=== PATIENT | female | born 1955 | race Caucasian/White ===

== ENCOUNTER 2018-06-11 11:26 | Inpatient (IN) ==
--- NOTE | 2018-06-11 12:52 | XR ---
EXAM DATE: 06/11/2018 12:49 PM EDT AGE/SEX: 63 years / Female INDICATIONS: Pain and soft tissue swelling from hitting foot against door. CLINICAL DATA: This is the patient's initial encounter. Patient reports that signs and symptoms have been present for 4 - 6 days and indicates a pain score of 10/10. MEDICAL/SURGICAL HISTORY: None. None. COMPARISON: No prior exams available for comparison. FINDINGS: Bony structures are intact and in normal alignment. Osseous density is normal. Soft tissues are unre markable. No radiopaque foreign bodies seen. CONCLUSION: Negative examination Electronically signed by: Lucero Landaverde MD 06/11/2018 12:50 PM EDT
[2018-06-11 13:13] LABS: Baso # (Auto) 0.1 th/mm3 (0.0-0.2); Baso % (Auto) 0.5 % (0.0-2.0); Eos # (Auto) 0.2 th/mm3 (0.0-0.4); Hematocrit 30.7 % (35.0-46.0); Lymph # (Auto) 1.8 th/mm3 (1.0-4.8); Lymph % (Auto) 11.3 % (9.0-44.0); Mean Corpuscular HGB Conc 32.5 % (32.0-36.0); Mean Corpuscular Hemoglobin 27.7 pg (27.0-34.0); Mean Corpuscular Volume 85.2 fL (80.0-100.0); Mono # (Auto) 0.8 th/mm3 (0.0-0.9); Mono % (Auto) 5.2 % (0.0-8.0); Platelet Count 340 th/mm3 (150-450); Red Blood Count 3.61 mil/mm3 (4.00-5.30); Red Cell Distribution Width 14.5 % (11.6-17.2); White Blood Count 15.9 th/mm3 (4.0-11.0)
--- NOTE | 2018-06-11 13:29 | ED ---
HPI General Chief Complaint: Extremity Injury, Lower Stated Complaint: Left foot complaint Time Seen by Provider: 06/11/18 12:38 Source: patient Mode of arrival: ambulatory Limitations: no limitations History of Present Illness HPI Narrative: 63-year-old female with a history of diabetes, hypertension, COPD , CKD, fibromyalgia here with left foot pain 1 week. Currently on antibiotics for cellulitis of the foot. She reports she injured the foot approximately 1 month ago after she contused the foot on a door. She was treated for cellulitis 06/03/18. She reports increasing pain and redness for the last week. Today she had an area of purulent drainage to the dorsum of the foot prompting her visit. She reports chills, but no documented fever. Severity is moderate. Related Data Home Medications Medication Instructions Recorded Confirmed aspirin 81 mg PO DAILY 06/03/18 06/03/18 buspirone 10 mg PO TID 06/03/18 06/03/18 calcium acetate 667 mg PO TID 06/03/18 06/03/18 cholecalciferol (vitamin D3) 5,000 unit PO DAILY 06/03/18 06/03/18 [Vitamin D3] duloxetine [Cymbalta] 60 mg PO DAILY 06/03/18 06/03/18 gabapentin 300 mg PO BID 06/03/18 06/03/18 gabapentin 600 mg PO HS 06/03/18 06/03/18 levothyroxine 175 mcg PO DAILY 06/03/18 06/11/18 lisinopril 2.5 mg PO DAILY 06/03/18 06/11/18 melatonin 3 mg PO HS 06/03/18 06/11/18 meloxicam [Mobic] 15 mg PO DAILY 06/03/18 06/11/18 omeprazole 40 mg PO DAILY 06/03/18 06/11/18 oxybutynin chloride 10 mg PO BID 06/03/18 06/11/18 simvastatin 20 mg PO QPM 06/03/18 06/11/18 aspirin [Aspir-81] 81 mg PO DAILY 06/11/18 06/11/18 buspirone 10 mg PO TID 06/11/18 06/11/18 duloxetine 60 mg PO DAILY 06/11/18 06/11/18 gabapentin 1 tab PO TID 06/11/18 06/11/18 insulin glargine [Lantus U-100 30 unit SUB-Q BID 06/11/18 06/11/18 Insulin] insulin lispro [Humalog U-100 06/11/18 Insulin] Previous Rx's Medication Instructions Recorded oxycodone-acetaminophen 1 tab PO Q6H PRN #28 tab 06/17/18 Allergies Allergy/AdvReac Type Severity Reaction Status Date / Time penicillin G Allergy Severe Hives Verified 06/11/18 12:19 Sulfa (Sulfonamide Allergy Hives Verified 06/11/18 12:19 Antibiotics) Review of Systems ROS: all other systems reviewed are negative [facility] Medical History Medical History CHF (congestive heart failure) (Acute) COPD (chronic obstructive pulmonary disease) (Acute) Depression (Acute) Diabetes (Acute) FH: cholecystectomy (Acute) Fibromyalgia (Acute) Hypercholesteremia (Acute) Hypertension (Acute) Hypothyroid (Acute) Surgical History Surgical History History of (Acute) History of appendectomy (Acute) History of hip replacement (Acute) Family History Family History Mother Kidney disease Father Liver disease Social History Social History Substance History: No History of Abuse Second Hand Smoke Exposure: No Smoking Status: Never smoker How Often Do You Have a Drink Containing Alcohol: Never Recent Travel in [facility] within the Last 8 Weeks: No Recent Out of Country Travel within the Last 8 Weeks: No Immunization History Tetanus Immunization: Unsure Exam Narrative Exam Narrative: GENERAL: Well-nourished, well-developed patient. SKIN: Focused skin assessment warm/dry. HEAD: Normocephalic. EYES: No injection or drainage. NECK: Supple CARDIOVASCULAR: Regular rate and rhythm without murmurs, gallops, or rubs. RESPIRATORY: Breath sounds equal bilaterally. No accessory muscle use. GASTROINTESTINAL: Abdomen soft, non-tender, nondistended. MUSCULOSKELETAL: No cyanosis. LLE: Notable edema, warmth, erythema to the entire dorsum of the foot extending to the ankle. Fluid-filled blister with purulent drainage noted to the base of the third and fourth toe. paplable DP pulse. Cap refill intact. sensation intact. BACK: No CVA tenderness. Course Initial Documented Vital Signs Temperature 99.3 F 06/11/18 11:34 Pulse Rate 100 H 06/11/18 11:34 Respiratory Rate 24 06/11/18 11:34 Blood Pressure 136/82 06/11/18 11:34 Pulse Oximetry 90 L 06/11/18 11:34 Last Documented Vital Signs Temperature 97.2 F L 06/17/18 16:00 Pulse Rate 70 06/17/18 16:00 Respiratory Rate 19 06/17/18 16:00 Blood Pressure 159/68 H 06/17/18 16:00 Pulse Oximetry 98 06/17/18 16:00 Medical Decision Making PABLO Attestation PABLO supervised visit: Yes Attestation: I, Dr. Jim, have reviewed the advance practice practitioner's documentation and am in agreement, met with the patient face to face, made the diagnosis, and the medical decision making was done by me. *My assessment and Findings: cellulitis vs. osteomyelitis vs. abscess 63yo F with erythema and edema in left foot extending to distal tib/fib for a week. Pt has purulent drainage from blister on dorsum of foot. Labs reviewed, leukocytosis at 15.9. H/H low at 10/30.7 but this is at baseline. potassium at high normal of 5.4. Lactic acid normal at 1.3. Xray left foot negative. Pt failed outpatient treatment and has multiple comorbidities including diabetes as well as purulent discharge from foot, so will admit for IV antibiotics and podiatry evaluation. Accepted to Dr. Nick's service. [facility] Narrative Medical decision making narrative: 63 year old female with extensive cellulitis to the left foot. She has failed outpatient treatment. Spoke with Dr. Nick [facility] who agrees to admit patient to their service. Medical Screen Exam Complete: Yes Emergency Medical Condition: Yes Differential Diagnosis Differential Diagnosis: cellulitis, abscess, osteomyelitis Lab Data Result diagrams: 06/14/18 06:04 06/17/18 06:40 Lab Results 06/11/18 06/11/18 06/11/18 Range/Units 13:00 13:00 13:00 WBC 15.9 H (4.0-11.0) th/mm3 RBC 3.61 L (4.00-5.30) mil/mm3 Hgb 10.0 L (11.6-15.3) gm/dL Hct 30.7 L (35.0-46.0) % MCV 85.2 (80.0-100.0) fL MCH 27.7 (27.0-34.0) pg MCHC 32.5 (32.0-36.0) % RDW 14.5 (11.6-17.2) % Plt Count 340 (150-450) th/mm3 MPV 8.0 (7.0-11.0) fL Prelim Diff (Auto) Slide review pending Neut % (Auto) 82.0 H (16.0-70.0) % Lymph % (Auto) 11.3 (9.0-44.0) % [place] % (Auto) 5.2 (0.0-8.0) % Eos % (Auto) 1.0 (0.0-4.0) % Baso % (Auto) 0.5 (0.0-2.0) % Neut # (Auto) 13.0 H (1.8-7.7) th/mm3 Lymph # (Auto) 1.8 (1.0-4.8) th/mm3 [place] # (Auto) 0.8 (0.0-0.9) th/mm3 Eos # (Auto) 0.2 (0.0-0.4) th/mm3 Baso # (Auto) 0.1 (0.0-0.2) th/mm3 WBC Differential . Diff Scan Auto diff confirmed Differential Comment . Sodium 137 (136-145) meq/L Potassium 5.4 H (3.5-5.1) meq/L Chloride 96 L (98-107) meq/L Carbon Dioxide 35.9 H (21.0-32.0) meq/L Anion Gap 5 (5-15) meq/L BUN 19 H (7-18) mg/dL Creatinine 1.22 H (0.50-1.00) mg/dL Estimated GFR 45 L (>89) mL/min POC Glucose (68-110) mg/dl Random Glucose 177 H (74-106) mg/dL Lactic Acid 1.3 (0.4-2.0) mmol/L Calcium 9.2 (8.5-10.1) mg/dL Total Bilirubin (0.2-1.0) mg/dL AST (15-37) U/L ALT (10-53) U/L Alkaline Phosphatase (45-117) U/L Troponin I (0.02-0.05) ng/mL Total Protein (6.4-8.2) g/dL Albumin (3.4-5.0) g/dL Vancomycin Trough (5.0-10.0) mcg/mL Random Vancomycin Comment 06/11/18 06/12/18 06/12/18 Range/Units 21:28 06:36 06:36 WBC 11.3 H (4.0-11.0) th/mm3 RBC 3.67 L (4.00-5.30) mil/mm3 Hgb 10.1 L (11.6-15.3) gm/dL Hct 30.7 L (35.0-46.0) % MCV 83.8 (80.0-100.0) fL MCH 27.6 (27.0-34.0) pg MCHC 33.0 (32.0-36.0) % RDW 14.4 (11.6-17.2) % Plt Count 283 (150-450) th/mm3 MPV 7.8 (7.0-11.0) fL Prelim Diff (Auto) Neut % (Auto) 82.5 H (16.0-70.0) % Lymph % (Auto) 10.6 (9.0-44.0) % [place] % (Auto) 5.3 (0.0-8.0) % Eos % (Auto) 1.1 (0.0-4.0) % Baso % (Auto) 0.5 (0.0-2.0) % Neut # (Auto) 9.3 H (1.8-7.7) th/mm3 Lymph # (Auto) 1.2 (1.0-4.8) th/mm3 [place] # (Auto) 0.6 (0.0-0.9) th/mm3 Eos # (Auto) 0.1 (0.0-0.4) th/mm3 Baso # (Auto) 0.1 (0.0-0.2) th/mm3 WBC Differential . Diff Scan Differential Comment Auto diff final Sodium 136 (136-145) meq/L Potassium 4.3 D (3.5-5.1) meq/L Chloride 95 L (98-107) meq/L Carbon Dioxide 35.7 H (21.0-32.0) meq/L Anion Gap 5 (5-15) meq/L BUN 21 H (7-18) mg/dL Creatinine 1.24 H (0.50-1.00) mg/dL Estimated GFR 44 L (>89) mL/min POC Glucose 335 H (68-110) mg/dl Random Glucose 121 H (74-106) mg/dL Lactic Acid (0.4-2.0) mmol/L Calcium 9.0 (8.5-10.1) mg/dL Total Bilirubin 0.4 (0.2-1.0) mg/dL AST 12 L (15-37) U/L ALT 12 (10-53) U/L Alkaline Phosphatase 77 (45-117) U/L Troponin I (0.02-0.05) ng/mL Total Protein 7.9 (6.4-8.2) g/dL Albumin 2.8 L (3.4-5.0) g/dL Vancomycin Trough (5.0-10.0) mcg/mL Random Vancomycin Comment 06/12/18 06/12/18 06/12/18 Range/Units 07:54 12:07 14:37 WBC (4.0-11.0) th/mm3 RBC (4.00-5.30) mil/mm3 Hgb (11.6-15.3) gm/dL Hct (35.0-46.0) % MCV (80.0-100.0) fL MCH (27.0-34.0) pg MCHC (32.0-36.0) % RDW (11.6-17.2) % Plt Count (150-450) th/mm3 MPV (7.0-11.0) fL Prelim Diff (Auto) Neut % (Auto) (16.0-70.0) % Lymph % (Auto) (9.0-44.0) % [place] % (Auto) (0.0-8.0) % Eos % (Auto) (0.0-4.0) % Baso % (Auto) (0.0-2.0) % Neut # (Auto) (1.8-7.7) th/mm3 Lymph # (Auto) (1.0-4.8) th/mm3 [place] # (Auto) (0.0-0.9) th/mm3 Eos # (Auto) (0.0-0.4) th/mm3 Baso # (Auto) (0.0-0.2) th/mm3 WBC Differential Diff Scan Differential Comment Sodium (136-145) meq/L Potassium (3.5-5.1) meq/L Chloride (98-107) meq/L Carbon Dioxide (21.0-32.0) meq/L Anion Gap (5-15) meq/L BUN (7-18) mg/dL Creatinine (0.50-1.00) mg/dL Estimated GFR (>89) mL/min POC Glucose 113 H 104 (68-110) mg/dl Random Glucose (74-106) mg/dL Lactic Acid (0.4-2.0) mmol/L Calcium (8.5-10.1) mg/dL Total Bilirubin (0.2-1.0) mg/dL AST (15-37) U/L ALT (10-53) U/L Alkaline Phosphatase (45-117) U/L Troponin I (0.02-0.05) ng/mL Total Protein (6.4-8.2) g/dL Albumin (3.4-5.0) g/dL Vancomycin Trough (5.0-10.0) mcg/mL Random Vancomycin 14.9 Comment 06/12/18 06/12/18 06/13/18 Range/Units 18:06 20:58 07:31 WBC (4.0-11.0) th/mm3 RBC (4.00-5.30) mil/mm3 Hgb (11.6-15.3) gm/dL Hct (35.0-46.0) % MCV (80.0-100.0) fL MCH (27.0-34.0) pg MCHC (32.0-36.0) % RDW (11.6-17.2) % Plt Count (150-450) th/mm3 MPV (7.0-11.0) fL Prelim Diff (Auto) Neut % (Auto) (16.0-70.0) % Lymph % (Auto) (9.0-44.0) % [place] % (Auto) (0.0-8.0) % Eos % (Auto) (0.0-4.0) % Baso % (Auto) (0.0-2.0) % Neut # (Auto) (1.8-7.7) th/mm3 Lymph # (Auto) (1.0-4.8) th/mm3 [place] # (Auto) (0.0-0.9) th/mm3 Eos # (Auto) (0.0-0.4) th/mm3 Baso # (Auto) (0.0-0.2) th/mm3 WBC Differential Diff Scan Differential Comment Sodium (136-145) meq/L Potassium (3.5-5.1) meq/L Chloride (98-107) meq/L Carbon Dioxide (21.0-32.0) meq/L Anion Gap (5-15) meq/L BUN (7-18) mg/dL Creatinine (0.50-1.00) mg/dL Estimated GFR (>89) mL/min POC Glucose 105 237 H 59 L (68-110) mg/dl Random Glucose (74-106) mg/dL Lactic Acid (0.4-2.0) mmol/L Calcium (8.5-10.1) mg/dL Total Bilirubin (0.2-1.0) mg/dL AST (15-37) U/L ALT (10-53) U/L Alkaline Phosphatase (45-117) U/L Troponin I (0.02-0.05) ng/mL Total Protein (6.4-8.2) g/dL Albumin (3.4-5.0) g/dL Vancomycin Trough (5.0-10.0) mcg/mL Random Vancomycin Comment 06/13/18 06/13/18 06/13/18 Range/Units 07:33 07:55 08:00 WBC (4.0-11.0) th/mm3 RBC (4.00-5.30) mil/mm3 Hgb (11.6-15.3) gm/dL Hct (35.0-46.0) % MCV (80.0-100.0) fL MCH (27.0-34.0) pg MCHC (32.0-36.0) % RDW (11.6-17.2) % Plt Count (150-450) th/mm3 MPV (7.0-11.0) fL Prelim Diff (Auto) Neut % (Auto) (16.0-70.0) % Lymph % (Auto) (9.0-44.0) % [place] % (Auto) (0.0-8.0) % Eos % (Auto) (0.0-4.0) % Baso % (Auto) (0.0-2.0) % Neut # (Auto) (1.8-7.7) th/mm3 Lymph # (Auto) (1.0-4.8) th/mm3 [place] # (Auto) (0.0-0.9) th/mm3 Eos # (Auto) (0.0-0.4) th/mm3 Baso # (Auto) (0.0-0.2) th/mm3 WBC Differential Diff Scan Differential Comment Sodium (136-145) meq/L Potassium (3.5-5.1) meq/L Chloride (98-107) meq/L Carbon Dioxide (21.0-32.0) meq/L Anion Gap (5-15) meq/L BUN (7-18) mg/dL Creatinine 1.53 H (0.50-1.00) mg/dL Estimated GFR 34 L (>89) mL/min POC Glucose 63 L 61 L (68-110) mg/dl Random Glucose (74-106) mg/dL Lactic Acid (0.4-2.0) mmol/L Calcium (8.5-10.1) mg/dL Total Bilirubin (0.2-1.0) mg/dL AST (15-37) U/L ALT (10-53) U/L Alkaline Phosphatase (45-117) U/L Troponin I (0.02-0.05) ng/mL Total Protein (6.4-8.2) g/dL Albumin (3.4-5.0) g/dL Vancomycin Trough (5.0-10.0) mcg/mL Random Vancomycin Comment 06/13/18 06/13/18 06/13/18 Range/Units 08:26 08:43 11:14 WBC (4.0-11.0) th/mm3 RBC (4.00-5.30) mil/mm3 Hgb (11.6-15.3) gm/dL Hct (35.0-46.0) % MCV (80.0-100.0) fL MCH (27.0-34.0) pg MCHC (32.0-36.0) % RDW (11.6-17.2) % Plt Count (150-450) th/mm3 MPV (7.0-11.0) fL Prelim Diff (Auto) Neut % (Auto) (16.0-70.0) % Lymph % (Auto) (9.0-44.0) % [place] % (Auto) (0.0-8.0) % Eos % (Auto) (0.0-4.0) % Baso % (Auto) (0.0-2.0) % Neut # (Auto) (1.8-7.7) th/mm3 Lymph # (Auto) (1.0-4.8) th/mm3 [place] # (Auto) (0.0-0.9) th/mm3 Eos # (Auto) (0.0-0.4) th/mm3 Baso # (Auto) (0.0-0.2) th/mm3 WBC Differential Diff Scan Differential Comment Sodium (136-145) meq/L Potassium (3.5-5.1) meq/L Chloride (98-107) meq/L Carbon Dioxide (21.0-32.0) meq/L Anion Gap (5-15) meq/L BUN (7-18) mg/dL Creatinine (0.50-1.00) mg/dL Estimated GFR (>89) mL/min POC Glucose 60 L 143 H 155 H (68-110) mg/dl Random Glucose (74-106) mg/dL Lactic Acid (0.4-2.0) mmol/L Calcium (8.5-10.1) mg/dL Total Bilirubin (0.2-1.0) mg/dL AST (15-37) U/L ALT (10-53) U/L Alkaline Phosphatase (45-117) U/L Troponin I (0.02-0.05) ng/mL Total Protein (6.4-8.2) g/dL Albumin (3.4-5.0) g/dL Vancomycin Trough (5.0-10.0) mcg/mL Random Vancomycin Comment 06/13/18 06/13/18 06/13/18 Range/Units 16:46 18:25 20:04 WBC (4.0-11.0) th/mm3 RBC (4.00-5.30) mil/mm3 Hgb (11.6-15.3) gm/dL Hct (35.0-46.0) % MCV (80.0-100.0) fL MCH (27.0-34.0) pg MCHC (32.0-36.0) % RDW (11.6-17.2) % Plt Count (150-450) th/mm3 MPV (7.0-11.0) fL Prelim Diff (Auto) Neut % (Auto) (16.0-70.0) % Lymph % (Auto) (9.0-44.0) % [place] % (Auto) (0.0-8.0) % Eos % (Auto) (0.0-4.0) % Baso % (Auto) (0.0-2.0) % Neut # (Auto) (1.8-7.7) th/mm3 Lymph # (Auto) (1.0-4.8) th/mm3 [place] # (Auto) (0.0-0.9) th/mm3 Eos # (Auto) (0.0-0.4) th/mm3 Baso # (Auto) (0.0-0.2) th/mm3 WBC Differential Diff Scan Differential Comment Sodium (136-145) meq/L Potassium (3.5-5.1) meq/L Chloride (98-107) meq/L Carbon Dioxide (21.0-32.0) meq/L Anion Gap (5-15) meq/L BUN (7-18) mg/dL Creatinine (0.50-1.00) mg/dL Estimated GFR (>89) mL/min POC Glucose 132 H 130 H (68-110) mg/dl Random Glucose (74-106) mg/dL Lactic Acid (0.4-2.0) mmol/L Calcium (8.5-10.1) mg/dL Total Bilirubin (0.2-1.0) mg/dL AST (15-37) U/L ALT (10-53) U/L Alkaline Phosphatase (45-117) U/L Troponin I Less than 0.02 L (0.02-0.05) ng/mL Total Protein (6.4-8.2) g/dL Albumin (3.4-5.0) g/dL Vancomycin Trough (5.0-10.0) mcg/mL Random Vancomycin Comment 06/14/18 06/14/18 06/14/18 Range/Units 06:04 06:04 08:13 WBC 7.7 (4.0-11.0) th/mm3 RBC 3.28 L (4.00-5.30) mil/mm3 Hgb 9.2 L (11.6-15.3) gm/dL Hct 27.9 L (35.0-46.0) % MCV 85.0 (80.0-100.0) fL MCH 28.1 (27.0-34.0) pg MCHC 33.0 (32.0-36.0) % RDW 14.4 (11.6-17.2) % Plt Count 266 (150-450) th/mm3 MPV 8.0 (7.0-11.0) fL Prelim Diff (Auto) Neut % (Auto) 76.7 H (16.0-70.0) % Lymph % (Auto) 12.5 (9.0-44.0) % [place] % (Auto) 6.8 (0.0-8.0) % Eos % (Auto) 3.0 (0.0-4.0) % Baso % (Auto) 1.0 (0.0-2.0) % Neut # (Auto) 5.9 (1.8-7.7) th/mm3 Lymph # (Auto) 1.0 (1.0-4.8) th/mm3 [place] # (Auto) 0.5 (0.0-0.9) th/mm3 Eos # (Auto) 0.2 (0.0-0.4) th/mm3 Baso # (Auto) 0.1 (0.0-0.2) th/mm3 WBC Differential . Diff Scan Differential Comment Auto diff final Sodium 134 L (136-145) meq/L Potassium 4.6 (3.5-5.1) meq/L Chloride 93 L (98-107) meq/L Carbon Dioxide 34.2 H (21.0-32.0) meq/L Anion Gap 7 (5-15) meq/L BUN 26 H (7-18) mg/dL Creatinine 1.44 H (0.50-1.00) mg/dL Estimated GFR 37 L (>89) mL/min POC Glucose 249 H (68-110) mg/dl Random Glucose 264 H D (74-106) mg/dL Lactic Acid (0.4-2.0) mmol/L Calcium 8.5 (8.5-10.1) mg/dL Total Bilirubin (0.2-1.0) mg/dL AST (15-37) U/L ALT (10-53) U/L Alkaline Phosphatase (45-117) U/L Troponin I (0.02-0.05) ng/mL Total Protein (6.4-8.2) g/dL Albumin (3.4-5.0) g/dL Vancomycin Trough (5.0-10.0) mcg/mL Random Vancomycin Comment 06/14/18 06/14/18 06/14/18 Range/Units 11:42 14:06 14:36 WBC (4.0-11.0) th/mm3 RBC (4.00-5.30) mil/mm3 Hgb (11.6-15.3) gm/dL Hct (35.0-46.0) % MCV (80.0-100.0) fL MCH (27.0-34.0) pg MCHC (32.0-36.0) % RDW (11.6-17.2) % Plt Count (150-450) th/mm3 MPV (7.0-11.0) fL Prelim Diff (Auto) Neut % (Auto) (16.0-70.0) % Lymph % (Auto) (9.0-44.0) % [place] % (Auto) (0.0-8.0) % Eos % (Auto) (0.0-4.0) % Baso % (Auto) (0.0-2.0) % Neut # (Auto) (1.8-7.7) th/mm3 Lymph # (Auto) (1.0-4.8) th/mm3 [place] # (Auto) (0.0-0.9) th/mm3 Eos # (Auto) (0.0-0.4) th/mm3 Baso # (Auto) (0.0-0.2) th/mm3 WBC Differential Diff Scan Differential Comment Sodium (136-145) meq/L Potassium (3.5-5.1) meq/L Chloride (98-107) meq/L Carbon Dioxide (21.0-32.0) meq/L Anion Gap (5-15) meq/L BUN (7-18) mg/dL Creatinine (0.50-1.00) mg/dL Estimated GFR (>89) mL/min POC Glucose 119 H 71 105 (68-110) mg/dl Random Glucose (74-106) mg/dL Lactic Acid (0.4-2.0) mmol/L Calcium (8.5-10.1) mg/dL Total Bilirubin (0.2-1.0) mg/dL AST (15-37) U/L ALT (10-53) U/L Alkaline Phosphatase (45-117) U/L Troponin I (0.02-0.05) ng/mL Total Protein (6.4-8.2) g/dL Albumin (3.4-5.0) g/dL Vancomycin Trough (5.0-10.0) mcg/mL Random Vancomycin Comment 06/14/18 06/14/18 06/14/18 Range/Units 16:46 18:00 20:56 WBC (4.0-11.0) th/mm3 RBC (4.00-5.30) mil/mm3 Hgb (11.6-15.3) gm/dL Hct (35.0-46.0) % MCV (80.0-100.0) fL MCH (27.0-34.0) pg MCHC (32.0-36.0) % RDW (11.6-17.2) % Plt Count (150-450) th/mm3 MPV (7.0-11.0) fL Prelim Diff (Auto) Neut % (Auto) (16.0-70.0) % Lymph % (Auto) (9.0-44.0) % [place] % (Auto) (0.0-8.0) % Eos % (Auto) (0.0-4.0) % Baso % (Auto) (0.0-2.0) % Neut # (Auto) (1.8-7.7) th/mm3 Lymph # (Auto) (1.0-4.8) th/mm3 [place] # (Auto) (0.0-0.9) th/mm3 Eos # (Auto) (0.0-0.4) th/mm3 Baso # (Auto) (0.0-0.2) th/mm3 WBC Differential Diff Scan Differential Comment Sodium (136-145) meq/L Potassium (3.5-5.1) meq/L Chloride (98-107) meq/L Carbon Dioxide (21.0-32.0) meq/L Anion Gap (5-15) meq/L BUN (7-18) mg/dL Creatinine (0.50-1.00) mg/dL Estimated GFR (>89) mL/min POC Glucose 178 H 253 H (68-110) mg/dl Random Glucose (74-106) mg/dL Lactic Acid (0.4-2.0) mmol/L Calcium (8.5-10.1) mg/dL Total Bilirubin (0.2-1.0) mg/dL AST (15-37) U/L ALT (10-53) U/L Alkaline Phosphatase (45-117) U/L Troponin I (0.02-0.05) ng/mL Total Protein (6.4-8.2) g/dL Albumin (3.4-5.0) g/dL Vancomycin Trough 22.1 H (5.0-10.0) mcg/mL Random Vancomycin Comment 06/15/18 06/15/18 06/15/18 Range/Units 07:34 08:08 11:36 WBC (4.0-11.0) th/mm3 RBC (4.00-5.30) mil/mm3 Hgb (11.6-15.3) gm/dL Hct (35.0-46.0) % MCV (80.0-100.0) fL MCH (27.0-34.0) pg MCHC (32.0-36.0) % RDW (11.6-17.2) % Plt Count (150-450) th/mm3 MPV (7.0-11.0) fL Prelim Diff (Auto) Neut % (Auto) (16.0-70.0) % Lymph % (Auto) (9.0-44.0) % [place] % (Auto) (0.0-8.0) % Eos % (Auto) (0.0-4.0) % Baso % (Auto) (0.0-2.0) % Neut # (Auto) (1.8-7.7) th/mm3 Lymph # (Auto) (1.0-4.8) th/mm3 [place] # (Auto) (0.0-0.9) th/mm3 Eos # (Auto) (0.0-0.4) th/mm3 Baso # (Auto) (0.0-0.2) th/mm3 WBC Differential Diff Scan Differential Comment Sodium 131 L (136-145) meq/L Potassium 5.8 H D (3.5-5.1) meq/L Chloride 94 L (98-107) meq/L Carbon Dioxide 30.8 (21.0-32.0) meq/L Anion Gap 6 (5-15) meq/L BUN 28 H (7-18) mg/dL Creatinine 1.34 H (0.50-1.00) mg/dL Estimated GFR 40 L (>89) mL/min POC Glucose 342 H 188 H (68-110) mg/dl Random Glucose 245 H (74-106) mg/dL Lactic Acid (0.4-2.0) mmol/L Calcium 9.1 (8.5-10.1) mg/dL Total Bilirubin (0.2-1.0) mg/dL AST (15-37) U/L ALT (10-53) U/L Alkaline Phosphatase (45-117) U/L Troponin I (0.02-0.05) ng/mL Total Protein (6.4-8.2) g/dL Albumin (3.4-5.0) g/dL Vancomycin Trough (5.0-10.0) mcg/mL Random Vancomycin Comment 06/15/18 06/15/18 06/16/18 Range/Units 17:15 20:53 07:53 WBC (4.0-11.0) th/mm3 RBC (4.00-5.30) mil/mm3 Hgb (11.6-15.3) gm/dL Hct (35.0-46.0) % MCV (80.0-100.0) fL MCH (27.0-34.0) pg MCHC (32.0-36.0) % RDW (11.6-17.2) % Plt Count (150-450) th/mm3 MPV (7.0-11.0) fL Prelim Diff (Auto) Neut % (Auto) (16.0-70.0) % Lymph % (Auto) (9.0-44.0) % [place] % (Auto) (0.0-8.0) % Eos % (Auto) (0.0-4.0) % Baso % (Auto) (0.0-2.0) % Neut # (Auto) (1.8-7.7) th/mm3 Lymph # (Auto) (1.0-4.8) th/mm3 [place] # (Auto) (0.0-0.9) th/mm3 Eos # (Auto) (0.0-0.4) th/mm3 Baso # (Auto) (0.0-0.2) th/mm3 WBC Differential Diff Scan Differential Comment Sodium (136-145) meq/L Potassium (3.5-5.1) meq/L Chloride (98-107) meq/L Carbon Dioxide (21.0-32.0) meq/L Anion Gap (5-15) meq/L BUN (7-18) mg/dL Creatinine (0.50-1.00) mg/dL Estimated GFR (>89) mL/min POC Glucose 209 H 199 H 223 H (68-110) mg/dl Random Glucose (74-106) mg/dL Lactic Acid (0.4-2.0) mmol/L Calcium (8.5-10.1) mg/dL Total Bilirubin (0.2-1.0) mg/dL AST (15-37) U/L ALT (10-53) U/L Alkaline Phosphatase (45-117) U/L Troponin I (0.02-0.05) ng/mL Total Protein (6.4-8.2) g/dL Albumin (3.4-5.0) g/dL Vancomycin Trough (5.0-10.0) mcg/mL Random Vancomycin Comment 06/16/18 06/16/18 06/16/18 Range/Units 12:09 17:08 17:31 WBC (4.0-11.0) th/mm3 RBC (4.00-5.30) mil/mm3 Hgb (11.6-15.3) gm/dL Hct (35.0-46.0) % MCV (80.0-100.0) fL MCH (27.0-34.0) pg MCHC (32.0-36.0) % RDW (11.6-17.2) % Plt Count (150-450) th/mm3 MPV (7.0-11.0) fL Prelim Diff (Auto) Neut % (Auto) (16.0-70.0) % Lymph % (Auto) (9.0-44.0) % [place] % (Auto) (0.0-8.0) % Eos % (Auto) (0.0-4.0) % Baso % (Auto) (0.0-2.0) % Neut # (Auto) (1.8-7.7) th/mm3 Lymph # (Auto) (1.0-4.8) th/mm3 [place] # (Auto) (0.0-0.9) th/mm3 Eos # (Auto) (0.0-0.4) th/mm3 Baso # (Auto) (0.0-0.2) th/mm3 WBC Differential Diff Scan Differential Comment Sodium (136-145) meq/L Potassium (3.5-5.1) meq/L Chloride (98-107) meq/L Carbon Dioxide (21.0-32.0) meq/L Anion Gap (5-15) meq/L BUN (7-18) mg/dL Creatinine (0.50-1.00) mg/dL Estimated GFR (>89) mL/min POC Glucose 183 H 77 56 L (68-110) mg/dl Random Glucose (74-106) mg/dL Lactic Acid (0.4-2.0) mmol/L Calcium (8.5-10.1) mg/dL Total Bilirubin (0.2-1.0) mg/dL AST (15-37) U/L ALT (10-53) U/L Alkaline Phosphatase (45-117) U/L Troponin I (0.02-0.05) ng/mL Total Protein (6.4-8.2) g/dL Albumin (3.4-5.0) g/dL Vancomycin Trough (5.0-10.0) mcg/mL Random Vancomycin Comment 09/13/18 09/13/18 09/14/18 Range/Units 17:56 20:44 06:40 WBC (4.0-11.0) th/mm3 RBC (4.00-5.30) mil/mm3 Hgb (11.6-15.3) gm/dL Hct (35.0-46.0) % MCV (80.0-100.0) fL MCH (27.0-34.0) pg MCHC (32.0-36.0) % RDW (11.6-17.2) % Plt Count (150-450) th/mm3 MPV (7.0-11.0) fL Prelim Diff (Auto) Neut % (Auto) (16.0-70.0) % Lymph % (Auto) (9.0-44.0) % [place] % (Auto) (0.0-8.0) % Eos % (Auto) (0.0-4.0) % Baso % (Auto) (0.0-2.0) % Neut # (Auto) (1.8-7.7) th/mm3 Lymph # (Auto) (1.0-4.8) th/mm3 [place] # (Auto) (0.0-0.9) th/mm3 Eos # (Auto) (0.0-0.4) th/mm3 Baso # (Auto) (0.0-0.2) th/mm3 WBC Differential Diff Scan Differential Comment Sodium 132 L (136-145) meq/L Potassium 5.7 H (3.5-5.1) meq/L Chloride 92 L (98-107) meq/L Carbon Dioxide 34.0 H (21.0-32.0) meq/L Anion Gap 6 (5-15) meq/L BUN 30 H (7-18) mg/dL Creatinine 1.27 H (0.50-1.00) mg/dL Estimated GFR 42 L (>89) mL/min POC Glucose 106 157 H (68-110) mg/dl Random Glucose 178 H (74-106) mg/dL Lactic Acid (0.4-2.0) mmol/L Calcium 9.4 (8.5-10.1) mg/dL Total Bilirubin (0.2-1.0) mg/dL AST (15-37) U/L ALT (10-53) U/L Alkaline Phosphatase (45-117) U/L Troponin I (0.02-0.05) ng/mL Total Protein (6.4-8.2) g/dL Albumin (3.4-5.0) g/dL Vancomycin Trough (5.0-10.0) mcg/mL Random Vancomycin Comment 06/17/18 06/17/18 Range/Units 07:46 11:21 WBC (4.0-11.0) th/mm3 RBC (4.00-5.30) mil/mm3 Hgb (11.6-15.3) gm/dL Hct (35.0-46.0) % MCV (80.0-100.0) fL MCH (27.0-34.0) pg MCHC (32.0-36.0) % RDW (11.6-17.2) % Plt Count (150-450) th/mm3 MPV (7.0-11.0) fL Prelim Diff (Auto) Neut % (Auto) (16.0-70.0) % Lymph % (Auto) (9.0-44.0) % [place] % (Auto) (0.0-8.0) % Eos % (Auto) (0.0-4.0) % Baso % (Auto) (0.0-2.0) % Neut # (Auto) (1.8-7.7) th/mm3 Lymph # (Auto) (1.0-4.8) th/mm3 [place] # (Auto) (0.0-0.9) th/mm3 Eos # (Auto) (0.0-0.4) th/mm3 Baso # (Auto) (0.0-0.2) th/mm3 WBC Differential Diff Scan Differential Comment Sodium (136-145) meq/L Potassium (3.5-5.1) meq/L Chloride (98-107) meq/L Carbon Dioxide (21.0-32.0) meq/L Anion Gap (5-15) meq/L BUN (7-18) mg/dL Creatinine (0.50-1.00) mg/dL Estimated GFR (>89) mL/min POC Glucose 183 H 155 H (68-110) mg/dl Random Glucose (74-106) mg/dL Lactic Acid (0.4-2.0) mmol/L Calcium (8.5-10.1) mg/dL Total Bilirubin (0.2-1.0) mg/dL AST (15-37) U/L ALT (10-53) U/L Alkaline Phosphatase (45-117) U/L Troponin I (0.02-0.05) ng/mL Total Protein (6.4-8.2) g/dL Albumin (3.4-5.0) g/dL Vancomycin Trough (5.0-10.0) mcg/mL Random Vancomycin Comment Imaging Data Radiologist's impression: Foot X-Ray 06/11/18 00:00 CONCLUSION: Negative examination Foot MRI 06/12/18 00:00 CONCLUSION: 1. There is very impressive edema and enhancement throughout the dorsum of the foot and the soft tissues surrounding the third metatarsal shaft and the third MTP joint. There is bony edema present with the possibility of a septic arthritis of the third MTP joint. There is also fluid along the dorsal aspect of the third toe could be an abscess or possible joint effusion possibly originating from the third MTP joint. The edema and enhancement involves the plantar musculature plantar to the third metatarsal shaft. Extremity Arterial Study 06/13/18 00:00 CONCLUSION: 1. Elevated segmental pressures characteristic of atherosclerotic disease. 2. No evidence of significant arterial insufficiency. Discharge Plan Discharge Disposition Patient Disposition: 30 Still Patient Discharge Condition Condition: Stable Discharge Order Discharge Orders: Discharge Order (Routine); Ordered 06/17/18 Ordered By: Aby Betancourt Discharge Details Diagnosis: Cellulitis, Failure of outpatient treatment Physicians Team ED Provider: Aylin Jim ED Midlevel Provider: Jossie Diaz Primary Care Provider: UNKNOWN, Attending Provider: Aby Betancourt Other Providers: Donaldo Lyle ; Michael Manrique Status ED Status: Left Department Discharge Information Discharge Date/Time: 06/11/18 15:40
[2018-06-11 13:37] LABS: Calcium 9.2 mg/dL (8.5-10.1); Carbon Dioxide 35.9 meq/L (21.0-32.0)
[2018-06-11 13:38] LABS: Potassium 5.4 meq/L (3.5-5.1)
[2018-06-11] MEDS ORDERED: Vancomycin Inj 1 GM/200 ML PIGGYBACK IV.SIG ONE (13:40)
[2018-06-11] MEDS ORDERED: Bisacodyl 10 MG Supp RECTAL PRN (14:12)
[2018-06-11] MEDS ORDERED: Vancomycin Consult Pharmacy OTHER PRN (14:12)
[2018-06-11] MEDS ORDERED: Sodium Polystyrene Sulfonate/Sorbitol Liq 15 GM/60 ML UDC PO ONE (14:20)
[2018-06-11] MEDS ORDERED: Vancomycin Inj 1,000 MG in Sodium Chlor 0.9% Inj 250 ML IV.SIG ONE (15:00)
[2018-06-11] MEDS ORDERED: Dextrose 50% in Water 50 ML Vial IV.PUSH PRN (17:44)
--- NOTE | 2018-06-11 17:53 | P.HPIM ---
History of Present Illness Primary Care Physician: UNKNOWN History of Present Illness: 63-year-old female with a history of diabetes mellitus, COPD, CHF who accidentally hit her left foot on a door 10 days ago presents with a 10 day history of progressively worsening severe nonradiating constant throbbing pain in the left foot, as well as a 2 day history of subjective fevers and chills. Patient presented to ER 7 days ago and was present arrived antibiotics which she says she has not taken because she did not believe this was cellulitis. She is now back due to worsening cellulitis. He denies any chest pain or shortness of breath. Inpatient Certification: I certify that the inpatient services were ordered in accordance with Medicare regulations governing the order. This includes certification that hospital inpatient services are reasonable and necessary and in the case of services not specified as inpatient-only under 42 CFR 419.22(n), that they are appropriately provided as inpatient services in accordance to with the 2-midnight benchmark under 43 CFR 412.3(e) Estimated Total Length of Stay (Days): 3 Plans for Post Hospital Care: Not yet determined Review of Systems All other systems reviewed negative except as stated in HPI PMFSH - History History Provided By: Patient - Medical History Medical History: Medical History (Last Reviewed 06/11/18 @ 13:34 by Jossie Diaz) CHF (congestive heart failure) Depression FH: cholecystectomy Hypothyroid COPD (chronic obstructive pulmonary disease) Diabetes Fibromyalgia Hypercholesteremia Hypertension - Surgical History Surgical History: Surgical History (Last Reviewed 06/11/18 @ 13:34 by Jossie Diaz) History of History of appendectomy History of hip replacement - Family History Family History: Family History (Last Updated 06/11/18 @ 17:44 by Hal Nick MD) Mother Kidney disease Father Liver disease - Tobacco History Second Hand Smoke Exposure: No Smoking Status: Former smoker - Alcohol History How Often Do You Have a Drink Containing Alcohol: Never - Substance Use History Substance History: No History of Abuse - Travel History Recent Travel in the [place] Within the Last 8 Weeks: No Recent Travel Out of the Country Within the Last 8 Weeks: No - Immunization History Tetanus Immunization: Unsure Medications and Allergies Active Medications: Active Medications Al Hydroxide/Mg Hydroxide (Milk Of Magnesia Liq) 30 ml PO Q12H PRN PRN Reason: Mild Constipation Bisacodyl (Dulcolax Supp) 10 mg RECTAL DAILY PRN PRN Reason: SEVERE CONSITIPATION Metronidazole/Sodium Chloride (Flagyl 500 Mg Inj) 100 mls @ 100 mls/hr IV.SIG Q8H [facility] Last Admin: 06/11/18 17:14 Dose: 100 mls/hr Cefepime HCl 2,000 mg/ Sodium (Chloride) 100 mls @ 200 mls/hr IV.SIG Q8H [facility] Vancomycin HCl 1,500 mg/ (Sodium Chloride) 515 mls @ 250 mls/hr IV.SIG ONCE ONE Stop: 06/11/18 20:03 Lactulose (Lactulose Liq) 30 ml PO DAILY PRN PRN Reason: SEVERE CONSITIPATION Pharmacy Profile Note (Vancomycin Consult Pharmacy) 1 each OTHER UNSCH PRN PRN Reason: Pharmacy to dose Sennosides (Senokot) 17.2 mg PO Q12H PRN PRN Reason: Moderate Constipation Allergies Allergy/AdvReac Type Severity Reaction Status Date / Time penicillin G Allergy Severe Hives Verified 06/11/18 12:19 Sulfa (Sulfonamide Allergy Hives Verified 06/11/18 12:19 Antibiotics) Home Medications Medication Instructions Recorded Confirmed Type aspirin 81 mg PO DAILY 06/03/18 06/03/18 History buspirone 10 mg PO TID 06/03/18 06/03/18 History calcium acetate 667 mg PO TID 06/03/18 06/03/18 History cholecalciferol (vitamin D3) 5,000 unit PO DAILY 06/03/18 06/03/18 History [Vitamin D3] duloxetine [Cymbalta] 60 mg PO DAILY 06/03/18 06/03/18 History gabapentin 300 mg PO BID 06/03/18 06/03/18 History gabapentin 600 mg PO HS 06/03/18 06/03/18 History levothyroxine 175 mcg PO DAILY 06/03/18 06/11/18 History lisinopril 2.5 mg PO DAILY 06/03/18 06/11/18 History melatonin 3 mg PO HS 06/03/18 06/11/18 History meloxicam [Mobic] 15 mg PO DAILY 06/03/18 06/11/18 History omeprazole 40 mg PO DAILY 06/03/18 06/11/18 History oxybutynin chloride 10 mg PO BID 06/03/18 06/11/18 History simvastatin 20 mg PO QPM 06/03/18 06/11/18 History aspirin [Aspir-81] 81 mg PO DAILY 06/11/18 06/11/18 History buspirone 10 mg PO TID 06/11/18 06/11/18 History duloxetine 60 mg PO DAILY 06/11/18 06/11/18 History gabapentin 1 tab PO TID 06/11/18 06/11/18 History insulin glargine [Lantus U-100 30 unit SUB-Q BID 06/11/18 06/11/18 History Insulin] insulin lispro [Humalog U-100 06/11/18 History Insulin] Exam Vital signs: Vital Signs 06/11/18 11:34 06/11/18 11:40 06/11/18 15:19 Temperature 99.3 F 99.7 F H 98.6 F Pulse Rate 100 H 87 71 Respiratory Rate 24 24 18 Blood Pressure 136/82 139/61 140/63 Pulse Oximetry 90 L 98 100 Intake & Output 06/10/18 06/11/18 06/11/18 18:59 06:59 18:59 Weight 131 kg Narrative: GENERAL: Patient sitting up in bed. Appears uncomfortable. Alert and oriented 4. SKIN: Warm and dry. HEAD: Atraumatic. Normocephalic. EYES: Pupils equal and round. No scleral icterus. No injection or drainage. ENT: No nasal bleeding or discharge. Mucous membranes pink and moist. NECK: Trachea midline. No JVD. CARDIOVASCULAR: Regular rate and rhythm. RESPIRATORY: No accessory muscle use. Clear to auscultation. Breath sounds equal bilaterally. GASTROINTESTINAL: Abdomen soft, non-tender, nondistended. Hepatic and splenic margins not palpable. MUSCULOSKELETAL: Extremities without clubbing, cyanosis. Trace bilateral lower extremity edema. Left foot with erythema extending up just beyond ankle. Blistering between first and second toes with serous drainage. No obvious deformities. NEUROLOGICAL: Awake and alert. No obvious cranial nerve deficits. Motor grossly within normal limits. Five out of 5 muscle strength in the arms and legs. Normal speech. PSYCHIATRIC: Appropriate mood and affect; insight and judgment normal. Results - Labs CBC & Chem 7: 06/11/18 13:00 06/11/18 13:00 Labs: Short CBC 06/11/18 Range/Units 13:00 WBC 15.9 H (4.0-11.0) th/mm3 Hgb 10.0 L (11.6-15.3) gm/dL Hct 30.7 L (35.0-46.0) % Plt Count 340 (150-450) th/mm3 BMP 06/11/18 13:00 Sodium 137 Potassium 5.4 H Chloride 96 L Carbon Dioxide 35.9 H BUN 19 H Creatinine 1.22 H Calcium 9.2 - Imaging Impressions Foot X-Ray 06/11/18 00:00 CONCLUSION: Negative examination Caprini VTE Risk Assessment Caprini VTE Risk Assessment: Moderate/High Risk (score >= 2) Caprini Risk Assessment Model: Point Value = 1 Point Value = 2 Point Value = 3 Point Value = 5 Age 41-60 Minor surgery BMI > 25 kg/m2 Swollen legs Varicose veins or History of unexplained or recurrent spontaneous Oral contraceptives or hormone replacement Sepsis (< 1 month) Serious lung disease, including pneumonia (< 1 month) Abnormal pulmonary function Acute myocardial infarction Congestive heart failure (< 1 month) History of inflammatory bowel disease Medical patient at bed rest Age 61-74 Arthroscopic surgery Major open surgery (> 45 min) Laparoscopic surgery (> 45 min) Malignancy Confined to bed (> 72 hours) Immobilizing plaster cast Central venous access Age >= 75 History of VTE Family history of VTE Factor V Leiden Prothrombin [id number] Lupus anticoagulant Anticardiolipin antibodies Elevated serum homocysteine Heparin-induced thrombocytopenia Other congenital or acquired thrombophilia Stroke (< 1 month) Elective arthroplasty Hip, pelvis, or leg fracture Acute spinal cord injury (< 1 month) Prophylaxis Regimen: Total Risk Factor Score Risk Level Prophylaxis Regimen 0-1 Low Early ambulation 2 Moderate Order ONE of the following: *Sequential Compression Device (SCD) *Heparin 5000 units SQ BID 3-4 Higher Order ONE of the following medications: *Heparin 5000 units SQ TID *Enoxaparin/Lovenox 40 mg SQ daily (WT < 150 kg, CrCl > 30 mL/min) *Enoxaparin/Lovenox 30 mg SQ daily (WT < 150 kg, CrCl > 10-29 mL/min) *Enoxaparin/Lovenox 30 mg SQ BID (WT < 150 kg, CrCl > 30 mL/min) AND/OR *Sequential Compression Device (SCD) 5 or more Highest Order ONE of the following medications: *Heparin 5000 units SQ TID (Preferred with Epidurals) *Enoxaparin/Lovenox 40 mg SQ daily (WT < 150 kg, CrCl > 30 mL/min) *Enoxaparin/Lovenox 30 mg SQ daily (WT < 150 kg, CrCl > 10-29 mL/min) *Enoxaparin/Lovenox 30 mg SQ BID (WT < 150 kg, CrCl > 30 mL/min) AND *Sequential Compression Device (SCD) Assessment and Plan - Plan //Acute left foot diabetic cellulitis //Leukocytosis. 15 on admission -X-ray foot negative for acute process. There is blistering in between first and second toes on exam, market erythema. -Failure of outpatient treatment We will administer broad-spectrum IV antibiotics for suspected bacterial infection. Cefepime for antipseudomonal and gram-negative coverage, Flagyl for anaerobic coverage and vancomycin for gram-positive and MRSA coverage. Wound, and apparently blood cultures pending. Follow-up results. Podiatry will be consulted. Appreciate assistance. //Hyperkalemia. Potassium 5.4. Kayexalate administered. Recheck tomorrow. //Diabetes mellitus. Chronic. -Continue on long-acting as well as sliding scale insulin. Diabetic diet. Monitor sugars. //History of CHF. Some mild patient does not appear to be on CHF meds. Wait for full verification of home meds. Will request records from primary care physician. Appears euvolemic currently. Monitor fluid status closely. //GERD. Chronic. Continue home meds. //Hypertension. Chronic. Blood pressure acceptable. Continue home meds. //Hyperlipidemia. Chronic. Continue home meds. //Overactive bladder. Chronic. Avoid oxybutynin in the hospital. //Hypothyroidism. Chronic. Continue home meds. //Chronic diabetic neuropathy. Continue gabapentin. //Depression. Chronic. No SI. Continue fluoxetine. Discussed Condition With: Patient, nurse, ED physician.
[2018-06-11] MEDS ORDERED: Vancomycin Inj 1,500 MG in Sodium Chlor 0.9% Inj 500 ML IV.SIG ONE (18:00)
[2018-06-11] MEDS: Gabapentin 300 MG Capsule PO SCH (18:41)
[2018-06-11] MEDS: Melatonin 5 MG Tablet PO SCH (21:26)
[2018-06-11] MEDS: Insulin NovoLOG Aspart Correctional Sugar Inj SQ SCH (21:29)
[2018-06-11] MEDS: Insulin Detemir Inj 1,000 UNIT/10 ML Vial SQ SCH (21:29)
[2018-06-12] MEDS: Levothyroxine 150 MCG Tablet PO SCH (05:31)
[2018-06-12 07:01] LABS: Baso # (Auto) 0.1 th/mm3 (0.0-0.2); Baso % (Auto) 0.5 % (0.0-2.0); Eos # (Auto) 0.1 th/mm3 (0.0-0.4); Eos % (Auto) 1.1 % (0.0-4.0); Hematocrit 30.7 % (35.0-46.0); Hemoglobin 10.1 gm/dL (11.6-15.3); Lymph # (Auto) 1.2 th/mm3 (1.0-4.8); Lymph % (Auto) 10.6 % (9.0-44.0); Mean Corpuscular Hemoglobin 27.6 pg (27.0-34.0); Mean Corpuscular Volume 83.8 fL (80.0-100.0); Mean Platelet Volume 7.8 fL (7.0-11.0); Mono # (Auto) 0.6 th/mm3 (0.0-0.9); Mono % (Auto) 5.3 % (0.0-8.0); Neut # (Auto) 9.3 th/mm3 (1.8-7.7); Neut % (Auto) 82.5 % (16.0-70.0); Platelet Count 283 th/mm3 (150-450); Red Blood Count 3.67 mil/mm3 (4.00-5.30); Red Cell Distribution Width 14.4 % (11.6-17.2); White Blood Count 11.3 th/mm3 (4.0-11.0)
[2018-06-12 07:41] LABS: Alanine Aminotransferase 12 U/L (10-53); Albumin 2.8 g/dL (3.4-5.0); Alkaline Phosphatase 77 U/L (45-117); Anion Gap 5 meq/L (5-15); Aspartate Aminotransferase 12 U/L (15-37); Blood Urea Nitrogen 21 mg/dL (7-18); Carbon Dioxide 35.7 meq/L (21.0-32.0); Chloride 95 meq/L (98-107); Glomerular Filtration Rate 44 mL/min (>89); Glucose,Random 121 mg/dL (74-106); Potassium 4.3 meq/L (3.5-5.1); Sodium 136 meq/L (136-145); Total Protein 7.9 g/dL (6.4-8.2)
[2018-06-12] MEDS: Lisinopril 5 MG Tablet PO SCH (08:02)
[2018-06-12] MEDS: Gabapentin 300 MG Capsule PO SCH ×3 (08:03→17:50)
[2018-06-12] MEDS: Insulin Detemir Inj 1,000 UNIT/10 ML Vial SQ SCH ×2 (08:03→21:03)
[2018-06-12] MEDS: Insulin NovoLOG Aspart Correctional Sugar Inj SQ SCH ×4 (08:04→21:08)
[2018-06-12] MEDS ORDERED: Duloxetine 60 MG DR Capsule PO SCH (09:00)
--- NOTE | 2018-06-12 11:41 | P.CONPOD ---
History of Present Illness Service: Podiatry Consult date: 06/12/18 Reason for Consult: Left foot infection, old injury Primary Care Provider: UNKNOWN History of Present Illness: 63-year-old female with increasing left foot pain 1 week. Currently on antibiotics for cellulitis of the foot. She injured the foot approximately 1 month ago after she hit it on a door. She was then treated for cellulitis , but has had increasing pain and redness for the past week and developed an area on top of the foot with drainage Review of Systems All other systems reviewed negative except as stated in HPI PMFSH - History History Provided By: Patient - Medical History Medical History: Medical History (Last Reviewed 06/11/18 @ 13:34 by Jossie Diaz) CHF (congestive heart failure) Depression FH: cholecystectomy Hypothyroid COPD (chronic obstructive pulmonary disease) Diabetes Fibromyalgia Hypercholesteremia Hypertension - Surgical History Surgical History: Surgical History (Last Reviewed 06/11/18 @ 13:34 by Jossie Diaz) History of History of appendectomy History of hip replacement - Family History Family History: Family History (Last Updated 06/11/18 @ 17:44 by Hal Nick MD) Mother Kidney disease Father Liver disease - Tobacco History Second Hand Smoke Exposure: No Smoking Status: Never smoker - Alcohol History How Often Do You Have a Drink Containing Alcohol: Never - Substance Use History Substance History: No History of Abuse - Travel History Recent Travel in the [place] Within the Last 8 Weeks: No Recent Travel Out of the Country Within the Last 8 Weeks: No - Immunization History Tetanus Immunization: Unsure Hx Influenza Vaccine This Season: No Medications and Allergies Active Medications: Active Medications Al Hydroxide/Mg Hydroxide (Milk Of Colby Vega) 30 ml PO Q12H PRN PRN Reason: Mild Constipation Albuterol (Duoneb Neb (Prn)) 1 ampul NEB Q2HR NEB PRN PRN Reason: SHORTNESS OF BREATH/WHEEZING Aspirin (Ecotrin) 81 mg PO DAILY [facility] Last Admin: 06/12/18 08:03 Dose: 81 mg Bisacodyl (Dulcolax Supp) 10 mg RECTAL DAILY PRN PRN Reason: SEVERE CONSITIPATION Buspirone HCl (Buspar) 10 mg PO TID [facility] Last Admin: 06/12/18 08:03 Dose: 10 mg Dextrose (D50w Vial) 50 ml IV.PUSH UNSCH PRN PRN Reason: PER HYPOGLYCEMIA PROTOCOL Duloxetine HCl (Cymbalta) 60 mg PO [facility] Gabapentin (Neurontin) 300 mg PO TID [facility] Last Admin: 06/12/18 08:03 Dose: 300 mg Glucagon (Glucagon Inj) 1 mg OTHER PRN PRN PRN Reason: for Hypoglycemia Protocol Metronidazole/Sodium Chloride (Flagyl 500 Mg Inj) 100 mls @ 100 mls/hr IV.SIG Q8H [facility] Last Admin: 06/12/18 08:13 Dose: 100 mls/hr Cefepime HCl 2,000 mg/ Sodium (Chloride) 100 mls @ 200 mls/hr IV.SIG Q8H [facility] Last Admin: 06/12/18 07:59 Dose: 200 mls/hr Insulin Aspart (Novolog Insulin Correctional Sugar Inj) 0 unit SQ ACHS [facility]; Protocol Last Admin: 06/12/18 08:04 Dose: Not Given Insulin Detemir (Levemir Inj) 30 unit SQ BID [facility] Last Admin: 06/12/18 08:03 Dose: 30 unit Lactulose (Lactulose Liq) 30 ml PO DAILY PRN PRN Reason: SEVERE CONSITIPATION Levothyroxine Sodium (Synthroid) 150 mcg PO DAILY@0600 [facility] Last Admin: 06/12/18 05:31 Dose: 150 mcg Levothyroxine Sodium (Synthroid) 25 mcg PO DAILY@0600 [facility] Last Admin: 06/12/18 05:30 Dose: 25 mcg Lisinopril (Prinivil) 2.5 mg PO DAILY [facility] Last Admin: 06/12/18 08:02 Dose: 2.5 mg Melatonin (Melatonin) 5 mg PO [facility] Last Admin: 06/11/18 21:26 Dose: 5 mg Miscellaneous (Pill Splitter) 1 each OTHER UNSCH PRN PRN Reason: PILL SPIT Ondansetron HCl (Zofran Inj) 4 mg IV.PUSH Q6H PRN PRN Reason: NAUSEA OR VOMITING Last Admin: 06/12/18 09:57 Dose: 4 mg Oxybutynin Chloride (Ditropan) 10 mg PO BID [facility] Pantoprazole Sodium (Protonix) 40 mg PO DAILY [facility] Last Admin: 06/12/18 08:03 Dose: 40 mg Pharmacy Profile Note (Vancomycin Consult Pharmacy) 1 each OTHER UNSCH PRN PRN Reason: Pharmacy to dose Pravastatin Sodium (Pravachol) 40 mg PO [facility] Last Admin: 06/11/18 21:13 Dose: 40 mg Sennosides (Senokot) 17.2 mg PO Q12H PRN PRN Reason: Moderate Constipation Allergies Allergy/AdvReac Type Severity Reaction Status Date / Time penicillin G Allergy Severe Hives Verified 06/11/18 12:19 Sulfa (Sulfonamide Allergy Hives Verified 06/11/18 12:19 Antibiotics) Home Medications Medication Instructions Recorded Confirmed Type aspirin 81 mg PO DAILY 06/03/18 06/03/18 History buspirone 10 mg PO TID 06/03/18 06/03/18 History calcium acetate 667 mg PO TID 06/03/18 06/03/18 History cholecalciferol (vitamin D3) 5,000 unit PO DAILY 06/03/18 06/03/18 History [Vitamin D3] duloxetine [Cymbalta] 60 mg PO DAILY 06/03/18 06/03/18 History gabapentin 300 mg PO BID 06/03/18 06/03/18 History gabapentin 600 mg PO HS 06/03/18 06/03/18 History levothyroxine 175 mcg PO DAILY 06/03/18 06/11/18 History lisinopril 2.5 mg PO DAILY 06/03/18 06/11/18 History melatonin 3 mg PO HS 06/03/18 06/11/18 History meloxicam [Mobic] 15 mg PO DAILY 06/03/18 06/11/18 History omeprazole 40 mg PO DAILY 06/03/18 06/11/18 History oxybutynin chloride 10 mg PO BID 06/03/18 06/11/18 History simvastatin 20 mg PO QPM 06/03/18 06/11/18 History aspirin [Aspir-81] 81 mg PO DAILY 06/11/18 06/11/18 History buspirone 10 mg PO TID 06/11/18 06/11/18 History duloxetine 60 mg PO DAILY 06/11/18 06/11/18 History gabapentin 1 tab PO TID 06/11/18 06/11/18 History insulin glargine [Lantus U-100 30 unit SUB-Q BID 06/11/18 06/11/18 History Insulin] insulin lispro [Humalog U-100 06/11/18 History Insulin] Physical Exam Vital signs: Vital Signs 06/11/18 11:34 06/11/18 11:40 06/11/18 15:19 Temperature 99.3 F 99.7 F H 98.6 F Pulse Rate 100 H 87 71 Respiratory Rate 24 24 18 Blood Pressure 136/82 139/61 140/63 Pulse Oximetry 90 L 98 100 06/11/18 16:00 06/11/18 20:00 06/12/18 00:00 Temperature 98.2 F 99.1 F 98.7 F Pulse Rate 87 98 H 87 Respiratory Rate 20 19 18 Blood Pressure 130/58 L 190/81 H 166/79 H Pulse Oximetry 98 96 96 06/12/18 08:00 Temperature 97.2 F L Pulse Rate 70 Respiratory Rate 18 Blood Pressure 123/56 L Pulse Oximetry 100 Intake & Output 06/11/18 06/12/18 06/12/18 18:59 06:59 18:59 Intake Total 200 / 200 1445 / 1445 Balance 200 / 200 1445 / 1445 Weight 131 kg 131 kg Intake: IV 200 / 200 965 / 965 Maxipime Inj 2,000 MG In NS Inj 100 / 100 100 / 100 100 ML @ 200 mls/hr IV.SIG Q8H [facility] Rx#:[id number] Vancomycin Inj 1,000 MG In NS 250 / 250 Inj 250 ML @ 200 mls/hr IV.SIG ONCE ONE Rx#:[id number] Vancomycin Inj 1,500 MG In NS 515 / 515 Inj 500 ML @ 250 mls/hr IV.SIG ONCE ONE Rx#:[id number] Flagyl 500 MG Inj 100 ML @ 100 100 / 100 100 / 100 mls/hr IV.SIG Q8H [facility] Rx#: [id number] Oral 480 / 480 Other: # Voids 2 # Bowel Movements 1 Narrative: left foot with edema/erythema to forefoot. Appears to be deroofed bulla dorsal foot near toes 2,3,4 left foot. No purulence noted. No open wound visible. Diminished, but palpable pedal pulses. Results - Labs CBC & Chem 7: 06/12/18 06:36 06/12/18 06:36 Laboratory Results - last 24 hr 06/11/18 06/11/18 06/11/18 13:00 13:00 13:00 WBC 15.9 H RBC 3.61 L Hgb 10.0 L Hct 30.7 L MCV 85.2 MCH 27.7 MCHC 32.5 RDW 14.5 Plt Count 340 MPV 8.0 Prelim Diff (Auto) Slide review pending Neut % (Auto) 82.0 H Lymph % (Auto) 11.3 [place] % (Auto) 5.2 Eos % (Auto) 1.0 Baso % (Auto) 0.5 Neut # (Auto) 13.0 H Lymph # (Auto) 1.8 [place] # (Auto) 0.8 Eos # (Auto) 0.2 Baso # (Auto) 0.1 WBC Differential . Diff Scan Auto diff confirmed Differential Comment . Sodium 137 Potassium 5.4 H Chloride 96 L Carbon Dioxide 35.9 H Anion Gap 5 BUN 19 H Creatinine 1.22 H Estimated GFR 45 L POC Glucose Random Glucose 177 H Lactic Acid 1.3 Calcium 9.2 Total Bilirubin AST ALT Alkaline Phosphatase Total Protein Albumin 06/11/18 06/12/18 06/12/18 21:28 06:36 06:36 WBC 11.3 H RBC 3.67 L Hgb 10.1 L Hct 30.7 L MCV 83.8 MCH 27.6 MCHC 33.0 RDW 14.4 Plt Count 283 MPV 7.8 Prelim Diff (Auto) Neut % (Auto) 82.5 H Lymph % (Auto) 10.6 [place] % (Auto) 5.3 Eos % (Auto) 1.1 Baso % (Auto) 0.5 Neut # (Auto) 9.3 H Lymph # (Auto) 1.2 [place] # (Auto) 0.6 Eos # (Auto) 0.1 Baso # (Auto) 0.1 WBC Differential . Diff Scan Differential Comment Auto diff final Sodium 136 Potassium 4.3 D Chloride 95 L Carbon Dioxide 35.7 H Anion Gap 5 BUN 21 H Creatinine 1.24 H Estimated GFR 44 L POC Glucose 335 H Random Glucose 121 H Lactic Acid Calcium 9.0 Total Bilirubin 0.4 AST 12 L ALT 12 Alkaline Phosphatase 77 Total Protein 7.9 Albumin 2.8 L 06/12/18 07:54 WBC RBC Hgb Hct MCV MCH MCHC RDW Plt Count MPV Prelim Diff (Auto) Neut % (Auto) Lymph % (Auto) [place] % (Auto) Eos % (Auto) Baso % (Auto) Neut # (Auto) Lymph # (Auto) [place] # (Auto) Eos # (Auto) Baso # (Auto) WBC Differential Diff Scan Differential Comment Sodium Potassium Chloride Carbon Dioxide Anion Gap BUN Creatinine Estimated GFR POC Glucose 113 H Random Glucose Lactic Acid Calcium Total Bilirubin AST ALT Alkaline Phosphatase Total Protein Albumin Microbiology 06/11/18 13:15 Blood - Peripheral Aerobic Blood Culture - Preliminary No growth in 1 day 06/11/18 13:15 Blood - Peripheral Anaerobic Blood Culture - Preliminary No growth in 1 day 06/11/18 13:20 Blood - Peripheral Aerobic Blood Culture - Preliminary No growth in 1 day 06/11/18 13:20 Blood - Peripheral Anaerobic Blood Culture - Preliminary No growth in 1 day 06/11/18 13:00 Abscess - Foot Gram Stain - Final - Imaging Impressions Foot X-Ray 06/11/18 00:00 CONCLUSION: Negative examination Assessment and Plan - Assessment (1) Cellulitis of left foot Code(s): L03.116 - Cellulitis of left lower limb Status: Acute Plan: Ordering MRI L foot: will form treatment plan based on results Continue IV antibiotics
--- NOTE | 2018-06-12 14:06 | P.PNIM ---
Subjective Interval history: Follow up cellulitis left foot. Feels that redness and edema are improving from admission last night Patient c/o Nausea not relieved by Zofran Physical Exam Vital signs: Vital Signs 06/11/18 15:19 06/11/18 16:00 06/11/18 20:00 Temperature 98.6 F 98.2 F 99.1 F Pulse Rate 71 87 98 H Respiratory Rate 18 20 19 Blood Pressure 140/63 130/58 L 190/81 H Pulse Oximetry 100 98 96 06/12/18 00:00 06/12/18 08:00 06/12/18 12:00 Temperature 98.7 F 97.2 F L 97.0 F L Pulse Rate 87 70 70 Respiratory Rate 18 18 20 Blood Pressure 166/79 H 123/56 L 143/61 H Pulse Oximetry 96 100 100 Intake & Output 06/11/18 06/12/18 06/12/18 18:59 06:59 18:59 Intake Total 200 / 200 1445 / 1445 200 / 200 Balance 200 / 200 1445 / 1445 200 / 200 Weight 131 kg 131 kg Intake: IV 200 / 200 965 / 965 200 / 200 Maxipime Inj 2,000 MG In NS Inj 100 / 100 100 / 100 100 / 100 100 ML @ 200 mls/hr IV.SIG Q8H [facility] Rx#:[id number] Vancomycin Inj 1,000 MG In NS 250 / 250 Inj 250 ML @ 200 mls/hr IV.SIG ONCE ONE Rx#:[id number] Vancomycin Inj 1,500 MG In NS 515 / 515 Inj 500 ML @ 250 mls/hr IV.SIG ONCE ONE Rx#:[id number] Flagyl 500 MG Inj 100 ML @ 100 100 / 100 100 / 100 100 / 100 mls/hr IV.SIG Q8H [facility] Rx#: [id number] Oral 480 / 480 Other: # Voids 2 # Bowel Movements 1 Narrative: GENERAL: Patient sitting up in bed. Appears uncomfortable. Alert and oriented 4. SKIN: left foot mild erythema and edema CARDIOVASCULAR: Regular rate and rhythm. RESPIRATORY: No accessory muscle use. Clear to auscultation. Breath sounds equal bilaterally. GASTROINTESTINAL: Abdomen soft, non-tender, nondistended. Hepatic and splenic margins not palpable. MUSCULOSKELETAL: Extremities without clubbing, cyanosis. Trace bilateral lower extremity edema. Left foot with erythema and mild erythema, Blistering between first and second toes with serous drainage. No obvious deformities. NEUROLOGICAL: Awake and alert. No obvious cranial nerve deficits. Motor grossly within normal limits. Five out of 5 muscle strength in the arms and legs. Normal speech. Results - Labs CBC & Chem 7: 06/12/18 06:36 06/12/18 06:36 Laboratory Results - last 24 hr 06/11/18 06/12/18 06/12/18 21:28 06:36 06:36 WBC 11.3 H RBC 3.67 L Hgb 10.1 L Hct 30.7 L MCV 83.8 MCH 27.6 MCHC 33.0 RDW 14.4 Plt Count 283 MPV 7.8 Neut % (Auto) 82.5 H Lymph % (Auto) 10.6 Wallace % (Auto) 5.3 Eos % (Auto) 1.1 Baso % (Auto) 0.5 Neut # (Auto) 9.3 H Lymph # (Auto) 1.2 Wallace # (Auto) 0.6 Eos # (Auto) 0.1 Baso # (Auto) 0.1 WBC Differential . Differential Comment Auto diff final Sodium 136 Potassium 4.3 D Chloride 95 L Carbon Dioxide 35.7 H Anion Gap 5 BUN 21 H Creatinine 1.24 H Estimated GFR 44 L POC Glucose 335 H Random Glucose 121 H Calcium 9.0 Total Bilirubin 0.4 AST 12 L ALT 12 Alkaline Phosphatase 77 Total Protein 7.9 Albumin 2.8 L 06/12/18 06/12/18 07:54 12:07 WBC RBC Hgb Hct MCV MCH MCHC RDW Plt Count MPV Neut % (Auto) Lymph % (Auto) Wallace % (Auto) Eos % (Auto) Baso % (Auto) Neut # (Auto) Lymph # (Auto) Wallace # (Auto) Eos # (Auto) Baso # (Auto) WBC Differential Differential Comment Sodium Potassium Chloride Carbon Dioxide Anion Gap BUN Creatinine Estimated GFR POC Glucose 113 H 104 Random Glucose Calcium Total Bilirubin AST ALT Alkaline Phosphatase Total Protein Albumin Microbiology 06/11/18 13:00 Abscess - Foot Gram Stain - Final 06/11/18 13:00 Abscess - Foot Wound Culture - Preliminary gram positive cocci 06/11/18 13:15 Blood - Peripheral Aerobic Blood Culture - Preliminary No growth in 1 day 06/11/18 13:15 Blood - Peripheral Anaerobic Blood Culture - Preliminary No growth in 1 day 06/11/18 13:20 Blood - Peripheral Aerobic Blood Culture - Preliminary No growth in 1 day 06/11/18 13:20 Blood - Peripheral Anaerobic Blood Culture - Preliminary No growth in 1 day Assessment and Plan - Plan Acute left foot diabetic cellulitis Leukocytosis. 15 on admission -> 11.3 (06/12) -X-ray foot negative for acute process. There is blistering in between first and second toes on exam, market erythema. -Failure of outpatient treatment We will administer broad-spectrum IV antibiotics for suspected bacterial infection. Cefepime for antipseudomonal and gram-negative coverage, Flagyl for anaerobic coverage and vancomycin for gram-positive and MRSA coverage. Wound, and apparently blood cultures pending. Follow-up results. Podiatry consulted ordered MRI, appreciate assistance. Nausea/vomiting -Phenergan 25 mg IM X1 -Zofran 4 mg IV as needed for N/V Hyperkalemia. Potassium 5.4. Kayexalate administered. Recheck 4.3 Diabetes mellitus. Chronic. -Continue on long-acting as well as sliding scale insulin. Diabetic diet. Monitor sugars. History of CHF. Some mild patient does not appear to be on CHF meds. Wait for full verification of home meds. Will request records from primary care physician. Appears euvolemic currently. Monitor fluid status closely. GERD. Chronic. Continue home meds. Hypertension. Chronic. Blood pressure acceptable. Continue home meds. Hyperlipidemia. Chronic. Continue home meds. Overactive bladder. Chronic. Resume patient's home oxybutynin. Hypothyroidism. Chronic. Continue home meds. Chronic diabetic neuropathy. Continue gabapentin. Depression. Chronic. No SI. Continue fluoxetine. Discussed Condition With: Patient, nurse and supervising physician Dr. Magallanes
[2018-06-12] MEDS ORDERED: Gadobutrol PF 7.5 MMOL/7.5 ML Vial (for RAD) IV.SIG ONE (15:17)
--- NOTE | 2018-06-12 15:40 | MR ---
EXAM DATE: 06/12/2018 3:29 PM EDT AGE/SEX: 63 years / Female INDICATIONS: . Cellulitis left dorsal forefoot. CLINICAL DATA: This is the patient's initial encounter. Patient reports that signs and symptoms have been present for 1 day and indicates a pain score of 5/10. MEDICAL/SURGICAL HISTORY: Diabetes mellitus type II. Hypertension. Appendectomy. sec tion. Hip replacement. COMPARISON: No prior exams available for comparison. TECHNIQUE: Multiplanar, multisequence MRI examination was performed without contrast and after th e intravenous administration of 13cc ml Gadavist (gadobutrol) single exam dose. FINDINGS: MRI foot demonstrates significant soft tissue edema across the dorsum of the foot. The edema extends into the plantar soft tissues underneath the third metatarsal bone and around the third metatarsal desiree ne. There are some bony edema involving the third metatarsal shaft distally in the third proximal pha langeal bone. On the T2 fat-suppressed images there are some fluid along the plantar and dorsal aspec t of the third MTP joint and a possible joint effusion. There is edema and enhancement throughout the musculature surrounding the third metatarsal bone. Ther e is edema throughout the dorsal aspect of the foot particularly around the third and second and four th toes. There is a small collection of fluid just superficial to the second flexor tendon at the level of the second MTP joint of uncertain significance.. CONCLUSION: 1. There is very impressive edema and enhancement throughout the dorsum of the foot and the soft tis sues surrounding the third metatarsal shaft and the third MTP joint. There is bony edema present with the possibility of a septic arthritis of the third MTP joint. There is also fluid along the dorsal a spect of the third toe could be an abscess or possible joint effusion possibly originating from the t hird MTP joint. The edema and enhancement involves the plantar musculature plantar to the third metat arsal shaft. Electronically signed by: Austin Polanco MD 06/12/2018 3:38 PM EDT
[2018-06-12] MEDS: Vancomycin Inj 2,000 MG in Sodium Chlor 0.9% Inj 500 ML IV.SIG SCH (17:48)
[2018-06-12] MEDS: oxyCODONE/Acetaminophen 10/325 Tablet PO PRN (18:40)
[2018-06-12] MEDS: Duloxetine 60 MG DR Capsule PO SCH (21:01)
[2018-06-12] MEDS: Melatonin 5 MG Tablet PO SCH (21:01)
[2018-06-12] MEDS ORDERED: oxyCODONE/Acetaminophen 10/325 Tablet PO ONE (21:45)
[2018-06-13] MEDS: oxyCODONE/Acetaminophen 10/325 Tablet PO PRN ×5 (02:41→22:09)
[2018-06-13] MEDS: Levothyroxine 150 MCG Tablet PO SCH (05:52)
[2018-06-13] MEDS: Insulin NovoLOG Aspart Correctional Sugar Inj SQ SCH ×4 (07:38→20:49)
[2018-06-13] MEDS: Gabapentin 300 MG Capsule PO SCH ×3 (08:05→17:59)
[2018-06-13] MEDS: Lisinopril 5 MG Tablet PO SCH (08:05)
[2018-06-13] MEDS: Insulin Detemir Inj 1,000 UNIT/10 ML Vial SQ SCH ×2 (08:05→20:49)
--- NOTE | 2018-06-13 14:34 | P.PN ---
Subjective Interval history: Follow-up visit for left foot cellulitis, nausea and vomiting. Patient seen and examined this morning resting in bed comfortably in no acute distress. She reports that left foot has improved in redness however still very painful especially when ambulating. She denies any further nausea or vomiting after receiving Phenergan. Denies any shortness of breath, cough, fevers or chills. Informed by RN around 5:30pm regarding patient complained of chest pain. Return back to see patient at 5:35pm sitting on the edge of the bed in no acute distress. She reports that chest pain began shortly after starting to drink gisell ivroy, shortly after she began burping and subsequently felt better. At the moment she denies any chest pain but does report that she has a history of anxiety and when she was in [place] with take 0.5 mg of Xanax twice a day for this. Physical Exam Vital signs: Vital Signs 06/12/18 16:00 06/12/18 16:26 06/12/18 20:00 Temperature 97.9 F 97.3 F L Pulse Rate 83 70 75 Respiratory Rate 20 20 17 Blood Pressure 128/60 114/51 L Pulse Oximetry 99 98 06/12/18 20:18 06/13/18 00:00 06/13/18 08:00 Temperature 97.2 F L 97.1 F L Pulse Rate 70 68 75 Respiratory Rate 20 17 20 Blood Pressure 98/51 L 145/61 H Pulse Oximetry 96 100 06/13/18 10:22 06/13/18 11:43 06/13/18 12:00 Temperature 98.1 F Pulse Rate 89 Respiratory Rate 20 18 Blood Pressure 155/58 H Pulse Oximetry 99 97 Intake & Output 06/12/18 06/13/18 06/13/18 18:59 06:59 18:59 Intake Total 1500 / 1500 1320 / 1320 100 / 100 Balance 1500 / 1500 1320 / 1320 100 / 100 Weight 131 kg Intake: IV 300 / 300 720 / 720 100 / 100 Maxipime Inj 2,000 MG In NS Inj 100 / 100 100 / 100 100 ML @ 200 mls/hr IV.SIG Q12H [facility] Rx#:[id number] Vancomycin Inj 2,000 MG In NS 520 / 520 Inj 500 ML @ 250 mls/hr IV.SIG Q24H [facility] Rx#:[id number] Flagyl 500 MG Inj 100 ML @ 100 200 / 200 100 / 100 100 / 100 mls/hr IV.SIG Q8H [facility] Rx#: [id number] Oral 1200 / 1200 600 / 600 Other: # Voids 3 2 Narrative: GENERAL: Patient sitting up in bed. Appears uncomfortable. Alert and oriented 4. SKIN: Left foot erythema, edema, warmth. CARDIOVASCULAR: Regular rate and rhythm. RESPIRATORY: No accessory muscle use. Clear to auscultation. Breath sounds equal bilaterally. GASTROINTESTINAL: Abdomen soft, non-tender, nondistended. Hepatic and splenic margins not palpable. MUSCULOSKELETAL: Extremities without clubbing, cyanosis. Trace bilateral lower extremity edema. Left foot with erythema and mild erythema, old dry blister between first and second toe. No obvious deformities. NEUROLOGICAL: Awake and alert. No obvious cranial nerve deficits. Motor grossly within normal limits. Normal speech. Results - Labs CBC & Chem 7: 06/12/18 06:36 06/13/18 07:55 Laboratory Results - last 24 hr 06/12/18 06/12/18 06/12/18 14:37 18:06 20:58 Creatinine Estimated GFR POC Glucose 105 237 H Random Vancomycin 14.9 06/13/18 06/13/18 06/13/18 07:31 07:33 07:55 Creatinine 1.53 H Estimated GFR 34 L POC Glucose 59 L 63 L Random Vancomycin 06/13/18 06/13/18 06/13/18 08:00 08:26 08:43 Creatinine Estimated GFR POC Glucose 61 L 60 L 143 H Random Vancomycin 06/13/18 11:14 Creatinine Estimated GFR POC Glucose 155 H Random Vancomycin Microbiology 06/11/18 13:00 Abscess - Foot Gram Stain - Final 06/11/18 13:00 Abscess - Foot Wound Culture - Preliminary 06/11/18 13:15 Blood - Peripheral Aerobic Blood Culture - Preliminary No growth in 2 days 06/11/18 13:15 Blood - Peripheral Anaerobic Blood Culture - Preliminary No growth in 2 days 06/11/18 13:20 Blood - Peripheral Aerobic Blood Culture - Preliminary No growth in 2 days 06/11/18 13:20 Blood - Peripheral Anaerobic Blood Culture - Preliminary No growth in 2 days - Imaging Impressions Foot MRI 06/12/18 00:00 CONCLUSION: 1. There is very impressive edema and enhancement throughout the dorsum of the foot and the soft tissues surrounding the third metatarsal shaft and the third MTP joint. There is bony edema present with the possibility of a septic arthritis of the third MTP joint. There is also fluid along the dorsal aspect of the third toe could be an abscess or possible joint effusion possibly originating from the third MTP joint. The edema and enhancement involves the plantar musculature plantar to the third metatarsal shaft. Assessment and Plan - Plan Acute left foot diabetic cellulitis Leukocytosis. 15 on admission -> 11.3 (06/12) -X-ray foot negative for acute process. There is blistering in between first and second toes on exam, market erythema. -Failure of outpatient treatment We will administer broad-spectrum IV antibiotics for suspected bacterial infection. Cefepime for antipseudomonal and gram-negative coverage, Flagyl for anaerobic coverage and vancomycin for gram-positive and MRSA coverage. Wound, and blood cultures pending. Follow-up results. -Podiatry has been consulted, greatly appreciate assistance. -MRI of left foot with edema surrounding the third metatarsal shaft and third and MTP joint. Bony edema possibly septic arthritis of the third MTP joint, fluid along the dorsal aspect of third toe possibly abscess or joint effusion originating from the third MTP joint. Pending podiatry review of MRI for further recommendations. -Consult ID for final antibiotic recommendations once cultures have resulted. Nausea/vomiting -Phenergan 25 mg IM X1 -Zofran 4 mg IV as needed for N/V -No further nausea or vomiting Hyperkalemia. Potassium 5.4. Kayexalate administered with potassium improved to 4.3. Recheck BMP in the a.m. Diabetes mellitus. Chronic. -Continue on long-acting as well as sliding scale insulin. Diabetic diet. Monitor sugars. -Hypoglycemic episode overnight, decrease Levemir morning dose to 25 units, at bedtime dose to 20 units. History of CHF. Some mild patient does not appear to be on CHF meds. Wait for full verification of home meds. Will request records from primary care physician. Appears euvolemic currently. Monitor fluid status closely. GERD. Chronic. Continue home meds. Hypertension. Chronic. Blood pressure acceptable. Continue home meds. Hyperlipidemia. Chronic. Continue home meds. Overactive bladder. Chronic. Resume patient's home oxybutynin. Hypothyroidism. Chronic. Continue home meds. Chronic diabetic neuropathy. Continue gabapentin. Depression. Chronic. No SI. Continue fluoxetine. 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
[2018-06-13] MEDS: ALPRAZolam 0.5 MG Tablet PO PRN (17:58)
[2018-06-13] MEDS: Vancomycin Inj 2,000 MG in Sodium Chlor 0.9% Inj 500 ML IV.SIG SCH (17:58)
[2018-06-13] MEDS ORDERED: Aluminum/Magnesium/Simethacone Susp 30 ML UDC PO ONE (18:00)
--- NOTE | 2018-06-13 18:39 | P.PNPOD ---
Subjective Interval history: Patient seen bedside. Patient is resting comfortably however reports pain to left foot. Denies any nausea vomiting fevers or chills. Review of Systems Constitutional: Denies anorexia, Denies body ache(s), Denies chills, Denies fever(s), Denies night sweats Physical Exam Vital signs: Vital Signs 06/12/18 20:00 06/12/18 20:18 06/13/18 00:00 Temperature 97.3 F L 97.2 F L Pulse Rate 75 70 68 Respiratory Rate 17 20 17 Blood Pressure 114/51 L 98/51 L Pulse Oximetry 98 96 06/13/18 08:00 06/13/18 10:22 06/13/18 11:43 Temperature 97.1 F L Pulse Rate 75 Respiratory Rate 20 20 Blood Pressure 145/61 H Pulse Oximetry 100 99 06/13/18 12:00 06/13/18 14:48 06/13/18 16:00 Temperature 98.1 F 97.6 F Pulse Rate 89 80 Respiratory Rate 18 20 20 Blood Pressure 155/58 H 139/61 Pulse Oximetry 97 97 06/13/18 18:24 Temperature Pulse Rate Respiratory Rate 20 Blood Pressure Pulse Oximetry Intake & Output 06/12/18 06/13/18 06/13/18 18:59 06:59 18:59 Intake Total 1500 / 1500 1320 / 1320 1800 / 1800 Output Total 1200 / 1200 Balance 1500 / 1500 1320 / 1320 600 / 600 Weight 131 kg Intake: IV 300 / 300 720 / 720 200 / 200 Maxipime Inj 2,000 MG In NS Inj 100 / 100 100 / 100 100 / 100 100 ML @ 200 mls/hr IV.SIG Q12H [facility] Rx#:[id number] Vancomycin Inj 2,000 MG In NS 520 / 520 Inj 500 ML @ 250 mls/hr IV.SIG Q24H [facility] Rx#:[id number] Flagyl 500 MG Inj 100 ML @ 100 200 / 200 100 / 100 100 / 100 mls/hr IV.SIG Q8H [facility] Rx#: [id number] Oral 1200 / 1200 600 / 600 1600 / 1600 Output: Urine 1200 / 1200 Other: # Voids 3 2 Narrative: Lower extremity physical exam: Vascular: Dorsalis pedis diminished, posterior tibial diminished. Capillary refill time within normal limits to digits 5 bilateral foot. Edema left foot pitting noted. Neuro: Gross sensation intact to bilateral lower extremity. Pinpoint sensation intact. No hyperalgesia noted to bilateral lower extremity Dermatology: Increased erythema and edema noted to left foot, originating and localized to third digit as well as third metatarsophalangeal joint. Serous drainage noted, interdigital maceration noted however no open lesions noted. Musculoskeletal: Tender to palpation to left foot globally increased to third MPJ and digit. Medications and Allergies Active Medications: Active Medications Al Hydroxide/Mg Hydroxide (Milk Of Colby Liq) 30 ml PO Q12H PRN PRN Reason: Mild Constipation Albuterol (Duoneb Neb (Prn)) 1 ampul NEB Q2HR NEB PRN PRN Reason: SHORTNESS OF BREATH/WHEEZING Last Admin: 06/12/18 20:17 Dose: 1 ampul Alprazolam (Xanax) 0.5 mg PO Q12H PRN PRN Reason: ANXIETY Last Admin: 06/13/18 17:58 Dose: 0.5 mg Aspirin (Ecotrin) 81 mg PO DAILY [facility] Last Admin: 06/13/18 08:05 Dose: 81 mg Bisacodyl (Dulcolax Supp) 10 mg RECTAL DAILY PRN PRN Reason: SEVERE CONSITIPATION Buspirone HCl (Buspar) 10 mg PO TID [facility] Last Admin: 06/13/18 17:59 Dose: 10 mg Dextrose (D50w Vial) 50 ml IV.PUSH UNSCH PRN PRN Reason: PER HYPOGLYCEMIA PROTOCOL Duloxetine HCl (Cymbalta) 60 mg PO HS [facility] Last Admin: 06/12/18 21:01 Dose: 60 mg Gabapentin (Neurontin) 300 mg PO TID [facility] Last Admin: 06/13/18 17:59 Dose: 300 mg Glucagon (Glucagon Inj) 1 mg OTHER PRN PRN PRN Reason: for Hypoglycemia Protocol Metronidazole/Sodium Chloride (Flagyl 500 Mg Inj) 100 mls @ 100 mls/hr IV.SIG Q8H [facility] Last Admin: 06/13/18 16:49 Dose: 100 mls/hr Cefepime HCl 2,000 mg/ Sodium (Chloride) 100 mls @ 200 mls/hr IV.SIG Q12H [facility] Last Infusion: 06/13/18 10:00 Dose: Infused Vancomycin HCl 2,000 mg/ (Sodium Chloride) 520 mls @ 250 mls/hr IV.SIG Q24H [facility] Last Admin: 06/13/18 17:58 Dose: 250 mls/hr Insulin Aspart (Novolog Insulin Correctional Sugar Inj) 0 unit SQ [facility]; Protocol Last Admin: 06/13/18 16:48 Dose: Not Given Insulin Detemir (Levemir Inj) 20 unit SQ [facility] Insulin Detemir (Levemir Inj) 25 unit SQ DAILY [facility] Lactulose (Lactulose Liq) 30 ml PO DAILY PRN PRN Reason: SEVERE CONSITIPATION Levothyroxine Sodium (Synthroid) 150 mcg PO DAILY@0600 [facility] Last Admin: 06/13/18 05:52 Dose: 150 mcg Levothyroxine Sodium (Synthroid) 25 mcg PO DAILY@0600 [facility] Last Admin: 06/13/18 05:52 Dose: 25 mcg Lisinopril (Prinivil) 2.5 mg PO DAILY [facility] Last Admin: 06/13/18 08:05 Dose: 2.5 mg Melatonin (Melatonin) 5 mg PO [facility] Last Admin: 06/12/18 21:01 Dose: 5 mg Miscellaneous (Pill Splitter) 1 each OTHER UNSCH PRN PRN Reason: PILL SPIT Miscellaneous Information ([facility] Ordered Lab Info) 0 each OTHER ONCE ONE Stop: 06/14/18 17:46 Ondansetron HCl (Zofran Inj) 4 mg IV.PUSH Q6H PRN PRN Reason: NAUSEA OR VOMITING Last Admin: 06/12/18 21:04 Dose: 4 mg Oxybutynin Chloride (Ditropan) 10 mg PO BID [facility] Last Admin: 06/13/18 08:05 Dose: 10 mg Oxycodone/Acetaminophen (Percocet 10/325 Mg) 1 tab PO Q4H PRN PRN Reason: pain 5-10 Last Admin: 06/13/18 18:03 Dose: 1 tab Oxycodone/Acetaminophen (Percocet 5/325 Mg) 1 tab PO Q4H PRN PRN Reason: pain 1-4 Pantoprazole Sodium (Protonix) 40 mg PO DAILY [facility] Last Admin: 06/13/18 08:04 Dose: 40 mg Pharmacy Profile Note (Vancomycin Consult Pharmacy) 1 each OTHER UNSCH PRN PRN Reason: Pharmacy to dose Pravastatin Sodium (Pravachol) 40 mg PO [facility] Last Admin: 06/12/18 20:59 Dose: 40 mg Sennosides (Senokot) 17.2 mg PO Q12H PRN PRN Reason: Moderate Constipation Allergies Allergy/AdvReac Type Severity Reaction Status Date / Time penicillin G Allergy Severe Hives Verified 06/11/18 12:19 Sulfa (Sulfonamide Allergy Hives Verified 06/11/18 12:19 Antibiotics) Home Medications Medication Instructions Recorded Confirmed Type aspirin 81 mg PO DAILY 06/03/18 06/03/18 History buspirone 10 mg PO TID 06/03/18 06/03/18 History calcium acetate 667 mg PO TID 06/03/18 06/03/18 History cholecalciferol (vitamin D3) 5,000 unit PO DAILY 06/03/18 06/03/18 History [Vitamin D3] duloxetine [Cymbalta] 60 mg PO DAILY 06/03/18 06/03/18 History gabapentin 300 mg PO BID 06/03/18 06/03/18 History gabapentin 600 mg PO HS 06/03/18 06/03/18 History levothyroxine 175 mcg PO DAILY 06/03/18 06/11/18 History lisinopril 2.5 mg PO DAILY 06/03/18 06/11/18 History melatonin 3 mg PO HS 06/03/18 06/11/18 History meloxicam [Mobic] 15 mg PO DAILY 06/03/18 06/11/18 History omeprazole 40 mg PO DAILY 06/03/18 06/11/18 History oxybutynin chloride 10 mg PO BID 06/03/18 06/11/18 History simvastatin 20 mg PO QPM 06/03/18 06/11/18 History aspirin [Aspir-81] 81 mg PO DAILY 06/11/18 06/11/18 History buspirone 10 mg PO TID 06/11/18 06/11/18 History duloxetine 60 mg PO DAILY 06/11/18 06/11/18 History gabapentin 1 tab PO TID 06/11/18 06/11/18 History insulin glargine [Lantus U-100 30 unit SUB-Q BID 06/11/18 06/11/18 History Insulin] insulin lispro [Humalog U-100 06/11/18 History Insulin] Results - Labs CBC & Chem 7: 06/12/18 06:36 06/13/18 07:55 Laboratory Results - last 24 hr 06/12/18 06/13/18 06/13/18 20:58 07:31 07:33 Creatinine Estimated GFR POC Glucose 237 H 59 L 63 L 06/13/18 06/13/18 06/13/18 07:55 08:00 08:26 Creatinine 1.53 H Estimated GFR 34 L POC Glucose 61 L 60 L 06/13/18 06/13/18 06/13/18 08:43 11:14 16:46 Creatinine Estimated GFR POC Glucose 143 H 155 H 132 H Microbiology 06/11/18 13:00 Abscess - Foot Gram Stain - Final 06/11/18 13:00 Abscess - Foot Wound Culture - Preliminary 06/11/18 13:15 Blood - Peripheral Aerobic Blood Culture - Preliminary No growth in 2 days 06/11/18 13:15 Blood - Peripheral Anaerobic Blood Culture - Preliminary No growth in 2 days 06/11/18 13:20 Blood - Peripheral Aerobic Blood Culture - Preliminary No growth in 2 days 06/11/18 13:20 Blood - Peripheral Anaerobic Blood Culture - Preliminary No growth in 2 days Assessment and Plan - Assessment (1) Cellulitis of left foot Code(s): L03.116 - Cellulitis of left lower limb Status: Acute Plan: 63-year-old female with left foot septic arthritis to third metatarsophalangeal joint MRI reviewed and discussed with patient, abscess noted to third MPJ To OR tomorrow for incision and drainage of left foot Will obtain OR cultures ABIs to be performed prior to surgical
[2018-06-13] MEDS: Melatonin 5 MG Tablet PO SCH (20:47)
[2018-06-13] MEDS: Duloxetine 60 MG DR Capsule PO SCH (20:48)
[2018-06-14] MEDS ORDERED: Chlorhexidine Gluconate 2% 1 Pack (2 Cloths) TOPICAL ONE (01:48)
[2018-06-14] MEDS ORDERED: Sodium Chlor 0.9% Inj 500 ML IV.SIG SCH (02:00)
[2018-06-14] MEDS: Levothyroxine 150 MCG Tablet PO SCH (06:12)
[2018-06-14 06:30] LABS: Baso # (Auto) 0.1 th/mm3 (0.0-0.2); Eos # (Auto) 0.2 th/mm3 (0.0-0.4); Hematocrit 27.9 % (35.0-46.0); Hemoglobin 9.2 gm/dL (11.6-15.3); Lymph % (Auto) 12.5 % (9.0-44.0); Mean Corpuscular Hemoglobin 28.1 pg (27.0-34.0); Mono # (Auto) 0.5 th/mm3 (0.0-0.9); Mono % (Auto) 6.8 % (0.0-8.0); Neut # (Auto) 5.9 th/mm3 (1.8-7.7); Neut % (Auto) 76.7 % (16.0-70.0); Platelet Count 266 th/mm3 (150-450); Red Blood Count 3.28 mil/mm3 (4.00-5.30); Red Cell Distribution Width 14.4 % (11.6-17.2); White Blood Count 7.7 th/mm3 (4.0-11.0)
[2018-06-14 07:01] LABS: Calcium 8.5 mg/dL (8.5-10.1); Carbon Dioxide 34.2 meq/L (21.0-32.0); Potassium 4.6 meq/L (3.5-5.1)
[2018-06-14] MEDS: Gabapentin 300 MG Capsule PO SCH ×3 (09:10→17:34)
[2018-06-14] MEDS: Lisinopril 5 MG Tablet PO SCH (09:10)
[2018-06-14] MEDS: Insulin Detemir Inj 1,000 UNIT/10 ML Vial SQ SCH ×2 (09:20→21:02)
[2018-06-14] MEDS: Insulin NovoLOG Aspart Correctional Sugar Inj SQ SCH ×4 (09:20→21:03)
--- NOTE | 2018-06-14 09:30 | P.PNIM ---
Subjective Interval history: Reports left foot pain better control. Less anxious. No other complaints at this time. Ready for surgery. Reports that she is usually on 3 L of oxygen at night. She is not short of breath. Physical Exam Vital signs: Vital Signs 06/13/18 10:22 06/13/18 11:43 06/13/18 12:00 Temperature 98.1 F Pulse Rate 89 Respiratory Rate 20 18 Blood Pressure 155/58 H Pulse Oximetry 99 97 06/13/18 14:48 06/13/18 16:00 06/13/18 18:24 Temperature 97.6 F Pulse Rate 80 Respiratory Rate 20 20 20 Blood Pressure 139/61 Pulse Oximetry 97 06/13/18 20:15 06/13/18 23:38 06/14/18 00:18 Temperature 98.0 F 97.3 F L Pulse Rate 71 88 Respiratory Rate 18 18 21 Blood Pressure 133/56 L 155/67 H Pulse Oximetry 95 95 06/14/18 08:00 Temperature 97.1 F L Pulse Rate 72 Respiratory Rate 18 Blood Pressure 129/60 Pulse Oximetry 99 Intake & Output 06/13/18 06/14/18 06/14/18 18:59 06:59 18:59 Intake Total 1900 / 1900 720 / 720 Output Total 1200 / 1200 Balance 700 / 700 720 / 720 Weight 131 kg Intake: IV 300 / 300 720 / 720 Maxipime Inj 2,000 MG In NS Inj 100 / 100 100 / 100 100 ML @ 200 mls/hr IV.SIG Q12H [facility] Rx#:[id number] Vancomycin Inj 2,000 MG In NS 520 / 520 Inj 500 ML @ 250 mls/hr IV.SIG Q24H [facility] Rx#:[id number] Flagyl 500 MG Inj 100 ML @ 100 200 / 200 100 / 100 mls/hr IV.SIG Q8H [facility] Rx#: [id number] Oral 1600 / 1600 Output: Urine 1200 / 1200 Other: # Voids 3 Narrative: GENERAL: Morbidly obese patient sitting up in bed. Appears uncomfortable. Alert and oriented 4. SKIN: Left foot erythema, edema, warmth. CARDIOVASCULAR: Regular rate and rhythm. RESPIRATORY: No accessory muscle use. Clear to auscultation. Breath sounds equal bilaterally. GASTROINTESTINAL: Abdomen soft, non-tender, nondistended. Hepatic and splenic margins not palpable. MUSCULOSKELETAL: Extremities without clubbing, cyanosis. Trace bilateral lower extremity edema. Left foot with erythema a, old dry blister between first and second toe. No obvious deformities. No active drainage NEUROLOGICAL: Awake and alert. No obvious cranial nerve deficits. Motor grossly within normal limits. Normal speech. Results - Labs CBC & Chem 7: 06/14/18 06:04 06/14/18 06:04 Laboratory Results - last 24 hr 06/13/18 06/13/18 06/13/18 11:14 16:46 18:25 WBC RBC Hgb Hct MCV MCH MCHC RDW Plt Count MPV Neut % (Auto) Lymph % (Auto) [place] % (Auto) Eos % (Auto) Baso % (Auto) Neut # (Auto) Lymph # (Auto) [place] # (Auto) Eos # (Auto) Baso # (Auto) WBC Differential Differential Comment Sodium Potassium Chloride Carbon Dioxide Anion Gap BUN Creatinine Estimated GFR POC Glucose 155 H 132 H Random Glucose Calcium Troponin I Less than 0.02 L 06/13/18 06/14/18 06/14/18 20:04 06:04 06:04 WBC 7.7 RBC 3.28 L Hgb 9.2 L Hct 27.9 L MCV 85.0 MCH 28.1 MCHC 33.0 RDW 14.4 Plt Count 266 MPV 8.0 Neut % (Auto) 76.7 H Lymph % (Auto) 12.5 [place] % (Auto) 6.8 Eos % (Auto) 3.0 Baso % (Auto) 1.0 Neut # (Auto) 5.9 Lymph # (Auto) 1.0 [place] # (Auto) 0.5 Eos # (Auto) 0.2 Baso # (Auto) 0.1 WBC Differential . Differential Comment Auto diff final Sodium 134 L Potassium 4.6 Chloride 93 L Carbon Dioxide 34.2 H Anion Gap 7 BUN 26 H Creatinine 1.44 H Estimated GFR 37 L POC Glucose 130 H Random Glucose 264 H D Calcium 8.5 Troponin I 06/14/18 08:13 WBC RBC Hgb Hct MCV MCH MCHC RDW Plt Count MPV Neut % (Auto) Lymph % (Auto) [place] % (Auto) Eos % (Auto) Baso % (Auto) Neut # (Auto) Lymph # (Auto) [place] # (Auto) Eos # (Auto) Baso # (Auto) WBC Differential Differential Comment Sodium Potassium Chloride Carbon Dioxide Anion Gap BUN Creatinine Estimated GFR POC Glucose 249 H Random Glucose Calcium Troponin I Microbiology 06/11/18 13:00 Abscess - Foot Gram Stain - Final 06/11/18 13:00 Abscess - Foot Wound Culture - Final 06/11/18 13:15 Blood - Peripheral Aerobic Blood Culture - Preliminary No growth in 2 days 06/11/18 13:15 Blood - Peripheral Anaerobic Blood Culture - Preliminary No growth in 2 days 06/11/18 13:20 Blood - Peripheral Aerobic Blood Culture - Preliminary No growth in 2 days 06/11/18 13:20 Blood - Peripheral Anaerobic Blood Culture - Preliminary No growth in 2 days Assessment and Plan - Plan Sepsis on presentation with presenting leukocytosis and tachycardia Acute left foot diabetic cellulitis Leukocytosis due to infection. 15 on admission -> 11.3 (06/12) -X-ray foot negative for acute process. There is blistering in between first and second toes on exam, market erythema. -Failure of outpatient treatment Administered broad-spectrum IV antibiotics for suspected bacterial infection. Cefepime for antipseudomonal and gram-negative coverage, Flagyl for anaerobic coverage and vancomycin for gram-positive and MRSA coverage. Wound, and blood cultures pending. Follow-up results. -Podiatry has been consulted, greatly appreciate assistance. For surgical intervention today -MRI of left foot with edema surrounding the third metatarsal shaft and third and MTP joint. Bony edema possibly septic arthritis of the third MTP joint, fluid along the dorsal aspect of third toe possibly abscess or joint effusion originating from the third MTP joint. Pending podiatry review of MRI for further recommendations. -Consult ID for final antibiotic recommendations once cultures have resulted. Morbid obesityhigh risk for complications and weight loss counseling provided Nausea/vomiting -Phenergan 25 mg IM X1 -Zofran 4 mg IV as needed for N/V -No further nausea or vomiting Hyperkalemia. Potassium 5.4. Kayexalate administered with potassium improved to 4.6 Diabetes mellitus, type 2 insulin-dependent. Chronic. -Continue on long-acting as well as sliding scale insulin. Diabetic diet. Monitor sugars. Decrease Levemir morning dose to 25 units, at bedtime dose to 20 units. History of CHF, chronic diastolic. Some mild patient does not appear to be on CHF meds. Wait for full verification of home meds. Will request records from primary care physician. Appears euvolemic currently. Monitor fluid status closely. GERD. Chronic. Continue home meds. Hypertension, chronic essential. Chronic. Blood pressure acceptable. Continue home meds, lisinopril. Hyperlipidemia. Chronic. Continue home meds. Overactive bladder. Chronic. Resume patient's home oxybutynin. Hypothyroidism. Chronic. Continue home meds. Synthroid Chronic diabetic neuropathy. Continue gabapentin. Depression. Chronic. No SI. Continue fluoxetine. DVT prophylaxis-ambulation
--- NOTE | 2018-06-14 10:53 | ECHRPT ---
EXAM DATE: 06/14/2018 10:33 AM EDT AGE/SEX: 63 years / Female INDICATIONS: Cellulitis, Outpatient treatment failed CLINICAL DATA: This is the patient's initial encounter. Patient reports that signs and symptoms have been present for 4 - 6 days and indicates a pain score of 4/10. MEDICAL/SURGICAL HISTORY: . CHF, COPD, Depression, Diabetes, Hypertension . Appendicitis, C-se ction, Hip surgery COMPARISON: No prior exams available for comparison. TECHNIQUE: Four-cuff ankle and brachial pressures were obtained. Pulse cuff waveform tracings of the ankles were recorded, and ankle-brachial indices were calculated. PRESSURES (mmHg): Brachial (arm) : RIGHT: IV SITE, LEFT: 91 Ankle : RIGHT: 147, LEFT: 149 Toe : RIGHT: 92, LEFT: 105 JO : RIGHT: 1.62, LEFT: 1.64 FINDINGS: Pulsed-Cuff Waveform: There are good upstroke and a dicrotic downstroke of the tracings. Other: None. CONCLUSION: 1. Elevated segmental pressures characteristic of atherosclerotic disease. 2. No evidence of significant arterial insufficiency. Electronically signed by: Virgilio Parra MD 06/14/2018 10:52 AM EDT
[2018-06-14] MEDS ORDERED: Bupivacaine PF 0.25% Inj 30 ML Vial ONE (12:58)
[2018-06-14] MEDS ORDERED: Phenylephrine/NS 1000 MCG/10ML Syringe IV.PUSH ONE (13:00)
[2018-06-14] MEDS ORDERED: Lidocaine PF 1% Inj 5 ML Syringe INFILTRATN ONE (13:00)
[2018-06-14] MEDS ORDERED: Succinylcholine Inj 100 MG/5 ML Syringe IV.PUSH ONE (13:00)
--- NOTE | 2018-06-14 13:04 | P.PNPOD ---
Subjective Interval history: Patient seen in preop. Agrees with planned procedure. No other concerns at this time. Physical Exam Vital signs: Vital Signs 06/13/18 14:48 06/13/18 16:00 06/13/18 18:24 Temperature 97.6 F Pulse Rate 80 Respiratory Rate 20 20 20 Blood Pressure 139/61 Pulse Oximetry 97 06/13/18 20:15 06/13/18 23:38 06/14/18 00:18 Temperature 98.0 F 97.3 F L Pulse Rate 71 88 Respiratory Rate 18 18 21 Blood Pressure 133/56 L 155/67 H Pulse Oximetry 95 95 06/14/18 08:00 06/14/18 10:35 Temperature 97.1 F L Pulse Rate 72 Respiratory Rate 18 Blood Pressure 129/60 Pulse Oximetry 99 98 Intake & Output 06/13/18 06/14/18 06/14/18 18:59 06:59 18:59 Intake Total 1900 / 1900 720 / 720 200 / 200 Output Total 1200 / 1200 Balance 700 / 700 720 / 720 200 / 200 Weight 131 kg Intake: IV 300 / 300 720 / 720 200 / 200 Maxipime Inj 2,000 MG In NS Inj 100 / 100 100 / 100 100 / 100 100 ML @ 200 mls/hr IV.SIG Q12H [facility] Rx#:[id number] Vancomycin Inj 2,000 MG In NS 520 / 520 Inj 500 ML @ 250 mls/hr IV.SIG Q24H [facility] Rx#:[id number] Flagyl 500 MG Inj 100 ML @ 100 200 / 200 100 / 100 100 / 100 mls/hr IV.SIG Q8H [facility] Rx#: [id number] Oral 1600 / 1600 Output: Urine 1200 / 1200 Other: # Voids 3 Date of Last Bowel Movement 06/11/18 Narrative: Lower extremity physical exam: Vascular: Dorsalis pedis diminished, posterior tibial diminished. Capillary refill time within normal limits to digits 5 bilateral foot. Edema left foot pitting noted. Neuro: Gross sensation intact to bilateral lower extremity. Pinpoint sensation intact. No hyperalgesia noted to bilateral lower extremity Dermatology: Increased erythema and edema noted to left foot, originating and localized to third digit as well as third metatarsophalangeal joint. Serous drainage noted, interdigital maceration noted however no open lesions noted. Musculoskeletal: Tender to palpation to left foot globally increased to third MPJ and digit. Medications and Allergies Active Medications: Active Medications Al Hydroxide/Mg Hydroxide (Milk Of Magnyousif Liq) 30 ml PO Q12H PRN PRN Reason: Mild Constipation Albuterol (Duoneb Neb (Prn)) 1 ampul NEB Q2HR NEB PRN PRN Reason: SHORTNESS OF BREATH/WHEEZING Last Admin: 06/12/18 20:17 Dose: 1 ampul Alprazolam (Xanax) 0.5 mg PO Q12H PRN PRN Reason: ANXIETY Last Admin: 06/13/18 17:58 Dose: 0.5 mg Aspirin (Ecotrin) 81 mg PO DAILY [facility] Last Admin: 06/14/18 09:10 Dose: 81 mg Bisacodyl (Dulcolax Supp) 10 mg RECTAL DAILY PRN PRN Reason: SEVERE CONSITIPATION Buspirone HCl (Buspar) 10 mg PO TID [facility] Last Admin: 06/14/18 12:10 Dose: Not Given Dextrose (D50w Vial) 50 ml IV.PUSH UNSCH PRN PRN Reason: PER HYPOGLYCEMIA PROTOCOL Duloxetine HCl (Cymbalta) 60 mg PO HS [facility] Last Admin: 06/13/18 20:48 Dose: 60 mg Gabapentin (Neurontin) 300 mg PO TID [facility] Last Admin: 06/14/18 12:10 Dose: Not Given Glucagon (Glucagon Inj) 1 mg OTHER PRN PRN PRN Reason: for Hypoglycemia Protocol Metronidazole/Sodium Chloride (Flagyl 500 Mg Inj) 100 mls @ 100 mls/hr IV.SIG Q8H [facility] Last Infusion: 06/14/18 10:28 Dose: Infused Cefepime HCl 2,000 mg/ Sodium (Chloride) 100 mls @ 200 mls/hr IV.SIG Q12H [facility] Last Infusion: 06/14/18 10:43 Dose: Infused Vancomycin HCl 2,000 mg/ (Sodium Chloride) 520 mls @ 250 mls/hr IV.SIG Q24H [facility] Last Infusion: 06/13/18 21:40 Dose: Infused Lactated Ringer's (Lr 1000 Ml Inj) 1,000 mls @ 30 mls/hr IV.SIG .Q24H [facility] Stop: 06/15/18 01:59 Last Admin: 06/14/18 04:22 Dose: Not Given Sodium Chloride (Ns Inj) 500 mls @ 30 mls/hr IV.SIG .Q10H [facility] Last Admin: 06/14/18 04:22 Dose: Not Given Insulin Aspart (Novolog Insulin Correctional Sugar Inj) 0 unit SQ [facility]; Protocol Last Admin: 06/14/18 11:57 Dose: Not Given Insulin Detemir (Levemir Inj) 20 unit SQ [facility] Last Admin: 06/13/18 20:49 Dose: 20 unit Insulin Detemir (Levemir Inj) 25 unit SQ DAILY [facility] Last Admin: 06/14/18 09:20 Dose: 25 unit Lactulose (Lactulose Liq) 30 ml PO DAILY PRN PRN Reason: SEVERE CONSITIPATION Levothyroxine Sodium (Synthroid) 150 mcg PO DAILY@0600 [facility] Last Admin: 06/14/18 06:12 Dose: 150 mcg Levothyroxine Sodium (Synthroid) 25 mcg PO DAILY@0600 [facility] Last Admin: 06/14/18 06:12 Dose: 25 mcg Lisinopril (Prinivil) 2.5 mg PO DAILY [facility] Last Admin: 06/14/18 09:10 Dose: 2.5 mg Melatonin (Melatonin) 5 mg PO [facility] Last Admin: 06/13/18 20:47 Dose: 5 mg Miscellaneous (Pill Splitter) 1 each OTHER UNSCH PRN PRN Reason: PILL SPIT Miscellaneous Information ([facility] Ordered Lab Info) 0 each OTHER ONCE ONE Stop: 06/14/18 17:46 Ondansetron HCl (Zofran Inj) 4 mg IV.PUSH Q6H PRN PRN Reason: NAUSEA OR VOMITING Last Admin: 06/12/18 21:04 Dose: 4 mg Oxybutynin Chloride (Ditropan) 10 mg PO BID [facility] Last Admin: 06/14/18 09:10 Dose: 10 mg Oxycodone/Acetaminophen (Percocet 10/325 Mg) 1 tab PO Q4H PRN PRN Reason: pain 5-10 Last Admin: 06/13/18 22:09 Dose: 1 tab Oxycodone/Acetaminophen (Percocet 5/325 Mg) 1 tab PO Q4H PRN PRN Reason: pain 1-4 Last Admin: 06/14/18 06:15 Dose: 1 tab Pantoprazole Sodium (Protonix) 40 mg PO DAILY [facility] Last Admin: 06/14/18 09:10 Dose: 40 mg Pharmacy Profile Note (Vancomycin Consult Pharmacy) 1 each OTHER UNSCH PRN PRN Reason: Pharmacy to dose Pravastatin Sodium (Pravachol) 40 mg PO [facility] Last Admin: 06/13/18 20:48 Dose: 40 mg Sennosides (Senokot) 17.2 mg PO Q12H PRN PRN Reason: Moderate Constipation Allergies Allergy/AdvReac Type Severity Reaction Status Date / Time penicillin G Allergy Severe Hives Verified 06/11/18 12:19 Sulfa (Sulfonamide Allergy Hives Verified 06/11/18 12:19 Antibiotics) Home Medications Medication Instructions Recorded Confirmed Type aspirin 81 mg PO DAILY 06/03/18 06/03/18 History buspirone 10 mg PO TID 06/03/18 06/03/18 History calcium acetate 667 mg PO TID 06/03/18 06/03/18 History cholecalciferol (vitamin D3) 5,000 unit PO DAILY 06/03/18 06/03/18 History [Vitamin D3] duloxetine [Cymbalta] 60 mg PO DAILY 06/03/18 06/03/18 History gabapentin 300 mg PO BID 06/03/18 06/03/18 History gabapentin 600 mg PO HS 06/03/18 06/03/18 History levothyroxine 175 mcg PO DAILY 06/03/18 06/11/18 History lisinopril 2.5 mg PO DAILY 06/03/18 06/11/18 History melatonin 3 mg PO HS 06/03/18 06/11/18 History meloxicam [Mobic] 15 mg PO DAILY 06/03/18 06/11/18 History omeprazole 40 mg PO DAILY 06/03/18 06/11/18 History oxybutynin chloride 10 mg PO BID 06/03/18 06/11/18 History simvastatin 20 mg PO QPM 06/03/18 06/11/18 History aspirin [Aspir-81] 81 mg PO DAILY 06/11/18 06/11/18 History buspirone 10 mg PO TID 06/11/18 06/11/18 History duloxetine 60 mg PO DAILY 06/11/18 06/11/18 History gabapentin 1 tab PO TID 06/11/18 06/11/18 History insulin glargine [Lantus U-100 30 unit SUB-Q BID 06/11/18 06/11/18 History Insulin] insulin lispro [Humalog U-100 06/11/18 History Insulin] Results - Labs CBC & Chem 7: 06/14/18 06:04 06/14/18 06:04 Laboratory Results - last 24 hr 06/13/18 06/13/18 06/13/18 16:46 18:25 20:04 WBC RBC Hgb Hct MCV MCH MCHC RDW Plt Count MPV Neut % (Auto) Lymph % (Auto) [place] % (Auto) Eos % (Auto) Baso % (Auto) Neut # (Auto) Lymph # (Auto) [place] # (Auto) Eos # (Auto) Baso # (Auto) WBC Differential Differential Comment Sodium Potassium Chloride Carbon Dioxide Anion Gap BUN Creatinine Estimated GFR POC Glucose 132 H 130 H Random Glucose Calcium Troponin I Less than 0.02 L 06/14/18 06/14/18 06/14/18 06:04 06:04 08:13 WBC 7.7 RBC 3.28 L Hgb 9.2 L Hct 27.9 L MCV 85.0 MCH 28.1 MCHC 33.0 RDW 14.4 Plt Count 266 MPV 8.0 Neut % (Auto) 76.7 H Lymph % (Auto) 12.5 [place] % (Auto) 6.8 Eos % (Auto) 3.0 Baso % (Auto) 1.0 Neut # (Auto) 5.9 Lymph # (Auto) 1.0 [place] # (Auto) 0.5 Eos # (Auto) 0.2 Baso # (Auto) 0.1 WBC Differential . Differential Comment Auto diff final Sodium 134 L Potassium 4.6 Chloride 93 L Carbon Dioxide 34.2 H Anion Gap 7 BUN 26 H Creatinine 1.44 H Estimated GFR 37 L POC Glucose 249 H Random Glucose 264 H D Calcium 8.5 Troponin I 06/14/18 11:42 WBC RBC Hgb Hct MCV MCH MCHC RDW Plt Count MPV Neut % (Auto) Lymph % (Auto) [place] % (Auto) Eos % (Auto) Baso % (Auto) Neut # (Auto) Lymph # (Auto) [place] # (Auto) Eos # (Auto) Baso # (Auto) WBC Differential Differential Comment Sodium Potassium Chloride Carbon Dioxide Anion Gap BUN Creatinine Estimated GFR POC Glucose 119 H Random Glucose Calcium Troponin I Microbiology 06/11/18 13:15 Blood - Peripheral Aerobic Blood Culture - Preliminary No growth in 3 days 06/11/18 13:15 Blood - Peripheral Anaerobic Blood Culture - Preliminary No growth in 3 days 06/11/18 13:20 Blood - Peripheral Aerobic Blood Culture - Preliminary No growth in 3 days 06/11/18 13:20 Blood - Peripheral Anaerobic Blood Culture - Preliminary No growth in 3 days 06/11/18 13:00 Abscess - Foot Gram Stain - Final 06/11/18 13:00 Abscess - Foot Wound Culture - Final - Imaging Impressions Extremity Arterial Study 06/13/18 00:00 CONCLUSION: 1. Elevated segmental pressures characteristic of atherosclerotic disease. 2. No evidence of significant arterial insufficiency. Assessment and Plan - Assessment (1) Cellulitis of left foot Code(s): L03.116 - Cellulitis of left lower limb Status: Acute Plan: 63-year-old female with left foot septic arthritis to third metatarsophalangeal joint To OR today for incision and drainage of left foot Will obtain OR cultures Anticipate DC 3-4 days post op Continue IV abx therapy
[2018-06-14] MEDS ORDERED: Misc Info for Pharmacy OTHER STA (13:51)
--- NOTE | 2018-06-14 13:58 | P.PCN ---
Date of procedure: 06/14/18 Pre-op diagnosis: Left foot third MPJ abscess/septic arthritis Post-op diagnosis: same Procedure: Left foot incision and drainage Anesthesia: KIM Surgeon: Paradise Lopez Pathology: other (Woudn culture) Condition: stable Disposition: PACU (with VSS and NVS intact to the left foot)
[2018-06-14] MEDS ORDERED: fentaNYL Citrate Inj 100 MCG/2 ML Ampul ONE (14:07)
--- NOTE | 2018-06-14 14:54 | MR ---
cc: Paradise Lopez DPM DATE: 06/14/2018 SURGEON: Paradise Lopez DPM MINE PRODUCTION ENGINEER: None. PREOPERATIVE DIAGNOSES: Left foot abscess, left foot third metatarsophalangeal joint septic arthritis. POSTOPERATIVE DIAGNOSES: Left foot abscess, left foot third metatarsophalangeal joint septic arthritis. PROCEDURE: Left foot incision and drainage. ANESTHESIA: General. HEMOSTASIS: None. ESTIMATED BLOOD LOSS: 5 mL. MATERIALS: 2-0 Prolene. INJECTABLES: 0.25% Marcaine plain infiltrated about the left foot. COMPLICATIONS: None. INDICATIONS FOR PROCEDURE: The patient is a 53-year-old female with a history of diabetes, COPD and CHF, who states she hit her left foot on the door 10 days ago and she has had a history of constant throbbing pain in the left foot. The patient also reports fevers and chills. She has cellulitis extending into the left ankle and on MRI, there was impressive edema enhancement throughout the dorsum of the foot in the soft tissue surrounding the third metatarsal shaft and third MTP joint. There was bony edema present with possibility of septic arthritis of the third MTP joint as well as fluid on the dorsal aspect of the third toe, which was representing a possible abscess or joint effusion. The patient understands all risks, alternatives and complications associated with left foot incision and drainage. She would like to proceed with surgical intervention. DESCRIPTION OF PROCEDURE: The patient was brought back to the room. She was in the supine position on the table. General anesthesia was then induced. Left foot was prepped and draped in the usual sterile manner. Attention was then directed to the left third metatarsophalangeal joint where a linear incision extending from the proximal interphalangeal joint to 1 cm proximal to the metatarsophalangeal joint was made. This incision was deepened through skin and subcutaneous tissue with care to retract all vital neurovascular structures. Blunt dissection was utilized with a hemostat to evacuate any hematoma. There was noted to be serous fluid and a small pocket of abscess formation to the medial and lateral aspect of the third metatarsophalangeal joint. Site was copiously irrigated with normal saline. Wound culture was obtained pulse lavage. Plain packing was applied to left foot. Prolene 2-0 was utilized to close the skin. Left foot was dressed with Adaptic, 4 x 4s, [place]ina, cast padding and Michele. The patient tolerated the procedure and anesthesia well. She was transferred from the OR to the PACU with vitals stable and neurovascular status intact to left foot. ANTONETTE Angelo , 02:04 PM , 02:14 PM
--- NOTE | 2018-06-14 16:07 | ECG ---
Date Performed: 06/13/2018 Time Performed: 17:48:31 PTAGE: 63 years EKG: SINUS VARIABLE RHYTHM ABNORMAL RHYTHM ECG PREVIOUS TRACING : 12/28/2013 18.31 Since the previous tracing, no significant change noted DOCTOR: Rex Kam Interpretating Date/Time 06/14/2018 16:06:08
[2018-06-14] MEDS ORDERED: Pharmacy Ordered Lab Info OTHER ONE (17:45)
[2018-06-14] MEDS: Vancomycin Inj 2,000 MG in Sodium Chlor 0.9% Inj 500 ML IV.SIG SCH (17:54)
[2018-06-14] MEDS: oxyCODONE/Acetaminophen 10/325 Tablet PO PRN (17:58)
[2018-06-14] MEDS: Duloxetine 60 MG DR Capsule PO SCH (20:54)
[2018-06-14] MEDS: Melatonin 5 MG Tablet PO SCH (21:12)
[2018-06-15] MEDS: oxyCODONE/Acetaminophen 10/325 Tablet PO PRN ×4 (02:08→20:54)
[2018-06-15] MEDS: Levothyroxine 150 MCG Tablet PO SCH (06:00)
[2018-06-15] MEDS: ALPRAZolam 0.5 MG Tablet PO PRN (06:00)
[2018-06-15 08:47] LABS: Calcium 9.1 mg/dL (8.5-10.1); Carbon Dioxide 30.8 meq/L (21.0-32.0); Potassium 5.8 meq/L (3.5-5.1)
[2018-06-15] MEDS: Gabapentin 300 MG Capsule PO SCH ×3 (09:03→18:36)
[2018-06-15] MEDS: Insulin Detemir Inj 1,000 UNIT/10 ML Vial SQ SCH (09:04)
[2018-06-15] MEDS: Insulin NovoLOG Aspart Correctional Sugar Inj SQ SCH ×5 (09:04→21:00)
[2018-06-15] MEDS: Lisinopril 5 MG Tablet PO SCH (09:05)
--- NOTE | 2018-06-15 12:10 | P.PNIM ---
Subjective Interval history: Pain controlled. No shortness of breath. Wants to go home soon. Physical Exam Vital signs: Vital Signs 06/14/18 13:58 06/14/18 14:15 06/14/18 14:30 Temperature 98 F Pulse Rate 84 78 72 Respiratory Rate 13 20 23 Blood Pressure 135/63 117/65 130/58 L Pulse Oximetry 87 L 99 100 06/14/18 16:50 06/14/18 20:00 06/15/18 00:50 Temperature 96.8 F L 98.0 F 97.3 F L Pulse Rate 78 81 85 Respiratory Rate 18 18 21 Blood Pressure 126/58 L 152/67 H 121/68 Pulse Oximetry 94 L 96 96 06/15/18 04:56 Temperature 97.7 F Pulse Rate 65 Respiratory Rate 18 Blood Pressure 164/67 H Pulse Oximetry 97 Intake & Output 06/14/18 06/15/18 06/15/18 18:59 06:59 18:59 Intake Total 1000 / 1000 1500 / 1500 Output Total 5 / 5 Balance 995 / 995 1500 / 1500 Weight 131 kg Intake: IV 300 / 300 720 / 720 Maxipime Inj 2,000 MG In NS Inj 100 / 100 100 / 100 100 ML @ 200 mls/hr IV.SIG Q12H [facility] Rx#:[id number] Vancomycin Inj 2,000 MG In NS 520 / 520 Inj 500 ML @ 250 mls/hr IV.SIG Q24H [facility] Rx#:[id number] Flagyl 500 MG Inj 100 ML @ 100 200 / 200 100 / 100 mls/hr IV.SIG Q8H [facility] Rx#: [id number] Oral 300 / 300 780 / 780 Anesthesia Amount 400 / 400 Output: Estimated Blood Loss 5 / 5 Other: # Voids 4 5 Date of Last Bowel Movement 06/11/18 06/11/18 # Bowel Movements 0 Narrative: GENERAL: Morbidly obese patient sitting up in bed. Appears uncomfortable. Alert and oriented 4. SKIN: Left foot erythema, edema, warmth. CARDIOVASCULAR: Regular rate and rhythm. RESPIRATORY: No accessory muscle use. Clear to auscultation. Breath sounds equal bilaterally. GASTROINTESTINAL: Abdomen soft, non-tender, nondistended. Hepatic and splenic margins not palpable. MUSCULOSKELETAL: Extremities without clubbing, cyanosis. Trace bilateral lower extremity edema. Left foot bandage clean dry intact NEUROLOGICAL: Awake and alert. No obvious cranial nerve deficits. Motor grossly within normal limits. Normal speech. Results - Labs CBC & Chem 7: 06/14/18 06:04 06/15/18 07:34 Laboratory Results - last 24 hr 06/14/18 06/14/18 06/14/18 14:06 14:36 16:46 Sodium Potassium Chloride Carbon Dioxide Anion Gap BUN Creatinine Estimated GFR POC Glucose 71 105 178 H Random Glucose Calcium Vancomycin Trough 06/14/18 06/14/18 06/15/18 18:00 20:56 07:34 Sodium 131 L Potassium 5.8 H D Chloride 94 L Carbon Dioxide 30.8 Anion Gap 6 BUN 28 H Creatinine 1.34 H Estimated GFR 40 L POC Glucose 253 H Random Glucose 245 H Calcium 9.1 Vancomycin Trough 22.1 H 06/15/18 06/15/18 08:08 11:36 Sodium Potassium Chloride Carbon Dioxide Anion Gap BUN Creatinine Estimated GFR POC Glucose 342 H 188 H Random Glucose Calcium Vancomycin Trough Microbiology 06/11/18 13:15 Blood - Peripheral Aerobic Blood Culture - Preliminary No growth in 4 days 06/11/18 13:15 Blood - Peripheral Anaerobic Blood Culture - Preliminary No growth in 4 days 06/11/18 13:20 Blood - Peripheral Aerobic Blood Culture - Preliminary No growth in 4 days 06/11/18 13:20 Blood - Peripheral Anaerobic Blood Culture - Preliminary No growth in 4 days 06/14/18 13:36 Wound - Toe Gram Stain - Final 06/14/18 13:36 Wound - Toe Fungal Smear - Final No fungal elements seen - Procedures Date of procedure: 06/14/18 Pre-op diagnosis: Left foot third MPJ abscess/septic arthritis Post-op diagnosis: same Procedure: Left foot incision and drainage [facility] Sur[facility]: Paradise Lopez Pathology: other (Woudn culture) Condition: stable Disposition: PACU (with VSS and NVS intact to the left foot) Assessment and Plan - Plan Sepsis on presentation with presenting leukocytosis and tachycardia Acute left foot diabetic cellulitis Leukocytosis due to infection. 15 on admission -> 11.3 (06/12) -X-ray foot negative for acute process. There is blistering in between first and second toes on exam, market erythema. -Failure of outpatient treatment Administered broad-spectrum IV antibiotics for suspected bacterial infection. Cefepime for antipseudomonal and gram-negative coverage, Flagyl for anaerobic coverage and vancomycin for gram-positive and MRSA coverage. Wound, and blood cultures pending. Follow-up results. -Podiatry has been consulted, greatly appreciate assistance. Status post operative day #1 incision and drainage of the left foot infection (06/14) -MRI of left foot with edema surrounding the third metatarsal shaft and third and MTP joint. Bony edema possibly septic arthritis of the third MTP joint, fluid along the dorsal aspect of third toe possibly abscess or joint effusion originating from the third MTP joint. Pending podiatry review of MRI for further recommendations. Morbid obesityhigh risk for complications and weight loss counseling provided Nausea/vomiting -Phenergan 25 mg IM X1 -Zofran 4 mg IV as needed for N/V -No further nausea or vomiting Hyperkalemia. Potassium 5.4. Kayexalate administered with potassium improved to 4.6 Diabetes mellitus, type 2 insulin-dependent with neuropathy. Chronic. -Continue on long-acting as well as sliding scale insulin. Diabetic diet. Monitor sugars. Will adjust Levemir morning dose to 25 units, at bedtime dose to 20 units. Add preprandial insulin due to uncontrolled blood sugars. History of CHF, chronic diastolic. Some mild patient does not appear to be on CHF meds. Wait for full verification of home meds. Will request records from primary care physician. Appears euvolemic currently. Monitor fluid status closely. GERD. Chronic. Continue home meds. Hypertension, chronic essential. Chronic. Blood pressure acceptable. Continue home meds, lisinopril. Hyperlipidemia. Chronic. Continue home meds. Overactive bladder. Chronic. Resume patient's home oxybutynin. Hypothyroidism. Chronic. Continue home meds. Synthroid Chronic diabetic neuropathy. Continue gabapentin. Depression. Chronic. No SI. Continue fluoxetine. DVT prophylaxis-ambulation
[2018-06-15] MEDS ORDERED: Vancomycin Inj 1,750 MG in Sodium Chlor 0.9% Inj 500 ML IV.SIG SCH (18:00)
[2018-06-15] MEDS ORDERED: Vancomycin Inj 1,500 MG in Sodium Chlor 0.9% Inj 500 ML IV.SIG SCH (20:00)
[2018-06-15] MEDS: Duloxetine 60 MG DR Capsule PO SCH (20:54)
[2018-06-15] MEDS: Melatonin 5 MG Tablet PO SCH (21:00)
[2018-06-15] MEDS ORDERED: Insulin Detemir Inj 1,000 UNIT/10 ML Vial SQ SCH (21:00)
--- NOTE | 2018-06-15 22:54 | P.PNPOD ---
Subjective Interval history: Patient seen bedside. No concerns at this time. Reports reduction in pain. Denies any N, V,F, Ch. Physical Exam Vital signs: Vital Signs 06/15/18 00:50 06/15/18 04:56 06/15/18 12:00 Temperature 97.3 F L 97.7 F 97.3 F L Pulse Rate 85 65 70 Respiratory Rate 21 18 16 Blood Pressure 121/68 164/67 H 137/60 Pulse Oximetry 96 97 99 06/15/18 15:11 06/15/18 20:00 Temperature 97.5 F L Pulse Rate 64 Respiratory Rate 18 Blood Pressure 139/63 Pulse Oximetry 97 99 Intake & Output 06/15/18 06/15/18 06/16/18 06:59 18:59 06:59 Intake Total 1500 / 1500 200 / 200 Balance 1500 / 1500 200 / 200 Weight 131 kg Intake: IV 720 / 720 200 / 200 Maxipime Inj 2,000 MG In NS Inj 100 / 100 100 / 100 100 ML @ 200 mls/hr IV.SIG Q12H [facility] Rx#:[id number] Vancomycin Inj 2,000 MG In NS 520 / 520 Inj 500 ML @ 250 mls/hr IV.SIG Q24H [facility] Rx#:[id number] Flagyl 500 MG Inj 100 ML @ 100 100 / 100 100 / 100 mls/hr IV.SIG Q8H [facility] Rx#: [id number] Oral 780 / 780 Other: # Voids 5 Date of Last Bowel Movement 06/11/18 Narrative: Sutures intact to left third digit and dorsal metatarsal. Packing present. Decreased and improved edema and erythema to left foot. Medications and Allergies Active Medications: Active Medications Al Hydroxide/Mg Hydroxide (Milk Of Colby Likeesha) 30 ml PO Q12H PRN PRN Reason: Mild Constipation Albuterol (Duoneb Neb (Prn)) 1 ampul NEB Q2HR NEB PRN PRN Reason: SHORTNESS OF BREATH/WHEEZING Last Admin: 06/12/18 20:17 Dose: 1 ampul Alprazolam (Xanax) 0.5 mg PO Q12H PRN PRN Reason: ANXIETY Last Admin: 06/15/18 06:00 Dose: 0.5 mg Aspirin (Ecotrin) 81 mg PO DAILY [facility] Last Admin: 06/15/18 09:03 Dose: 81 mg Bisacodyl (Dulcolax Supp) 10 mg RECTAL DAILY PRN PRN Reason: SEVERE CONSITIPATION Buspirone HCl (Buspar) 10 mg PO TID [facility] Last Admin: 06/15/18 18:36 Dose: 10 mg Dextrose (D50w Vial) 50 ml IV.PUSH UNSCH PRN PRN Reason: PER HYPOGLYCEMIA PROTOCOL Last Admin: 06/14/18 14:23 Dose: 50 ml Duloxetine HCl (Cymbalta) 60 mg PO [facility] Last Admin: 06/15/18 20:54 Dose: 60 mg Gabapentin (Neurontin) 300 mg PO TID [facility] Last Admin: 06/15/18 18:36 Dose: 300 mg Glucagon (Glucagon Inj) 1 mg OTHER PRN PRN PRN Reason: for Hypoglycemia Protocol Cefepime HCl 2,000 mg/ Sodium (Chloride) 100 mls @ 200 mls/hr IV.SIG Q12H [facility] Last Admin: 06/15/18 20:53 Dose: 200 mls/hr Sodium Chloride (Ns Inj) 500 mls @ 30 mls/hr IV.SIG .Q10H [facility] Last Admin: 06/14/18 04:22 Dose: Not Given Vancomycin HCl 1,500 mg/ (Sodium Chloride) 515 mls @ 250 mls/hr IV.SIG Q24H [facility] Last Admin: 06/15/18 20:53 Dose: 250 mls/hr Insulin Aspart (Novolog Insulin Correctional Sugar Inj) 0 unit SQ [facility]; Protocol Last Admin: 06/15/18 21:00 Dose: 1 unit Insulin Aspart (Novolog Insulin Correctional Sugar Inj) 6 unit SQ [facility]; Protocol Last Admin: 06/15/18 18:36 Dose: 6 unit Insulin Detemir (Levemir Inj) 25 unit SQ DAILY [facility] Last Admin: 06/15/18 09:04 Dose: 25 unit Insulin Detemir (Levemir Inj) 22 unit SQ [facility] Last Admin: 06/15/18 21:00 Dose: 22 unit Lactulose (Lactulose Liq) 30 ml PO DAILY PRN PRN Reason: SEVERE CONSITIPATION Levothyroxine Sodium (Synthroid) 150 mcg PO DAILY@0600 [facility] Last Admin: 06/15/18 06:00 Dose: 150 mcg Levothyroxine Sodium (Synthroid) 25 mcg PO DAILY@0600 [facility] Last Admin: 06/15/18 06:00 Dose: 25 mcg Lisinopril (Prinivil) 2.5 mg PO DAILY [facility] Last Admin: 06/15/18 09:05 Dose: 2.5 mg Melatonin (Melatonin) 5 mg PO [facility] Last Admin: 06/15/18 21:00 Dose: 5 mg Miscellaneous (Pill Splitter) 1 each OTHER UNSCH PRN PRN Reason: PILL SPIT Miscellaneous Information ([facility] Ordered Lab Info) 1 each OTHER ONCE [facility] Ondansetron HCl (Zofran Inj) 4 mg IV.PUSH Q6H PRN PRN Reason: NAUSEA OR VOMITING Last Admin: 06/12/18 21:04 Dose: 4 mg Oxybutynin Chloride (Ditropan) 10 mg PO BID [facility] Last Admin: 06/15/18 20:54 Dose: 10 mg Oxycodone/Acetaminophen (Percocet 10/325 Mg) 1 tab PO Q4H PRN PRN Reason: pain 5-10 Last Admin: 06/15/18 20:54 Dose: 1 tab Oxycodone/Acetaminophen (Percocet 5/325 Mg) 1 tab PO Q4H PRN PRN Reason: pain 1-4 Last Admin: 06/15/18 06:00 Dose: 1 tab Pantoprazole Sodium (Protonix) 40 mg PO DAILY [facility] Last Admin: 06/15/18 09:03 Dose: 40 mg Pharmacy Profile Note (Vancomycin Consult Pharmacy) 1 each OTHER UNSCH PRN PRN Reason: Pharmacy to dose Pravastatin Sodium (Pravachol) 40 mg PO [facility] Last Admin: 06/15/18 20:54 Dose: 40 mg Sennosides (Senokot) 17.2 mg PO Q12H PRN PRN Reason: Moderate Constipation Allergies Allergy/AdvReac Type Severity Reaction Status Date / Time penicillin G Allergy Severe Hives Verified 06/11/18 12:19 Sulfa (Sulfonamide Allergy Hives Verified 06/11/18 12:19 Antibiotics) Home Medications Medication Instructions Recorded Confirmed Type aspirin 81 mg PO DAILY 06/03/18 06/03/18 History buspirone 10 mg PO TID 06/03/18 06/03/18 History calcium acetate 667 mg PO TID 06/03/18 06/03/18 History cholecalciferol (vitamin D3) 5,000 unit PO DAILY 06/03/18 06/03/18 History [Vitamin D3] duloxetine [Cymbalta] 60 mg PO DAILY 06/03/18 06/03/18 History gabapentin 300 mg PO BID 06/03/18 06/03/18 History gabapentin 600 mg PO HS 06/03/18 06/03/18 History levothyroxine 175 mcg PO DAILY 06/03/18 06/11/18 History lisinopril 2.5 mg PO DAILY 06/03/18 06/11/18 History melatonin 3 mg PO HS 06/03/18 06/11/18 History meloxicam [Mobic] 15 mg PO DAILY 06/03/18 06/11/18 History omeprazole 40 mg PO DAILY 06/03/18 06/11/18 History oxybutynin chloride 10 mg PO BID 06/03/18 06/11/18 History simvastatin 20 mg PO QPM 06/03/18 06/11/18 History aspirin [Aspir-81] 81 mg PO DAILY 06/11/18 06/11/18 History buspirone 10 mg PO TID 06/11/18 06/11/18 History duloxetine 60 mg PO DAILY 06/11/18 06/11/18 History gabapentin 1 tab PO TID 06/11/18 06/11/18 History insulin glargine [Lantus U-100 30 unit SUB-Q BID 06/11/18 06/11/18 History Insulin] insulin lispro [Humalog U-100 06/11/18 History Insulin] Results - Labs CBC & Chem 7: 06/14/18 06:04 06/15/18 07:34 Laboratory Results - last 24 hr 06/15/18 06/15/18 06/15/18 07:34 08:08 11:36 Sodium 131 L Potassium 5.8 H D Chloride 94 L Carbon Dioxide 30.8 Anion Gap 6 BUN 28 H Creatinine 1.34 H Estimated GFR 40 L POC Glucose 342 H 188 H Random Glucose 245 H Calcium 9.1 06/15/18 06/15/18 17:15 20:53 Sodium Potassium Chloride Carbon Dioxide Anion Gap BUN Creatinine Estimated GFR POC Glucose 209 H 199 H Random Glucose Calcium Microbiology 06/14/18 13:36 Wound - Toe Gram Stain - Final 06/14/18 13:36 Wound - Toe Wound Culture - Preliminary Results Pending 06/11/18 13:15 Blood - Peripheral Aerobic Blood Culture - Preliminary No growth in 4 days 06/11/18 13:15 Blood - Peripheral Anaerobic Blood Culture - Preliminary No growth in 4 days 06/11/18 13:20 Blood - Peripheral Aerobic Blood Culture - Preliminary No growth in 4 days 06/11/18 13:20 Blood - Peripheral Anaerobic Blood Culture - Preliminary No growth in 4 days 06/14/18 13:36 Wound - Toe Fungal Smear - Final No fungal elements seen - Procedures Date of procedure: 06/14/18 Pre-op diagnosis: Left foot third MPJ abscess/septic arthritis Post-op diagnosis: same Procedure: Left foot incision and drainage Anesthesia: [facility] Surgeon: Paradise Lopez Pathology: other (Woudn culture) Condition: stable Disposition: PACU (with VSS and NVS intact to the left foot) Assessment and Plan - Assessment (1) Cellulitis of left foot Code(s): L03.116 - Cellulitis of left lower limb Status: Acute Plan: 63-year-old female with left foot septic arthritis to third metatarsophalangeal joint s/p Incision and Drainage of left foot DOS: 06/14 Dressing changed to the left foot, packing pulled Will place wound care orders Will reevaluate in 48 hours for improvement Will await OR cultures Heel weight bearing with surgical shoe
[2018-06-16] MEDS: ALPRAZolam 0.5 MG Tablet PO PRN ×2 (01:07→20:49)
[2018-06-16] MEDS: oxyCODONE/Acetaminophen 10/325 Tablet PO PRN ×4 (05:20→23:26)
[2018-06-16] MEDS: Levothyroxine 150 MCG Tablet PO SCH (05:20)
[2018-06-16] MEDS ORDERED: Insulin Detemir Inj 1,000 UNIT/10 ML Vial SQ SCH ×2 (07:57→21:00)
[2018-06-16] MEDS: Insulin Detemir Inj 1,000 UNIT/10 ML Vial SQ SCH (08:44)
[2018-06-16] MEDS: Insulin NovoLOG Aspart Correctional Sugar Inj SQ SCH ×7 (08:45→20:49)
[2018-06-16] MEDS: Lisinopril 5 MG Tablet PO SCH (09:17)
[2018-06-16] MEDS: Gabapentin 300 MG Capsule PO SCH ×3 (09:21→17:32)
--- NOTE | 2018-06-16 12:20 | P.PNIM ---
Subjective Interval history: Reports that Ricardo has helped her in the past for pain and would like to try an NSAID. Reports no shortness of breath. Physical Exam Vital signs: Vital Signs 06/15/18 15:11 06/15/18 20:00 06/15/18 23:47 Temperature 97.5 F L Pulse Rate 64 Respiratory Rate 18 18 Blood Pressure 139/63 Pulse Oximetry 97 99 06/16/18 00:00 06/16/18 08:00 Temperature 97.3 F L 97.8 F Pulse Rate 74 66 Respiratory Rate 17 16 Blood Pressure 121/71 127/66 Pulse Oximetry 100 100 Intake & Output 06/15/18 06/16/18 06/16/18 18:59 06:59 18:59 Intake Total 200 / 200 1095 / 1095 100 / 100 Balance 200 / 200 1095 / 1095 100 / 100 Weight 131 kg Intake: IV 200 / 200 615 / 615 100 / 100 Maxipime Inj 2,000 MG In NS Inj 100 / 100 100 / 100 100 / 100 100 ML @ 200 mls/hr IV.SIG Q12H [facility] Rx#:[id number] Vancomycin Inj 1,500 MG In NS 515 / 515 Inj 500 ML @ 250 mls/hr IV.SIG Q24H [facility] Rx#:[id number] Flagyl 500 MG Inj 100 ML @ 100 100 / 100 mls/hr IV.SIG Q8H [facility] Rx#: [id number] Oral 480 / 480 Other: # Voids 4 Narrative: GENERAL: Morbidly obese patient sitting up in bed. Appears uncomfortable. Alert and oriented 4. CARDIOVASCULAR: Regular rate and rhythm. RESPIRATORY: No accessory muscle use. Clear to auscultation. Breath sounds equal bilaterally. GASTROINTESTINAL: Abdomen soft, non-tender, nondistended. Hepatic and splenic margins not palpable. MUSCULOSKELETAL: Extremities without clubbing, cyanosis. Trace bilateral lower extremity edema. Left foot bandage clean dry intact NEUROLOGICAL: Awake and alert. No obvious cranial nerve deficits. Motor grossly within normal limits. Normal speech. Results - Labs CBC & Chem 7: 06/14/18 06:04 06/15/18 07:34 Laboratory Results - last 24 hr 06/15/18 06/15/18 06/16/18 17:15 20:53 07:53 POC Glucose 209 H 199 H 223 H 06/16/18 12:09 POC Glucose 183 H Microbiology 06/11/18 13:15 Blood - Peripheral Aerobic Blood Culture - Final No growth in 5 days 06/11/18 13:15 Blood - Peripheral Anaerobic Blood Culture - Final No growth in 5 days 06/11/18 13:20 Blood - Peripheral Aerobic Blood Culture - Final No growth in 5 days 06/11/18 13:20 Blood - Peripheral Anaerobic Blood Culture - Final No growth in 5 days 06/14/18 13:36 Wound - Toe Gram Stain - Final 06/14/18 13:36 Wound - Toe Wound Culture - Preliminary Results Pending 06/14/18 13:36 Wound - Toe Fungal Smear - Final No fungal elements seen - Procedures Date of procedure: 06/14/18 Pre-op diagnosis: Left foot third MPJ abscess/septic arthritis Post-op diagnosis: same Procedure: Left foot incision and drainage Anesthesia: [facility] Surgeon: Paradise Lopez Pathology: other (Woudn culture) Condition: stable Disposition: PACU (with VSS and NVS intact to the left foot) Assessment and Plan - Plan Sepsis on presentation with presenting leukocytosis and tachycardia Acute left foot diabetic cellulitis Leukocytosis due to infection. 15 on admission -> 11.3 (06/12) -X-ray foot negative for acute process. There is blistering in between first and second toes on exam, market erythema. -Failure of outpatient treatment Administered broad-spectrum IV antibiotics for suspected bacterial infection. Cefepime for antipseudomonal and gram-negative coverage, and vancomycin for gram -positive and MRSA coverage. Wound, and blood cultures pending. -Podiatry has been consulted, greatly appreciate assistance. Status post operative day #2 incision and drainage of the left foot infection (06/14) -MRI of left foot with edema surrounding the third metatarsal shaft and third and MTP joint. Bony edema possibly septic arthritis of the third MTP joint, fluid along the dorsal aspect of third toe possibly abscess or joint effusion originating from the third MTP joint. We will consult infectious disease for antibiotics recommendations. Discharge to home when cleared by podiatry. Morbid obesityhigh risk for complications and weight loss counseling provided Nausea/vomiting -Phenergan 25 mg IM X1 -Zofran 4 mg IV as needed for N/V -No further nausea or vomiting Hyperkalemia. Potassium 5.4. Kayexalate administered with potassium improved to 4.6 Diabetes mellitus, type 2 insulin-dependent with neuropathy. Chronic. -Continue on long-acting as well as sliding scale insulin. Diabetic diet. Monitor sugars. Will adjust Levemir morning dose to 25 units, increase bedtime dose to 25 units add preprandial insulin due to uncontrolled blood sugars. History of CHF, chronic diastolic. patient does not appear to be on CHF meds Appears euvolemic currently. Monitor fluid status closely. GERD. Chronic. Continue home meds. Hypertension, chronic essential. Chronic. Blood pressure acceptable. Continue home meds, hold lisinopril due to hyperkalemia Hyperkalemiahold lisinopril and repeat levels in the morning. Hyperlipidemia. Chronic. Continue home meds. Overactive bladder. Chronic. Resume patient's home oxybutynin. Hypothyroidism. Chronic. Continue home meds. Synthroid Chronic diabetic neuropathy. Continue gabapentin. Depression. Chronic. No SI. Continue fluoxetine. Chronic kidney disease stage III -monitor closely while dose of NSAIDs to be given today for pain DVT prophylaxis-ambulation
--- NOTE | 2018-06-16 13:28 | P.DCO ---
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 [] May leave port accessed during therapy. [] May leave peripheral site accessed for duration of therapy. [x] If patient has SOB or respiratory distress, check oxygen saturation. If less than 90% or clinical signs of respiratory distress, administer oxygen at 2 L/min. via nasal cannula and notify physician. [x] Anaphylaxis/Reaction orders: * Stop infusion. * Keep IV line open with saline flush. * Notify physician. * Monitor vital signs every 15 minutes until symptoms resolve. * Check Oxygen saturation; Oxygen at 2 L/min. via nasal cannula if less than 90% or clinical signs of respiratory distress. * Administer diphenhydramine (Benadryl) 25 mg IV STAT, (unless patient has received as pre-med). May repeat once, if necessary. * Solu-Cortef 250 mg IVP over 30-60 seconds, use 100 mg vials for each dissolution. * Epinephrine (1mg/1 ml) 0.3 mg subcutaneously or IVP now with any signs of respiratory distress. * Check with physician for new additional pre-med orders if patient is re- challenged or re-treated. [x] May remove PICC line when treatment complete, after confirming with Physician. [x] If the patient is admitted to the hospital, the ED, or transferred via [facility] , complete transfer form including medication reconciliation order sheet. Allergies penicillin G Allergy (Severe, Verified 06/11/18 12:19) Hives Sulfa (Sulfonamide Antibiotics) Allergy (Verified 06/11/18 12:19) Hives
--- NOTE | 2018-06-16 14:37 | MB ---
cc: Michael Manrique MD DATE: 06/16/2018 REQUESTING PHYSICIAN: Dr. Betancourt. REASON: Left foot infection. HISTORY OF PRESENT ILLNESS: This is a 63-year-old white female who sustained an injury to her left foot at the dorsal aspect overlying the base of the fifth toe approximately 2 weeks ago. The patient was evaluated in the emergency department on 06/03/2018 after she developed erythema at the site. She was put on p.o. Cephalexin. She did not improve and she came back to the emergency department for further evaluation on 06/11/2018. There was noted to be an area of purulent drainage at the dorsum of the foot and she was noted to have erythema of the entire dorsal foot extending to the ankle and a fluid-filled blister with purulent drainage at the base of the third and fourth toe. The patient underwent MRI of foot after evaluation by podiatry. The MRI showed soft tissue edema extending into the plantar soft tissues at the third metatarsal bone and around the third metatarsal bone. There is also bony edema involving the third proximal phalangeal bone. This was noted to be very impressive and possibility of septic arthritis of the third metatarsophalangeal joint was noted and it is felt that she could have an abscess or joint effusion. The patient underwent incision and debridement by podiatry on 06/14/2018. Culture has group B beta strep. Her white count was elevated at 15.9 on admission and is down to 7.7. The patient currently has no complaints. She is currently on cefepime and vancomycin. She is tolerating the cefepime without any problems. PAST MEDICAL HISTORY: Diabetes mellitus, hypertension, hypothyroidism, hypercholesteremia, fibromyalgia, depression, COPD, CHF, history of cholecystectomy, history of multiple episodes of cellulitis of the lower extremities (patient notes approximately 10 episodes). ALLERGIES: 1. PENICILLIN. 2. SULFA. MEDICATIONS: 1. Vancomycin. 2. Cefepime. 3. Pravachol. 4. Protonix. 5. Percocet p.r.n. 6. Zofran. 7. Ditropan. 8. Prinivil. 9. Melatonin. 10. Synthroid. 11. Insulin. 12. Neurontin. 13. Ecotrin. SOCIAL HISTORY: No tobacco, no alcohol, and no illicit drugs. FAMILY HISTORY: Noncontributory. REVIEW OF SYSTEMS: Significant for pain in the foot, nausea, vomiting. All other systems have been reviewed and are negative. PHYSICAL EXAMINATION: GENERAL: She is a morbidly obese female who is in no acute distress. She is awake, alert and oriented. VITAL SIGNS: BP 186/76, respirations 17, heart rate 85. HEENT: Head atraumatic. Extraocular movements grossly intact. Pupils reactive to light. No icterus. No conjunctival erythema. Oropharynx moist mucosa without lesions. NECK: Supple, no adenopathy. LUNGS: Clear breath sounds bilaterally. HEART: Regular S1, S2. ABDOMEN: Obese, soft, no tenderness appreciated. RECTAL: Not performed. EXTREMITIES: The left foot has an incision with opening at the base of the top of the third toe extending into the proximal metacarpophalangeal joint region. There is exposure of the tendon when the packing was removed. There is erythema at the toe and mild erythema at the dorsum of the foot. Very little drainage is visible when the packing is removed. Sensation is intact. There is mild erythema at the distal tibia circumferentially; 1-2+ edema present on the left leg. SKIN: No diffuse rash. NEUROLOGIC: No gross focal finding. PSYCHIATRIC: The patient is calm and cooperative. LABORATORY DATA: WBC 7.7, platelets 266, hemoglobin 9.2, 77% neutrophils, creatinine 1.34. Estimated GFR 40, sodium 131. IMPRESSION: Cellulitis and wound infection of the left foot due to group B strep following injury of the dorsum of the left foot at the third toe region approximately 4 weeks ago. The patient failed to respond to p.o. antibiotics and has undergone incision and debridement and the wound is currently being packed with gauze. RECOMMENDATIONS: 1. Discontinue vancomycin. 2. Discontinue cefepime. 3. Begin ceftriaxone. Give a 2-week course of ceftriaxone intravenous outpatient and have the wound monitored to determine if she needs additional antibiotics after that. I will write the orders for the outpatient IV antibiotics and PICC line insertion for antibiotics to be administered. The patient can be discharged as far as antibiotic is concerned once the arrangements are made for outpatient antibiotics. Thank you for this consultation. MD MARLENE Mak/jean/joel , 01:06 PM , 01:22 PM GRETTA
--- NOTE | 2018-06-16 14:57 | P.DCO ---
- Home Health Nursing Order: IV medication administration - Certification I have seen patient Sylvie Sandhu on 06/16/18. My clinical findings support the need for the requested home health care services because: Infection with risk of complications I certify that my clinical findings support that this patient is homebound because: Unsteady gait/balance, Unsafe to leave home unassisted
[2018-06-16] MEDS ORDERED: Naproxen 250 MG Tablet PO ONE (16:00)
[2018-06-16] MEDS ORDERED: Pharmacy Ordered Lab Info OTHER ONE (17:45)
[2018-06-16] MEDS: Duloxetine 60 MG DR Capsule PO SCH (20:46)
[2018-06-16] MEDS: Melatonin 5 MG Tablet PO SCH (20:47)
[2018-06-17] MEDS: oxyCODONE/Acetaminophen 10/325 Tablet PO PRN ×3 (03:45→17:37)
[2018-06-17] MEDS: Levothyroxine 150 MCG Tablet PO SCH (05:41)
[2018-06-17 07:33] LABS: Calcium 9.4 mg/dL (8.5-10.1); Potassium 5.7 meq/L (3.5-5.1)
[2018-06-17] MEDS: Insulin NovoLOG Aspart Correctional Sugar Inj SQ SCH ×6 (08:55→18:01)
[2018-06-17] MEDS: Gabapentin 300 MG Capsule PO SCH ×3 (09:06→17:37)
[2018-06-17] MEDS: Insulin Detemir Inj 1,000 UNIT/10 ML Vial SQ SCH (10:02)
[2018-06-17] MEDS: ALPRAZolam 0.5 MG Tablet PO PRN (10:06)
[2018-06-17] MEDS ORDERED: Sodium Polystyrene Sulfonate/Sorbitol Liq 15 GM/60 ML UDC PO ONE (10:44)
--- NOTE | 2018-06-17 10:53 | P.DS ---
Date of admission: 06/11/18 14:08 Primary care physician: UNKNOWN Brief History from admission: 63-year-old female with a history of diabetes mellitus, COPD, CHF who accidentally hit her left foot on a door 10 days ago presents with a 10 day history of progressively worsening severe nonradiating constant throbbing pain in the left foot, as well as a 2 day history of subjective fevers and chills. Patient presented to ER 7 days ago and was present arrived antibiotics which she says she has not taken because she did not believe this was cellulitis. She is now back due to worsening cellulitis. He denies any chest pain or shortness of breath. Patient update on day of discharge: Patient states that the Naprosyn did help with the pain. Denies any muscle cramps or soreness. No complaint of chest pain or shortness of breath. Willing to go home with continued outpatient treatment if clear by podiatry today. DS: Diagnosis - Discharge Diagnosis (1) Sepsis Status: Resolved Diagnosis: Principal (2) Cellulitis of left foot Status: Acute Diagnosis: Principal (3) Diabetes mellitus type 2 with complications, uncontrolled Status: Chronic Diagnosis: Secondary DS: Medications - Discharge Medications Prescriptions: oxycodone-acetaminophen 1 tab PO Q6H PRN #28 tab PRN Reason: Acute Pain DS: Summary Hospital Course: These are the medical issues addressed during this hospitalization: Sepsis on presentation with presenting leukocytosis and tachycardianow resolved Acute left foot diabetic cellulitis Leukocytosis due to infection. 15 on admission -> 11.3 (06/12) -X-ray foot negative for acute process. There is blistering in between first and second toes on exam, market erythema. -Failure of outpatient treatment Administered broad-spectrum IV antibiotics for suspected bacterial infection. Initially was placed on cefepime for antipseudomonal and gram-negative coverage , and vancomycin for gram-positive and MRSA coverage. Wound culture with final results beta strep and was placed on IV Rocephin. Infectious disease Dr. Oneil was consulted to make final recommendations to continue IV Rocephin through . PICC line was placed. -Podiatry has been consulted, greatly appreciate assistance. Status post operative day #2 incision and drainage of the left foot infection (06/14) -MRI of left foot with edema surrounding the third metatarsal shaft and third and MTP joint. Bony edema possibly septic arthritis of the third MTP joint, fluid along the dorsal aspect of third toe possibly abscess or joint effusion originating from the third MTP joint. Discharge to home when cleared by podiatry. Morbid obesityhigh risk for complications and weight loss counseling provided Nausea/vomiting -Phenergan 25 mg IM X1 -Zofran 4 mg IV as needed for N/V -No further nausea or vomiting Hyperkalemia. Administer Kayexalate today, stop home lisinopril Diabetes mellitus, type 2 insulin-dependent with neuropathy. Chronic. -Continue on long-acting as well as sliding scale insulin. Diabetic diet. Monitor sugars. Will adjust Levemir morning dose to 25 units, increase bedtime dose to 25 units adjusted preprandial insulin. History of CHF, chronic diastolic. patient does not appear to be on CHF meds Appears euvolemic currently. Monitor fluid status closely. GERD. Chronic. Continue home meds. Hypertension, chronic essential. Chronic. Blood pressure acceptable. Continue home meds, hold lisinopril due to hyperkalemia Hyperlipidemia. Chronic. Continue home meds. Overactive bladder. Chronic. Resume patient's home oxybutynin. Hypothyroidism. Chronic. Continue home meds. Synthroid Chronic diabetic neuropathy. Continue gabapentin. Depression. Chronic. No SI. Continue fluoxetine. Chronic kidney disease stage III -monitor closely while dose of NSAIDs to be given today for pain, explained to her long-term use of NSAIDs is not ideal for pain control due to her kidney disease. DVT prophylaxis-Lovenox - Time Spent with Patient Total time spent providing and/or coordinating discharge services: Less than 30 minutes - Quality: VTE Deep Vein Thrombosis/Pulmonary Embolism Present on Admission: No Exam Vital signs: Vital Signs 06/16/18 12:00 06/16/18 14:58 06/16/18 20:00 Temperature 95.6 F L 97.5 F L 97.4 F L Pulse Rate 85 70 64 Respiratory Rate 17 16 18 Blood Pressure 186/76 H 131/57 L 140/63 Pulse Oximetry 94 L 98 94 L 06/17/18 00:00 06/17/18 04:00 06/17/18 07:54 Temperature 97.3 F L 97.2 F L Pulse Rate 99 H 77 61 Respiratory Rate 20 18 12 Blood Pressure 196/74 H 146/66 H Pulse Oximetry 98 96 99 06/17/18 08:00 06/17/18 08:19 Temperature 97.3 F L 97.7 F Pulse Rate 65 75 Respiratory Rate 19 16 Blood Pressure 145/67 H 145/67 H Pulse Oximetry 99 96 Intake & Output 06/16/18 06/17/18 06/17/18 18:59 06:59 18:59 Intake Total 100 / 100 600 / 600 Balance 100 / 100 600 / 600 Weight 131 kg Intake: IV 100 / 100 Maxipime Inj 2,000 MG In NS Inj 100 / 100 100 ML @ 200 mls/hr IV.SIG Q12H LANCE Rx#:[id number] Oral 600 / 600 Other: # Voids 5 2 Date of Last Bowel Movement 06/16/18 06/16/18 Narrative: GENERAL: This is a well-nourished, obese, well-developed patient, in no apparent distress. CARDIOVASCULAR: Regular rate and rhythm without murmurs, gallops, or rubs. RESPIRATORY: Clear to auscultation. Breath sounds equal bilaterally. No wheezes , rales, or rhonchi. GASTROINTESTINAL: Abdomen soft, non-tender, nondistended. Normal active bowel sounds MUSCULOSKELETAL: Left foot and bandage clean dry and intact. NEURO: Alert & Oriented x4 to person, place, time, situation. Moves all ext x4 Results Procedures completed during hospitalization: Date of procedure: 06/14/18 Pre-op diagnosis: Left foot third MPJ abscess/septic arthritis Post-op diagnosis: same Procedure: Left foot incision and drainage Anesthesia: KIM Surgeon: Paradise Lopez Pathology: other (Woudn culture) Condition: stable Disposition: PACU (with VSS and NVS intact to the left foot) Labs on day of discharge: Labs from last 24 hours 06/17/18 06/17/18 06/16/18 07:46 06:40 20:44 Sodium 132 L Potassium 5.7 H Chloride 92 L Carbon Dioxide 34.0 H Anion Gap 6 BUN 30 H Creatinine 1.27 H Estimated GFR 42 L POC Glucose 183 H 157 H Random Glucose 178 H Calcium 9.4 06/16/18 06/16/18 06/16/18 17:56 17:31 17:08 Sodium Potassium Chloride Carbon Dioxide Anion Gap BUN Creatinine Estimated GFR POC Glucose 106 56 L 77 Random Glucose Calcium 06/16/18 12:09 Sodium Potassium Chloride Carbon Dioxide Anion Gap BUN Creatinine Estimated GFR POC Glucose 183 H Random Glucose Calcium - Impressions ITS Impressions Foot X-Ray 06/11/18 00:00 CONCLUSION: Negative examination Foot MRI 06/12/18 00:00 CONCLUSION: 1. There is very impressive edema and enhancement throughout the dorsum of the foot and the soft tissues surrounding the third metatarsal shaft and the third MTP joint. There is bony edema present with the possibility of a septic arthritis of the third MTP joint. There is also fluid along the dorsal aspect of the third toe could be an abscess or possible joint effusion possibly originating from the third MTP joint. The edema and enhancement involves the plantar musculature plantar to the third metatarsal shaft. Extremity Arterial Study 06/13/18 00:00 CONCLUSION: 1. Elevated segmental pressures characteristic of atherosclerotic disease. 2. No evidence of significant arterial insufficiency. Discharge Plan - Discharge Disposition Patient Disposition: W/Home Health Service - Discharge Condition Condition: Stable - Discharge Order Discharge Orders: Discharge Order (Routine); Ordered 06/17/18 Ordered By: Aby Betancourt - Physicians Team Primary Care Provider: UNKNOWN, Attending Provider: Aby Betancourt Other Providers: Donaldo Lyle DPM ; Michael Manrique MD
[2018-06-17] MEDS ORDERED: Enoxaparin Inj 40 MG/0.4 ML Syringe SQ SCH (11:00)
[2018-06-17 13:15] VITALS: O2SAT 98
[2018-06-17 16:34] VITALS: BP 159/68; PULSE 70; RESP 19; TEMP 97.2
[2018-06-17] MEDS ORDERED: Pharmacy Ordered Lab Info OTHER SCH (19:45)
== END 2018-06-17 19:28 | disposition home health service (06) ==
LOC: NEPD 11:26 → NEDA 14:08 → N07 15:40
PROVIDERS: ADMIT Family Medicine; ATTEND Family Medicine

== ENCOUNTER 2018-11-14 01:30 | Inpatient (IN) ==
[2018-11-14 01:56] LABS: Hematocrit 34.7 % (35.0-46.0); Hemoglobin 11.2 gm/dL (11.6-15.3); Mean Corpuscular HGB Conc 32.3 % (32.0-36.0); Mean Corpuscular Hemoglobin 27.4 pg (27.0-34.0); Mean Corpuscular Volume 84.8 fL (80.0-100.0); Mean Platelet Volume 8.3 fL (7.0-11.0); Platelet Count 252 th/mm3 (150-450); Red Cell Distribution Width 14.9 % (11.6-17.2); White Blood Count 25.5 th/mm3 (4.0-11.0)
--- NOTE | 2018-11-14 02:02 | XR ---
EXAM DATE: 11/14/2018 1:55 AM EST AGE/SEX: 63 years / Female INDICATIONS: Difficulty breathing getting worse over the past week. CLINICAL DATA: This is the patient's initial encounter. Patient reports that signs and symptoms have been present for 1 week and indicates a pain score of 0/10. MEDICAL/SURGICAL HISTORY: . CHF, COPD, Depression, Diabetes, Hypertension . Appendicitis. Cesa rean section. Hip surgery. COMPARISON: [facility] [place], CHEST 1V SINGLE AP, 08/25/2018. . FINDINGS: A single AP view of the chest demonstrates the lungs to be symmetrically aerated without evidence of mass, infiltrate or effusion. The cardiomediastinal contours are unremarkable. Osseous structures a re intact. CONCLUSION: No acute disease Electronically signed by: Jamil Abebe MD Board Certified Radiologist 11/14/2018 2:01 AM EST
[2018-11-14 02:11] LABS: Alanine Aminotransferase 17 U/L (10-53); Albumin 3.5 g/dL (3.4-5.0); Anion Gap 8 meq/L (5-15); Aspartate Aminotransferase 14 U/L (15-37); Blood Urea Nitrogen 27 mg/dL (7-18); Calcium 9.2 mg/dL (8.5-10.1); Carbon Dioxide 36.6 meq/L (21.0-32.0); Chloride 88 meq/L (98-107); Glomerular Filtration Rate 32 mL/min (>89); Glucose,Random 370 mg/dL (74-106); Magnesium 1.6 mg/dL (1.5-2.5); Sodium 133 meq/L (136-145)
[2018-11-14] MEDS ORDERED: Vancomycin Inj 1,000 MG in Sodium Chlor 0.9% Inj 250 ML IV.SIG ONE (02:12)
[2018-11-14] MEDS ORDERED: Aztreonam Inj 2 GM in Sodium Chloride 0.9% Inj 100 ML IV.SIG ONE (02:12)
[2018-11-14 02:13] LABS: ABG Base Excess 15.3 mmol/L (-2-2); ABG PCO2 61 mmHg (38-42); ABG PO2 72 mmHg (61-120)
[2018-11-14 02:14] LABS: Alkaline Phosphatase 99 U/L (45-117); Total Protein 7.8 g/dL (6.4-8.2); Troponin I 0.05 ng/mL (0.02-0.05)
--- NOTE | 2018-11-14 02:21 | ED ---
HPI General Chief Complaint: Shortness of Breath/Dyspnea Stated Complaint: Medical Time Seen by Provider: 11/14/18 01:39 Source: EMS Mode of arrival: EMS Limitations: physical limitation History of Present Illness 63-year-old female came to the emergency room brought in by EMS with history of worsening shortness of breath. Patient tells me that she has been sick for 1 week but tonight she was feeling the worst and called 911. EMS noticed that she was in respiratory distress and gave her 3 nebulizers. They were unable to get an IV. Patient was hypoxic in her 80s. Patient also had a temperature of 100.4 orally upon arrival. She was in significant respiratory distress. Patient is morbidly obese. History from the patient was sketchy given her respiratory distress peer Related Data Home Medications Medication Instructions Recorded Confirmed calcium acetate 667 mg PO TID 06/03/18 08/25/18 cholecalciferol (vitamin D3) 5,000 unit PO DAILY 06/03/18 08/25/18 [Vitamin D3] duloxetine [Cymbalta] 60 mg PO DAILY 06/03/18 08/25/18 gabapentin 300 mg PO BID 06/03/18 08/25/18 gabapentin 600 mg PO HS 06/03/18 08/25/18 levothyroxine 175 mcg PO DAILY 06/03/18 08/25/18 melatonin 3 mg PO HS 06/03/18 08/25/18 omeprazole 40 mg PO DAILY 06/03/18 08/25/18 oxybutynin chloride 10 mg PO BID 06/03/18 08/25/18 simvastatin 20 mg PO QPM 06/03/18 08/25/18 aspirin [Aspir-81] 81 mg PO DAILY 06/11/18 08/25/18 buspirone 10 mg PO TID 06/11/18 08/25/18 duloxetine 60 mg PO DAILY 06/11/18 08/25/18 insulin glargine [Lantus U-100 30 unit SUB-Q BID 06/11/18 08/25/18 Insulin] insulin lispro [Humalog U-100 0 - 10 units SUBCUT DIRECTED 06/11/18 08/25/18 Insulin] Previous Rx's Medication Instructions Recorded oxycodone-acetaminophen 1 tab PO Q6H PRN #28 tab 06/17/18 lorazepam 1 mg PO Q8H PRN #6 tab 08/26/18 Allergies Allergy/AdvReac Type Severity Reaction Status Date / Time penicillin G Allergy Severe Hives Verified 11/14/18 01:39 Sulfa (Sulfonamide Allergy Hives Verified 11/14/18 01:39 Antibiotics) Review of Systems ROS: all other systems reviewed are negative FOR[facility] Medical History Medical History CHF (congestive heart failure) (Acute) COPD (chronic obstructive pulmonary disease) (Acute) Depression (Acute) Diabetes (Acute) FH: cholecystectomy (Acute) Fibromyalgia (Acute) Hypercholesteremia (Acute) Hypertension (Acute) Hypothyroid (Acute) Surgical History Surgical History History of (Acute) History of appendectomy (Acute) History of hip replacement (Acute) Family History Family History Mother Kidney disease Father Liver disease Social History Social History Substance History: No History of Abuse Second Hand Smoke Exposure: Yes Smoking Status: Former smoker How Often Do You Have a Drink Containing Alcohol: Never Recent Travel in [facility] within the Last 8 Weeks: No Recent Out of Country Travel within the Last 8 Weeks: No Immunization History Tetanus Immunization: Unsure Exam Narrative Exam Narrative: GENERAL: Awake, alert, morbidly obese, significant respiratory distress SKIN: Focused skin assessment warm/dry. HEAD: Atraumatic. Normocephalic. EYES: Pupils equal and round. No scleral icterus. No injection or drainage. ENT: No nasal bleeding or discharge. Dry mouth. NECK: Trachea midline. No JVD. CARDIOVASCULAR: Regular rate and rhythm. No murmur appreciated. RESPIRATORY: Respiratory distress, accessory muscles use for respiration, decreased air entry bilateral GASTROINTESTINAL: Abdomen soft, non-tender, nondistended. Hepatic and splenic margins not palpable. MUSCULOSKELETAL: No obvious deformities. No clubbing. No cyanosis. No edema. NEUROLOGICAL: Awake and alert. No obvious cranial nerve deficits. Motor grossly within normal limits. Normal speech. PSYCHIATRIC: Appropriate mood and affect; insight and judgment normal. Course Initial Documented Vital Signs Temperature 100.4 F H 11/14/18 01:32 Pulse Rate 115 H 11/14/18 01:32 Respiratory Rate 32 H 11/14/18 01:32 Blood Pressure 186/79 H 11/14/18 01:32 Pulse Oximetry 86 L 11/14/18 01:32 Last Documented Vital Signs Temperature 98.3 F 11/17/18 20:00 Pulse Rate 83 11/17/18 22:23 Respiratory Rate 18 11/17/18 22:23 Blood Pressure 123/65 11/17/18 20:00 Pulse Oximetry 98 11/17/18 22:23 Critical Care Time Critical Care Time: Yes Total Critical Care Time: 45 Attestation: Aggregate critical care time was 45 minutes. Time to perform other separately billable procedures was not included in the critical care time. My time did not include minutes spent treating any other patients simultaneously or on activities that did not directly contribute to the patient's treatment. The services I provided to this patient were to treat and/or prevent clinically significant deterioration that could result in: Respiratory distress, sepsis, BiPAP, sepsis protocol I provided critical care services requiring my management, as noted below: Chart data review, documentation time, medication orders and management, vital sign assessments/reviewing monitor data, ordering and reviewing lab tests, ordering and interpreting/reviewing x-rays and diagnostic studies, care of the patient and discussion of the patient with the admitting physicians. Medical Decision Making MDM Narrative Medical decision making narrative: 2:23 AM patient was started on BiPAP soon after arrival. Upon reassessment patient says she feels better. White blood cell count is significantly elevated and she is getting antibiotic as per sepsis protocol. Lactic acid is elevated. I want the patient to be admitted to the ICU and spoke with Dr. Person was accepted the patient. Patient remains hemodynamically stable. Medical Screen Exam Complete: Yes Emergency Medical Condition: Yes Lab Data Result diagrams: 11/17/18 07:04 11/17/18 07:04 Lab Results 11/14/18 11/14/18 11/14/18 Range/Units 01:45 01:45 01:45 WBC 25.5 H (4.0-11.0) th/mm3 RBC 4.10 (4.00-5.30) mil/mm3 Hgb 11.2 L (11.6-15.3) gm/dL Hct 34.7 L (35.0-46.0) % MCV 84.8 (80.0-100.0) fL MCH 27.4 (27.0-34.0) pg MCHC 32.3 (32.0-36.0) % RDW 14.9 (11.6-17.2) % Plt Count 252 (150-450) th/mm3 MPV 8.3 (7.0-11.0) fL Prelim Diff (Auto) Manual diff required Neut % (Auto) (16.0-70.0) % Lymph % (Auto) (9.0-44.0) % Hitchcock % (Auto) (0.0-8.0) % Eos % (Auto) (0.0-4.0) % Baso % (Auto) (0.0-2.0) % Neut # (Auto) (1.8-7.7) th/mm3 Lymph # (Auto) (1.0-4.8) th/mm3 Hitchcock # (Auto) (0.0-0.9) th/mm3 Eos # (Auto) (0.0-0.4) th/mm3 Baso # (Auto) (0.0-0.2) th/mm3 WBC Differential Manual diff final Seg Neuts % (Manual) 83 H (16-70) % Band Neuts % (Manual) 11 H (0-6) % Lymphocytes % (Manual) 1 L (9-44) % Monocytes % (Manual) 3 (0-8) % Eosinophils % (Manual) 1 (0-4) % Basophils % (Manual) 1 (0-2) % Promyelocytes % (Man) (0-0) % Abs Neuts (Manual) 24.0 H (1.8-7.7) th/mm3 Differential Comment . Toxic Granulation (None) Toxic Vacuolation Present H (None) Platelet Estimate Normal (Normal) Platelet Morphology Normal (Normal) Basophilic Stippling Faint H (None) Stomatocytes 1+ H (None) PT (9.8-11.6) sec INR Ratio APTT (23.4-31.7) sec Puncture Site Patient Temperature O2 Saturation (90-100) % ABG pH (7.380-7.420) ABG pCO2 (38-42) mmHg ABG pO2 (61-120) mmHg ABG HCO3 (22-26) mmol/L ABG O2 Content (12.0-20.0) Vol % ABG Base Excess (-2-2) mmol/L ABG Methemoglobin (0-2) % Frank Test Hemoglobin (12.0-16.0) G/DL Carboxyhemoglobin (0-4) % O2 Delivery Device Vent Setting Inspired O2 % Critical Value Sodium 133 L (136-145) meq/L Potassium 5.0 (3.5-5.1) meq/L Chloride 88 L (98-107) meq/L Carbon Dioxide 36.6 H (21.0-32.0) meq/L Anion Gap 8 (5-15) meq/L BUN 27 H (7-18) mg/dL Creatinine 1.63 H (0.50-1.00) mg/dL Estimated GFR 32 L (>89) mL/min POC Glucose (68-110) mg/dl Random Glucose 370 H (74-106) mg/dL Lactic Acid 2.4 H (0.4-2.0) mmol/L Calcium 9.2 (8.5-10.1) mg/dL Phosphorus (2.5-4.9) mg/dL Magnesium 1.6 (1.5-2.5) mg/dL Total Bilirubin 0.5 (0.2-1.0) mg/dL AST 14 L (15-37) U/L ALT 17 (10-53) U/L Alkaline Phosphatase 99 (45-117) U/L Troponin I 0.05 (0.02-0.05) ng/mL B-Natriuretic Peptide (0-100) pg/mL Total Protein 7.8 (6.4-8.2) g/dL Albumin 3.5 (3.4-5.0) g/dL Urine Color (Yellw/Straw) Urine Clarity (Clear) Urine pH (5.0-8.5) Ur Specific [place] (1.002-1.035) Urine Protein (Neg-Trace) mg/dL Urine Glucose (UA) (Negative) mg/dL Urine Ketones (Negative) mg/dL Urine Occult Blood (Negative) Urine Nitrate (Negative) Urine Bilirubin (Negative) Urine Urobilinogen (Less than 2) mg/dL Ur Leukocyte Esterase (Negative) Urine RBC (0-3) /hpf Urine WBC (0-5) /hpf Ur Squamous Epith Cells (0-5) /hpf Urine Bacteria (None) /hpf Micro UA Comment Ur Microscopic Review Urine Culture Comments Nasal Screen MRSA (PCR) (Negative) Adenovirus (PCR) (Not Detect) Bordetella holmesii PCR (Not Detect) B. pertussis DNA (PCR) (Not Detect) B. paraper/bronch (PCR) (Not Detect) Human Metapneumovir PCR (Not Detect) Influenza A (RT-PCR) (Not Detect) Influenza A (H1) PCR (Not Detect) Influenza A (H3) PCR (Not Detect) Influenza B (RT-PCR) (Not Detect) Parainfluenza 1 (PCR) (Not Detect) Parainfluenza 2 (PCR) (Not Detect) Parainfluenza 3 (PCR) (Not Detect) Parainfluenza 4 (PCR) (Not Detect) RSV Type A (PCR) (Not Detect) RSV Type B (PCR) (Not Detect) Rhinovirus (PCR) (Not Detect) 11/14/18 11/14/18 11/14/18 Range/Units 02:03 04:00 04:10 WBC (4.0-11.0) th/mm3 RBC (4.00-5.30) mil/mm3 Hgb (11.6-15.3) gm/dL Hct (35.0-46.0) % MCV (80.0-100.0) fL MCH (27.0-34.0) pg MCHC (32.0-36.0) % RDW (11.6-17.2) % Plt Count (150-450) th/mm3 MPV (7.0-11.0) fL Prelim Diff (Auto) Neut % (Auto) (16.0-70.0) % Lymph % (Auto) (9.0-44.0) % Hitchcock % (Auto) (0.0-8.0) % Eos % (Auto) (0.0-4.0) % Baso % (Auto) (0.0-2.0) % Neut # (Auto) (1.8-7.7) th/mm3 Lymph # (Auto) (1.0-4.8) th/mm3 Hitchcock # (Auto) (0.0-0.9) th/mm3 Eos # (Auto) (0.0-0.4) th/mm3 Baso # (Auto) (0.0-0.2) th/mm3 WBC Differential Seg Neuts % (Manual) (16-70) % Band Neuts % (Manual) (0-6) % Lymphocytes % (Manual) (9-44) % Monocytes % (Manual) (0-8) % Eosinophils % (Manual) (0-4) % Basophils % (Manual) (0-2) % Promyelocytes % (Man) (0-0) % Abs Neuts (Manual) (1.8-7.7) th/mm3 Differential Comment Toxic Granulation (None) Toxic Vacuolation (None) Platelet Estimate (Normal) Platelet Morphology (Normal) Basophilic Stippling (None) Stomatocytes (None) PT (9.8-11.6) sec INR Ratio APTT (23.4-31.7) sec Puncture Site Right radial Patient Temperature 98.6 O2 Saturation 92 (90-100) % ABG pH 7.44 H (7.380-7.420) ABG pCO2 61 H* (38-42) mmHg ABG pO2 72 (61-120) mmHg ABG HCO3 41 H (22-26) mmol/L ABG O2 Content 13.1 (12.0-20.0) Vol % ABG Base Excess 15.3 H (-2-2) mmol/L ABG Methemoglobin 0.9 (0-2) % Frank Test Present Hemoglobin 10.0 L (12.0-16.0) G/DL Carboxyhemoglobin 1.9 (0-4) % O2 Delivery Device Bipap Vent Setting [id number] Inspired O2 35 % Critical Value Yes Sodium (136-145) meq/L Potassium (3.5-5.1) meq/L Chloride (98-107) meq/L Carbon Dioxide (21.0-32.0) meq/L Anion Gap (5-15) meq/L BUN (7-18) mg/dL Creatinine (0.50-1.00) mg/dL Estimated GFR (>89) mL/min POC Glucose (68-110) mg/dl Random Glucose (74-106) mg/dL Lactic Acid 1.0 (0.4-2.0) mmol/L Calcium (8.5-10.1) mg/dL Phosphorus (2.5-4.9) mg/dL Magnesium (1.5-2.5) mg/dL Total Bilirubin (0.2-1.0) mg/dL AST (15-37) U/L ALT (10-53) U/L Alkaline Phosphatase (45-117) U/L Troponin I 0.03 (0.02-0.05) ng/mL B-Natriuretic Peptide (0-100) pg/mL Total Protein (6.4-8.2) g/dL Albumin (3.4-5.0) g/dL Urine Color (Yellw/Straw) Urine Clarity (Clear) Urine pH (5.0-8.5) Ur Specific [place] (1.002-1.035) Urine Protein (Neg-Trace) mg/dL Urine Glucose (UA) (Negative) mg/dL Urine Ketones (Negative) mg/dL Urine Occult Blood (Negative) Urine Nitrate (Negative) Urine Bilirubin (Negative) Urine Urobilinogen (Less than 2) mg/dL Ur Leukocyte Esterase (Negative) Urine RBC (0-3) /hpf Urine WBC (0-5) /hpf Ur Squamous Epith Cells (0-5) /hpf Urine Bacteria (None) /hpf Micro UA Comment Ur Microscopic Review Urine Culture Comments Nasal Screen MRSA (PCR) (Negative) Adenovirus (PCR) (Not Detect) Bordetella holmesii PCR (Not Detect) B. pertussis DNA (PCR) (Not Detect) B. paraper/bronch (PCR) (Not Detect) Human Metapneumovir PCR (Not Detect) Influenza A (RT-PCR) (Not Detect) Influenza A (H1) PCR (Not Detect) Influenza A (H3) PCR (Not Detect) Influenza B (RT-PCR) (Not Detect) Parainfluenza 1 (PCR) (Not Detect) Parainfluenza 2 (PCR) (Not Detect) Parainfluenza 3 (PCR) (Not Detect) Parainfluenza 4 (PCR) (Not Detect) RSV Type A (PCR) (Not Detect) RSV Type B (PCR) (Not Detect) Rhinovirus (PCR) (Not Detect) 11/14/18 11/14/18 11/14/18 Range/Units 05:30 06:00 08:41 WBC (4.0-11.0) th/mm3 RBC (4.00-5.30) mil/mm3 Hgb (11.6-15.3) gm/dL Hct (35.0-46.0) % MCV (80.0-100.0) fL MCH (27.0-34.0) pg MCHC (32.0-36.0) % RDW (11.6-17.2) % Plt Count (150-450) th/mm3 MPV (7.0-11.0) fL Prelim Diff (Auto) Neut % (Auto) (16.0-70.0) % Lymph % (Auto) (9.0-44.0) % Hitchcock % (Auto) (0.0-8.0) % Eos % (Auto) (0.0-4.0) % Baso % (Auto) (0.0-2.0) % Neut # (Auto) (1.8-7.7) th/mm3 Lymph # (Auto) (1.0-4.8) th/mm3 Hitchcock # (Auto) (0.0-0.9) th/mm3 Eos # (Auto) (0.0-0.4) th/mm3 Baso # (Auto) (0.0-0.2) th/mm3 WBC Differential Seg Neuts % (Manual) (16-70) % Band Neuts % (Manual) (0-6) % Lymphocytes % (Manual) (9-44) % Monocytes % (Manual) (0-8) % Eosinophils % (Manual) (0-4) % Basophils % (Manual) (0-2) % Promyelocytes % (Man) (0-0) % Abs Neuts (Manual) (1.8-7.7) th/mm3 Differential Comment Toxic Granulation (None) Toxic Vacuolation (None) Platelet Estimate (Normal) Platelet Morphology (Normal) Basophilic Stippling (None) Stomatocytes (None) PT (9.8-11.6) sec INR Ratio APTT (23.4-31.7) sec Puncture Site Patient Temperature O2 Saturation (90-100) % ABG pH (7.380-7.420) ABG pCO2 (38-42) mmHg ABG pO2 (61-120) mmHg ABG HCO3 (22-26) mmol/L ABG O2 Content (12.0-20.0) Vol % ABG Base Excess (-2-2) mmol/L ABG Methemoglobin (0-2) % Frank Test Hemoglobin (12.0-16.0) G/DL Carboxyhemoglobin (0-4) % O2 Delivery Device Vent Setting Inspired O2 % Critical Value Sodium (136-145) meq/L Potassium (3.5-5.1) meq/L Chloride (98-107) meq/L Carbon Dioxide (21.0-32.0) meq/L Anion Gap (5-15) meq/L BUN (7-18) mg/dL Creatinine (0.50-1.00) mg/dL Estimated GFR (>89) mL/min POC Glucose 410 H (68-110) mg/dl Random Glucose (74-106) mg/dL Lactic Acid (0.4-2.0) mmol/L Calcium (8.5-10.1) mg/dL Phosphorus (2.5-4.9) mg/dL Magnesium (1.5-2.5) mg/dL Total Bilirubin (0.2-1.0) mg/dL AST (15-37) U/L ALT (10-53) U/L Alkaline Phosphatase (45-117) U/L Troponin I (0.02-0.05) ng/mL B-Natriuretic Peptide (0-100) pg/mL Total Protein (6.4-8.2) g/dL Albumin (3.4-5.0) g/dL Urine Color Yellow (Yellw/Straw) Urine Clarity Clear (Clear) Urine pH 8.0 (5.0-8.5) Ur Specific [place] 1.011 (1.002-1.035) Urine Protein 30 H (Neg-Trace) mg/dL Urine Glucose (UA) 500 or greater (Negative) mg/dL Urine Ketones Negative (Negative) mg/dL Urine Occult Blood Small H (Negative) Urine Nitrate Negative (Negative) Urine Bilirubin Negative (Negative) Urine Urobilinogen Less than 2 (Less than 2) mg/dL Ur Leukocyte Esterase Negative (Negative) Urine RBC 3 (0-3) /hpf Urine WBC 1 (0-5) /hpf Ur Squamous Epith Cells <1 (0-5) /hpf Urine Bacteria Rare H (None) /hpf Micro UA Comment Cath-culture ind Ur Microscopic Review Not Reportable Urine Culture Comments Cath-cult indicated Nasal Screen MRSA (PCR) Not detected (Negative) Adenovirus (PCR) (Not Detect) Bordetella holmesii PCR (Not Detect) B. pertussis DNA (PCR) (Not Detect) B. paraper/bronch (PCR) (Not Detect) Human Metapneumovir PCR (Not Detect) Influenza A (RT-PCR) (Not Detect) Influenza A (H1) PCR (Not Detect) Influenza A (H3) PCR (Not Detect) Influenza B (RT-PCR) (Not Detect) Parainfluenza 1 (PCR) (Not Detect) Parainfluenza 2 (PCR) (Not Detect) Parainfluenza 3 (PCR) (Not Detect) Parainfluenza 4 (PCR) (Not Detect) RSV Type A (PCR) (Not Detect) RSV Type B (PCR) (Not Detect) Rhinovirus (PCR) (Not Detect) 11/14/18 11/14/18 11/14/18 Range/Units 10:05 12:41 18:00 WBC (4.0-11.0) th/mm3 RBC (4.00-5.30) mil/mm3 Hgb (11.6-15.3) gm/dL Hct (35.0-46.0) % MCV (80.0-100.0) fL MCH (27.0-34.0) pg MCHC (32.0-36.0) % RDW (11.6-17.2) % Plt Count (150-450) th/mm3 MPV (7.0-11.0) fL Prelim Diff (Auto) Neut % (Auto) (16.0-70.0) % Lymph % (Auto) (9.0-44.0) % Hitchcock % (Auto) (0.0-8.0) % Eos % (Auto) (0.0-4.0) % Baso % (Auto) (0.0-2.0) % Neut # (Auto) (1.8-7.7) th/mm3 Lymph # (Auto) (1.0-4.8) th/mm3 Hitchcock # (Auto) (0.0-0.9) th/mm3 Eos # (Auto) (0.0-0.4) th/mm3 Baso # (Auto) (0.0-0.2) th/mm3 WBC Differential Seg Neuts % (Manual) (16-70) % Band Neuts % (Manual) (0-6) % Lymphocytes % (Manual) (9-44) % Monocytes % (Manual) (0-8) % Eosinophils % (Manual) (0-4) % Basophils % (Manual) (0-2) % Promyelocytes % (Man) (0-0) % Abs Neuts (Manual) (1.8-7.7) th/mm3 Differential Comment Toxic Granulation (None) Toxic Vacuolation (None) Platelet Estimate (Normal) Platelet Morphology (Normal) Basophilic Stippling (None) Stomatocytes (None) PT (9.8-11.6) sec INR Ratio APTT (23.4-31.7) sec Puncture Site Patient Temperature O2 Saturation (90-100) % ABG pH (7.380-7.420) ABG pCO2 (38-42) mmHg ABG pO2 (61-120) mmHg ABG HCO3 (22-26) mmol/L ABG O2 Content (12.0-20.0) Vol % ABG Base Excess (-2-2) mmol/L ABG Methemoglobin (0-2) % Frank Test Hemoglobin (12.0-16.0) G/DL Carboxyhemoglobin (0-4) % O2 Delivery Device Vent Setting Inspired O2 % Critical Value Sodium (136-145) meq/L Potassium (3.5-5.1) meq/L Chloride (98-107) meq/L Carbon Dioxide (21.0-32.0) meq/L Anion Gap (5-15) meq/L BUN (7-18) mg/dL Creatinine (0.50-1.00) mg/dL Estimated GFR (>89) mL/min POC Glucose 346 H 282 H (68-110) mg/dl Random Glucose (74-106) mg/dL Lactic Acid (0.4-2.0) mmol/L Calcium (8.5-10.1) mg/dL Phosphorus (2.5-4.9) mg/dL Magnesium (1.5-2.5) mg/dL Total Bilirubin (0.2-1.0) mg/dL AST (15-37) U/L ALT (10-53) U/L Alkaline Phosphatase (45-117) U/L Troponin I 0.05 (0.02-0.05) ng/mL B-Natriuretic Peptide (0-100) pg/mL Total Protein (6.4-8.2) g/dL Albumin (3.4-5.0) g/dL Urine Color (Yellw/Straw) Urine Clarity (Clear) Urine pH (5.0-8.5) Ur Specific [place] (1.002-1.035) Urine Protein (Neg-Trace) mg/dL Urine Glucose (UA) (Negative) mg/dL Urine Ketones (Negative) mg/dL Urine Occult Blood (Negative) Urine Nitrate (Negative) Urine Bilirubin (Negative) Urine Urobilinogen (Less than 2) mg/dL Ur Leukocyte Esterase (Negative) Urine RBC (0-3) /hpf Urine WBC (0-5) /hpf Ur Squamous Epith Cells (0-5) /hpf Urine Bacteria (None) /hpf Micro UA Comment Ur Microscopic Review Urine Culture Comments Nasal Screen MRSA (PCR) (Negative) Adenovirus (PCR) (Not Detect) Bordetella holmesii PCR (Not Detect) B. pertussis DNA (PCR) (Not Detect) B. paraper/bronch (PCR) (Not Detect) Human Metapneumovir PCR (Not Detect) Influenza A (RT-PCR) (Not Detect) Influenza A (H1) PCR (Not Detect) Influenza A (H3) PCR (Not Detect) Influenza B (RT-PCR) (Not Detect) Parainfluenza 1 (PCR) (Not Detect) Parainfluenza 2 (PCR) (Not Detect) Parainfluenza 3 (PCR) (Not Detect) Parainfluenza 4 (PCR) (Not Detect) RSV Type A (PCR) (Not Detect) RSV Type B (PCR) (Not Detect) Rhinovirus (PCR) (Not Detect) 11/14/18 11/14/18 11/15/18 Range/Units 19:30 20:19 00:13 WBC (4.0-11.0) th/mm3 RBC (4.00-5.30) mil/mm3 Hgb (11.6-15.3) gm/dL Hct (35.0-46.0) % MCV (80.0-100.0) fL MCH (27.0-34.0) pg MCHC (32.0-36.0) % RDW (11.6-17.2) % Plt Count (150-450) th/mm3 MPV (7.0-11.0) fL Prelim Diff (Auto) Neut % (Auto) (16.0-70.0) % Lymph % (Auto) (9.0-44.0) % Hitchcock % (Auto) (0.0-8.0) % Eos % (Auto) (0.0-4.0) % Baso % (Auto) (0.0-2.0) % Neut # (Auto) (1.8-7.7) th/mm3 Lymph # (Auto) (1.0-4.8) th/mm3 [place]cock # (Auto) (0.0-0.9) th/mm3 Eos # (Auto) (0.0-0.4) th/mm3 Baso # (Auto) (0.0-0.2) th/mm3 WBC Differential Seg Neuts % (Manual) (16-70) % Band Neuts % (Manual) (0-6) % Lymphocytes % (Manual) (9-44) % Monocytes % (Manual) (0-8) % Eosinophils % (Manual) (0-4) % Basophils % (Manual) (0-2) % Promyelocytes % (Man) (0-0) % Abs Neuts (Manual) (1.8-7.7) th/mm3 Differential Comment Toxic Granulation (None) Toxic Vacuolation (None) Platelet Estimate (Normal) Platelet Morphology (Normal) Basophilic Stippling (None) Stomatocytes (None) PT (9.8-11.6) sec INR Ratio APTT (23.4-31.7) sec Puncture Site Patient Temperature O2 Saturation (90-100) % ABG pH (7.380-7.420) ABG pCO2 (38-42) mmHg ABG pO2 (61-120) mmHg ABG HCO3 (22-26) mmol/L ABG O2 Content (12.0-20.0) Vol % ABG Base Excess (-2-2) mmol/L ABG Methemoglobin (0-2) % Frank Test Hemoglobin (12.0-16.0) G/DL Carboxyhemoglobin (0-4) % O2 Delivery Device Vent Setting Inspired O2 % Critical Value Sodium (136-145) meq/L Potassium (3.5-5.1) meq/L Chloride (98-107) meq/L Carbon Dioxide (21.0-32.0) meq/L Anion Gap (5-15) meq/L BUN (7-18) mg/dL Creatinine (0.50-1.00) mg/dL Estimated GFR (>89) mL/min POC Glucose 341 H 330 H (68-110) mg/dl Random Glucose (74-106) mg/dL Lactic Acid (0.4-2.0) mmol/L Calcium (8.5-10.1) mg/dL Phosphorus (2.5-4.9) mg/dL Magnesium (1.5-2.5) mg/dL Total Bilirubin (0.2-1.0) mg/dL AST (15-37) U/L ALT (10-53) U/L Alkaline Phosphatase (45-117) U/L Troponin I (0.02-0.05) ng/mL B-Natriuretic Peptide (0-100) pg/mL Total Protein (6.4-8.2) g/dL Albumin (3.4-5.0) g/dL Urine Color (Yellw/Straw) Urine Clarity (Clear) Urine pH (5.0-8.5) Ur Specific [place] (1.002-1.035) Urine Protein (Neg-Trace) mg/dL Urine Glucose (UA) (Negative) mg/dL Urine Ketones (Negative) mg/dL Urine Occult Blood (Negative) Urine Nitrate (Negative) Urine Bilirubin (Negative) Urine Urobilinogen (Less than 2) mg/dL Ur Leukocyte Esterase (Negative) Urine RBC (0-3) /hpf Urine WBC (0-5) /hpf Ur Squamous Epith Cells (0-5) /hpf Urine Bacteria (None) /hpf Micro UA Comment Ur Microscopic Review Urine Culture Comments Nasal Screen MRSA (PCR) (Negative) Adenovirus (PCR) Not detected (Not Detect) Bordetella holmesii PCR Not detected (Not Detect) B. pertussis DNA (PCR) Not detected (Not Detect) B. paraper/bronch (PCR) Not detected (Not Detect) Human Metapneumovir PCR Not detected (Not Detect) Influenza A (RT-PCR) Not detected (Not Detect) Influenza A (H1) PCR Not detected (Not Detect) Influenza A (H3) PCR Not detected (Not Detect) Influenza B (RT-PCR) Not detected (Not Detect) Parainfluenza 1 (PCR) Not detected (Not Detect) Parainfluenza 2 (PCR) Not detected (Not Detect) Parainfluenza 3 (PCR) Not detected (Not Detect) Parainfluenza 4 (PCR) Not detected (Not Detect) RSV Type A (PCR) Not detected (Not Detect) RSV Type B (PCR) Not detected (Not Detect) Rhinovirus (PCR) Not detected (Not Detect) 11/15/18 11/15/18 11/15/18 Range/Units 03:54 03:54 03:54 WBC 19.3 H (4.0-11.0) th/mm3 RBC 3.78 L (4.00-5.30) mil/mm3 Hgb 10.4 L (11.6-15.3) gm/dL Hct 31.9 L (35.0-46.0) % MCV 84.3 (80.0-100.0) fL MCH 27.5 (27.0-34.0) pg MCHC 32.6 (32.0-36.0) % RDW 15.2 (11.6-17.2) % Plt Count 201 (150-450) th/mm3 MPV 8.4 (7.0-11.0) fL Prelim Diff (Auto) Neut % (Auto) 95.6 H (16.0-70.0) % Lymph % (Auto) 2.8 L (9.0-44.0) % [place] % (Auto) 1.5 (0.0-8.0) % Eos % (Auto) 0.0 (0.0-4.0) % Baso % (Auto) 0.1 (0.0-2.0) % Neut # (Auto) 18.5 H (1.8-7.7) th/mm3 Lymph # (Auto) 0.5 L (1.0-4.8) th/mm3 [place]cock # (Auto) 0.3 (0.0-0.9) th/mm3 Eos # (Auto) 0.0 (0.0-0.4) th/mm3 Baso # (Auto) 0.0 (0.0-0.2) th/mm3 WBC Differential . Seg Neuts % (Manual) (16-70) % Band Neuts % (Manual) (0-6) % Lymphocytes % (Manual) (9-44) % Monocytes % (Manual) (0-8) % Eosinophils % (Manual) (0-4) % Basophils % (Manual) (0-2) % Promyelocytes % (Man) (0-0) % Abs Neuts (Manual) (1.8-7.7) th/mm3 Differential Comment Auto diff final Toxic Granulation (None) Toxic Vacuolation (None) Platelet Estimate (Normal) Platelet Morphology (Normal) Basophilic Stippling (None) Stomatocytes (None) PT 10.1 (9.8-11.6) sec INR 1.0 Ratio APTT 27.6 (23.4-31.7) sec Puncture Site Patient Temperature O2 Saturation (90-100) % ABG pH (7.380-7.420) ABG pCO2 (38-42) mmHg ABG pO2 (61-120) mmHg ABG HCO3 (22-26) mmol/L ABG O2 Content (12.0-20.0) Vol % ABG Base Excess (-2-2) mmol/L ABG Methemoglobin (0-2) % Frank Test Hemoglobin (12.0-16.0) G/DL Carboxyhemoglobin (0-4) % O2 Delivery Device Vent Setting Inspired O2 % Critical Value Sodium 133 L (136-145) meq/L Potassium 4.4 (3.5-5.1) meq/L Chloride 91 L (98-107) meq/L Carbon Dioxide 37.2 H (21.0-32.0) meq/L Anion Gap 5 (5-15) meq/L BUN 30 H (7-18) mg/dL Creatinine 1.47 H (0.50-1.00) mg/dL Estimated GFR 36 L (>89) mL/min POC Glucose (68-110) mg/dl Random Glucose 291 H (74-106) mg/dL Lactic Acid (0.4-2.0) mmol/L Calcium 8.6 (8.5-10.1) mg/dL Phosphorus 3.1 (2.5-4.9) mg/dL Magnesium 1.8 (1.5-2.5) mg/dL Total Bilirubin 0.3 (0.2-1.0) mg/dL AST 17 (15-37) U/L ALT 20 (10-53) U/L Alkaline Phosphatase 81 (45-117) U/L Troponin I (0.02-0.05) ng/mL B-Natriuretic Peptide (0-100) pg/mL Total Protein 7.6 (6.4-8.2) g/dL Albumin 3.1 L (3.4-5.0) g/dL Urine Color (Yellw/Straw) Urine Clarity (Clear) Urine pH (5.0-8.5) Ur Specific [place] (1.002-1.035) Urine Protein (Neg-Trace) mg/dL Urine Glucose (UA) (Negative) mg/dL Urine Ketones (Negative) mg/dL Urine Occult Blood (Negative) Urine Nitrate (Negative) Urine Bilirubin (Negative) Urine Urobilinogen (Less than 2) mg/dL Ur Leukocyte Esterase (Negative) Urine RBC (0-3) /hpf Urine WBC (0-5) /hpf Ur Squamous Epith Cells (0-5) /hpf Urine Bacteria (None) /hpf Micro UA Comment Ur Microscopic Review Urine Culture Comments Nasal Screen MRSA (PCR) (Negative) Adenovirus (PCR) (Not Detect) Bordetella holmesii PCR (Not Detect) B. pertussis DNA (PCR) (Not Detect) B. paraper/bronch (PCR) (Not Detect) Human Metapneumovir PCR (Not Detect) Influenza A (RT-PCR) (Not Detect) Influenza A (H1) PCR (Not Detect) Influenza A (H3) PCR (Not Detect) Influenza B (RT-PCR) (Not Detect) Parainfluenza 1 (PCR) (Not Detect) Parainfluenza 2 (PCR) (Not Detect) Parainfluenza 3 (PCR) (Not Detect) Parainfluenza 4 (PCR) (Not Detect) RSV Type A (PCR) (Not Detect) RSV Type B (PCR) (Not Detect) Rhinovirus (PCR) (Not Detect) 11/15/18 11/15/18 11/15/18 Range/Units 03:54 04:02 10:16 WBC (4.0-11.0) th/mm3 RBC (4.00-5.30) mil/mm3 Hgb (11.6-15.3) gm/dL Hct (35.0-46.0) % MCV (80.0-100.0) fL MCH (27.0-34.0) pg MCHC (32.0-36.0) % RDW (11.6-17.2) % Plt Count (150-450) th/mm3 MPV (7.0-11.0) fL Prelim Diff (Auto) Neut % (Auto) (16.0-70.0) % Lymph % (Auto) (9.0-44.0) % Hitchcock % (Auto) (0.0-8.0) % Eos % (Auto) (0.0-4.0) % Baso % (Auto) (0.0-2.0) % Neut # (Auto) (1.8-7.7) th/mm3 Lymph # (Auto) (1.0-4.8) th/mm3 Hitchcock # (Auto) (0.0-0.9) th/mm3 Eos # (Auto) (0.0-0.4) th/mm3 Baso # (Auto) (0.0-0.2) th/mm3 WBC Differential Seg Neuts % (Manual) (16-70) % Band Neuts % (Manual) (0-6) % Lymphocytes % (Manual) (9-44) % Monocytes % (Manual) (0-8) % Eosinophils % (Manual) (0-4) % Basophils % (Manual) (0-2) % Promyelocytes % (Man) (0-0) % Abs Neuts (Manual) (1.8-7.7) th/mm3 Differential Comment Toxic Granulation (None) Toxic Vacuolation (None) Platelet Estimate (Normal) Platelet Morphology (Normal) Basophilic Stippling (None) Stomatocytes (None) PT (9.8-11.6) sec INR Ratio APTT (23.4-31.7) sec Puncture Site Patient Temperature O2 Saturation (90-100) % ABG pH (7.380-7.420) ABG pCO2 (38-42) mmHg ABG pO2 (61-120) mmHg ABG HCO3 (22-26) mmol/L ABG O2 Content (12.0-20.0) Vol % ABG Base Excess (-2-2) mmol/L ABG Methemoglobin (0-2) % Frank Test Hemoglobin (12.0-16.0) G/DL Carboxyhemoglobin (0-4) % O2 Delivery Device Vent Setting Inspired O2 % Critical Value Sodium (136-145) meq/L Potassium (3.5-5.1) meq/L Chloride (98-107) meq/L Carbon Dioxide (21.0-32.0) meq/L Anion Gap (5-15) meq/L BUN (7-18) mg/dL Creatinine (0.50-1.00) mg/dL Estimated GFR (>89) mL/min POC Glucose 292 H 314 H (68-110) mg/dl Random Glucose (74-106) mg/dL Lactic Acid 1.0 (0.4-2.0) mmol/L Calcium (8.5-10.1) mg/dL Phosphorus (2.5-4.9) mg/dL Magnesium (1.5-2.5) mg/dL Total Bilirubin (0.2-1.0) mg/dL AST (15-37) U/L ALT (10-53) U/L Alkaline Phosphatase (45-117) U/L Troponin I (0.02-0.05) ng/mL B-Natriuretic Peptide (0-100) pg/mL Total Protein (6.4-8.2) g/dL Albumin (3.4-5.0) g/dL Urine Color (Yellw/Straw) Urine Clarity (Clear) Urine pH (5.0-8.5) Ur Specific [place] (1.002-1.035) Urine Protein (Neg-Trace) mg/dL Urine Glucose (UA) (Negative) mg/dL Urine Ketones (Negative) mg/dL Urine Occult Blood (Negative) Urine Nitrate (Negative) Urine Bilirubin (Negative) Urine Urobilinogen (Less than 2) mg/dL Ur Leukocyte Esterase (Negative) Urine RBC (0-3) /hpf Urine WBC (0-5) /hpf Ur Squamous Epith Cells (0-5) /hpf Urine Bacteria (None) /hpf Micro UA Comment Ur Microscopic Review Urine Culture Comments Nasal Screen MRSA (PCR) (Negative) Adenovirus (PCR) (Not Detect) Bordetella holmesii PCR (Not Detect) B. pertussis DNA (PCR) (Not Detect) B. paraper/bronch (PCR) (Not Detect) Human Metapneumovir PCR (Not Detect) Influenza A (RT-PCR) (Not Detect) Influenza A (H1) PCR (Not Detect) Influenza A (H3) PCR (Not Detect) Influenza B (RT-PCR) (Not Detect) Parainfluenza 1 (PCR) (Not Detect) Parainfluenza 2 (PCR) (Not Detect) Parainfluenza 3 (PCR) (Not Detect) Parainfluenza 4 (PCR) (Not Detect) RSV Type A (PCR) (Not Detect) RSV Type B (PCR) (Not Detect) Rhinovirus (PCR) (Not Detect) 11/15/18 11/15/18 11/15/18 Range/Units 13:31 17:27 22:02 WBC (4.0-11.0) th/mm3 RBC (4.00-5.30) mil/mm3 Hgb (11.6-15.3) gm/dL Hct (35.0-46.0) % MCV (80.0-100.0) fL MCH (27.0-34.0) pg MCHC (32.0-36.0) % RDW (11.6-17.2) % Plt Count (150-450) th/mm3 MPV (7.0-11.0) fL Prelim Diff (Auto) Neut % (Auto) (16.0-70.0) % Lymph % (Auto) (9.0-44.0) % Hitchcock % (Auto) (0.0-8.0) % Eos % (Auto) (0.0-4.0) % Baso % (Auto) (0.0-2.0) % Neut # (Auto) (1.8-7.7) th/mm3 Lymph # (Auto) (1.0-4.8) th/mm3 Hitchcock # (Auto) (0.0-0.9) th/mm3 Eos # (Auto) (0.0-0.4) th/mm3 Baso # (Auto) (0.0-0.2) th/mm3 WBC Differential Seg Neuts % (Manual) (16-70) % Band Neuts % (Manual) (0-6) % Lymphocytes % (Manual) (9-44) % Monocytes % (Manual) (0-8) % Eosinophils % (Manual) (0-4) % Basophils % (Manual) (0-2) % Promyelocytes % (Man) (0-0) % Abs Neuts (Manual) (1.8-7.7) th/mm3 Differential Comment Toxic Granulation (None) Toxic Vacuolation (None) Platelet Estimate (Normal) Platelet Morphology (Normal) Basophilic Stippling (None) Stomatocytes (None) PT (9.8-11.6) sec INR Ratio APTT (23.4-31.7) sec Puncture Site Patient Temperature O2 Saturation (90-100) % ABG pH (7.380-7.420) ABG pCO2 (38-42) mmHg ABG pO2 (61-120) mmHg ABG HCO3 (22-26) mmol/L ABG O2 Content (12.0-20.0) Vol % ABG Base Excess (-2-2) mmol/L ABG Methemoglobin (0-2) % Frank Test Hemoglobin (12.0-16.0) G/DL Carboxyhemoglobin (0-4) % O2 Delivery Device Vent Setting Inspired O2 % Critical Value Sodium (136-145) meq/L Potassium (3.5-5.1) meq/L Chloride (98-107) meq/L Carbon Dioxide (21.0-32.0) meq/L Anion Gap (5-15) meq/L BUN (7-18) mg/dL Creatinine (0.50-1.00) mg/dL Estimated GFR (>89) mL/min POC Glucose 382 H 323 H 316 H (68-110) mg/dl Random Glucose (74-106) mg/dL Lactic Acid (0.4-2.0) mmol/L Calcium (8.5-10.1) mg/dL Phosphorus (2.5-4.9) mg/dL Magnesium (1.5-2.5) mg/dL Total Bilirubin (0.2-1.0) mg/dL AST (15-37) U/L ALT (10-53) U/L Alkaline Phosphatase (45-117) U/L Troponin I (0.02-0.05) ng/mL B-Natriuretic Peptide (0-100) pg/mL Total Protein (6.4-8.2) g/dL Albumin (3.4-5.0) g/dL Urine Color (Yellw/Straw) Urine Clarity (Clear) Urine pH (5.0-8.5) Ur Specific [place] (1.002-1.035) Urine Protein (Neg-Trace) mg/dL Urine Glucose (UA) (Negative) mg/dL Urine Ketones (Negative) mg/dL Urine Occult Blood (Negative) Urine Nitrate (Negative) Urine Bilirubin (Negative) Urine Urobilinogen (Less than 2) mg/dL Ur Leukocyte Esterase (Negative) Urine RBC (0-3) /hpf Urine WBC (0-5) /hpf Ur Squamous Epith Cells (0-5) /hpf Urine Bacteria (None) /hpf Micro UA Comment Ur Microscopic Review Urine Culture Comments Nasal Screen MRSA (PCR) (Negative) Adenovirus (PCR) (Not Detect) Bordetella holmesii PCR (Not Detect) B. pertussis DNA (PCR) (Not Detect) B. paraper/bronch (PCR) (Not Detect) Human Metapneumovir PCR (Not Detect) Influenza A (RT-PCR) (Not Detect) Influenza A (H1) PCR (Not Detect) Influenza A (H3) PCR (Not Detect) Influenza B (RT-PCR) (Not Detect) Parainfluenza 1 (PCR) (Not Detect) Parainfluenza 2 (PCR) (Not Detect) Parainfluenza 3 (PCR) (Not Detect) Parainfluenza 4 (PCR) (Not Detect) RSV Type A (PCR) (Not Detect) RSV Type B (PCR) (Not Detect) Rhinovirus (PCR) (Not Detect) 11/16/18 11/16/18 11/16/18 Range/Units 08:31 09:59 09:59 WBC 21.7 H (4.0-11.0) th/mm3 RBC 3.97 L (4.00-5.30) mil/mm3 Hgb 10.9 L (11.6-15.3) gm/dL Hct 34.0 L (35.0-46.0) % MCV 85.7 (80.0-100.0) fL MCH 27.6 (27.0-34.0) pg MCHC 32.2 (32.0-36.0) % RDW 15.6 (11.6-17.2) % Plt Count 236 (150-450) th/mm3 MPV 8.6 (7.0-11.0) fL Prelim Diff (Auto) Slide review pending Neut % (Auto) 93.8 H (16.0-70.0) % Lymph % (Auto) 2.9 L (9.0-44.0) % Hitchcock % (Auto) 3.3 (0.0-8.0) % Eos % (Auto) 0.0 (0.0-4.0) % Baso % (Auto) 0.0 (0.0-2.0) % Neut # (Auto) 20.4 H (1.8-7.7) th/mm3 Lymph # (Auto) 0.6 L (1.0-4.8) th/mm3 Hitchcock # (Auto) 0.7 (0.0-0.9) th/mm3 Eos # (Auto) 0.0 (0.0-0.4) th/mm3 Baso # (Auto) 0.0 (0.0-0.2) th/mm3 WBC Differential Manual diff final Seg Neuts % (Manual) 89 H (16-70) % Band Neuts % (Manual) 6 (0-6) % Lymphocytes % (Manual) 3 L (9-44) % Monocytes % (Manual) 1 (0-8) % Eosinophils % (Manual) (0-4) % Basophils % (Manual) (0-2) % Promyelocytes % (Man) 1 H (0-0) % Abs Neuts (Manual) 20.8 H (1.8-7.7) th/mm3 Differential Comment . Toxic Granulation 1+ H (None) Toxic Vacuolation (None) Platelet Estimate Normal (Normal) Platelet Morphology Clumped H (Normal) Basophilic Stippling Moderate H (None) Stomatocytes (None) PT (9.8-11.6) sec INR Ratio APTT (23.4-31.7) sec Puncture Site Patient Temperature O2 Saturation (90-100) % ABG pH (7.380-7.420) ABG pCO2 (38-42) mmHg ABG pO2 (61-120) mmHg ABG HCO3 (22-26) mmol/L ABG O2 Content (12.0-20.0) Vol % ABG Base Excess (-2-2) mmol/L ABG Methemoglobin (0-2) % Frank Test Hemoglobin (12.0-16.0) G/DL Carboxyhemoglobin (0-4) % O2 Delivery Device Vent Setting Inspired O2 % Critical Value Sodium 132 L (136-145) meq/L Potassium 4.8 (3.5-5.1) meq/L Chloride 93 L (98-107) meq/L Carbon Dioxide 33.2 H (21.0-32.0) meq/L Anion Gap 6 (5-15) meq/L BUN 48 H (7-18) mg/dL Creatinine 1.61 H (0.50-1.00) mg/dL Estimated GFR 32 L (>89) mL/min POC Glucose 239 H (68-110) mg/dl Random Glucose 246 H (74-106) mg/dL Lactic Acid (0.4-2.0) mmol/L Calcium 9.0 (8.5-10.1) mg/dL Phosphorus (2.5-4.9) mg/dL Magnesium (1.5-2.5) mg/dL Total Bilirubin (0.2-1.0) mg/dL AST (15-37) U/L ALT (10-53) U/L Alkaline Phosphatase (45-117) U/L Troponin I (0.02-0.05) ng/mL B-Natriuretic Peptide (0-100) pg/mL Total Protein (6.4-8.2) g/dL Albumin (3.4-5.0) g/dL Urine Color (Yellw/Straw) Urine Clarity (Clear) Urine pH (5.0-8.5) Ur Specific [place] (1.002-1.035) Urine Protein (Neg-Trace) mg/dL Urine Glucose (UA) (Negative) mg/dL Urine Ketones (Negative) mg/dL Urine Occult Blood (Negative) Urine Nitrate (Negative) Urine Bilirubin (Negative) Urine Urobilinogen (Less than 2) mg/dL Ur Leukocyte Esterase (Negative) Urine RBC (0-3) /hpf Urine WBC (0-5) /hpf Ur Squamous Epith Cells (0-5) /hpf Urine Bacteria (None) /hpf Micro UA Comment Ur Microscopic Review Urine Culture Comments Nasal Screen MRSA (PCR) (Negative) Adenovirus (PCR) (Not Detect) Bordetella holmesii PCR (Not Detect) B. pertussis DNA (PCR) (Not Detect) B. paraper/bronch (PCR) (Not Detect) Human Metapneumovir PCR (Not Detect) Influenza A (RT-PCR) (Not Detect) Influenza A (H1) PCR (Not Detect) Influenza A (H3) PCR (Not Detect) Influenza B (RT-PCR) (Not Detect) Parainfluenza 1 (PCR) (Not Detect) Parainfluenza 2 (PCR) (Not Detect) Parainfluenza 3 (PCR) (Not Detect) Parainfluenza 4 (PCR) (Not Detect) RSV Type A (PCR) (Not Detect) RSV Type B (PCR) (Not Detect) Rhinovirus (PCR) (Not Detect) 11/16/18 11/16/18 11/16/18 Range/Units 09:59 10:32 13:10 WBC (4.0-11.0) th/mm3 RBC (4.00-5.30) mil/mm3 Hgb (11.6-15.3) gm/dL Hct (35.0-46.0) % MCV (80.0-100.0) fL MCH (27.0-34.0) pg MCHC (32.0-36.0) % RDW (11.6-17.2) % Plt Count (150-450) th/mm3 MPV (7.0-11.0) fL Prelim Diff (Auto) Neut % (Auto) (16.0-70.0) % Lymph % (Auto) (9.0-44.0) % Hitchcock % (Auto) (0.0-8.0) % Eos % (Auto) (0.0-4.0) % Baso % (Auto) (0.0-2.0) % Neut # (Auto) (1.8-7.7) th/mm3 Lymph # (Auto) (1.0-4.8) th/mm3 Hitchcock # (Auto) (0.0-0.9) th/mm3 Eos # (Auto) (0.0-0.4) th/mm3 Baso # (Auto) (0.0-0.2) th/mm3 WBC Differential Seg Neuts % (Manual) (16-70) % Band Neuts % (Manual) (0-6) % Lymphocytes % (Manual) (9-44) % Monocytes % (Manual) (0-8) % Eosinophils % (Manual) (0-4) % Basophils % (Manual) (0-2) % Promyelocytes % (Man) (0-0) % Abs Neuts (Manual) (1.8-7.7) th/mm3 Differential Comment Toxic Granulation (None) Toxic Vacuolation (None) Platelet Estimate (Normal) Platelet Morphology (Normal) Basophilic Stippling (None) Stomatocytes (None) PT (9.8-11.6) sec INR Ratio APTT (23.4-31.7) sec Puncture Site Patient Temperature O2 Saturation (90-100) % ABG pH (7.380-7.420) ABG pCO2 (38-42) mmHg ABG pO2 (61-120) mmHg ABG HCO3 (22-26) mmol/L ABG O2 Content (12.0-20.0) Vol % ABG Base Excess (-2-2) mmol/L ABG Methemoglobin (0-2) % Frank Test Hemoglobin (12.0-16.0) G/DL Carboxyhemoglobin (0-4) % O2 Delivery Device Vent Setting Inspired O2 % Critical Value Sodium (136-145) meq/L Potassium (3.5-5.1) meq/L Chloride (98-107) meq/L Carbon Dioxide (21.0-32.0) meq/L Anion Gap (5-15) meq/L BUN (7-18) mg/dL Creatinine (0.50-1.00) mg/dL Estimated GFR (>89) mL/min POC Glucose 264 H 278 H (68-110) mg/dl Random Glucose (74-106) mg/dL Lactic Acid (0.4-2.0) mmol/L Calcium (8.5-10.1) mg/dL Phosphorus (2.5-4.9) mg/dL Magnesium (1.5-2.5) mg/dL Total Bilirubin (0.2-1.0) mg/dL AST (15-37) U/L ALT (10-53) U/L Alkaline Phosphatase (45-117) U/L Troponin I (0.02-0.05) ng/mL B-Natriuretic Peptide 240 H (0-100) pg/mL Total Protein (6.4-8.2) g/dL Albumin (3.4-5.0) g/dL Urine Color (Yellw/Straw) Urine Clarity (Clear) Urine pH (5.0-8.5) Ur Specific [place] (1.002-1.035) Urine Protein (Neg-Trace) mg/dL Urine Glucose (UA) (Negative) mg/dL Urine Ketones (Negative) mg/dL Urine Occult Blood (Negative) Urine Nitrate (Negative) Urine Bilirubin (Negative) Urine Urobilinogen (Less than 2) mg/dL Ur Leukocyte Esterase (Negative) Urine RBC (0-3) /hpf Urine WBC (0-5) /hpf Ur Squamous Epith Cells (0-5) /hpf Urine Bacteria (None) /hpf Micro UA Comment Ur Microscopic Review Urine Culture Comments Nasal Screen MRSA (PCR) (Negative) Adenovirus (PCR) (Not Detect) Bordetella holmesii PCR (Not Detect) B. pertussis DNA (PCR) (Not Detect) B. paraper/bronch (PCR) (Not Detect) Human Metapneumovir PCR (Not Detect) Influenza A (RT-PCR) (Not Detect) Influenza A (H1) PCR (Not Detect) Influenza A (H3) PCR (Not Detect) Influenza B (RT-PCR) (Not Detect) Parainfluenza 1 (PCR) (Not Detect) Parainfluenza 2 (PCR) (Not Detect) Parainfluenza 3 (PCR) (Not Detect) Parainfluenza 4 (PCR) (Not Detect) RSV Type A (PCR) (Not Detect) RSV Type B (PCR) (Not Detect) Rhinovirus (PCR) (Not Detect) 11/16/18 11/16/18 11/17/18 Range/Units 17:44 20:43 07:04 WBC (4.0-11.0) th/mm3 RBC (4.00-5.30) mil/mm3 Hgb (11.6-15.3) gm/dL Hct (35.0-46.0) % MCV (80.0-100.0) fL MCH (27.0-34.0) pg MCHC (32.0-36.0) % RDW (11.6-17.2) % Plt Count (150-450) th/mm3 MPV (7.0-11.0) fL Prelim Diff (Auto) Neut % (Auto) (16.0-70.0) % Lymph % (Auto) (9.0-44.0) % Hitchcock % (Auto) (0.0-8.0) % Eos % (Auto) (0.0-4.0) % Baso % (Auto) (0.0-2.0) % Neut # (Auto) (1.8-7.7) th/mm3 Lymph # (Auto) (1.0-4.8) th/mm3 Hitchcock # (Auto) (0.0-0.9) th/mm3 Eos # (Auto) (0.0-0.4) th/mm3 Baso # (Auto) (0.0-0.2) th/mm3 WBC Differential Seg Neuts % (Manual) (16-70) % Band Neuts % (Manual) (0-6) % Lymphocytes % (Manual) (9-44) % Monocytes % (Manual) (0-8) % Eosinophils % (Manual) (0-4) % Basophils % (Manual) (0-2) % Promyelocytes % (Man) (0-0) % Abs Neuts (Manual) (1.8-7.7) th/mm3 Differential Comment Toxic Granulation (None) Toxic Vacuolation (None) Platelet Estimate (Normal) Platelet Morphology (Normal) Basophilic Stippling (None) Stomatocytes (None) PT (9.8-11.6) sec INR Ratio APTT (23.4-31.7) sec Puncture Site Patient Temperature O2 Saturation (90-100) % ABG pH (7.380-7.420) ABG pCO2 (38-42) mmHg ABG pO2 (61-120) mmHg ABG HCO3 (22-26) mmol/L ABG O2 Content (12.0-20.0) Vol % ABG Base Excess (-2-2) mmol/L ABG Methemoglobin (0-2) % Frank Test Hemoglobin (12.0-16.0) G/DL Carboxyhemoglobin (0-4) % O2 Delivery Device Vent Setting Inspired O2 % Critical Value Sodium 134 L (136-145) meq/L Potassium 5.1 (3.5-5.1) meq/L Chloride 96 L (98-107) meq/L Carbon Dioxide 30.9 (21.0-32.0) meq/L Anion Gap 7 (5-15) meq/L BUN 62 H (7-18) mg/dL Creatinine 1.90 H (0.50-1.00) mg/dL Estimated GFR 27 L (>89) mL/min POC Glucose 229 H 211 H (68-110) mg/dl Random Glucose 121 H D (74-106) mg/dL Lactic Acid (0.4-2.0) mmol/L Calcium 8.8 (8.5-10.1) mg/dL Phosphorus (2.5-4.9) mg/dL Magnesium (1.5-2.5) mg/dL Total Bilirubin (0.2-1.0) mg/dL AST (15-37) U/L ALT (10-53) U/L Alkaline Phosphatase (45-117) U/L Troponin I (0.02-0.05) ng/mL B-Natriuretic Peptide (0-100) pg/mL Total Protein (6.4-8.2) g/dL Albumin (3.4-5.0) g/dL Urine Color (Yellw/Straw) Urine Clarity (Clear) Urine pH (5.0-8.5) Ur Specific [place] (1.002-1.035) Urine Protein (Neg-Trace) mg/dL Urine Glucose (UA) (Negative) mg/dL Urine Ketones (Negative) mg/dL Urine Occult Blood (Negative) Urine Nitrate (Negative) Urine Bilirubin (Negative) Urine Urobilinogen (Less than 2) mg/dL Ur Leukocyte Esterase (Negative) Urine RBC (0-3) /hpf Urine WBC (0-5) /hpf Ur Squamous Epith Cells (0-5) /hpf Urine Bacteria (None) /hpf Micro UA Comment Ur Microscopic Review Urine Culture Comments Nasal Screen MRSA (PCR) (Negative) Adenovirus (PCR) (Not Detect) Bordetella holmesii PCR (Not Detect) B. pertussis DNA (PCR) (Not Detect) B. paraper/bronch (PCR) (Not Detect) Human Metapneumovir PCR (Not Detect) Influenza A (RT-PCR) (Not Detect) Influenza A (H1) PCR (Not Detect) Influenza A (H3) PCR (Not Detect) Influenza B (RT-PCR) (Not Detect) Parainfluenza 1 (PCR) (Not Detect) Parainfluenza 2 (PCR) (Not Detect) Parainfluenza 3 (PCR) (Not Detect) Parainfluenza 4 (PCR) (Not Detect) RSV Type A (PCR) (Not Detect) RSV Type B (PCR) (Not Detect) Rhinovirus (PCR) (Not Detect) 11/17/18 11/17/18 11/17/18 Range/Units 07:04 07:31 11:36 WBC 18.1 H (4.0-11.0) th/mm3 RBC 4.37 (4.00-5.30) mil/mm3 Hgb 12.0 (11.6-15.3) gm/dL Hct 37.3 (35.0-46.0) % MCV 85.3 (80.0-100.0) fL MCH 27.4 (27.0-34.0) pg MCHC 32.1 (32.0-36.0) % RDW 16.0 (11.6-17.2) % Plt Count 246 (150-450) th/mm3 MPV 8.2 (7.0-11.0) fL Prelim Diff (Auto) Neut % (Auto) 87.7 H (16.0-70.0) % Lymph % (Auto) 5.8 L (9.0-44.0) % Hitchcock % (Auto) 6.2 (0.0-8.0) % Eos % (Auto) 0.0 (0.0-4.0) % Baso % (Auto) 0.3 (0.0-2.0) % Neut # (Auto) 15.9 H (1.8-7.7) th/mm3 Lymph # (Auto) 1.1 (1.0-4.8) th/mm3 Hitchcock # (Auto) 1.1 H (0.0-0.9) th/mm3 Eos # (Auto) 0.0 (0.0-0.4) th/mm3 Baso # (Auto) 0.1 (0.0-0.2) th/mm3 WBC Differential . Seg Neuts % (Manual) (16-70) % Band Neuts % (Manual) (0-6) % Lymphocytes % (Manual) (9-44) % Monocytes % (Manual) (0-8) % Eosinophils % (Manual) (0-4) % Basophils % (Manual) (0-2) % Promyelocytes % (Man) (0-0) % Abs Neuts (Manual) (1.8-7.7) th/mm3 Differential Comment Auto diff final Toxic Granulation (None) Toxic Vacuolation (None) Platelet Estimate (Normal) Platelet Morphology (Normal) Basophilic Stippling (None) Stomatocytes (None) PT (9.8-11.6) sec INR Ratio APTT (23.4-31.7) sec Puncture Site Patient Temperature O2 Saturation (90-100) % ABG pH (7.380-7.420) ABG pCO2 (38-42) mmHg ABG pO2 (61-120) mmHg ABG HCO3 (22-26) mmol/L ABG O2 Content (12.0-20.0) Vol % ABG Base Excess (-2-2) mmol/L ABG Methemoglobin (0-2) % Frank Test Hemoglobin (12.0-16.0) G/DL Carboxyhemoglobin (0-4) % O2 Delivery Device Vent Setting Inspired O2 % Critical Value Sodium (136-145) meq/L Potassium (3.5-5.1) meq/L Chloride (98-107) meq/L Carbon Dioxide (21.0-32.0) meq/L Anion Gap (5-15) meq/L BUN (7-18) mg/dL Creatinine (0.50-1.00) mg/dL Estimated GFR (>89) mL/min POC Glucose 131 H 130 H (68-110) mg/dl Random Glucose (74-106) mg/dL Lactic Acid (0.4-2.0) mmol/L Calcium (8.5-10.1) mg/dL Phosphorus (2.5-4.9) mg/dL Magnesium (1.5-2.5) mg/dL Total Bilirubin (0.2-1.0) mg/dL AST (15-37) U/L ALT (10-53) U/L Alkaline Phosphatase (45-117) U/L Troponin I (0.02-0.05) ng/mL B-Natriuretic Peptide (0-100) pg/mL Total Protein (6.4-8.2) g/dL Albumin (3.4-5.0) g/dL Urine Color (Yellw/Straw) Urine Clarity (Clear) Urine pH (5.0-8.5) Ur Specific [place] (1.002-1.035) Urine Protein (Neg-Trace) mg/dL Urine Glucose (UA) (Negative) mg/dL Urine Ketones (Negative) mg/dL Urine Occult Blood (Negative) Urine Nitrate (Negative) Urine Bilirubin (Negative) Urine Urobilinogen (Less than 2) mg/dL Ur Leukocyte Esterase (Negative) Urine RBC (0-3) /hpf Urine WBC (0-5) /hpf Ur Squamous Epith Cells (0-5) /hpf Urine Bacteria (None) /hpf Micro UA Comment Ur Microscopic Review Urine Culture Comments Nasal Screen MRSA (PCR) (Negative) Adenovirus (PCR) (Not Detect) Bordetella holmesii PCR (Not Detect) B. pertussis DNA (PCR) (Not Detect) B. paraper/bronch (PCR) (Not Detect) Human Metapneumovir PCR (Not Detect) Influenza A (RT-PCR) (Not Detect) Influenza A (H1) PCR (Not Detect) Influenza A (H3) PCR (Not Detect) Influenza B (RT-PCR) (Not Detect) Parainfluenza 1 (PCR) (Not Detect) Parainfluenza 2 (PCR) (Not Detect) Parainfluenza 3 (PCR) (Not Detect) Parainfluenza 4 (PCR) (Not Detect) RSV Type A (PCR) (Not Detect) RSV Type B (PCR) (Not Detect) Rhinovirus (PCR) (Not Detect) 11/17/18 11/17/18 Range/Units 16:54 20:40 WBC (4.0-11.0) th/mm3 RBC (4.00-5.30) mil/mm3 Hgb (11.6-15.3) gm/dL Hct (35.0-46.0) % MCV (80.0-100.0) fL MCH (27.0-34.0) pg MCHC (32.0-36.0) % RDW (11.6-17.2) % Plt Count (150-450) th/mm3 MPV (7.0-11.0) fL Prelim Diff (Auto) Neut % (Auto) (16.0-70.0) % Lymph % (Auto) (9.0-44.0) % [place]cock % (Auto) (0.0-8.0) % Eos % (Auto) (0.0-4.0) % Baso % (Auto) (0.0-2.0) % Neut # (Auto) (1.8-7.7) th/mm3 Lymph # (Auto) (1.0-4.8) th/mm3 [place]cock # (Auto) (0.0-0.9) th/mm3 Eos # (Auto) (0.0-0.4) th/mm3 Baso # (Auto) (0.0-0.2) th/mm3 WBC Differential Seg Neuts % (Manual) (16-70) % Band Neuts % (Manual) (0-6) % Lymphocytes % (Manual) (9-44) % Monocytes % (Manual) (0-8) % Eosinophils % (Manual) (0-4) % Basophils % (Manual) (0-2) % Promyelocytes % (Man) (0-0) % Abs Neuts (Manual) (1.8-7.7) th/mm3 Differential Comment Toxic Granulation (None) Toxic Vacuolation (None) Platelet Estimate (Normal) Platelet Morphology (Normal) Basophilic Stippling (None) Stomatocytes (None) PT (9.8-11.6) sec INR Ratio APTT (23.4-31.7) sec Puncture Site Patient Temperature O2 Saturation (90-100) % ABG pH (7.380-7.420) ABG pCO2 (38-42) mmHg ABG pO2 (61-120) mmHg ABG HCO3 (22-26) mmol/L ABG O2 Content (12.0-20.0) Vol % ABG Base Excess (-2-2) mmol/L ABG Methemoglobin (0-2) % Frank Test Hemoglobin (12.0-16.0) G/DL Carboxyhemoglobin (0-4) % O2 Delivery Device Vent Setting Inspired O2 % Critical Value Sodium (136-145) meq/L Potassium (3.5-5.1) meq/L Chloride (98-107) meq/L Carbon Dioxide (21.0-32.0) meq/L Anion Gap (5-15) meq/L BUN (7-18) mg/dL Creatinine (0.50-1.00) mg/dL Estimated GFR (>89) mL/min POC Glucose 134 H 178 H (68-110) mg/dl Random Glucose (74-106) mg/dL Lactic Acid (0.4-2.0) mmol/L Calcium (8.5-10.1) mg/dL Phosphorus (2.5-4.9) mg/dL Magnesium (1.5-2.5) mg/dL Total Bilirubin (0.2-1.0) mg/dL AST (15-37) U/L ALT (10-53) U/L Alkaline Phosphatase (45-117) U/L Troponin I (0.02-0.05) ng/mL B-Natriuretic Peptide (0-100) pg/mL Total Protein (6.4-8.2) g/dL Albumin (3.4-5.0) g/dL Urine Color (Yellw/Straw) Urine Clarity (Clear) Urine pH (5.0-8.5) Ur Specific [place] (1.002-1.035) Urine Protein (Neg-Trace) mg/dL Urine Glucose (UA) (Negative) mg/dL Urine Ketones (Negative) mg/dL Urine Occult Blood (Negative) Urine Nitrate (Negative) Urine Bilirubin (Negative) Urine Urobilinogen (Less than 2) mg/dL Ur Leukocyte Esterase (Negative) Urine RBC (0-3) /hpf Urine WBC (0-5) /hpf Ur Squamous Epith Cells (0-5) /hpf Urine Bacteria (None) /hpf Micro UA Comment Ur Microscopic Review Urine Culture Comments Nasal Screen MRSA (PCR) (Negative) Adenovirus (PCR) (Not Detect) Bordetella holmesii PCR (Not Detect) B. pertussis DNA (PCR) (Not Detect) B. paraper/bronch (PCR) (Not Detect) Human Metapneumovir PCR (Not Detect) Influenza A (RT-PCR) (Not Detect) Influenza A (H1) PCR (Not Detect) Influenza A (H3) PCR (Not Detect) Influenza B (RT-PCR) (Not Detect) Parainfluenza 1 (PCR) (Not Detect) Parainfluenza 2 (PCR) (Not Detect) Parainfluenza 3 (PCR) (Not Detect) Parainfluenza 4 (PCR) (Not Detect) RSV Type A (PCR) (Not Detect) RSV Type B (PCR) (Not Detect) Rhinovirus (PCR) (Not Detect) Imaging Data Radiologist's impression: Chest X-Ray 11/14/18 01:40 CONCLUSION: No acute disease Abdomen/Pelvis CT 11/15/18 00:00 CONCLUSION: No acute noncontrast CT findings in the abdomen or pelvis. Chest CT 11/15/18 18:19 CONCLUSION: Slight focal infiltrate or atelectasis in the right middle lobe and minimal streaky posterior basilar parenchymal opacity. ECG Data Attestation: I personally reviewed and interpreted this ECG as follows: Interpretation: Twelve-lead EKG was reviewed by me. This rhythm, normal axis, tachycardia, poor R wave progression, nonspecific ST-T wave changes. Heart rate of 107 bpm. Discharge Plan Discharge Disposition Patient Disposition: ED Admit(ED Internal Use Only) Discharge Order Discharge Orders: ED Use Only Admit Order (Routine); Ordered 11/14/18 Ordered By: Kishan Silva Physicians Team ED Provider: Kishan Silva Primary Care Provider: UNKNOWN, Attending Provider: Emili Koo Other Providers: Ashley Arteaga Status ED Status: Left Department Discharge Information Discharge Date/Time: 11/14/18 05:23
[2018-11-14 02:27] LABS: Eosinophils 1 % (0-4); Lymphocytes 1 % (9-44); Monocytes 3 % (0-8)
[2018-11-14 02:28] LABS: Platelet Estimate Normal (Normal); Platelet Morphology Normal (Normal)
[2018-11-14 02:31] LABS: Stomatocytes 1+; Toxic Vacuolation Present
[2018-11-14] MEDS ORDERED: Acetaminophen 325 MG Tablet PO PRN (03:17)
[2018-11-14] MEDS ORDERED: Temazepam 15 MG Capsule PO PRN (03:17)
[2018-11-14] MEDS ORDERED: Bisacodyl 10 MG Supp RECTAL PRN (03:17)
[2018-11-14] MEDS ORDERED: Dextrose 50% in Water 50 ML Vial IV.PUSH PRN (03:20)
[2018-11-14] MEDS ORDERED: Vancomycin Consult Pharmacy OTHER PRN (03:21)
--- NOTE | 2018-11-14 03:28 | P.HPCC ---
History of Present Illness Primary Care Physician: UNKNOWN History of Present Illness: 63-year-old morbidly obese female presents for an evaluation of worsening shortness of breath. Patient says that she has been sick for 1 week but tonight she was feeling the worst and called 911. EMS noticed that she was in respiratory distress and gave her 3 nebulizers. They were unable to get an IV. Patient was hypoxic in her 80s. Patient also had a temperature of 100.4 orally upon arrival. She was in significant respiratory distress. During my evaluation the patient is on a BiPAP in moderate respiratory distress unable to provide further history. Inpatient Certification: I certify that the inpatient services were ordered in accordance with Medicare regulations governing the order. This includes certification that hospital inpatient services are reasonable and necessary and in the case of services not specified as inpatient-only under 42 CFR 419.22(n), that they are appropriately provided as inpatient services in accordance to with the 2-midnight benchmark under 43 CFR 412.3(e) Estimated Total Length of Stay (Days): 5 Plans for Post Hospital Care: Not yet determined Review of Systems other PMFSH - History History Provided By: Patient - Medical History Medical History: Medical History (Last Reviewed 11/14/18 @ 02:23 by Kishan Silva MD) CHF (congestive heart failure) COPD (chronic obstructive pulmonary disease) Depression Diabetes FH: cholecystectomy Fibromyalgia Hypercholesteremia Hypertension Hypothyroid - Surgical History Surgical History: Surgical History (Last Reviewed 11/14/18 @ 02:23 by Kishan Silva MD) History of History of appendectomy History of hip replacement - Family History Family History: Family History (Last Reviewed 11/14/18 @ 02:23 by Kishan Silva MD) Mother Kidney disease Father Liver disease - Tobacco History Second Hand Smoke Exposure: No Smoking Status: Former smoker - Alcohol History How Often Do You Have a Drink Containing Alcohol: Never - Substance Use History Substance History: No History of Abuse - Travel History Recent Travel Out of the Country Within the Last 8 Weeks: No - Immunization History Tetanus Immunization: Unsure Medications and Allergies Active Medications: Active Medications Acetaminophen (Tylenol) 650 mg PO Q6H PRN PRN Reason: PAIN 1-10 AND/OR FEVER >101F Al Hydroxide/Mg Hydroxide (Milk Of Magnesia Liq) 30 ml PO Q12H PRN PRN Reason: Mild Constipation Albuterol (Duoneb Neb (Prn)) 1 ampul NEB Q2HR NEB PRN PRN Reason: WHEEZING Aspirin (Ecotrin) 81 mg PO DAILY [facility] Bisacodyl (Dulcolax Supp) 10 mg RECTAL DAILY PRN PRN Reason: SEVERE CONSITIPATION Buspirone HCl (Buspar) 10 mg PO TID [facility] Chlorhexidine Gluconate (Chlorhexidine 2% Cloth) 3 pack TOPICAL DAILY@0400 [facility]ANCE Stop: 11/19/18 03:59 Chlorhexidine Gluconate (Chlorhexidine 2% Cloth) 3 pack TOPICAL DAILY@0400 PRN PRN Reason: Extra cloth needed Stop: 11/19/18 03:59 Dextrose (D50w Vial) 50 ml IV.PUSH UNSCH PRN PRN Reason: PER HYPOGLYCEMIA PROTOCOL Duloxetine HCl (Cymbalta) 60 mg PO DAILY [facility] Famotidine (Pepcid Pf Inj) 20 mg IV.PUSH Q12HR [facility] Glucagon (Glucagon Inj) 1 mg OTHER PRN PRN PRN Reason: for Hypoglycemia Protocol Heparin Sodium (Porcine) (Heparin Inj) 5,000 units SQ Q8H [facility] Sodium Chloride (Ns Inj) 1,000 mls @ 154 mls/hr IV.CONT .Q6H30M [facility] Aztreonam 2 gm/ Sodium (Chloride) 100 mls @ 200 mls/hr IV.SIG Q6H [facility] Insulin Aspart (Novolog Insulin Correctional Sugar Inj) 0 unit SQ ACHS [facility]; Protocol Lactulose (Lactulose Liq) 30 ml PO DAILY PRN PRN Reason: SEVERE CONSITIPATION Lorazepam (Ativan) 1 mg PO Q8H PRN PRN Reason: anxiety Non-Formulary Medication (Insulin Glargine Inj) 30 unit SQ BID [facility] Non-Formulary Medication (Levothyroxine [Levothyroxine]) 175 mcg PO DAILY [facility] Non-Formulary Medication (Melatonin [Melatonin]) 3 mg PO HS [facility] Non-Formulary Medication (Simvastatin [Simvastatin]) 20 mg PO QPM [facility] Ondansetron HCl (Zofran Inj) 4 mg IV.PUSH Q6H PRN PRN Reason: NAUSEA OR VOMITING Oxybutynin Chloride (Ditropan) 10 mg PO BID [facility] Oxycodone/Acetaminophen (Percocet 10/325 Mg) 1 tab PO Q6H PRN PRN Reason: Acute Pain Pharmacy Profile Note (Vancomycin Consult Pharmacy) 1 each OTHER UNSCH PRN PRN Reason: Pharmacy to dose Senna/Docusate Sodium (Amber-Colace) 1 tab PO BID [facility] Sennosides (Senokot) 17.2 mg PO Q12H PRN PRN Reason: Moderate Constipation Sodium Chloride (Ns Flush) 2 ml IV.FLUSH BID [facility] Sodium Chloride (Ns Flush) 2 ml IV.FLUSH PRN PRN PRN Reason: FLUSH AFTER USING IV ACCESS Temazepam (Restoril) 15 mg PO HS PRN PRN Reason: INSOMNIA Allergies Allergy/AdvReac Type Severity Reaction Status Date / Time penicillin G Allergy Severe Hives Verified 11/14/18 01:39 Sulfa (Sulfonamide Allergy Hives Verified 11/14/18 01:39 Antibiotics) Home Medications Medication Instructions Recorded Confirmed Type calcium acetate 667 mg PO TID 06/03/18 08/25/18 History cholecalciferol (vitamin D3) 5,000 unit PO DAILY 06/03/18 08/25/18 History [Vitamin D3] duloxetine [Cymbalta] 60 mg PO DAILY 06/03/18 08/25/18 History gabapentin 300 mg PO BID 06/03/18 08/25/18 History gabapentin 600 mg PO HS 06/03/18 08/25/18 History levothyroxine 175 mcg PO DAILY 06/03/18 08/25/18 History melatonin 3 mg PO HS 06/03/18 08/25/18 History omeprazole 40 mg PO DAILY 06/03/18 08/25/18 History oxybutynin chloride 10 mg PO BID 06/03/18 08/25/18 History simvastatin 20 mg PO QPM 06/03/18 08/25/18 History aspirin [Aspir-81] 81 mg PO DAILY 06/11/18 08/25/18 History buspirone 10 mg PO TID 06/11/18 08/25/18 History duloxetine 60 mg PO DAILY 06/11/18 08/25/18 History insulin glargine [Lantus U-100 30 unit SUB-Q BID 06/11/18 08/25/18 History Insulin] insulin lispro [Humalog U-100 0 - 10 units SUBCUT DIRECTED 06/11/18 08/25/18 History Insulin] Results - Labs CBC & Chem 7: 11/14/18 01:45 11/14/18 01:45 Labs: Short CBC 11/14/18 Range/Units 01:45 WBC 25.5 H (4.0-11.0) th/mm3 Hgb 11.2 L (11.6-15.3) gm/dL Hct 34.7 L (35.0-46.0) % Plt Count 252 (150-450) th/mm3 BMP 11/14/18 01:45 Sodium 133 L Potassium 5.0 Chloride 88 L Carbon Dioxide 36.6 H BUN 27 H Creatinine 1.63 H Calcium 9.2 Cardiac Enzymes 11/14/18 Range/Units 01:45 Troponin I 0.05 (0.02-0.05) ng/mL Liver Function 11/14/18 Range/Units 01:45 Total Bilirubin 0.5 (0.2-1.0) mg/dL AST 14 L (15-37) U/L ALT 17 (10-53) U/L Alkaline Phosphatase 99 (45-117) U/L Albumin 3.5 (3.4-5.0) g/dL - Imaging Impressions Chest X-Ray 11/14/18 01:40 CONCLUSION: No acute disease Exam Vital signs: Vital Signs 11/14/18 01:32 11/14/18 01:46 11/14/18 01:47 Temperature 100.4 F H Pulse Rate 115 H Respiratory Rate 32 H Blood Pressure 186/79 H Pulse Oximetry 86 L 3 L 95 Intake & Output 11/13/18 11/13/18 11/14/18 06:59 18:59 06:59 Weight 136.078 kg - Constitutional morbidly obese, chronically ill appearing, disheveled - Routine HEENT Exam Head: Present: normocephalic, atraumatic Eye: Present: PERRL, normal accommodation ENT: Present: mucous membranes moist - Routine Neck Exam Present: supple, full ROM. Absent: JVD, carotid bruit - Routine Respiratory Exam Present: accessory muscle use, prolonged expiratory phase. Absent: wheezes, crackles - Routine Cardiovascular Exam Present: RRR, S1, S2 - Routine Abdominal Exam Present: soft, normoactive bowel sounds. Absent: tenderness, distended, rebound - Routine Extremities Exam Present: edema. Absent: cyanosis, clubbing - Routine Skin Exam Present: intact, erythema, pallor. Absent: cyanosis - Routine Neurological Exam Present: alert, oriented X3, moving all extremities Septic Shock Reassessment Septic shock perfusion: reassessment completed Caprini VTE Risk Assessment Caprini VTE Risk Assessment: Moderate/High Risk (score >= 2) Caprini Risk Assessment Model: Point Value = 1 Point Value = 2 Point Value = 3 Point Value = 5 Age 41-60 Minor surgery BMI > 25 kg/m2 Swollen legs Varicose veins or History of unexplained or recurrent spontaneous Oral contraceptives or hormone replacement Sepsis (< 1 month) Serious lung disease, including pneumonia (< 1 month) Abnormal pulmonary function Acute myocardial infarction Congestive heart failure (< 1 month) History of inflammatory bowel disease Medical patient at bed rest Age 61-74 Arthroscopic surgery Major open surgery (> 45 min) Laparoscopic surgery (> 45 min) Malignancy Confined to bed (> 72 hours) Immobilizing plaster cast Central venous access Age >= 75 History of VTE Family history of VTE Factor V Leiden Prothrombin [id number] Lupus anticoagulant Anticardiolipin antibodies Elevated serum homocysteine Heparin-induced thrombocytopenia Other congenital or acquired thrombophilia Stroke (< 1 month) Elective arthroplasty Hip, pelvis, or leg fracture Acute spinal cord injury (< 1 month) Prophylaxis Regimen: Total Risk Factor Score Risk Level Prophylaxis Regimen 0-1 Low Early ambulation 2 Moderate Order ONE of the following: *Sequential Compression Device (SCD) *Heparin 5000 units SQ BID 3-4 Higher Order ONE of the following medications: *Heparin 5000 units SQ TID *Enoxaparin/Lovenox 40 mg SQ daily (WT < 150 kg, CrCl > 30 mL/min) *Enoxaparin/Lovenox 30 mg SQ daily (WT < 150 kg, CrCl > 10-29 mL/min) *Enoxaparin/Lovenox 30 mg SQ BID (WT < 150 kg, CrCl > 30 mL/min) AND/OR *Sequential Compression Device (SCD) 5 or more Highest Order ONE of the following medications: *Heparin 5000 units SQ TID (Preferred with Epidurals) *Enoxaparin/Lovenox 40 mg SQ daily (WT < 150 kg, CrCl > 30 mL/min) *Enoxaparin/Lovenox 30 mg SQ daily (WT < 150 kg, CrCl > 10-29 mL/min) *Enoxaparin/Lovenox 30 mg SQ BID (WT < 150 kg, CrCl > 30 mL/min) AND *Sequential Compression Device (SCD) Assessment and Plan - Assessment and Plan Plan: Respiratory failure -LUIZ/OHS -Underlying COPD -BiPAP at at bedtime and while sleeping -IV steroids -DuoNeb's as needed and scheduled -Rule out coronary disease with series of troponins and EKGs Sepsis with bandemia -Unclear source -Broad-spectrum antibiotic -De-escalate per sensitivity of cultures -Infectious disease consultation Depression -Cymbalta Diabetes -Glargine twice daily -Insulin sliding scale Fibromyalgia -Cymbalta Hypercholesteremia -Simvastatin Hypertension -Lisinopril Hypothyroid -Levothyroxine DVT GI prophylaxis -Teds SCDs -Subcu heparin -Pepcid 35 minutes of critical care
[2018-11-14] MEDS ORDERED: Vancomycin Inj 600 MG in Sodium Chlor 0.9% Inj 250 ML IV.SIG SCH (04:00)
[2018-11-14] MEDS ORDERED: Chlorhexidine Gluconate 2% 1 Pack (2 Cloths) TOPICAL PRN (04:00)
[2018-11-14] MEDS: Heparin - SQ 10,000 UNITS/ML Vial SQ SCH ×3 (04:35→20:24)
[2018-11-14] MEDS: MethylPREDNISolone Sod Succinate Inj 40 MG/ML Vial IV.PUSH SCH ×4 (04:36→23:05)
[2018-11-14 06:17] LABS: Bacteria,Urine Rare /hpf; Bilirubin,Urine Negative (Negative); Clarity,Urine Clear (Clear); Color,Urine Yellow (Yellw/Straw); Glucose,Urine (UA) 500 or Greater mg/dL (Negative); Leukocyte Esterase,Urine Negative (Negative); Nitrite,Urine Negative (Negative); Specific Gravity,Urine 1.011 (1.002-1.035); Squamous Epithelial Cell,Urine <1 /hpf (0-5)
[2018-11-14] MEDS: Levothyroxine 75 MCG Tablet PO SCH (06:34)
[2018-11-14] MEDS: Levothyroxine 100 MCG Tablet PO SCH (06:34)
[2018-11-14] MEDS: Chlorhexidine Gluconate 2% 1 Pack (2 Cloths) TOPICAL SCH (07:18)
[2018-11-14] MEDS: Duloxetine 60 MG DR Capsule PO SCH (08:52)
[2018-11-14] MEDS: Senna/Docusate Sodium 8.6/50 MG Tablet PO SCH ×2 (08:52→20:27)
[2018-11-14] MEDS: Insulin Detemir Inj 1,000 UNIT/10 ML Vial SQ SCH ×2 (08:54→20:26)
[2018-11-14] MEDS: Insulin NovoLOG Aspart Correctional Sugar Inj SQ SCH ×3 (08:54→20:25)
[2018-11-14] MEDS ORDERED: Duloxetine 60 MG DR Capsule PO SCH (09:00)
[2018-11-14] MEDS: Famotidine PF Inj 20 MG/2 ML Vial IV.PUSH SCH ×2 (11:09→20:26)
[2018-11-14] MEDS: Aztreonam Inj 2 GM in Sodium Chloride 0.9% Inj 100 ML IV.SIG SCH ×3 (11:10→23:03)
[2018-11-14] MEDS: Sod Chloride 0.9% Inj 1,000 ML IV.CONT SCH ×3 (11:10→16:25)
--- NOTE | 2018-11-14 15:15 | ECG ---
Date Performed: 11/14/2018 Time Performed: 02:03:45 PTAGE: 63 years EKG: SINUS TACHYCARDIA LOW QRS VOLTAGE IN PRECORDIAL LEADS PATTERN CONSISTENT WITH PULMONARY DIS EASE CONSIDER ANTEROSEPTAL MT, AGE INDETERMINATE ABNORMAL ECG NO PREVIOUS TRACING DOCTOR: Ramiro Arteaga Interpretating Date/Time 11/14/2018 15:13:48
--- NOTE | 2018-11-14 17:44 | P.CONID ---
History of Present Illness Service: ID Consult date: 11/14/18 Requesting Physician: Frank Person Reason for Consult: sepsis Primary Care Provider: UNKNOWN History of Present Illness: Morbidly obese 63 yo female with h/ o COPD and PVD and DM presetnd with SOB and low grade feverOn prewntation paola was hypoxic She has dry cough, unable to expectorate Denies sick contact She stated that she already feels better W/u revealed 25 K WBC, blood and urine clx are P Her strep neuomo and flu antigens are negastive Pt is on Aztreonam and Vancomycin Xray was negative improved on sterroids Review of Systems All other systems reviewed negative except as stated in HPI PMFSH - History History Provided By: Patient - Medical History Medical History: Medical History (Last Reviewed 11/14/18 @ 18:00 by Ashley Arteaga MD) CHF (congestive heart failure) COPD (chronic obstructive pulmonary disease) Depression Diabetes FH: cholecystectomy Fibromyalgia Hypercholesteremia Hypertension Hypothyroid - Surgical History Surgical History: Surgical History (Last Reviewed 11/14/18 @ 18:00 by Ashley Arteaga MD) History of History of appendectomy History of hip replacement - Family History Family History: Family History (Last Reviewed 11/14/18 @ 18:00 by Ashley Arteaga MD) Mother Kidney disease Father Liver disease - Social History I have reviewed the patient's Social History: Yes - Tobacco History Second Hand Smoke Exposure: Yes Tobacco Use In Past 30 Days: No Smoking Status: Former smoker - Alcohol History How Often Do You Have a Drink Containing Alcohol: Never - Substance Use History Substance History: No History of Abuse - Travel History Recent Travel Out of the Country Within the Last 8 Weeks: No - Immunization History Tetanus Immunization: Unsure Medications and Allergies Active Medications: Active Medications Acetaminophen (Tylenol) 650 mg PO Q6H PRN PRN Reason: PAIN 1-10 AND/OR FEVER >101F Last Admin: 11/14/18 08:52 Dose: 650 mg Al Hydroxide/Mg Hydroxide (Milk Of Magnesia Liq) 30 ml PO Q12H PRN PRN Reason: Mild Constipation Albuterol (Duoneb Neb (Prn)) 1 ampul NEB Q2HR NEB PRN PRN Reason: WHEEZING Albuterol (Duoneb Neb (Garima)) 1 ampul NEB Q4HR NEB GARIMA Last Admin: 11/14/18 03:44 Dose: 1 ampul Aspirin (Ecotrin) 81 mg PO DAILY [facility] Last Admin: 11/14/18 08:52 Dose: 81 mg Bisacodyl (Dulcolax Supp) 10 mg RECTAL DAILY PRN PRN Reason: SEVERE CONSITIPATION Buspirone HCl (Buspar) 10 mg PO TID [facility] Last Admin: 11/14/18 12:52 Dose: 10 mg Chlorhexidine Gluconate (Chlorhexidine 2% Cloth) 3 pack TOPICAL DAILY@0400 GARIMA Stop: 11/19/18 03:59 Last Admin: 11/14/18 07:18 Dose: 3 pack Chlorhexidine Gluconate (Chlorhexidine 2% Cloth) 3 pack TOPICAL DAILY@0400 PRN PRN Reason: Extra cloth needed Stop: 11/19/18 03:59 Dextrose (D50w Vial) 50 ml IV.PUSH UNSCH PRN PRN Reason: PER HYPOGLYCEMIA PROTOCOL Duloxetine HCl (Cymbalta) 60 mg PO DAILY [facility] Last Admin: 11/14/18 08:52 Dose: 60 mg Famotidine (Pepcid Pf Inj) 20 mg IV.PUSH Q12HR [facility] Last Admin: 11/14/18 11:09 Dose: 20 mg Glucagon (Glucagon Inj) 1 mg OTHER PRN PRN PRN Reason: for Hypoglycemia Protocol Heparin Sodium (Porcine) (Heparin Inj) 5,000 units SQ Q8H [facility] Last Admin: 11/14/18 12:51 Dose: 5,000 units Sodium Chloride (Ns Inj) 1,000 mls @ 154 mls/hr IV.CONT .Q6H30M [facility] Last Admin: 11/14/18 16:25 Dose: Not Given Aztreonam 2 gm/ Sodium (Chloride) 100 mls @ 200 mls/hr IV.SIG Q6H [facility] Last Admin: 11/14/18 16:23 Dose: 200 mls/hr Vancomycin HCl 2,000 mg/ (Sodium Chloride) 520 mls @ 250 mls/hr IV.SIG Q24H [facility] Insulin Aspart (Novolog Insulin Correctional Sugar Inj) 0 unit SQ ACHS [facility]; Protocol Last Admin: 11/14/18 12:51 Dose: 20 unit Insulin Detemir (Levemir Inj) 30 unit SQ BID [facility] Last Admin: 11/14/18 08:54 Dose: 30 unit Lactulose (Lactulose Liq) 30 ml PO DAILY PRN PRN Reason: SEVERE CONSITIPATION Levothyroxine Sodium (Synthroid) 100 mcg PO DAILY@0700 [facility] Last Admin: 11/14/18 06:34 Dose: Not Given Levothyroxine Sodium (Synthroid) 75 mcg PO DAILY@0700 [facility] Last Admin: 11/14/18 06:34 Dose: 75 mcg Lorazepam (Ativan) 1 mg PO Q8H PRN PRN Reason: anxiety Melatonin (Melatonin) 5 mg PO [facility] Methylprednisolone Sodium Succinate (Solumedrol Inj) 40 mg IV.PUSH Q6H [facility] Last Admin: 11/14/18 16:22 Dose: 40 mg Miscellaneous Information ([facility] [place] [facility] Ordered Lab Info) 1 each OTHER ONCE ONE Stop: 11/18/18 05:46 Ondansetron HCl (Zofran Inj) 4 mg IV.PUSH Q6H PRN PRN Reason: NAUSEA OR VOMITING Oxybutynin Chloride (Ditropan) 10 mg PO BID [facility] Last Admin: 11/14/18 08:52 Dose: Not Given Oxycodone/Acetaminophen (Percocet 10/325 Mg) 1 tab PO Q6H PRN PRN Reason: Acute Pain Pharmacy Profile Note (Vancomycin Consult Pharmacy) 1 each OTHER UNSCH PRN PRN Reason: Pharmacy to dose Pravastatin Sodium (Pravachol) 40 mg PO QPM [facility] Senna/Docusate Sodium (Amber-Colace) 1 tab PO BID [facility] Last Admin: 11/14/18 08:52 Dose: Not Given Sennosides (Senokot) 17.2 mg PO Q12H PRN PRN Reason: Moderate Constipation Sodium Chloride (Ns Flush) 2 ml IV.FLUSH BID [facility] Last Admin: 11/14/18 11:10 Dose: 2 ml Sodium Chloride (Ns Flush) 2 ml IV.FLUSH PRN PRN PRN Reason: FLUSH AFTER USING IV ACCESS Temazepam (Restoril) 15 mg PO HS PRN PRN Reason: INSOMNIA Allergies Allergy/AdvReac Type Severity Reaction Status Date / Time penicillin G Allergy Severe Hives Verified 11/14/18 01:39 Sulfa (Sulfonamide Allergy Hives Verified 11/14/18 01:39 Antibiotics) Home Medications Medication Instructions Recorded Confirmed Type calcium acetate 667 mg PO TID 06/03/18 08/25/18 History cholecalciferol (vitamin D3) 5,000 unit PO DAILY 06/03/18 08/25/18 History [Vitamin D3] duloxetine [Cymbalta] 60 mg PO DAILY 06/03/18 08/25/18 History gabapentin 300 mg PO BID 06/03/18 08/25/18 History gabapentin 600 mg PO HS 06/03/18 08/25/18 History levothyroxine 175 mcg PO DAILY 06/03/18 08/25/18 History melatonin 3 mg PO HS 06/03/18 08/25/18 History omeprazole 40 mg PO DAILY 06/03/18 08/25/18 History oxybutynin chloride 10 mg PO BID 06/03/18 08/25/18 History simvastatin 20 mg PO QPM 06/03/18 08/25/18 History aspirin [Aspir-81] 81 mg PO DAILY 06/11/18 08/25/18 History buspirone 10 mg PO TID 06/11/18 08/25/18 History duloxetine 60 mg PO DAILY 06/11/18 08/25/18 History insulin glargine [Lantus U-100 30 unit SUB-Q BID 06/11/18 08/25/18 History Insulin] insulin lispro [Humalog U-100 0 - 10 units SUBCUT DIRECTED 06/11/18 08/25/18 History Insulin] Exam Vital signs: Vital Signs 11/14/18 01:32 11/14/18 01:40 11/14/18 01:46 Temperature 100.4 F H Pulse Rate 115 H Respiratory Rate 32 H Blood Pressure 186/79 H Pulse Oximetry 86 L 96 3 L 11/14/18 01:47 11/14/18 02:00 11/14/18 02:50 Temperature Pulse Rate 106 H Respiratory Rate 28 H Blood Pressure 186/79 H Pulse Oximetry 95 94 L 96 11/14/18 03:45 11/14/18 04:00 11/14/18 05:00 Temperature Pulse Rate 104 H 102 H Respiratory Rate 21 24 Blood Pressure 156/65 H 171/72 H Pulse Oximetry 97 96 11/14/18 05:29 11/14/18 05:32 11/14/18 05:53 Temperature Pulse Rate 97 H 96 H Respiratory Rate 11 L 27 H Blood Pressure 140/63 155/68 H Pulse Oximetry 95 97 95 11/14/18 06:00 11/14/18 06:17 11/14/18 06:37 Temperature 99.1 F Pulse Rate 99 H 103 H Respiratory Rate 16 Blood Pressure 192/74 H Pulse Oximetry 92 L 98 11/14/18 07:00 11/14/18 08:00 11/14/18 09:00 Temperature 98.9 F Pulse Rate 109 H 107 H 114 H Respiratory Rate 29 H 31 H Blood Pressure 187/75 H 185/77 H Pulse Oximetry 96 95 95 11/14/18 09:15 11/14/18 10:00 11/14/18 11:00 Temperature Pulse Rate 99 H 94 H Respiratory Rate 17 15 Blood Pressure 160/60 H 128/55 L Pulse Oximetry 95 96 96 11/14/18 12:00 11/14/18 13:00 11/14/18 14:00 Temperature 98.4 F Pulse Rate 91 H 92 H Respiratory Rate 21 Blood Pressure 153/68 H 186/83 H 184/81 H Pulse Oximetry 99 96 97 11/14/18 14:10 11/14/18 15:00 11/14/18 15:33 Temperature Pulse Rate 90 87 77 Respiratory Rate Blood Pressure 173/77 H 196/86 H 208/104 H Pulse Oximetry 97 97 97 Intake & Output 11/13/18 11/14/18 11/14/18 18:59 06:59 18:59 Intake Total 450 / 450 100 / 100 Output Total 350 / 350 Balance 100 / 100 100 / 100 Weight 158.4 kg Intake: IV 350 / 350 100 / 100 Azactam Inj 2 GM In NS Inj 100 100 / 100 100 / 100 ML @ 200 mls/hr IV.SIG Q6H [facility] Rx#:[id number] Vancomycin Inj 1,000 MG In NS 250 / 250 Inj 250 ML @ 250 mls/hr IV.SIG ONCE ONE Rx#:[id number] Oral 100 / 100 Output: Urine Amount (Catheter) 350 / 350 Indwelling Urethral Catheter 350 / 350 Other: Date of Last Bowel Movement 11/13/18 11/13/18 Weight On Admission 158.4 kg - Constitutional no acute distress, morbidly obese - Routine HEENT Exam Head: Present: normocephalic, atraumatic Eye: Present: EOMI, PERRL ENT: Present: mucous membranes moist. Absent: dentition normal (edentualous) - Routine Neck Exam Present: supple. Absent: JVD, lymphadenopathy - Routine Respiratory Exam Present: decreased breath sounds ( 2/2 habitus), CTA bilaterally. Absent: accessory muscle use - Routine Cardiovascular Exam Present: RRR, S1, S2. Absent: murmur, gallop, rubs - Routine Abdominal Exam Present: soft, normoactive bowel sounds, distended. Absent: tenderness, organomegaly, mass - Routine Extremities Exam Present: cyanosis (+ rubor), edema (3+). Absent: clubbing, pulses intact, normal capillary refill (decreased on feet ) - Routine Skin Exam Present: dry. Absent: jaundice, rash - Routine Neurological Exam Present: alert, oriented X3, CN II-XII intact. Absent: sensory deficit, motor deficit - Routine Psychiatric Exam Present: normal affect, cooperative Results - Labs CBC & Chem 7: 11/14/18 01:45 11/14/18 01:45 Labs: Laboratory Results - last 24 hr 11/14/18 11/14/18 11/14/18 01:45 01:45 01:45 WBC 25.5 H RBC 4.10 Hgb 11.2 L Hct 34.7 L MCV 84.8 MCH 27.4 MCHC 32.3 RDW 14.9 Plt Count 252 MPV 8.3 Prelim Diff (Auto) Manual diff required WBC Differential Manual diff final Seg Neuts % (Manual) 83 H Band Neuts % (Manual) 11 H Lymphocytes % (Manual) 1 L Monocytes % (Manual) 3 Eosinophils % (Manual) 1 Basophils % (Manual) 1 Abs Neuts (Manual) 24.0 H Differential Comment . Toxic Vacuolation Present H Platelet Estimate Normal Platelet Morphology Normal Basophilic Stippling Faint H Stomatocytes 1+ H Puncture Site Patient Temperature O2 Saturation ABG pH ABG pCO2 ABG pO2 ABG HCO3 ABG O2 Content ABG Base Excess ABG Methemoglobin Frank Test Hemoglobin Carboxyhemoglobin O2 Delivery Device Vent Setting Inspired O2 Critical Value Sodium 133 L Potassium 5.0 Chloride 88 L Carbon Dioxide 36.6 H Anion Gap 8 BUN 27 H Creatinine 1.63 H Estimated GFR 32 L POC Glucose Random Glucose 370 H Lactic Acid 2.4 H Calcium 9.2 Magnesium 1.6 Total Bilirubin 0.5 AST 14 L ALT 17 Alkaline Phosphatase 99 Troponin I 0.05 Total Protein 7.8 Albumin 3.5 Urine Color Urine Clarity Urine pH Ur Specific [place] Urine Protein Urine Glucose (UA) Urine Ketones Urine Occult Blood Urine Nitrate Urine Bilirubin Urine Urobilinogen Ur Leukocyte Esterase Urine RBC Urine WBC Ur Squamous Epith Cells Urine Bacteria Micro UA Comment Ur Microscopic Review Urine Culture Comments Nasal Screen MRSA (PCR) 11/14/18 11/14/18 11/14/18 02:03 04:00 04:10 WBC RBC Hgb Hct MCV MCH MCHC RDW Plt Count MPV Prelim Diff (Auto) WBC Differential Seg Neuts % (Manual) Band Neuts % (Manual) Lymphocytes % (Manual) Monocytes % (Manual) Eosinophils % (Manual) Basophils % (Manual) Abs Neuts (Manual) Differential Comment Toxic Vacuolation Platelet Estimate Platelet Morphology Basophilic Stippling Stomatocytes Puncture Site Right radial Patient Temperature 98.6 O2 Saturation 92 ABG pH 7.44 H ABG pCO2 61 H* ABG pO2 72 ABG HCO3 41 H ABG O2 Content 13.1 ABG Base Excess 15.3 H ABG Methemoglobin 0.9 Frank Test Present Hemoglobin 10.0 L Carboxyhemoglobin 1.9 O2 Delivery Device Bipap Vent Setting [id number] Inspired O2 35 Critical Value Yes Sodium Potassium Chloride Carbon Dioxide Anion Gap BUN Creatinine Estimated GFR POC Glucose Random Glucose Lactic Acid 1.0 Calcium Magnesium Total Bilirubin AST ALT Alkaline Phosphatase Troponin I 0.03 Total Protein Albumin Urine Color Urine Clarity Urine pH Ur Specific [place] Urine Protein Urine Glucose (UA) Urine Ketones Urine Occult Blood Urine Nitrate Urine Bilirubin Urine Urobilinogen Ur Leukocyte Esterase Urine RBC Urine WBC Ur Squamous Epith Cells Urine Bacteria Micro UA Comment Ur Microscopic Review Urine Culture Comments Nasal Screen MRSA (PCR) 11/14/18 11/14/18 11/14/18 05:30 06:00 08:41 WBC RBC Hgb Hct MCV MCH MCHC RDW Plt Count MPV Prelim Diff (Auto) WBC Differential Seg Neuts % (Manual) Band Neuts % (Manual) Lymphocytes % (Manual) Monocytes % (Manual) Eosinophils % (Manual) Basophils % (Manual) Abs Neuts (Manual) Differential Comment Toxic Vacuolation Platelet Estimate Platelet Morphology Basophilic Stippling Stomatocytes Puncture Site Patient Temperature O2 Saturation ABG pH ABG pCO2 ABG pO2 ABG HCO3 ABG O2 Content ABG Base Excess ABG Methemoglobin Frank Test Hemoglobin Carboxyhemoglobin O2 Delivery Device Vent Setting Inspired O2 Critical Value Sodium Potassium Chloride Carbon Dioxide Anion Gap BUN Creatinine Estimated GFR POC Glucose 410 H Random Glucose Lactic Acid Calcium Magnesium Total Bilirubin AST ALT Alkaline Phosphatase Troponin I Total Protein Albumin Urine Color Yellow Urine Clarity Clear Urine pH 8.0 Ur Specific [place] 1.011 Urine Protein 30 H Urine Glucose (UA) 500 or greater Urine Ketones Negative Urine Occult Blood Small H Urine Nitrate Negative Urine Bilirubin Negative Urine Urobilinogen Less than 2 Ur Leukocyte Esterase Negative Urine RBC 3 Urine WBC 1 Ur Squamous Epith Cells <1 Urine Bacteria Rare H Micro UA Comment Cath-culture ind Ur Microscopic Review Not Reportable Urine Culture Comments Cath-cult indicated Nasal Screen MRSA (PCR) Not detected 11/14/18 11/14/18 10:05 12:41 WBC RBC Hgb Hct MCV MCH MCHC RDW Plt Count MPV Prelim Diff (Auto) WBC Differential Seg Neuts % (Manual) Band Neuts % (Manual) Lymphocytes % (Manual) Monocytes % (Manual) Eosinophils % (Manual) Basophils % (Manual) Abs Neuts (Manual) Differential Comment Toxic Vacuolation Platelet Estimate Platelet Morphology Basophilic Stippling Stomatocytes Puncture Site Patient Temperature O2 Saturation ABG pH ABG pCO2 ABG pO2 ABG HCO3 ABG O2 Content ABG Base Excess ABG Methemoglobin Frank Test Hemoglobin Carboxyhemoglobin O2 Delivery Device Vent Setting Inspired O2 Critical Value Sodium Potassium Chloride Carbon Dioxide Anion Gap BUN Creatinine Estimated GFR POC Glucose 346 H Random Glucose Lactic Acid Calcium Magnesium Total Bilirubin AST ALT Alkaline Phosphatase Troponin I 0.05 Total Protein Albumin Urine Color Urine Clarity Urine pH Ur Specific [place] Urine Protein Urine Glucose (UA) Urine Ketones Urine Occult Blood Urine Nitrate Urine Bilirubin Urine Urobilinogen Ur Leukocyte Esterase Urine RBC Urine WBC Ur Squamous Epith Cells Urine Bacteria Micro UA Comment Ur Microscopic Review Urine Culture Comments Nasal Screen MRSA (PCR) - Imaging Impressions Chest X-Ray 11/14/18 01:40 CONCLUSION: No acute disease Assessment and Plan - Plan Sepsis REsp distress Suspect PNA ARF CT chest wo c CT abd/pel wo c cont vanco, azacta add azithro resp panel leg AG
[2018-11-14] MEDS: hydrALAZINE 50 MG Tablet PO SCH (17:55)
[2018-11-14] MEDS: amLODIPine 5 MG Tablet PO SCH (17:55)
[2018-11-14] MEDS: Azithromycin Inj 500 MG in Sodium Chlor 0.9% Inj 250 ML IV.SIG SCH (20:24)
[2018-11-14] MEDS: Melatonin 5 MG Tablet PO SCH (20:26)
[2018-11-14] MEDS: LORazepam 1 MG Tablet PO PRN (20:28)
[2018-11-15] MEDS: Sod Chloride 0.9% Inj 1,000 ML IV.CONT SCH ×4 (00:23→17:57)
[2018-11-15] MEDS: Insulin NovoLOG Aspart Correctional Sugar Inj SQ SCH ×6 (00:23→22:08)
[2018-11-15] MEDS: Aztreonam Inj 2 GM in Sodium Chloride 0.9% Inj 100 ML IV.SIG SCH ×4 (03:56→21:15)
[2018-11-15] MEDS: Chlorhexidine Gluconate 2% 1 Pack (2 Cloths) TOPICAL SCH (03:57)
[2018-11-15] MEDS: Heparin - SQ 10,000 UNITS/ML Vial SQ SCH ×3 (03:58→21:57)
[2018-11-15] MEDS: MethylPREDNISolone Sod Succinate Inj 40 MG/ML Vial IV.PUSH SCH ×3 (03:58→16:40)
[2018-11-15] MEDS: LORazepam 1 MG Tablet PO PRN ×2 (03:58→22:08)
[2018-11-15 04:16] LABS: Baso % (Auto) 0.1 % (0.0-2.0); Hematocrit 31.9 % (35.0-46.0); Hemoglobin 10.4 gm/dL (11.6-15.3); Lymph # (Auto) 0.5 th/mm3 (1.0-4.8); Lymph % (Auto) 2.8 % (9.0-44.0); Mean Corpuscular HGB Conc 32.6 % (32.0-36.0); Mean Corpuscular Hemoglobin 27.5 pg (27.0-34.0); Mean Corpuscular Volume 84.3 fL (80.0-100.0); Mean Platelet Volume 8.4 fL (7.0-11.0); Mono # (Auto) 0.3 th/mm3 (0.0-0.9); Mono % (Auto) 1.5 % (0.0-8.0); Neut # (Auto) 18.5 th/mm3 (1.8-7.7); Neut % (Auto) 95.6 % (16.0-70.0); Platelet Count 201 th/mm3 (150-450); Red Blood Count 3.78 mil/mm3 (4.00-5.30); Red Cell Distribution Width 15.2 % (11.6-17.2); White Blood Count 19.3 th/mm3 (4.0-11.0)
[2018-11-15 04:22] LABS: Activated Partial Thrombo Time 27.6 sec (23.4-31.7); Prothrombin Time 10.1 sec (9.8-11.6)
[2018-11-15 04:49] LABS: Albumin 3.1 g/dL (3.4-5.0); Anion Gap 5 meq/L (5-15); Aspartate Aminotransferase 17 U/L (15-37); Blood Urea Nitrogen 30 mg/dL (7-18); Calcium 8.6 mg/dL (8.5-10.1); Carbon Dioxide 37.2 meq/L (21.0-32.0); Chloride 91 meq/L (98-107); Glomerular Filtration Rate 36 mL/min (>89); Glucose,Random 291 mg/dL (74-106); Magnesium 1.8 mg/dL (1.5-2.5); Potassium 4.4 meq/L (3.5-5.1); Sodium 133 meq/L (136-145)
[2018-11-15 04:52] LABS: Alanine Aminotransferase 20 U/L (10-53); Alkaline Phosphatase 81 U/L (45-117); Phosphorus 3.1 mg/dL (2.5-4.9); Total Protein 7.6 g/dL (6.4-8.2)
[2018-11-15] MEDS: Vancomycin Inj 2,000 MG in Sodium Chlor 0.9% Inj 500 ML IV.SIG SCH (06:02)
[2018-11-15] MEDS: Levothyroxine 100 MCG Tablet PO SCH (06:02)
[2018-11-15] MEDS: Levothyroxine 75 MCG Tablet PO SCH (06:02)
--- NOTE | 2018-11-15 06:29 | CT ---
EXAM DATE: 11/15/2018 4:56 AM EST AGE/SEX: 63 years / Female INDICATIONS: Abnormal chest x-ray; pneumonia. CLINICAL DATA: This is the patient's initial encounter. Patient reports that signs and symptoms have been present for 2 days and indicates a pain score of 4/10. MEDICAL/SURGICAL HISTORY: Chronic obstructive pulmonary disease. Congestive heart failure. Diabet es. Hypothyroid Appendectomy. Cholecystectomy. section. Bilateral hip replacements RADIATION DOSE: 16.79 CTDI (mGy) ; Combined studies COMPARISON: No prior exams available for comparison. TECHNIQUE: Multiple contiguous axial images were obtained through the chest without contrast. Image s were obtained in suspended respiration using multiple row detector helical technique. Using automa tierra exposure control and adjustment of the mA and/or kV according to patient size, radiation dose was kept as low as reasonably achievable to obtain optimal diagnostic quality images. DICOM format imag e data is available electronically for review and comparison. FINDINGS: Lungs: There is mild infiltrate or atelectasis in the right middle lobe. Minimal streaky parenchymal opacity in the posterior lung bases. Mediastinum: There is good visualization of the great vessels of the middle mediastinum. No evidenc e of mediastinal or hilar adenopathy/mass. Pleurae: No evidence of focal thickening or pleural effusion. Axillae: Unremarkable. Bony Structures: Unremarkable. Miscellaneous: The examination was extended to include the upper abdomen, and both adrenal glands ar e normal in size and configuration. CONCLUSION: Slight focal infiltrate or atelectasis in the right middle lobe and minimal streaky posterior basilar parenchymal opacity. Electronically signed by: Jamil Abebe MD Board Certified Radiologist 11/15/2018 6:28 AM EST
--- NOTE | 2018-11-15 06:33 | CT ---
EXAM DATE: 11/15/2018 4:55 AM EST AGE/SEX: 63 years / Female INDICATIONS: Abdominal distention. CLINICAL DATA: This is the patient's initial encounter. Patient reports that signs and symptoms have been present for 1 day and indicates a pain score of 4/10. MEDICAL/SURGICAL HISTORY: Chronic obstructive pulmonary disease. Congestive heart failure. Di abetes. Hypothyroid Appendectomy. Cholecystectomy. Bilateral hip replacements RADIATION DOSE: 16.76 CTDI (mGy) ; Combined studies COMPARISON: No prior exams available for comparison. TECHNIQUE: Multiple contiguous axial images were obtained through the abdomen. Images were obtained using multiple row detector helical technique. Using automated exposure control and adjustment of the mA and/or kV according to patient size, radiation dose was kept as low as reasonably achievable to o btain optimal diagnostic quality images. DICOM format image data is available electronically for rev iew and comparison. FINDINGS: Liver: The liver has a homogeneous density without space-occupying lesion. Mild hepatomegaly There is no dilation of the biliary tree. Gallbladder surgically absent. Spleen: Homogeneous density without enlargement. Pancreas: Unremarkable without mass or calcification. Kidneys: Normal in size and shape. No evidence of mass or hydronephrosis. Adrenal Glands: Unremarkable. Aorta: The aorta and proximal iliac vessels are grossly unremarkable without aneurysmal dilation. Bowel/Mesentery: The bowel loops are grossly unremarkable. The cecum and sigmoid colon have a normal configuration. Abdominal Wall: Intact. Retroperitoneum: Mild prominence of several otherwise benign appearing left para-aortic lymph nodes. Bladder: Contours are smooth. Reproductive Organs: No abnormal masses or calcifications seen. Inguinal: Shotty inguinal nodes. Bony Structures: Bilateral total hip arthroplasties producing significant streak artifact over the l ow pelvis. CONCLUSION: No acute noncontrast CT findings in the abdomen or pelvis. Electronically signed by: Jamil Abebe MD Board Certified Radiologist 11/15/2018 6:32 AM EST
[2018-11-15] MEDS: oxyCODONE/Acetaminophen 10/325 Tablet PO PRN (09:56)
[2018-11-15] MEDS: Duloxetine 60 MG DR Capsule PO SCH (09:57)
[2018-11-15] MEDS: Senna/Docusate Sodium 8.6/50 MG Tablet PO SCH ×2 (09:58→21:57)
[2018-11-15] MEDS: amLODIPine 5 MG Tablet PO SCH (09:58)
[2018-11-15] MEDS: hydrALAZINE 50 MG Tablet PO SCH ×3 (09:58→17:38)
[2018-11-15] MEDS: Insulin Detemir Inj 1,000 UNIT/10 ML Vial SQ SCH ×2 (09:59→22:08)
[2018-11-15] MEDS: Famotidine PF Inj 20 MG/2 ML Vial IV.PUSH SCH (10:00)
--- NOTE | 2018-11-15 17:47 | P.PNIM ---
Subjective Interval history: 63-year-old female with morbid obesity admitted with worsening shortness of breath and fever with acute hypoxic respiratory failure requiring BiPAP in the emergency room was found to have right sided pneumonia and leukocytosis of 25.5. Patient seen and examined, doing a little better, denies chest pain, shortness of breath is a little improved, states the steroids are helping, states she is chronically on oxygen at home, but has difficulty getting around, denies nausea vomiting, no more fevers, denies sputum production Physical Exam Vital signs: Vital Signs 11/14/18 18:00 11/14/18 18:03 11/14/18 19:00 Temperature Pulse Rate 92 H Respiratory Rate Blood Pressure 156/65 H Pulse Oximetry 96 96 99 11/14/18 20:00 11/14/18 20:15 11/14/18 20:36 Temperature 97.8 F Pulse Rate 89 86 Respiratory Rate 25 H 19 Blood Pressure 128/64 Pulse Oximetry 99 99 96 11/14/18 20:44 11/14/18 21:00 11/14/18 22:00 Temperature Pulse Rate 85 92 H 100 H Respiratory Rate 20 33 H Blood Pressure 193/78 H 132/64 Pulse Oximetry 90 L 94 L 11/14/18 23:00 11/14/18 23:07 11/15/18 00:00 Temperature 97.9 F Pulse Rate 93 H 98 H 95 H Respiratory Rate 20 20 Blood Pressure 144/67 H 152/107 H Pulse Oximetry 95 89 L 11/15/18 00:17 11/15/18 00:20 11/15/18 01:00 Temperature Pulse Rate 92 H 92 H 90 Respiratory Rate 22 18 Blood Pressure Pulse Oximetry 95 94 L 11/15/18 01:55 11/15/18 02:00 11/15/18 02:07 Temperature Pulse Rate 95 H 94 H 90 Respiratory Rate 26 H 21 19 Blood Pressure 172/75 H 180/77 H 179/79 H Pulse Oximetry 89 L 89 L 95 11/15/18 03:00 11/15/18 04:00 11/15/18 04:06 Temperature 98.1 F Pulse Rate 85 88 90 Respiratory Rate 19 26 H 21 Blood Pressure 136/64 158/67 H Pulse Oximetry 96 93 L 11/15/18 04:07 11/15/18 05:30 11/15/18 06:00 Temperature Pulse Rate 85 85 Respiratory Rate Blood Pressure 154/68 H Pulse Oximetry 96 11/15/18 07:00 11/15/18 07:59 11/15/18 08:00 Temperature 97.4 F L Pulse Rate 86 90 90 Respiratory Rate 20 22 16 Blood Pressure 158/72 H Pulse Oximetry 94 L 96 11/15/18 08:03 11/15/18 09:04 11/15/18 10:00 Temperature Pulse Rate 88 88 Respiratory Rate 18 22 Blood Pressure Pulse Oximetry 100 95 94 L 11/15/18 11:00 11/15/18 12:30 11/15/18 16:02 Temperature 97.7 F Pulse Rate 88 94 H 92 H Respiratory Rate 21 16 17 Blood Pressure 154/66 H Pulse Oximetry 96 95 11/15/18 16:15 Temperature 97.9 F Pulse Rate 92 H Respiratory Rate 28 H Blood Pressure 136/78 Pulse Oximetry 93 L Intake & Output 11/14/18 11/15/18 11/15/18 18:59 06:59 18:59 Intake Total 1160 / 1160 2847 / 2847 750 / 750 Output Total 1725 / 1725 725 / 725 Balance -565 / -565 2122 / 2122 750 / 750 Weight 158.3 kg Intake: IV 200 / 200 2127 / 2127 750 / 750 NS Inj 1,000 ML @ 154 mls/hr IV 1677 / 1677 300 / 300 .CONT .Q6H30M [facility] Rx#:[id number] Azithromycin Inj 500 MG In NS 250 / 250 Inj 250 ML @ 250 mls/hr IV.SIG Q24H [facility] Rx#:[id number] Azactam Inj 2 GM In NS Inj 100 200 / 200 200 / 200 200 / 200 ML @ 200 mls/hr IV.SIG Q6H [facility] Rx#:[id number] Vancomycin Inj 2,000 MG In NS 250 / 250 Inj 500 ML @ 250 mls/hr IV.SIG Q24H [facility] Rx#:[id number] Oral 960 / 960 720 / 720 Output: Urine Amount (Catheter) 1725 / 1725 725 / 725 Indwelling Urethral Catheter 1725 / 1725 725 / 725 Other: Date of Last Bowel Movement 11/13/18 11/13/18 11/13/18 Narrative: Well-developed well-nourished obese 63-year-old white female Awake alert oriented no acute distress Heart S1-S2 regular tachycardic Lungs with diffuse inspiratory expiratory wheeze with fair air movement Abdomen is markedly obese soft nondistended positive bowel sounds no tenderness to palpation no obvious masses Extremities no significant edema, no clubbing, no cyanosis Urinary Catheter Management Indwelling Urethral Catheter: Cath placed during this visit: yes Reason for continuing: Hourly intake/output Insertion date: 11/14/18 Insertion time: 05:41 Results Labs CBC & Chem 7: 11/15/18 03:54 11/15/18 03:54 Labs: Microbiology 11/14/18 06:00 Catheterized Urine Urine Culture - Preliminary No growth in 24 hours 11/14/18 01:40 Blood - Peripheral Aerobic Blood Culture - Preliminary No growth in 1 day 11/14/18 01:40 Blood - Peripheral Anaerobic Blood Culture - Preliminary No growth in 1 day 11/14/18 01:45 Blood - Peripheral Aerobic Blood Culture - Preliminary No growth in 1 day 11/14/18 01:45 Blood - Peripheral Anaerobic Blood Culture - Preliminary No growth in 1 day 11/14/18 06:00 Urine - Catheterized Urine Legionella Antigen - Final Presumptive negative for Legionella pneumophila serogroup 1 antigen in urine, suggesting no recent or recurrent infection. Infection due to Legionella cannot be ruled out since other serogroups and species may cause disease, antigen may not be present in urine in early infection, and the level of antigen present in the urine may be below the detection limit of the test. Imaging Imaging: Impressions Abdomen/Pelvis CT 11/15/18 00:00 CONCLUSION: No acute noncontrast CT findings in the abdomen or pelvis. Chest CT 11/15/18 18:19 CONCLUSION: Slight focal infiltrate or atelectasis in the right middle lobe and minimal streaky posterior basilar parenchymal opacity. Assessment and Plan Plan ACUTE ON CHRONIC HYPOXIC RESPIRATORY FAILURE s/p rescue bipap in ed, cont current pulm tx ACUTE on CHRONIC COPD w EXACERBATION - cont steroids, can change to po prednisone ACUTE R LUNG PNEUMONIA - cont iv abx per ID SEPSIS W BANDEMIA - resolving can stop ivf VAISHALI on ckd - better s/p fluids. LUIZ/OHS - hs bipap, chronic oxygen UNCONTROLLED HYPERGLYCEMIA w IDDM uncontrolled due to steroids, infection - cont iss, diet insulin MORBID OBESITY w bmi 63diet activity when stable HYPOTHYROIDISMresume levothyroxine DYSLIPIDEMIAresume simvastatin HTN -not on antihypertensives at home, started on Norvasc, would like to add beta-mitzi if her bronchospasm can tolerate, to control heart rate,, stop IV fluids DEPRESSION /ANXIETY - on buspirone FIBROMYALGIA/CHRONIC PAIN SYNDROME/DIABETIC PERIPHERAL NEUROPATHY - cont neurontic, cymbalta, percocet prn, would like to increase activity, consult PT DVT prophylaxissubcu heparin every 8 Disposition home with home health care when improved, 2-3 days pending clinical course Progress Note: Quality VTE Deep Vein Thrombosis/Pulmonary Embolism Present on Admission: No
[2018-11-15] MEDS: Metoprolol Tartrate 25 MG Tablet PO SCH (21:56)
[2018-11-15] MEDS: Melatonin 5 MG Tablet PO SCH (21:57)
[2018-11-15] MEDS: Famotidine 20 MG Tablet PO SCH (21:57)
[2018-11-15] MEDS: predniSONE 20 MG Tablet PO SCH (21:57)
[2018-11-15] MEDS: Azithromycin Inj 500 MG in Sodium Chlor 0.9% Inj 250 ML IV.SIG SCH (21:57)
[2018-11-16] MEDS: Insulin NovoLOG Aspart Correctional Sugar Inj SQ SCH ×5 (00:24→21:13)
[2018-11-16] MEDS: Heparin - SQ 10,000 UNITS/ML Vial SQ SCH ×3 (03:25→21:18)
[2018-11-16] MEDS: Chlorhexidine Gluconate 2% 1 Pack (2 Cloths) TOPICAL SCH (03:25)
[2018-11-16] MEDS: Aztreonam Inj 2 GM in Sodium Chloride 0.9% Inj 100 ML IV.SIG SCH ×4 (03:25→21:19)
[2018-11-16] MEDS: Vancomycin Inj 2,000 MG in Sodium Chlor 0.9% Inj 500 ML IV.SIG SCH (05:57)
[2018-11-16] MEDS: Levothyroxine 75 MCG Tablet PO SCH (06:00)
[2018-11-16] MEDS: Levothyroxine 100 MCG Tablet PO SCH (06:00)
[2018-11-16] MEDS: Famotidine 20 MG Tablet PO SCH ×2 (08:57→21:18)
[2018-11-16] MEDS: Metoprolol Tartrate 25 MG Tablet PO SCH ×3 (08:57→17:46)
[2018-11-16] MEDS: predniSONE 20 MG Tablet PO SCH ×2 (08:57→21:20)
[2018-11-16] MEDS: Insulin Detemir Inj 1,000 UNIT/10 ML Vial SQ SCH ×2 (08:58→21:13)
[2018-11-16] MEDS: oxyCODONE/Acetaminophen 10/325 Tablet PO PRN (08:59)
[2018-11-16] MEDS: hydrALAZINE 50 MG Tablet PO SCH ×3 (09:00→17:46)
[2018-11-16] MEDS: Senna/Docusate Sodium 8.6/50 MG Tablet PO SCH ×2 (09:00→21:20)
[2018-11-16] MEDS: Duloxetine 60 MG DR Capsule PO SCH (09:00)
[2018-11-16 11:15] LABS: Hemoglobin 10.9 gm/dL (11.6-15.3); Lymph # (Auto) 0.6 th/mm3 (1.0-4.8); Lymph % (Auto) 2.9 % (9.0-44.0); Mean Corpuscular HGB Conc 32.2 % (32.0-36.0); Mean Corpuscular Hemoglobin 27.6 pg (27.0-34.0); Mean Corpuscular Volume 85.7 fL (80.0-100.0); Mean Platelet Volume 8.6 fL (7.0-11.0); Mono # (Auto) 0.7 th/mm3 (0.0-0.9); Mono % (Auto) 3.3 % (0.0-8.0); Neut # (Auto) 20.4 th/mm3 (1.8-7.7); Neut % (Auto) 93.8 % (16.0-70.0); Platelet Count 236 th/mm3 (150-450); Red Blood Count 3.97 mil/mm3 (4.00-5.30); Red Cell Distribution Width 15.6 % (11.6-17.2); White Blood Count 21.7 th/mm3 (4.0-11.0)
[2018-11-16 11:42] LABS: Carbon Dioxide 33.2 meq/L (21.0-32.0); Potassium 4.8 meq/L (3.5-5.1)
[2018-11-16 12:54] LABS: Basophilic Stippling Moderate; Lymphocytes 3 % (9-44); Monocytes 1 % (0-8); Platelet Estimate Normal (Normal); Platelet Morphology Clumped (Normal); Promyelocyte 1 % (0-0); Toxic Granulation 1+
--- NOTE | 2018-11-16 13:24 | P.PNIM ---
Subjective Interval history: No overnight events, still feels short of breath, no difference from yesterday. Creatinine is normal. Sleepy but easily arousable. Physical Exam Vital signs: Vital Signs 11/15/18 16:02 11/15/18 16:15 11/15/18 20:45 Temperature 97.9 F 97.3 F L Pulse Rate 92 H 92 H 91 H Respiratory Rate 17 28 H 20 Blood Pressure 136/78 119/66 Pulse Oximetry 93 L 94 L 11/15/18 22:28 11/16/18 00:00 11/16/18 03:57 Temperature 97.3 F L 97.5 F L Pulse Rate 94 H 86 84 Respiratory Rate 18 20 20 Blood Pressure 126/56 L 133/60 Pulse Oximetry 97 92 L 92 L 11/16/18 08:00 11/16/18 10:15 11/16/18 12:00 Temperature 96.8 F L 96.8 F L Pulse Rate 84 84 Respiratory Rate 20 20 Blood Pressure 134/81 148/61 H Pulse Oximetry 94 L 94 L 94 L Intake & Output 11/15/18 11/16/18 11/16/18 18:59 06:59 18:59 Intake Total 1230 / 1230 1200 / 1200 Output Total 900 / 900 Balance 1230 / 1230 300 / 300 Intake: IV 750 / 750 720 / 720 NS Inj 1,000 ML @ 154 mls/hr IV 300 / 300 .CONT .Q6H30M [facility] Rx#:[id number] Azithromycin Inj 500 MG In NS 250 / 250 Inj 250 ML @ 250 mls/hr IV.SIG Q24H [facility] Rx#:[id number] Azactam Inj 2 GM In NS Inj 100 200 / 200 200 / 200 ML @ 200 mls/hr IV.SIG Q6H [facility] Rx#:[id number] Vancomycin Inj 2,000 MG In NS 250 / 250 270 / 270 Inj 500 ML @ 250 mls/hr IV.SIG Q24H [facility] Rx#:[id number] Oral 480 / 480 480 / 480 Output: Urine Amount (Catheter) 900 / 900 Indwelling Urethral Catheter 900 / 900 Other: Date of Last Bowel Movement 11/13/18 11/13/18 11/13/18 Narrative: Morbidly obese, not in distress, on oxygen. Regular rate and rhythm Diffuse wheezing, no crackles. Abdomen is markedly obese soft nondistended positive bowel sounds no tenderness to palpation no obvious masses No lower extremity edema Alert awake and oriented x3, no focal deficits. Sleepy but easily arousable. Urinary Catheter Management Indwelling Urethral Catheter: Cath placed during this visit: yes Reason for continuing: Acute urinary retention Insertion date: 11/14/18 Insertion time: 05:41 Results Labs CBC & Chem 7: 11/16/18 09:59 11/16/18 09:59 Labs: Microbiology 11/14/18 01:40 Blood - Peripheral Aerobic Blood Culture - Preliminary No growth in 2 days 11/14/18 01:40 Blood - Peripheral Anaerobic Blood Culture - Preliminary No growth in 2 days 11/14/18 01:45 Blood - Peripheral Aerobic Blood Culture - Preliminary No growth in 2 days 11/14/18 01:45 Blood - Peripheral Anaerobic Blood Culture - Preliminary No growth in 2 days 11/14/18 06:00 Catheterized Urine Urine Culture - Final No growth in 48 hours Assessment and Plan Plan This is a 63-year-old female presenting with respiratory failure Acute on chronic hypoxic respiratory failure secondary to COPD exacerbation with sepsis secondary to pneumonia-continue steroids switch to oral, start taper , oxygen support as needed. Continue vancomycin, azithromycin and aztreonam. CT scan of the chest showed right middle lobe infiltrate. CT scan of the abdomen unremarkable. Acute renal failure-about the same, possibly with chronic kidney disease with baseline creatinine around 1.3. Check BMP tomorrow Obstructive sleep apnea-BiPAP at night, oxygen support. Hyperglycemia, diabetes mellitus-continue sliding scale insulin. Hypothyroidism-continue Synthroid Hypertension-continue Norvasc, hydralazine, metoprolol Depression-continue buspirone Fibromyalgia-cont neurontic, cymbalta, percocet prn, would like to increase activity DVT prophylaxissubcu heparin every 8 Disposition home with home health care when ready for discharge Heparin for DVT prophylaxis Progress Note: Quality VTE Deep Vein Thrombosis/Pulmonary Embolism Present on Admission: No
[2018-11-16] MEDS: Azithromycin Inj 500 MG in Sodium Chlor 0.9% Inj 250 ML IV.SIG SCH (21:19)
[2018-11-16] MEDS: Melatonin 5 MG Tablet PO SCH (21:30)
[2018-11-16] MEDS: LORazepam 1 MG Tablet PO PRN (22:54)
[2018-11-17] MEDS: Aztreonam Inj 2 GM in Sodium Chloride 0.9% Inj 100 ML IV.SIG SCH ×4 (04:13→20:41)
[2018-11-17] MEDS: Chlorhexidine Gluconate 2% 1 Pack (2 Cloths) TOPICAL SCH (04:13)
[2018-11-17] MEDS: Heparin - SQ 10,000 UNITS/ML Vial SQ SCH ×3 (04:15→20:41)
[2018-11-17] MEDS: Vancomycin Inj 2,000 MG in Sodium Chlor 0.9% Inj 500 ML IV.SIG SCH (05:41)
--- NOTE | 2018-11-17 08:06 | P.PNIM ---
Subjective Interval history: f/u; respiratory failure in no acute distress. however on three liters of oxygen via [place] no fever. d/w the RN and no acute issues over night. Physical Exam Vital signs: Vital Signs 11/16/18 10:15 11/16/18 12:00 11/16/18 16:00 Temperature 96.8 F L 96.4 F L Pulse Rate 84 74 Respiratory Rate 20 20 Blood Pressure 148/61 H 128/56 L Pulse Oximetry 94 L 94 L 94 L 11/16/18 16:23 11/16/18 20:00 11/16/18 20:47 Temperature 96.3 F L Pulse Rate 68 68 Respiratory Rate 18 22 Blood Pressure 122/56 L Pulse Oximetry 94 L 95 92 L 11/17/18 00:00 11/17/18 00:27 11/17/18 04:00 Temperature 97.8 F Pulse Rate 69 69 Respiratory Rate 18 18 18 Blood Pressure 145/68 H Pulse Oximetry 96 96 11/17/18 04:10 Temperature Pulse Rate 82 Respiratory Rate 18 Blood Pressure Pulse Oximetry Intake & Output 11/16/18 11/17/18 11/17/18 18:59 06:59 18:59 Intake Total 370 / 370 350 / 350 Balance 370 / 370 350 / 350 Intake: IV 370 / 370 350 / 350 Azithromycin Inj 500 MG In NS 250 / 250 Inj 250 ML @ 250 mls/hr IV.SIG Q24H [facility] Rx#:[id number] Azactam Inj 2 GM In NS Inj 100 100 / 100 100 / 100 ML @ 200 mls/hr IV.SIG Q6H [facility] Rx#:[id number] Vancomycin Inj 2,000 MG In NS 270 / 270 Inj 500 ML @ 250 mls/hr IV.SIG Q24H [facility] Rx#:[id number] Other: Date of Last Bowel Movement 11/13/18 11/13/18 Constitutional no acute distress and morbidly obese Routine Respiratory Exam Present diminished air movement Routine Cardiovascular Exam Present RRR Routine Abdominal Exam Present soft Routine Extremities Exam Comments: bilateral pedal edema. Routine Neurological Exam Present alert and oriented X3 Urinary Catheter Management Indwelling Urethral Catheter: Cath placed during this visit: yes Reason for continuing: Hourly intake/output Insertion date: 11/14/18 Insertion time: 05:41 Results Labs CBC & Chem 7: 11/16/18 09:59 11/16/18 09:59 Labs: Microbiology 11/14/18 01:40 Blood - Peripheral Aerobic Blood Culture - Preliminary No growth in 2 days 11/14/18 01:40 Blood - Peripheral Anaerobic Blood Culture - Preliminary No growth in 2 days 11/14/18 01:45 Blood - Peripheral Aerobic Blood Culture - Preliminary No growth in 2 days 11/14/18 01:45 Blood - Peripheral Anaerobic Blood Culture - Preliminary No growth in 2 days 11/14/18 06:00 Catheterized Urine Urine Culture - Final No growth in 48 hours Assessment and Plan Plan A/P Acute on chronic hypoxic respiratory failure secondary to COPD exacerbation with sepsis secondary to pneumonia-continue steroids switched to oral and will taper. oxygen support as needed. Continue vancomycin, azithromycin and aztreonam. CT scan of the chest showed right middle lobe infiltrate. CT scan of the abdomen unremarkable. ID following. Acute renal failure-about the same, possibly with chronic kidney disease with baseline creatinine around 1.3. Obstructive sleep apnea-BiPAP at night, oxygen support. Hyperglycemia, diabetes mellitus-continue levemir and sliding scale insulin. Hypothyroidism-continue Synthroid Hypertension-continue Norvasc, hydralazine, metoprolol Depression-continue buspirone Fibromyalgia-cont cymbalta, percocet prn. DVT prophylaxissubcu heparin every 8 Heparin for DVT prophylaxis Discussed Condition With: the patient and RN. Discharge Planning: Disposition home with home health care when ready for discharge. Progress Note: Quality VTE Deep Vein Thrombosis/Pulmonary Embolism Present on Admission: No
[2018-11-17] MEDS: Levothyroxine 100 MCG Tablet PO SCH (08:13)
[2018-11-17] MEDS: Levothyroxine 75 MCG Tablet PO SCH (08:13)
[2018-11-17 08:29] LABS: Baso # (Auto) 0.1 th/mm3 (0.0-0.2); Baso % (Auto) 0.3 % (0.0-2.0); Hematocrit 37.3 % (35.0-46.0); Lymph # (Auto) 1.1 th/mm3 (1.0-4.8); Lymph % (Auto) 5.8 % (9.0-44.0); Mean Corpuscular HGB Conc 32.1 % (32.0-36.0); Mean Corpuscular Hemoglobin 27.4 pg (27.0-34.0); Mean Corpuscular Volume 85.3 fL (80.0-100.0); Mean Platelet Volume 8.2 fL (7.0-11.0); Mono # (Auto) 1.1 th/mm3 (0.0-0.9); Mono % (Auto) 6.2 % (0.0-8.0); Neut # (Auto) 15.9 th/mm3 (1.8-7.7); Neut % (Auto) 87.7 % (16.0-70.0); Platelet Count 246 th/mm3 (150-450); Red Blood Count 4.37 mil/mm3 (4.00-5.30); White Blood Count 18.1 th/mm3 (4.0-11.0)
[2018-11-17 08:40] LABS: Calcium 8.8 mg/dL (8.5-10.1); Carbon Dioxide 30.9 meq/L (21.0-32.0); Potassium 5.1 meq/L (3.5-5.1)
[2018-11-17] MEDS: Insulin NovoLOG Aspart Correctional Sugar Inj SQ SCH ×4 (09:49→21:15)
[2018-11-17] MEDS: predniSONE 20 MG Tablet PO SCH ×2 (09:52→20:43)
[2018-11-17] MEDS: Duloxetine 60 MG DR Capsule PO SCH (09:52)
[2018-11-17] MEDS: Metoprolol Tartrate 25 MG Tablet PO SCH ×3 (10:11→17:24)
[2018-11-17] MEDS: Senna/Docusate Sodium 8.6/50 MG Tablet PO SCH ×2 (10:11→20:43)
[2018-11-17] MEDS: hydrALAZINE 50 MG Tablet PO SCH ×3 (10:11→17:24)
[2018-11-17] MEDS: Famotidine 20 MG Tablet PO SCH ×2 (10:11→20:43)
[2018-11-17] MEDS: Insulin Detemir Inj 1,000 UNIT/10 ML Vial SQ SCH ×2 (10:12→21:15)
[2018-11-17] MEDS: Azithromycin Inj 500 MG in Sodium Chlor 0.9% Inj 250 ML IV.SIG SCH (20:05)
[2018-11-17] MEDS: Melatonin 5 MG Tablet PO SCH (20:43)
[2018-11-17] MEDS: LORazepam 1 MG Tablet PO PRN (20:43)
[2018-11-18] MEDS: oxyCODONE/Acetaminophen 10/325 Tablet PO PRN (01:20)
[2018-11-18] MEDS: Chlorhexidine Gluconate 2% 1 Pack (2 Cloths) TOPICAL SCH (03:41)
[2018-11-18] MEDS: Aztreonam Inj 2 GM in Sodium Chloride 0.9% Inj 100 ML IV.SIG SCH ×4 (03:45→21:47)
[2018-11-18] MEDS: Heparin - SQ 10,000 UNITS/ML Vial SQ SCH ×3 (04:06→21:50)
[2018-11-18] MEDS ORDERED: Pharmacy Ordered Lab Info OTHER ONE (05:45)
[2018-11-18] MEDS: Levothyroxine 100 MCG Tablet PO SCH (06:07)
[2018-11-18] MEDS: Levothyroxine 75 MCG Tablet PO SCH (06:08)
--- NOTE | 2018-11-18 09:49 | P.PNIM ---
Subjective Interval history: Patient is confused and restless. She denies chest pain. She states she is nto feeling well but cannot expand on any symptoms. Physical Exam Vital signs: Vital Signs 11/17/18 10:03 11/17/18 12:14 11/17/18 12:20 Temperature 98.1 F Pulse Rate 80 79 Respiratory Rate 15 19 Blood Pressure 137/66 Pulse Oximetry 95 100 11/17/18 16:55 11/17/18 20:00 11/17/18 22:23 Temperature 98.1 F 98.3 F Pulse Rate 76 73 83 Respiratory Rate 19 18 18 Blood Pressure 136/87 123/65 Pulse Oximetry 96 96 98 11/18/18 00:00 11/18/18 00:36 11/18/18 04:00 Temperature 98.1 F 98.2 F Pulse Rate 70 86 74 Respiratory Rate 18 17 20 Blood Pressure 128/72 134/78 Pulse Oximetry 97 95 11/18/18 08:00 11/18/18 08:44 Temperature 96.2 F L Pulse Rate 91 H Respiratory Rate 20 Blood Pressure 148/75 H Pulse Oximetry 96 97 Intake & Output 11/17/18 11/18/18 11/18/18 18:59 06:59 18:59 Intake Total 680 / 680 450 / 450 Output Total 1100 / 1100 850 / 850 Balance -420 / -420 -400 / -400 Weight 158.1 kg Intake: IV 680 / 680 450 / 450 Azithromycin Inj 500 MG In NS 250 / 250 Inj 250 ML @ 250 mls/hr IV.SIG Q24H [facility] Rx#:[id number] Azactam Inj 2 GM In NS Inj 100 190 / 190 200 / 200 ML @ 200 mls/hr IV.SIG Q6H [facility] Rx#:[id number] Output: Urine Amount (Catheter) 1100 / 1100 850 / 850 Indwelling Urethral Catheter 1100 / 1100 850 / 850 Other: Date of Last Bowel Movement 11/13/18 11/13/18 Narrative: Morbidly obese, not in distress, on oxygen. Regular rate and rhythm Diffuse wheezing, no crackles. Abdomen is markedly obese soft nondistended positive bowel sounds no tenderness to palpation no obvious masses No lower extremity edema Somnolent. Wake up easily. Confused. Urinary Catheter Management Indwelling Urethral Catheter: Cath placed during this visit: yes Reason for continuing: Acute urinary retention Insertion date: 11/14/18 Insertion time: 05:41 Results Labs CBC & Chem 7: 11/18/18 09:55 11/18/18 09:55 Labs: Microbiology 11/14/18 01:40 Blood - Peripheral Aerobic Blood Culture - Preliminary No growth in 3 days 11/14/18 01:40 Blood - Peripheral Anaerobic Blood Culture - Preliminary No growth in 3 days 11/14/18 01:45 Blood - Peripheral Aerobic Blood Culture - Preliminary No growth in 3 days 11/14/18 01:45 Blood - Peripheral Anaerobic Blood Culture - Preliminary No growth in 3 days Assessment and Plan Plan 63 Y/O female with Acute on chronic hypoxic respiratory failure secondary to COPD exacerbation with sepsis secondary to pneumonia-continue steroids. oxygen support as needed. Continue vancomycin, azithromycin and aztreonam. CT scan of the chest showed right middle lobe infiltrate. CT scan of the abdomen unremarkable. ID following. - Mental status and ABG worse today. - Start Bipap, consult Pulmonology - Transfer to ICU for closer monitoring. At high risk for intubation as she is very restless and may have issue with bipap compliance. - Repeat chest x-ray Acute metabolic encephalopathy: Secondary to hypercapnia, hypoxemia - See plan as above. Frequent reorientation Acute renal failure- possibly with chronic kidney disease with baseline creatinine around 1.3. - Renal functions improved. Continue to monitor. Repeat BMP pending today. Obstructive sleep apnea-BiPAP when sleeping, oxygen support. Hyperglycemia, diabetes mellitus-continue Levemir and sliding scale insulin. Hypothyroidism-continue Synthroid Hypertension-continue Norvasc, hydralazine, metoprolol Depression-continue buspirone Fibromyalgia- Cont Cymbalta, Percocet prn. DVT prophylaxissubcu heparin every 8 Heparin for DVT prophylaxis Discussed Condition With: RN and patient Discharge Planning: Disposition home with home health care when ready for discharge. Progress Note: Quality VTE Deep Vein Thrombosis/Pulmonary Embolism Present on Admission: No
[2018-11-18] MEDS: Insulin NovoLOG Aspart Correctional Sugar Inj SQ SCH ×4 (09:54→22:07)
[2018-11-18] MEDS: Famotidine 20 MG Tablet PO SCH ×2 (09:55→21:51)
[2018-11-18] MEDS: Senna/Docusate Sodium 8.6/50 MG Tablet PO SCH ×2 (09:56→21:52)
[2018-11-18] MEDS: Duloxetine 60 MG DR Capsule PO SCH (09:56)
[2018-11-18] MEDS: hydrALAZINE 50 MG Tablet PO SCH ×3 (09:56→18:31)
[2018-11-18] MEDS: Metoprolol Tartrate 25 MG Tablet PO SCH ×3 (09:56→18:32)
[2018-11-18] MEDS: predniSONE 20 MG Tablet PO SCH (10:00)
[2018-11-18] MEDS: Insulin Detemir Inj 1,000 UNIT/10 ML Vial SQ SCH ×2 (10:00→21:49)
[2018-11-18 10:06] LABS: Baso % (Auto) 0.3 % (0.0-2.0); Hematocrit 33.3 % (35.0-46.0); Lymph # (Auto) 1.2 th/mm3 (1.0-4.8); Lymph % (Auto) 10.3 % (9.0-44.0); Mean Corpuscular Hemoglobin 27.9 pg (27.0-34.0); Mean Corpuscular Volume 84.5 fL (80.0-100.0); Mean Platelet Volume 7.9 fL (7.0-11.0); Mono # (Auto) 0.7 th/mm3 (0.0-0.9); Mono % (Auto) 6.1 % (0.0-8.0); Neut # (Auto) 9.9 th/mm3 (1.8-7.7); Neut % (Auto) 83.3 % (16.0-70.0); Platelet Count 240 th/mm3 (150-450); Red Blood Count 3.94 mil/mm3 (4.00-5.30); Red Cell Distribution Width 15.7 % (11.6-17.2); White Blood Count 11.8 th/mm3 (4.0-11.0)
[2018-11-18 10:32] LABS: ABG Base Excess 8.1 mmol/L (-2-2); ABG PCO2 77 mmHg (38-42); ABG PO2 69 mmHG (61-120)
[2018-11-18 10:44] LABS: Basophilic Stippling Moderate; Lymphocytes 10 % (9-44); Metamyelocytes 2 % (0-1); Monocytes 2 % (0-8); Myelocytes 2 % (0-0); Platelet Estimate Normal (Normal); Platelet Morphology Normal (Normal)
[2018-11-18 10:45] LABS: RBC Morphology Normal (Normal)
[2018-11-18 10:46] LABS: Vancomycin,Random 25.9 Comment
[2018-11-18] MEDS: LORazepam 1 MG Tablet PO PRN (11:02)
[2018-11-18] MEDS ORDERED: Sodium Bicarbonate 8.4% Inj 50 MEQ in Sod Chloride 0.9% Inj 950 ML IV.CONT SCH (11:45)
--- NOTE | 2018-11-18 12:42 | XR ---
EXAM DATE: 11/18/2018 12:36 PM EST AGE/SEX: 63 years / Female INDICATIONS: Respiratory failure. CLINICAL DATA: This is the patient's initial encounter. Patient reports that signs and symptoms have been present for 4 - 6 days and indicates a pain score of Nonresponsive. MEDICAL/SURGICAL HISTORY: Chronic obstructive pulmonary disease. Congestive heart failure. Hy pertension. hypothyroid None. COMPARISON: [facility] [place], CHEST 1V SINGLE AP, 11/14/2018. . FINDINGS: There is a new mild infiltrate in the right lung base. Otherwise, the rest the lung hand are clear and well-aerated. No other new or significant changes are seen compared to the prior study. The heart size is enlarged but stable. There is no definite pleural effusions. The bony structures are stable. CONCLUSION: New mild infiltrate in the right lung base. Electronically signed by: Jesus Gomez MD Board Certified Radiologist 11/18/2018 12:40 PM EST
[2018-11-18 13:21] LABS: Hemoglobin 10.9 gm/dL (11.6-15.3); Mean Corpuscular Hemoglobin 27.4 pg (27.0-34.0); Mean Corpuscular Volume 85.6 fL (80.0-100.0); Mean Platelet Volume 8.2 fL (7.0-11.0); Platelet Count 241 th/mm3 (150-450); Red Blood Count 3.97 mil/mm3 (4.00-5.30); Red Cell Distribution Width 15.7 % (11.6-17.2); White Blood Count 10.8 th/mm3 (4.0-11.0)
[2018-11-18 13:27] LABS: ABG Base Excess 9.6 mmol/L (-2-2); ABG PCO2 80 mmHg (38-42); ABG PO2 98 mmHg (61-120)
[2018-11-18] MEDS ORDERED: hydrALAZINE HCl Inj 20 MG/ML Vial IV.PUSH PRN (13:39)
[2018-11-18 13:43] LABS: Calcium 8.8 mg/dL (8.5-10.1); Carbon Dioxide 36.6 meq/L (21.0-32.0); Potassium 4.8 meq/L (3.5-5.1)
--- NOTE | 2018-11-18 14:09 | P.PNID ---
Subjective Remarks: Pt now transferred to ICU with MS change and resp failure On BIPAP Afebrtile PCO2 70s Antibiotics: vanc azithro azactam Allergies/Adverse Reactions: Allergies penicillin G Allergy (Severe, Verified 11/14/18 01:39) Hives Sulfa (Sulfonamide Antibiotics) Allergy (Verified 11/14/18 01:39) Hives Objective Vital Signs 11/17/18 16:55 11/17/18 20:00 11/17/18 22:23 Temperature 98.1 F 98.3 F Pulse Rate 76 73 83 Respiratory Rate 19 18 18 Blood Pressure 136/87 123/65 Pulse Oximetry 96 96 98 11/18/18 00:00 11/18/18 00:36 11/18/18 04:00 Temperature 98.1 F 98.2 F Pulse Rate 70 86 74 Respiratory Rate 18 17 20 Blood Pressure 128/72 134/78 Pulse Oximetry 97 95 11/18/18 08:00 11/18/18 08:44 11/18/18 12:26 Temperature 96.2 F L Pulse Rate 91 H 87 Respiratory Rate 20 Blood Pressure 148/75 H Pulse Oximetry 96 97 11/18/18 12:27 11/18/18 12:30 Temperature 98 F Pulse Rate 81 Respiratory Rate 33 H Blood Pressure 168/71 H Pulse Oximetry 98 Intake & Output 11/17/18 11/18/18 11/18/18 18:59 06:59 18:59 Intake Total 680 / 680 450 / 450 Output Total 1100 / 1100 850 / 850 Balance -420 / -420 -400 / -400 Weight 158.1 kg Intake: IV 680 / 680 450 / 450 Azithromycin Inj 500 MG In NS 250 / 250 Inj 250 ML @ 250 mls/hr IV.SIG Q24H LANCE Rx#:[id number] Azactam Inj 2 GM In NS Inj 100 190 / 190 200 / 200 ML @ 200 mls/hr IV.SIG Q6H LANCE Rx#:[id number] Output: Urine Amount (Catheter) 1100 / 1100 850 / 850 Indwelling Urethral Catheter 1100 / 1100 850 / 850 Other: Date of Last Bowel Movement 11/13/18 11/13/18 11/13/18 11/14/18 01:40 Blood - Peripheral Aerobic Blood Culture - Preliminary No growth in 4 days 11/14/18 01:40 Blood - Peripheral Anaerobic Blood Culture - Preliminary No growth in 4 days 11/14/18 01:45 Blood - Peripheral Aerobic Blood Culture - Preliminary No growth in 4 days 11/14/18 01:45 Blood - Peripheral Anaerobic Blood Culture - Preliminary No growth in 4 days 11/14/18 06:00 Catheterized Urine Urine Culture - Final No growth in 48 hours Lab - Hematology Results 11/17/18 11/18/18 11/18/18 07:04 09:55 13:05 WBC 18.1 H 11.8 H 10.8 RBC 4.37 3.94 L 3.97 L Hgb 12.0 11.0 L 10.9 L Hct 37.3 33.3 L 34.0 L MCV 85.3 84.5 85.6 MCH 27.4 27.9 27.4 MCHC 32.1 33.0 32.0 RDW 16.0 15.7 15.7 Plt Count 246 240 241 MPV 8.2 7.9 8.2 Prelim Diff (Auto) Slide review pending Neut % (Auto) 87.7 H 83.3 H Lymph % (Auto) 5.8 L 10.3 [place] % (Auto) 6.2 6.1 Eos % (Auto) 0.0 0.0 Baso % (Auto) 0.3 0.3 Neut # (Auto) 15.9 H 9.9 H Lymph # (Auto) 1.1 1.2 [place] # (Auto) 1.1 H 0.7 Eos # (Auto) 0.0 0.0 Baso # (Auto) 0.1 0.0 WBC Differential . Manual diff final Seg Neuts % (Manual) 84 H Lymphocytes % (Manual) 10 Monocytes % (Manual) 2 Metamyelocytes % (Man) 2 H Myelocytes % (Man) 2 H Abs Neuts (Manual) 10.4 H Differential Comment Auto diff final . Platelet Estimate Normal Platelet Morphology Normal RBC Morphology Normal Basophilic Stippling Moderate H Lab - Chemistry Results 11/16/18 11/16/18 11/17/18 17:44 20:43 07:04 Sodium 134 L Potassium 5.1 Chloride 96 L Carbon Dioxide 30.9 Anion Gap 7 BUN 62 H Creatinine 1.90 H Estimated GFR 27 L POC Glucose 229 H 211 H Random Glucose 121 H D Calcium 8.8 11/17/18 11/17/18 11/17/18 07:31 11:36 16:54 Sodium Potassium Chloride Carbon Dioxide Anion Gap BUN Creatinine Estimated GFR POC Glucose 131 H 130 H 134 H Random Glucose Calcium 11/17/18 11/18/18 11/18/18 20:40 03:29 08:03 Sodium Potassium Chloride Carbon Dioxide Anion Gap BUN Creatinine Estimated GFR POC Glucose 178 H 150 H 131 H Random Glucose Calcium 11/18/18 11/18/18 11/18/18 09:55 11:05 13:05 Sodium 136 Potassium 4.8 Chloride 97 L Carbon Dioxide 36.6 H Anion Gap 2 L BUN 64 H Creatinine 1.52 H 1.54 H Estimated GFR 35 L 34 L POC Glucose 150 H Random Glucose 151 H Calcium 8.8 11/18/18 13:21 Sodium Potassium Chloride Carbon Dioxide Anion Gap BUN Creatinine Estimated GFR POC Glucose 155 H Random Glucose Calcium Imaging: ITS Impressions Abdomen/Pelvis CT 11/15/18 00:00 CONCLUSION: No acute noncontrast CT findings in the abdomen or pelvis. Chest CT 11/15/18 18:19 CONCLUSION: Slight focal infiltrate or atelectasis in the right middle lobe and minimal streaky posterior basilar parenchymal opacity. Chest X-Ray 11/18/18 00:00 CONCLUSION: New mild infiltrate in the right lung base. Physical Exam: GENERAL: Morbidly obese on BIPAP SKIN: Warm and dry. no rash HEAD: Atraumatic. Normocephalic. EYES: No scleral icterus. No injection or drainage. ENT: N Mucous membranes pink and moist. NECK: Trachea midline. No JVD. CARDIOVASCULAR: Regular rate and rhythm. RESPIRATORY: No accessory muscle use. Clear to auscultation. Breath sounds equally decreased bilaterally. GASTROINTESTINAL: Abdomen soft, non-tender, nondistended. Hepatic and splenic margins not palpable. MUSCULOSKELETAL: Extremities without clubbing, cyanosis, + 1 edema. No obvious deformities. NEUROLOGICAL: Quite lethargic, nearly obtundec PSYCHIATRIC: unable to assess Assessment and Plan - Plan Sepsis REsp distress, resolved now back with hypercapnic resp failure and MS 2/2 it - It seems her clin deteriration is more resp related to COPD rather than infectious CXR with mild infiltrate Suspect PNA ARF- stabnle to mild improvement cont vanco, azactam, azithro will try to obtain sputum ashok ANAYA
--- NOTE | 2018-11-18 14:14 | MB ---
cc: Kelly Chahal MD DATE: 11/18/2018 HISTORY OF PRESENT ILLNESS: The patient is a 63-year-old female with multiple medical comorbidities which include morbid obesity, COPD, CHF, depression, hypertension, hypothyroidism, hyperlipidemia, who presented to [facility] ED for worsening shortness of breath. EMS found her to be in respiratory distress and was given 3 nebulizer treatments. The patient was hypoxic in the 80s and had a low-grade fever with temperature of 100.4 orally upon arrival. She was initially placed on BiPAP 10/5 with 35% FiO2 and her ABG showed a pH of 7.44, CO2 of 61, PaO2 of 72, bicarbonate 41, saturation of 92%. 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 She was transferred to the hospitalist service on 11/15/2018. The patient also was being followed by the infectious disease service. Her nasal screening for influenza, Legionella pneumonia antigen and blood cultures were all negative from 11/14/2018. Earlier today, the patient was found lethargic and in distress. ABG was performed on 3 liters oxygen, which showed a pH of 7.28, CO2 of 77, PaO2 of 69, bicarbonate 35 and saturation of 90%. Due to worsening respiratory acidosis and mental status, she was transferred to [facility] for closer observation and Pulmonary Medicine was consulted. A chest x-ray was obtained earlier today and showed new mild infiltrate in the right lung base. She also had a CT scan of the chest on 11/15/2018 which showed slight focal infiltrate or atelectasis in the right middle lobe and minimally streaky posterior basilar parenchymal opacity. Most of the history was obtained from reviewing medical records, as the patient is a poor historian. When seen, she is on BiPAP 12/5 with 35% FiO2. PAST MEDICAL HISTORY: Significant for COPD, CHF, diabetes, depression, hypertension, hypothyroidism, hyperlipidemia, fibromyalgia. PAST SURGICAL HISTORY: Previous appendectomy, previous , previous hip replacement. FAMILY HISTORY: Kidney and liver disease runs in the family. SOCIAL HISTORY: Ex-smoker, nondrinker. ALLERGIES: PENICILLIN AND SULFA. ACTIVE MEDICATIONS: 1. DuoNeb. 2. Azithromycin. 3. Aztreonam. 4. Vancomycin. 5. Pepcid. 6. Heparin. 7. Synthroid. 8. Insulin. 9. Lopressor. REVIEW OF SYSTEMS: As per HPI. The rest of the systems is limited as the patient is a poor historian. PHYSICAL EXAMINATION: GENERAL: A 63-year-old female lying in bed on the BiPAP. HEENT: Atraumatic, normocephalic. Pupils are equal, round, reactive to light and accommodation. Extraocular muscles intact. Conjunctivae pink. Nonicteric sclerae. Oral mucosa within normal. NECK: Supple. No JVD, adenopathy or thyromegaly. Trachea in the midline. CARDIOVASCULAR: Regular rate and rhythm. Normal S1, S2. No murmurs, rubs or gallops noted. PULMONARY: Bilateral equal air entry. No rales or wheezing. ABDOMEN: Soft, obese, nontender, nondistended, positive bowel sounds. EXTREMITIES: No cyanosis or clubbing. There is +1 edema. NEUROLOGIC: Awake. LABORATORY DATA: WBC 11.8, hemoglobin 11, hematocrit 33, platelet count 240. BMP from yesterday: Sodium 134, potassium 5.1, chloride 96, CO2 of 30, BUN 62, creatinine 1.9, glucose 121. Lactic acid 1.0 on 11/15/2018. RADIOGRAPHIC STUDIES: CT chest on 11/15/2018 showed slight focal infiltrate or atelectasis in the right middle lobe and minimally streaky posterior basal parenchymal opacity. A chest x-ray from earlier today showed new mild infiltrate in the right lung base. IMPRESSION: 1. Acute hypoxemic and hypercapnic respiratory failure. 2. Chronic obstructive pulmonary disease exacerbation. 3. Right lung base infiltrate. 4. Hypertension. 5. Morbid obesity and likely obstructive sleep apnea. 6. Acute kidney injury. 7. Hypothyroidism. 8. Mild leukocytosis, trending down. 9. Hypothyroidism. RECOMMENDATIONS: 1. Continue with oxygen and maintain saturations above 92%. 2. Bronchodilators in the form of DuoNeb every 4 hours plus every 2 hours p.r.n. for shortness of breath. 3. Continue with BiPAP and repeat ABG on BiPAP. If there is any worsening in respiratory acidosis or clinical condition, we will proceed with intubation and mechanical ventilation. 4. Start Solu-Medrol 60 mg IV every 8 hours. I will discontinue p.o. prednisone. 5. Continue with broad-spectrum antibiotics. She is currently on azithromycin, aztreonam and vancomycin. Infectious Disease is following. Her nasal washing for influenza, Legionella urinary antigen and blood cultures from 11/14/2018 are all negative. 6. Optimize blood pressure control. 7. Chest x-ray from earlier today showed mild right lung base infiltrate. 8. Obtain a sputum culture. 9. Gastrointestinal and deep venous thrombosis prophylaxis. 10. Discussed with Dr. Barahona. 11. Further recommendations will be based on hospital course. MD STACI Sweeney/cherie , 01:39 PM , 01:52 PM [email or web address]
[2018-11-18] MEDS: MethylPREDNISolone Sod Succinate Inj 125 MG/2 ML Vial IV.PUSH SCH ×2 (15:31→21:48)
[2018-11-18 15:48] LABS: ABG PCO2 73 mmHg (38-42); ABG PO2 91 mmHg (61-120)
[2018-11-18] MEDS ORDERED: hydrALAZINE HCl Inj 20 MG/ML Vial IV.PUSH SCH (19:45)
[2018-11-18] MEDS: Melatonin 5 MG Tablet PO SCH (21:52)
[2018-11-18] MEDS: Azithromycin Inj 500 MG in Sodium Chlor 0.9% Inj 250 ML IV.SIG SCH (22:07)
[2018-11-18] MEDS: hydrALAZINE HCl Inj 20 MG/ML Vial IV.PUSH PRN (22:08)
[2018-11-19] MEDS: Heparin - SQ 10,000 UNITS/ML Vial SQ SCH ×3 (03:27→20:27)
[2018-11-19] MEDS: Aztreonam Inj 2 GM in Sodium Chloride 0.9% Inj 100 ML IV.SIG SCH ×4 (03:28→20:27)
[2018-11-19] MEDS: hydrALAZINE HCl Inj 20 MG/ML Vial IV.PUSH PRN ×3 (03:29→18:54)
[2018-11-19] MEDS: MethylPREDNISolone Sod Succinate Inj 125 MG/2 ML Vial IV.PUSH SCH ×3 (05:27→21:00)
[2018-11-19 05:47] LABS: Baso % (Auto) 0.1 % (0.0-2.0); Hematocrit 34.3 % (35.0-46.0); Lymph # (Auto) 0.7 th/mm3 (1.0-4.8); Lymph % (Auto) 8.3 % (9.0-44.0); Mean Corpuscular Hemoglobin 26.8 pg (27.0-34.0); Mean Corpuscular Volume 83.9 fL (80.0-100.0); Mean Platelet Volume 8.5 fL (7.0-11.0); Mono # (Auto) 0.3 th/mm3 (0.0-0.9); Mono % (Auto) 2.9 % (0.0-8.0); Neut # (Auto) 7.9 th/mm3 (1.8-7.7); Neut % (Auto) 88.7 % (16.0-70.0); Platelet Count 235 th/mm3 (150-450); Red Blood Count 4.09 mil/mm3 (4.00-5.30); Red Cell Distribution Width 15.4 % (11.6-17.2); White Blood Count 8.9 th/mm3 (4.0-11.0)
[2018-11-19 06:11] LABS: Calcium 9.3 mg/dL (8.5-10.1); Carbon Dioxide 35.1 meq/L (21.0-32.0); Vancomycin,Random 21.1 Comment
[2018-11-19 06:59] LABS: Lymphocytes 8 % (9-44); Monocytes 4 % (0-8); Myelocytes 2 % (0-0)
[2018-11-19 07:00] LABS: Platelet Estimate Normal (Normal); Platelet Morphology Normal (Normal)
[2018-11-19] MEDS: Levothyroxine 75 MCG Tablet PO SCH (08:21)
[2018-11-19] MEDS: Levothyroxine 100 MCG Tablet PO SCH (08:21)
[2018-11-19] MEDS: hydrALAZINE 50 MG Tablet PO SCH ×3 (08:22→17:17)
[2018-11-19] MEDS: Famotidine 20 MG Tablet PO SCH ×2 (08:22→20:28)
[2018-11-19] MEDS: Metoprolol Tartrate 25 MG Tablet PO SCH ×2 (08:24→12:57)
[2018-11-19] MEDS: Senna/Docusate Sodium 8.6/50 MG Tablet PO SCH ×2 (08:37→20:28)
[2018-11-19] MEDS: Insulin NovoLOG Aspart Correctional Sugar Inj SQ SCH ×4 (08:45→20:59)
[2018-11-19] MEDS: Insulin Detemir Inj 1,000 UNIT/10 ML Vial SQ SCH ×2 (08:46→20:28)
[2018-11-19] MEDS: Duloxetine 60 MG DR Capsule PO SCH (08:46)
--- NOTE | 2018-11-19 10:27 | P.PNPL ---
Subjective Interval history: Patient is off BIPAP on 3L oxygen. More awake and alert. Physical Exam Vital signs: Vital Signs 11/18/18 12:26 11/18/18 12:27 11/18/18 12:30 Temperature 98 F Pulse Rate 87 81 Respiratory Rate 33 H Blood Pressure 168/71 H Pulse Oximetry 98 11/18/18 13:00 11/18/18 13:32 11/18/18 14:00 Temperature Pulse Rate 71 73 Respiratory Rate 18 22 20 Blood Pressure 191/81 H 173/70 H Pulse Oximetry 93 L 96 11/18/18 14:40 11/18/18 14:58 11/18/18 15:00 Temperature Pulse Rate 72 74 74 Respiratory Rate 17 20 19 Blood Pressure 138/64 161/111 H Pulse Oximetry 96 96 94 L 11/18/18 15:29 11/18/18 15:58 11/18/18 16:00 Temperature 98.3 F Pulse Rate 76 78 77 Respiratory Rate 18 20 17 Blood Pressure 216/86 H 188/89 H 185/124 H Pulse Oximetry 91 L 95 95 11/18/18 16:28 11/18/18 18:22 11/18/18 19:00 Temperature Pulse Rate 81 82 83 Respiratory Rate 20 19 Blood Pressure 185/124 H 160/97 H Pulse Oximetry 96 98 11/18/18 19:58 11/18/18 20:00 11/18/18 21:00 Temperature Pulse Rate 82 83 86 Respiratory Rate 14 33 H 12 Blood Pressure 148/110 H 162/72 H Pulse Oximetry 98 97 98 11/18/18 22:00 11/18/18 23:00 11/18/18 23:09 Temperature Pulse Rate 85 97 H 85 Respiratory Rate 18 20 22 Blood Pressure 182/84 H 166/72 H Pulse Oximetry 99 95 11/19/18 00:00 11/19/18 00:11 11/19/18 01:00 Temperature 98.0 F Pulse Rate 88 86 Respiratory Rate 20 16 Blood Pressure 169/72 H 174/73 H Pulse Oximetry 98 96 94 L 11/19/18 02:00 11/19/18 03:00 11/19/18 03:36 Temperature 98.0 F Pulse Rate 88 90 Respiratory Rate 20 23 Blood Pressure 169/72 H 199/87 H 168/70 H Pulse Oximetry 98 99 11/19/18 04:00 11/19/18 04:07 11/19/18 04:10 Temperature 98.0 F Pulse Rate 91 H 98 H 104 H Respiratory Rate 15 22 18 Blood Pressure 163/66 H 163/66 H Pulse Oximetry 99 98 98 11/19/18 05:00 11/19/18 06:00 11/19/18 07:51 Temperature Pulse Rate 94 H 92 H 94 H Respiratory Rate 20 24 20 Blood Pressure 177/74 H 175/74 H Pulse Oximetry 98 95 92 L Intake & Output 11/18/18 11/19/18 11/19/18 18:59 06:59 18:59 Intake Total 100 / 100 1550 / 1550 Output Total 1100 / 1100 1900 / 1900 Balance -1000 / -1000 -350 / -350 Weight 159.6 kg Intake: IV 100 / 100 1450 / 1450 Sodium Bicarbonate 8.4% Inj 50 1000 / 1000 MEQ In NS Inj 950 ML @ 100 mls/ hr IV.CONT .Q10H LANCE Rx#: [id number] Azithromycin Inj 500 MG In NS 250 / 250 Inj 250 ML @ 250 mls/hr IV.SIG Q24H LANCE Rx#:[id number] Azactam Inj 2 GM In NS Inj 100 100 / 100 200 / 200 ML @ 200 mls/hr IV.SIG Q6H LANCE Rx#:[id number] Oral 100 / 100 Output: Urine Amount (Catheter) 1100 / 1100 1900 / 1900 Indwelling Urethral Catheter 1100 / 1100 1900 / 1900 Other: Date of Last Bowel Movement 11/13/18 11/13/18 - Constitutional no acute distress, morbidly obese - Routine HEENT Exam Head: Present: normocephalic, atraumatic Eye: Present: EOMI, PERRL, normal accommodation, conjunctivae pink ENT: Present: mucous membranes moist - Routine Neck Exam Present: supple, full ROM, trachea midline - Routine Respiratory Exam Present: CTA bilaterally - Routine Cardiovascular Exam Present: RRR, S1, S2 - Routine Abdominal Exam Present: soft, normoactive bowel sounds - Routine Neurological Exam Present: alert, oriented X3, CN II-XII intact - Urinary Catheter Management Indwelling Urethral Catheter Cath placed during this visit: yes Reason for continuing: Acute urinary retention Insertion date: 11/14/18 Insertion time: 05:41 Assessment and Plan - Plan 1. Acute hypoxemic and hypercapnic respiratory failure. 2. COPD exacerbation. 3. Right lung base infiltrate. 4. Hypertension. 5. Morbid obesity and likely obstructive sleep apnea. 6. Acute kidney injury. 7. Hypothyroidism. 8. Mild leukocytosis, trending down. 9. Hypothyroidism. Plan Continue with oxygen and maintain sats> 92%. Bronchodilators-DuoNeb, add Symbicort BiPAP PRN and nocturnally qhs Solu-Medrol 60 mg IV every 8 hours. I ABx-on azithromycin, aztreonam and vancomycin. ID is following. Nasal washing for influenza, Legionella urinary antigen and blood cultures from 11/14/2018 are all negative. GI/DVT prophylaxis.
[2018-11-19] MEDS: LORazepam 1 MG Tablet PO PRN (11:29)
[2018-11-19 12:18] LABS: ABG Base Excess 9.5 mmol/L (-2-2); ABG PCO2 60 mmHg (38-42); ABG PO2 83 mmHg (61-120)
[2018-11-19] MEDS: Budesonide-Formoterol 160/4.5 MCG 6 GM Inhaler INH SCH ×2 (14:09→20:30)
--- NOTE | 2018-11-19 14:35 | P.PNIM ---
Subjective Interval history: 63 yo w f admitted with acute hypoxic resp failure due to copd exacerbation and pna pt seen and examined today, she became extremely anxious and restless and wanted to get oob right away asking for "help" wanted us to help her, but she was refusing assist and resp was called and patient was eventaually situated in bed and placed on bipap after given some ativan, she was tachypnic and confused , very agitated, seemed to calm down after the ativan and being placed on bipap , blood gas was ordered. Patient was also belching a lot, and struggling to sit up due to abd distension Physical Exam Vital signs: Vital Signs 11/18/18 14:40 11/18/18 14:58 11/18/18 15:00 Temperature Pulse Rate 72 74 74 Respiratory Rate 17 20 19 Blood Pressure 138/64 161/111 H Pulse Oximetry 96 96 94 L 11/18/18 15:29 11/18/18 15:58 11/18/18 16:00 Temperature 98.3 F Pulse Rate 76 78 77 Respiratory Rate 18 20 17 Blood Pressure 216/86 H 188/89 H 185/124 H Pulse Oximetry 91 L 95 95 11/18/18 16:28 11/18/18 18:22 11/18/18 19:00 Temperature Pulse Rate 81 82 83 Respiratory Rate 20 19 Blood Pressure 185/124 H 160/97 H Pulse Oximetry 96 98 11/18/18 19:58 11/18/18 20:00 11/18/18 21:00 Temperature Pulse Rate 82 83 86 Respiratory Rate 14 33 H 12 Blood Pressure 148/110 H 162/72 H Pulse Oximetry 98 97 98 11/18/18 22:00 11/18/18 23:00 11/18/18 23:09 Temperature Pulse Rate 85 97 H 85 Respiratory Rate 18 20 22 Blood Pressure 182/84 H 166/72 H Pulse Oximetry 99 95 11/19/18 00:00 11/19/18 00:11 11/19/18 01:00 Temperature 98.0 F Pulse Rate 88 86 Respiratory Rate 20 16 Blood Pressure 169/72 H 174/73 H Pulse Oximetry 98 96 94 L 11/19/18 02:00 11/19/18 03:00 11/19/18 03:36 Temperature 98.0 F Pulse Rate 88 90 Respiratory Rate 20 23 Blood Pressure 169/72 H 199/87 H 168/70 H Pulse Oximetry 98 99 11/19/18 04:00 11/19/18 04:07 11/19/18 04:10 Temperature 98.0 F Pulse Rate 91 H 98 H 104 H Respiratory Rate 15 22 18 Blood Pressure 163/66 H 163/66 H Pulse Oximetry 99 98 98 11/19/18 05:00 11/19/18 06:00 11/19/18 07:51 Temperature Pulse Rate 94 H 92 H 94 H Respiratory Rate 20 24 20 Blood Pressure 177/74 H 175/74 H Pulse Oximetry 98 95 92 L 11/19/18 11:20 11/19/18 11:50 Temperature Pulse Rate 95 H Respiratory Rate 22 Blood Pressure Pulse Oximetry 95 Intake & Output 11/18/18 11/19/18 11/19/18 18:59 06:59 18:59 Intake Total 100 / 100 1550 / 1550 100 / 100 Output Total 1100 / 1100 1900 / 1900 Balance -1000 / -1000 -350 / -350 100 / 100 Weight 159.6 kg Intake: IV 100 / 100 1450 / 1450 100 / 100 Sodium Bicarbonate 8.4% Inj 50 1000 / 1000 MEQ In NS Inj 950 ML @ 100 mls/ hr IV.CONT .Q10H LANCE Rx#: [id number] Azithromycin Inj 500 MG In NS 250 / 250 Inj 250 ML @ 250 mls/hr IV.SIG Q24H LANCE Rx#:[id number] Azactam Inj 2 GM In NS Inj 100 100 / 100 200 / 200 100 / 100 ML @ 200 mls/hr IV.SIG Q6H LANCE Rx#:[id number] Oral 100 / 100 Output: Urine Amount (Catheter) 1100 / 1100 1900 / 1900 Indwelling Urethral Catheter 1100 / 1100 1900 / 1900 Other: Date of Last Bowel Movement 11/13/18 11/13/18 Narrative: Morbidly obese, confused and extremely anxious and restless, Regular rate and rhythm tachycardic Diffuse wheezing, with fair air movment Abdomen is markedly obese soft nondistended positive bowel sounds no tenderness to palpation no obvious masses chronic rubor of bilateral le, with no le edema, her thighs are very obese with anasarca warm to touch, chronic inflammatory changes of b/l le and feet Urinary Catheter Management Indwelling Urethral Catheter: Cath placed during this visit: yes Reason for continuing: Acute urinary retention Insertion date: 11/14/18 Insertion time: 05:41 Results Labs CBC & Chem 7: 11/19/18 04:49 11/19/18 04:49 Labs: Microbiology 11/14/18 01:40 Blood - Peripheral Aerobic Blood Culture - Final No growth in 5 days 11/14/18 01:40 Blood - Peripheral Anaerobic Blood Culture - Final No growth in 5 days 11/14/18 01:45 Blood - Peripheral Aerobic Blood Culture - Final No growth in 5 days 11/14/18 01:45 Blood - Peripheral Anaerobic Blood Culture - Final No growth in 5 days Assessment and Plan Plan ACUTE ON CHRONIC HYPOXIC RESPIRATORY FAILURE s/p rescue bipap in ed, cont current pulm tx ACUTE on CHRONIC COPD w EXACERBATION - cont steroids, can change to po prednisone ACUTE R LUNG PNEUMONIA - cont iv abx per ID SEPSIS W BANDEMIA - resolving can stop ivf VAISHALI on ckd - better s/p fluids, creat down to . LUIZ/OHS - hs bipap, chronic oxygen dependent, chronic co2 retention, UNCONTROLLED HYPERGLYCEMIA w IDDM uncontrolled due to steroids, infection - cont iss, diet insulin titrate insulin as needed MORBID OBESITY w bmi 64diet activity when stable, abd girth contributing to resp insufficiency w restriction HYPOTHYROIDISMresume levothyroxine DYSLIPIDEMIAresume simvastatin HTN -not on antihypertensives at home, started on Norvasc,uncontrolled, will adjust meds. DEPRESSION /ANXIETY - on buspirone, prn ativan FIBROMYALGIA/CHRONIC PAIN SYNDROME/DIABETIC PERIPHERAL NEUROPATHY - cont neurontin, cymbalta, percocet prn, would like to increase activity, consult PT DVT prophylaxissubcu heparin every 8 family requesting palliative care, also possible placement as unable to care for her at home. Progress Note: Quality VTE Deep Vein Thrombosis/Pulmonary Embolism Present on Admission: No
[2018-11-19] MEDS: Metoclopramide 10 MG Tablet PO SCH ×2 (17:09→20:30)
[2018-11-19] MEDS: dilTIAZem 30 MG Tablet PO SCH ×2 (17:17→20:28)
[2018-11-19] MEDS: Azithromycin Inj 500 MG in Sodium Chlor 0.9% Inj 250 ML IV.SIG SCH (20:26)
[2018-11-19] MEDS: Melatonin 5 MG Tablet PO SCH (20:28)
[2018-11-20] MEDS: Aztreonam Inj 2 GM in Sodium Chloride 0.9% Inj 100 ML IV.SIG SCH ×4 (03:22→22:00)
[2018-11-20 04:39] LABS: Baso # (Auto) 0.1 th/mm3 (0.0-0.2); Baso % (Auto) 0.5 % (0.0-2.0); Hematocrit 36.3 % (35.0-46.0); Hemoglobin 11.4 gm/dL (11.6-15.3); Lymph # (Auto) 0.9 th/mm3 (1.0-4.8); Lymph % (Auto) 6.5 % (9.0-44.0); Mean Corpuscular HGB Conc 31.4 % (32.0-36.0); Mean Corpuscular Hemoglobin 26.8 pg (27.0-34.0); Mean Corpuscular Volume 85.4 fL (80.0-100.0); Mean Platelet Volume 8.4 fL (7.0-11.0); Mono # (Auto) 0.6 th/mm3 (0.0-0.9); Mono % (Auto) 4.4 % (0.0-8.0); Neut # (Auto) 12.3 th/mm3 (1.8-7.7); Neut % (Auto) 88.6 % (16.0-70.0); Platelet Count 271 th/mm3 (150-450); Red Blood Count 4.24 mil/mm3 (4.00-5.30); White Blood Count 13.9 th/mm3 (4.0-11.0)
[2018-11-20 05:03] LABS: Calcium 9.5 mg/dL (8.5-10.1); Carbon Dioxide 37.3 meq/L (21.0-32.0); Potassium 4.9 meq/L (3.5-5.1)
[2018-11-20 05:04] LABS: Vancomycin,Random 15.3 Comment
[2018-11-20] MEDS: MethylPREDNISolone Sod Succinate Inj 125 MG/2 ML Vial IV.PUSH SCH (05:46)
[2018-11-20] MEDS: Heparin - SQ 10,000 UNITS/ML Vial SQ SCH ×3 (05:46→20:36)
[2018-11-20 07:41] LABS: Lymphocytes 8 % (9-44); Monocytes 9 % (0-8); Tallied Nucleated RBC 1 (0-0)
[2018-11-20 07:42] LABS: Platelet Estimate Normal (Normal); Platelet Morphology Normal (Normal)
[2018-11-20] MEDS: Metoclopramide 10 MG Tablet PO SCH ×4 (08:21→20:49)
[2018-11-20] MEDS: Senna/Docusate Sodium 8.6/50 MG Tablet PO SCH ×2 (08:21→20:35)
[2018-11-20] MEDS: dilTIAZem 30 MG Tablet PO SCH ×2 (08:21→12:13)
[2018-11-20] MEDS: Duloxetine 60 MG DR Capsule PO SCH (08:21)
[2018-11-20] MEDS: Levothyroxine 75 MCG Tablet PO SCH (08:22)
[2018-11-20] MEDS: hydrALAZINE 50 MG Tablet PO SCH ×3 (08:22→17:51)
[2018-11-20] MEDS: Famotidine 20 MG Tablet PO SCH ×2 (08:22→20:35)
[2018-11-20] MEDS: Levothyroxine 100 MCG Tablet PO SCH (08:23)
[2018-11-20] MEDS: Insulin Detemir Inj 1,000 UNIT/10 ML Vial SQ SCH ×2 (08:23→20:37)
[2018-11-20] MEDS: Insulin NovoLOG Aspart Correctional Sugar Inj SQ SCH ×4 (08:36→20:38)
[2018-11-20] MEDS: Budesonide-Formoterol 160/4.5 MCG 6 GM Inhaler INH SCH ×2 (08:37→20:49)
--- NOTE | 2018-11-20 10:17 | P.PNPL ---
Subjective Interval history: Patient is sitting in chair in NAD> On 3L oxygen. Hypertensive. ABG from yesterday showed improvements in her resp acidosis. Physical Exam Vital signs: Vital Signs 11/19/18 10:15 11/19/18 10:26 11/19/18 10:30 Temperature Pulse Rate 78 92 H 93 H Respiratory Rate 21 22 Blood Pressure 144/73 H 159/74 H Pulse Oximetry 77 L 97 11/19/18 10:37 11/19/18 11:00 11/19/18 11:15 Temperature Pulse Rate 92 H 110 H 103 H Respiratory Rate 18 38 H 23 Blood Pressure 165/76 H 195/77 H Pulse Oximetry 100 95 11/19/18 11:20 11/19/18 11:50 11/19/18 12:00 Temperature 98.2 F Pulse Rate 95 H Respiratory Rate 22 Blood Pressure Pulse Oximetry 95 98 11/19/18 12:16 11/19/18 12:46 11/19/18 12:50 Temperature Pulse Rate 78 Respiratory Rate Blood Pressure 164/71 H 185/85 H Pulse Oximetry 99 100 11/19/18 13:00 11/19/18 13:16 11/19/18 13:46 Temperature Pulse Rate Respiratory Rate Blood Pressure 188/82 H 210/90 H Pulse Oximetry 100 100 100 11/19/18 14:00 11/19/18 14:14 11/19/18 14:16 Temperature Pulse Rate 78 Respiratory Rate Blood Pressure 184/81 H Pulse Oximetry 100 100 11/19/18 14:46 11/19/18 15:00 11/19/18 15:16 Temperature Pulse Rate Respiratory Rate Blood Pressure 180/79 H 170/77 H Pulse Oximetry 100 100 100 11/19/18 15:46 11/19/18 16:00 11/19/18 16:16 Temperature 98.2 F Pulse Rate 88 Respiratory Rate 18 Blood Pressure 176/77 H 176/77 H 163/66 H Pulse Oximetry 100 100 100 11/19/18 16:46 11/19/18 17:00 11/19/18 17:10 Temperature Pulse Rate 80 Respiratory Rate 22 Blood Pressure 160/70 H Pulse Oximetry 100 100 11/19/18 17:16 11/19/18 17:24 11/19/18 17:46 Temperature Pulse Rate 88 Respiratory Rate Blood Pressure 207/95 H 195/87 H Pulse Oximetry 100 100 11/19/18 18:00 11/19/18 18:16 11/19/18 18:33 Temperature Pulse Rate 88 88 Respiratory Rate Blood Pressure 196/84 H Pulse Oximetry 100 98 11/19/18 19:00 11/19/18 19:21 11/19/18 20:00 Temperature 98.0 F Pulse Rate 83 92 H 84 Respiratory Rate 18 16 20 Blood Pressure 145/66 H 184/83 H Pulse Oximetry 99 99 99 11/19/18 21:00 11/19/18 22:00 11/19/18 23:00 Temperature Pulse Rate 82 84 83 Respiratory Rate 23 23 20 Blood Pressure 151/67 H 154/69 H 151/65 H Pulse Oximetry 99 99 99 11/19/18 23:21 11/20/18 00:00 11/20/18 01:00 Temperature 98.6 F Pulse Rate 85 83 82 Respiratory Rate 16 22 18 Blood Pressure 170/72 H 165/72 H Pulse Oximetry 97 99 11/20/18 01:20 11/20/18 02:00 11/20/18 02:20 Temperature Pulse Rate 83 86 Respiratory Rate 20 30 H Blood Pressure 165/72 H 165/71 H Pulse Oximetry 99 98 11/20/18 03:44 11/20/18 04:00 11/20/18 05:30 Temperature 98.3 F Pulse Rate 82 88 95 H Respiratory Rate 16 25 H 19 Blood Pressure 140/66 Pulse Oximetry 97 11/20/18 06:00 11/20/18 07:00 11/20/18 08:00 Temperature 98.5 F Pulse Rate 88 88 87 Respiratory Rate 13 19 11 L Blood Pressure Pulse Oximetry 100 100 100 11/20/18 08:12 11/20/18 08:19 11/20/18 09:51 Temperature Pulse Rate 94 H 90 95 H Respiratory Rate 30 H 33 H 16 Blood Pressure 187/113 H 174/72 H Pulse Oximetry 99 98 98 Intake & Output 11/19/18 11/20/18 11/20/18 18:59 06:59 18:59 Intake Total 680 / 680 450 / 450 Output Total 1450 / 1450 1500 / 1500 Balance -770 / -770 -1050 / -1050 Weight 156.4 kg Intake: IV 200 / 200 450 / 450 Azithromycin Inj 500 MG In NS 250 / 250 Inj 250 ML @ 250 mls/hr IV.SIG Q24H LANCE Rx#:[id number] Azactam Inj 2 GM In NS Inj 100 200 / 200 200 / 200 ML @ 200 mls/hr IV.SIG Q6H LANCE Rx#:[id number] Oral 480 / 480 Output: Urine Amount (Catheter) 1450 / 1450 1500 / 1500 Indwelling Urethral Catheter 1450 / 1450 1500 / 1500 Other: Date of Last Bowel Movement 11/13/18 11/13/18 - Constitutional no acute distress, morbidly obese - Routine HEENT Exam Head: Present: normocephalic, atraumatic Eye: Present: EOMI, PERRL, normal accommodation, conjunctivae pink ENT: Present: mucous membranes moist - Routine Neck Exam Present: supple, full ROM, trachea midline - Routine Respiratory Exam Present: CTA bilaterally - Routine Cardiovascular Exam Present: RRR, S1, S2 - Routine Abdominal Exam Present: soft, normoactive bowel sounds - Routine Extremities Exam Present: edema, full ROM, pulses intact - Routine Neurological Exam Present: alert, oriented X3, CN II-XII intact - Urinary Catheter Management Indwelling Urethral Catheter Cath placed during this visit: yes Reason for continuing: Hourly intake/output Insertion date: 11/14/18 Insertion time: 05:41 Assessment and Plan - Plan 1. Acute hypoxemic and hypercapnic respiratory failure. 2. COPD 3. Right lung base infiltrate. 4. Hypertension. 5. Morbid obesity and likely obstructive sleep apnea. 6. Acute kidney injury. 7. Hypothyroidism. 8. Mild leukocytosis, trending down. 9. Hypothyroidism. Plan Continue with oxygen and maintain sats> 92%. Bronchodilators-DuoNeb, Symbicort BiPAP PRN and nocturnally qhs Solu-Medrol 60 mg IV every 8 hours. ABx-on azithromycin, aztreonam and vancomycin. ID is following. Check CXR Nasal washing for influenza, Legionella urinary antigen and blood cultures from 11/14/2018 are all negative. Asses for home oxygen prior to discharge. Sleep study as outpatient. GI/DVT prophylaxis- On Heparin SQ
[2018-11-20] MEDS ORDERED: Vancomycin Inj 2,000 MG in Sodium Chlor 0.9% Inj 500 ML IV.SIG ONE (11:00)
[2018-11-20] MEDS: LORazepam 1 MG Tablet PO PRN ×2 (12:14→20:35)
--- NOTE | 2018-11-20 16:35 | P.PNID ---
Subjective Remarks: On NC O2 choking on food afebrile WBC normal; not expectorating Antibiotics: vanc azithro azactam Allergies/Adverse Reactions: Allergies penicillin G Allergy (Severe, Verified 11/14/18 01:39) Hives Sulfa (Sulfonamide Antibiotics) Allergy (Verified 11/14/18 01:39) Hives Objective Vital Signs 11/19/18 16:46 11/19/18 17:00 11/19/18 17:10 Temperature Pulse Rate 80 Respiratory Rate 22 Blood Pressure 160/70 H Pulse Oximetry 100 100 11/19/18 17:16 11/19/18 17:24 11/19/18 17:46 Temperature Pulse Rate 88 Respiratory Rate Blood Pressure 207/95 H 195/87 H Pulse Oximetry 100 100 11/19/18 18:00 11/19/18 18:16 11/19/18 18:33 Temperature Pulse Rate 88 88 Respiratory Rate Blood Pressure 196/84 H Pulse Oximetry 100 98 11/19/18 19:00 11/19/18 19:21 11/19/18 20:00 Temperature 98.0 F Pulse Rate 83 92 H 84 Respiratory Rate 18 16 20 Blood Pressure 145/66 H 184/83 H Pulse Oximetry 99 99 99 11/19/18 21:00 11/19/18 22:00 11/19/18 23:00 Temperature Pulse Rate 82 84 83 Respiratory Rate 23 23 20 Blood Pressure 151/67 H 154/69 H 151/65 H Pulse Oximetry 99 99 99 11/19/18 23:21 11/20/18 00:00 11/20/18 01:00 Temperature 98.6 F Pulse Rate 85 83 82 Respiratory Rate 16 22 18 Blood Pressure 170/72 H 165/72 H Pulse Oximetry 97 99 11/20/18 01:20 11/20/18 02:00 11/20/18 02:20 Temperature Pulse Rate 83 86 Respiratory Rate 20 30 H Blood Pressure 165/72 H 165/71 H Pulse Oximetry 99 98 11/20/18 03:44 11/20/18 04:00 11/20/18 05:30 Temperature 98.3 F Pulse Rate 82 88 95 H Respiratory Rate 16 25 H 19 Blood Pressure 140/66 Pulse Oximetry 97 11/20/18 06:00 11/20/18 07:00 11/20/18 08:00 Temperature 98.5 F Pulse Rate 88 88 101 H Respiratory Rate 13 19 11 L Blood Pressure Pulse Oximetry 100 100 100 11/20/18 08:12 11/20/18 08:19 11/20/18 09:00 Temperature Pulse Rate 94 H 90 88 Respiratory Rate 30 H 33 H 33 H Blood Pressure 187/113 H 174/72 H Pulse Oximetry 99 98 89 L 11/20/18 09:10 11/20/18 09:51 11/20/18 10:00 Temperature Pulse Rate 124 H 95 H 90 Respiratory Rate 29 H 16 11 L Blood Pressure 137/87 158/65 H Pulse Oximetry 94 L 98 97 11/20/18 11:00 11/20/18 12:00 11/20/18 13:00 Temperature 98.9 F Pulse Rate 92 H 92 H 92 H Respiratory Rate 15 29 H 22 Blood Pressure 134/61 162/72 H Pulse Oximetry 99 99 98 11/20/18 13:07 11/20/18 14:00 11/20/18 14:38 Temperature Pulse Rate 94 H 94 H Respiratory Rate 13 20 Blood Pressure 133/63 140/67 Pulse Oximetry 97 11/20/18 15:00 11/20/18 16:00 Temperature 98.8 F Pulse Rate 95 H 94 H Respiratory Rate 23 33 H Blood Pressure 132/62 153/67 H Pulse Oximetry 99 98 Intake & Output 11/19/18 11/20/18 11/20/18 18:59 06:59 18:59 Intake Total 680 / 680 450 / 450 720 / 720 Output Total 1450 / 1450 1500 / 1500 Balance -770 / -770 -1050 / -1050 720 / 720 Weight 156.4 kg Intake: IV 200 / 200 450 / 450 720 / 720 Azithromycin Inj 500 MG In NS 250 / 250 Inj 250 ML @ 250 mls/hr IV.SIG Q24H LANCE Rx#:[id number] Azactam Inj 2 GM In NS Inj 100 200 / 200 200 / 200 200 / 200 ML @ 200 mls/hr IV.SIG Q6H LANCE Rx#:[id number] Vancomycin Inj 2,000 MG In NS 520 / 520 Inj 500 ML @ 250 mls/hr IV.SIG ONCE ONE Rx#:[id number] Oral 480 / 480 Output: Urine Amount (Catheter) 1450 / 1450 1500 / 1500 Indwelling Urethral Catheter 1450 / 1450 1500 / 1500 Other: Date of Last Bowel Movement 11/13/18 11/13/18 11/20/18 11/14/18 01:40 Blood - Peripheral Aerobic Blood Culture - Final No growth in 5 days 11/14/18 01:40 Blood - Peripheral Anaerobic Blood Culture - Final No growth in 5 days 11/14/18 01:45 Blood - Peripheral Aerobic Blood Culture - Final No growth in 5 days 11/14/18 01:45 Blood - Peripheral Anaerobic Blood Culture - Final No growth in 5 days Lab - Hematology Results 11/19/18 11/20/18 04:49 04:09 WBC 8.9 13.9 H D RBC 4.09 4.24 Hgb 11.0 L 11.4 L Hct 34.3 L 36.3 MCV 83.9 85.4 MCH 26.8 L 26.8 L MCHC 32.0 31.4 L RDW 15.4 16.0 Plt Count 235 271 MPV 8.5 8.4 Prelim Diff (Auto) Slide review pending Slide review pending Neut % (Auto) 88.7 H 88.6 H Lymph % (Auto) 8.3 L 6.5 L [place] % (Auto) 2.9 4.4 Eos % (Auto) 0.0 0.0 Baso % (Auto) 0.1 0.5 Neut # (Auto) 7.9 H 12.3 H Lymph # (Auto) 0.7 L 0.9 L [place] # (Auto) 0.3 0.6 Eos # (Auto) 0.0 0.0 Baso # (Auto) 0.0 0.1 WBC Differential Manual diff final Manual diff final Seg Neuts % (Manual) 86 H 80 H Band Neuts % (Manual) 3 Lymphocytes % (Manual) 8 L 8 L Monocytes % (Manual) 4 9 H Myelocytes % (Man) 2 H Abs Neuts (Manual) 7.8 H 11.5 H Nucleated RBCs/100 WBC 1 H Differential Comment . . Platelet Estimate Normal Normal Platelet Morphology Normal Normal Basophilic Stippling Faint H Lab - Chemistry Results 11/18/18 11/18/18 11/19/18 17:46 21:32 04:49 Sodium 139 Potassium 5.0 Chloride 99 Carbon Dioxide 35.1 H Anion Gap 5 BUN 55 H Creatinine 1.20 H Estimated GFR 45 L POC Glucose 160 H 172 H Random Glucose 180 H Calcium 9.3 11/19/18 11/19/1811/19/19 08:44 12:50 17:11 Sodium Potassium Chloride Carbon Dioxide Anion Gap BUN Creatinine Estimated GFR POC Glucose 193 H 291 H 186 H Random Glucose Calcium 11/19/18 11/20/18 11/20/18 20:16 04:09 08:28 Sodium 140 Potassium 4.9 Chloride 98 Carbon Dioxide 37.3 H Anion Gap 5 BUN 46 H Creatinine 1.34 H Estimated GFR 40 L POC Glucose 235 H 171 H Random Glucose 161 H Calcium 9.5 11/20/18 12:20 Sodium Potassium Chloride Carbon Dioxide Anion Gap BUN Creatinine Estimated GFR POC Glucose 192 H Random Glucose Calcium Imaging: ITS Impressions Abdomen/Pelvis CT 11/15/18 00:00 CONCLUSION: No acute noncontrast CT findings in the abdomen or pelvis. Chest CT 11/15/18 18:19 CONCLUSION: Slight focal infiltrate or atelectasis in the right middle lobe and minimal streaky posterior basilar parenchymal opacity. Chest X-Ray 11/18/18 00:00 CONCLUSION: New mild infiltrate in the right lung base. Physical Exam: GENERAL: Morbidly obese on [place] O2 SKIN: Warm and dry. no rash HEAD: Atraumatic. Normocephalic. EYES: No scleral icterus. No injection or drainage. ENT: N Mucous membranes pink and moist. NECK: Trachea midline. No JVD. CARDIOVASCULAR: Regular rate and rhythm. RESPIRATORY: No accessory muscle use. Clear to auscultation. Breath sounds equally decreased bilaterally. GASTROINTESTINAL: Abdomen soft, non-tender, nondistended. Hepatic and splenic margins not palpable. MUSCULOSKELETAL: Extremities without clubbing, cyanosis, + 2 edema. No obvious deformities. NEUROLOGICAL: awake alert non focal PSYCHIATRIC: calm, coopertive Assessment and Plan - Plan Sepsis REsp distress, resolved now back with hypercapnic resp failure and MS 2/2 it -improved hypercapnia, resolved failure CXR with mild infiltrate Suspect PNA ARF- stabnle to mild improvement cont francesco gonzalez azithro will try to obtain sputum dw RN
[2018-11-20] MEDS: predniSONE 20 MG Tablet PO SCH (17:51)
[2018-11-20] MEDS: dilTIAZem 60 MG Tablet PO SCH ×2 (17:51→20:35)
[2018-11-20] MEDS: Melatonin 5 MG Tablet PO SCH (20:36)
[2018-11-21] MEDS: LORazepam 1 MG Tablet PO PRN ×3 (03:58→20:34)
[2018-11-21] MEDS: Aztreonam Inj 2 GM in Sodium Chloride 0.9% Inj 100 ML IV.SIG SCH ×4 (03:58→20:34)
[2018-11-21] MEDS: Heparin - SQ 10,000 UNITS/ML Vial SQ SCH ×3 (05:34→20:34)
[2018-11-21] MEDS: Levothyroxine 75 MCG Tablet PO SCH (06:47)
[2018-11-21] MEDS: Levothyroxine 100 MCG Tablet PO SCH (06:47)
[2018-11-21] MEDS: Insulin NovoLOG Aspart Correctional Sugar Inj SQ SCH ×4 (08:37→20:53)
[2018-11-21] MEDS: predniSONE 20 MG Tablet PO SCH ×3 (08:41→17:50)
[2018-11-21] MEDS: Azithromycin 250 MG Tablet PO SCH (08:41)
[2018-11-21] MEDS: hydrALAZINE 50 MG Tablet PO SCH ×3 (08:41→17:51)
[2018-11-21] MEDS: Duloxetine 60 MG DR Capsule PO SCH (08:42)
[2018-11-21] MEDS: Senna/Docusate Sodium 8.6/50 MG Tablet PO SCH ×2 (08:42→20:34)
[2018-11-21] MEDS: Famotidine 20 MG Tablet PO SCH ×2 (08:42→20:34)
[2018-11-21] MEDS: dilTIAZem 60 MG Tablet PO SCH ×4 (08:42→20:34)
[2018-11-21] MEDS: Budesonide-Formoterol 160/4.5 MCG 6 GM Inhaler INH SCH ×2 (08:48→20:54)
[2018-11-21] MEDS: Insulin Detemir Inj 1,000 UNIT/10 ML Vial SQ SCH ×2 (09:08→20:53)
[2018-11-21] MEDS: Metoclopramide 10 MG Tablet PO SCH ×4 (09:08→20:53)
--- NOTE | 2018-11-21 14:51 | P.CONPAL ---
Consult Service: Palliative Care Requesting Physician: Tyesha Teran Reason for Consult: a. To assist with evaluation and management of symptoms including: Shortness of breath, pain, anxiety, debility b. To assist medical decision maker(s) with: better understanding of current medical conditions; weighing benefits/burdens of medical treatment options; making medical treatment decisions. Primary Care Provider: UNKNOWN History of Present Illness History of Present Illness: Mrs. Sandhu is a 63-year-old female with a medical history significant for congestive heart failure, chronic obstructive pulmonary disease, hypertension, hypothyroidism, hypercholesterolemia, fibromyalgia, and depression. Patient presented to the emergency room on 11/14/18 via EMS for further evaluation of worsening shortness of breath for the past 7 days prior to presenting to the emergency room. Patient was noted to be hypoxic with O2 sats in the 80s and received x3 nebulizer treatments from EMS due to respiratory distress. ER course: * Vital signs: Temperature 100.4 degrees Fahrenheit, pulse 115, respirations 22 , BP 186/79, O2 saturation 86% * Laboratory workup revealed WBC 25.5, hemoglobin 11.2, hematocrit 34.7, platelet count 252, sodium 133, potassium 5.0, BUN/creatinine 27/1.63, random glucose 370, lactic acid 2.4, calcium 9.2, AST 14, ALT 17, troponin 0 0.05, total protein 7.8, albumin 3.5, PT 10.1, INR 1.0 * Chest x-ray showing no acute disease. * EKG showed sinus tachycardia low QRS voltage in precordial leads consistent with pulmonary disease consider anteroseptal ND, age indeterminate. * Patient placed on BiPAP * ABG results on BiPAP (IPAP 10/APAP 5/35%)-pH 7.44, PCO2 61, PO2 72, HCO3 41, base excess 15.3, O2 saturation 92% * Urinalysis showed moderate urine bacteria, negative leukocyte esterase culture indicated-currently no growth in 48 hours. * Blood cultures showing no growth in 5 days. * Strep pneumo and flu antigens negative * Patient admitted for further evaluation and treatment under critical care physicians. Infectious disease Dr. Arteaga consulted on 11/14/18 for evaluation and management of patient with sepsis, recommended CT chest, CT abdomen/pelvis and to continue antibiotics. CT abdomen/pelvis on 11/15/18 no acute findings. Chest CT on 11/15/18 revealed mild right middle lobe infiltrate and minimal streaky posterior basilar parenchymal opacity. Pulmonology Dr. Chahal consulted on 11/18/18 for evaluation and management of patient with hypercapnic respiratory failure, recommended steroids, continue with antibiotics and use of BiPAP. Clinical course complicated with respiratory failure, anxiety, and debility. Palliative care consulted to assist with symptom management and establishment of goals of medical treatment. Patient seen and examined in her room, in bed. Currently denying pain. She is awake, alert oriented to self, place and situation. RT at bedside administering a breathing treatment. Obtained psychosocial, past medical history and events leading to this hospitalization. Patient reluctant to talk to palliative care. She repeatedly states that she has been told that she will be medically discharged home today and she is worried that it is now late and she may probably not be discharged. Addressed CODE STATUS, discussed CPR, benefits, complications and limitations. Patient elected full code, though she seemed hesitant about it. Patient states that she has never completed advanced directives. Explained to her what advanced directives and offered to assist with completion of designation of healthcare surrogate. Patient verbally stated that in the event that she is incapacitated her son Porfirio Lancaster will make medical decisions for her. She also mentions that she has adult 6 children in total and refuses to provide the names. Explained to patient how [facility] statutes are applied in a case where patient has not completed and signed advanced directives. Patient refused to complete and sign designation of healthcare surrogate paper. Since patient already has a discharge order, encouraged her to further discuss with her son what her wishes are and complete a HCS at her primary care physician`s office or Power of senior trial attorney including Healthcare. Case discussed with Caesar Avendaño and case management social worker. Plan is for patient to be discharged home with home health care. . Function/Cognitive Trajectory: Patient lives at home with her son Yfn Lancaster who assists her with ADLs. Patient reports that she ambulates independently though she has a walker at home. Patient is on home oxygen. She reports short of breath with all activities. . Review of Systems Constitutional: Reports fatigue, Reports weight gain, Denies weight loss Eyes: Denies blurry vision, Denies bulging eyes, Denies loss of vision Ears, Nose, Mouth, and Throat: Denies abnormal hearing, Denies hearing loss, Denies nosebleed, Denies pain with swallowing Cardiovascular: Reports foot swelling, Reports leg swelling, Reports shortness of breath, Reports shortness of breath with activity, Reports shortness of breath when lying down, Denies chest pain Respiratory: Reports shortness of breath, Reports shortness of breath with activity, Denies cough, Denies coughing up blood Gastrointestinal: Reports bloating, Denies bright, red blood in stools, Denies constipation, Denies difficulty swallowing, Denies nausea, Denies vomiting Genitourinary: Reports urinary incontinence Musculoskeletal: Reports joint swelling Skin/Breast: Denies change in skin color, Denies sores Neurologic: Denies abnormal hearing, Denies confusion, Denies memory loss Psychiatric: Reports anxiety, Reports depression Endocrine: Denies increased urination Hematologic/Lymphatic: Reports easy bruising PMFSH - History History Provided By: Patient, Medical Record - Medical History Medical History: Medical History (Last Updated 11/21/18 @ 16:13 by Kateryna Maynard) Acute and chronic respiratory failure (Acute) Cellulitis (Acute) Failure of outpatient treatment (Acute) Cellulitis of left foot (Acute) Sepsis (Resolved) Diabetes mellitus type 2 with complications, uncontrolled (Chronic) CHF (congestive heart failure) COPD (chronic obstructive pulmonary disease) Depression Diabetes Fibromyalgia Hypercholesteremia Hypertension Hypothyroid - Surgical History Surgical History: Surgical History (Last Updated 11/21/18 @ 14:13 by Vishnu Ng) History of cholecystectomy History of History of appendectomy History of hip replacement - Family History Family History: Family History (Last Reviewed 11/14/18 @ 18:00 by Ashley Arteaga MD) Mother Kidney disease Father Liver disease - Social History I have reviewed the patient's Social History: Yes - Tobacco History Second Hand Smoke Exposure: Yes Tobacco Use In Past 30 Days: No Smoking Status: Former smoker - Alcohol History How Often Do You Have a Drink Containing Alcohol: Never - Substance Use History Substance History: No History of Abuse - Travel History Recent Travel in the [place] Within the Last 8 Weeks: No Recent Travel Out of the Country Within the Last 8 Weeks: No - Immunization History Tetanus Immunization: Unsure Hx Influenza Vaccine This Season: No Medications and Allergies Active Medications: Active Medications Acetaminophen (Tylenol) 650 mg PO Q6H PRN PRN Reason: PAIN 1-10 AND/OR FEVER >101F Last Admin: 11/14/18 08:52 Dose: 650 mg Al Hydroxide/Mg Hydroxide (Milk Of Colby Vega) 30 ml PO Q12H PRN PRN Reason: Mild Constipation Last Admin: 11/20/18 08:21 Dose: 30 ml Albuterol (Duoneb Neb (Prn)) 1 ampul NEB Q2HR NEB PRN PRN Reason: WHEEZING Albuterol (Duoneb Neb (Garima)) 1 ampul NEB Q4HR NEB [facility] Last Admin: 11/21/18 11:42 Dose: 1 ampul Aspirin (Ecotrin) 81 mg PO DAILY [facility] Last Admin: 11/21/18 08:42 Dose: 81 mg Azithromycin (Zithromax) 500 mg PO DAILY [facility] Stop: 11/23/18 10:00 Last Admin: 11/21/18 08:41 Dose: 500 mg Bisacodyl (Dulcolax Supp) 10 mg RECTAL DAILY PRN PRN Reason: SEVERE CONSITIPATION Last Admin: 11/20/18 12:13 Dose: 10 mg Budesonide/Formoterol Fumarate (Symbicort 160/4.5 Mcg Inh) 2 puff INH BID [facility] Last Admin: 11/21/18 08:48 Dose: 2 puff Buspirone HCl (Buspar) 10 mg PO TID [facility] Last Admin: 11/21/18 12:31 Dose: 10 mg Dextrose (D50w Vial) 50 ml IV.PUSH UNSCH PRN PRN Reason: PER HYPOGLYCEMIA PROTOCOL Diltiazem HCl (Cardizem) 60 mg PO QID [facility] Last Admin: 11/21/18 12:31 Dose: 60 mg Duloxetine HCl (Cymbalta) 60 mg PO DAILY [facility] Last Admin: 11/21/18 08:42 Dose: 60 mg Famotidine (Pepcid) 20 mg PO BID [facility] Last Admin: 11/21/18 08:42 Dose: 20 mg Glucagon (Glucagon Inj) 1 mg OTHER PRN PRN PRN Reason: for Hypoglycemia Protocol Heparin Sodium (Porcine) (Heparin Inj) 5,000 units SQ Q8H [facility] Last Admin: 11/21/18 12:31 Dose: 5,000 units Hydralazine HCl (Apresoline) 50 mg PO TID [facility] Last Admin: 11/21/18 12:51 Dose: 50 mg Hydralazine HCl (Apresoline Inj) 20 mg IV.PUSH Q6H PRN PRN Reason: SBP>160, DBP>90 Last Admin: 11/19/18 18:54 Dose: 20 mg Aztreonam 2 gm/ Sodium (Chloride) 100 mls @ 200 mls/hr IV.SIG Q6H [facility] Last Infusion: 11/21/18 10:02 Dose: Infused Insulin Aspart (Novolog Insulin Correctional Sugar Inj) 0 unit SQ [facility]; Protocol Last Admin: 11/21/18 12:32 Dose: Not Given Insulin Detemir (Levemir Inj) 30 unit SQ BID [facility] Last Admin: 11/21/18 09:08 Dose: 30 unit Lactulose (Lactulose Liq) 30 ml PO DAILY PRN PRN Reason: SEVERE CONSITIPATION Last Admin: 11/20/18 12:13 Dose: 30 ml Levothyroxine Sodium (Synthroid) 100 mcg PO DAILY@0700 [facility] Last Admin: 11/21/18 06:47 Dose: 100 mcg Levothyroxine Sodium (Synthroid) 75 mcg PO DAILY@0700 [facility] Last Admin: 11/21/18 06:47 Dose: 75 mcg Lorazepam (Ativan) 1 mg PO Q8H PRN PRN Reason: anxiety Last Admin: 11/21/18 12:31 Dose: 1 mg Melatonin (Melatonin) 5 mg PO [facility] Last Admin: 11/20/18 20:36 Dose: 5 mg Metoclopramide HCl (Reglan) 10 mg PO [facility] Last Admin: 11/21/18 12:35 Dose: 10 mg Miscellaneous (Pill Splitter) 1 each OTHER UNSCH PRN PRN Reason: PILL SPIT Ondansetron HCl (Zofran Inj) 4 mg IV.PUSH Q6H PRN PRN Reason: NAUSEA OR VOMITING Last Admin: 11/18/18 20:45 Dose: 4 mg Oxybutynin Chloride (Ditropan) 10 mg PO BID [facility] Last Admin: 11/21/18 08:42 Dose: 10 mg Oxycodone/Acetaminophen (Percocet 10/325 Mg) 1 tab PO Q6H PRN PRN Reason: Acute Pain Last Admin: 11/18/18 01:20 Dose: 1 tab Pantoprazole Sodium (Protonix) 40 mg PO DAILY [facility] Last Admin: 11/21/18 08:42 Dose: 40 mg Pharmacy Profile Note (Vancomycin Consult Pharmacy) 1 each OTHER UNSCH PRN PRN Reason: Pharmacy to dose Pravastatin Sodium (Pravachol) 40 mg PO QPM [facility] Last Admin: 11/20/18 17:51 Dose: 40 mg Prednisone (Deltasone) 20 mg PO TID [facility] Last Admin: 11/21/18 12:31 Dose: 20 mg Senna/Docusate Sodium (Amber-Colace) 1 tab PO BID [facility] Last Admin: 11/21/18 08:42 Dose: 1 tab Sennosides (Senokot) 17.2 mg PO Q12H PRN PRN Reason: Moderate Constipation Last Admin: 11/20/18 08:22 Dose: 17.2 mg Sodium Chloride (Ns Flush) 2 ml IV.FLUSH BID [facility] Last Admin: 11/21/18 09:09 Dose: 2 ml Sodium Chloride (Ns Flush) 2 ml IV.FLUSH PRN PRN PRN Reason: FLUSH AFTER USING IV ACCESS Temazepam (Restoril) 15 mg PO HS PRN PRN Reason: INSOMNIA Allergies Allergy/AdvReac Type Severity Reaction Status Date / Time penicillin G Allergy Severe Hives Verified 11/14/18 01:39 Sulfa (Sulfonamide Allergy Hives Verified 11/14/18 01:39 Antibiotics) Home Medications Medication Instructions Recorded Confirmed Type calcium acetate 667 mg PO TID 06/03/18 11/20/18 History cholecalciferol (vitamin D3) 5,000 unit PO DAILY 06/03/18 11/20/18 History [Vitamin D3] duloxetine [Cymbalta] 60 mg PO DAILY 06/03/18 11/20/18 History gabapentin 300 mg PO BID 06/03/18 11/20/18 History gabapentin 600 mg PO HS 06/03/18 11/20/18 History levothyroxine 175 mcg PO DAILY 06/03/18 11/20/18 History melatonin 3 mg PO HS 06/03/18 11/20/18 History omeprazole 40 mg PO DAILY 06/03/18 11/20/18 History oxybutynin chloride 10 mg PO BID 06/03/18 11/20/18 History simvastatin 20 mg PO QPM 06/03/18 11/20/18 History aspirin [Aspir-81] 81 mg PO DAILY 06/11/18 11/20/18 History buspirone 10 mg PO TID 06/11/18 11/20/18 History duloxetine 60 mg PO DAILY 06/11/18 11/20/18 History insulin glargine [Lantus U-100 30 unit SUB-Q BID 06/11/18 11/20/18 History Insulin] insulin lispro [Humalog U-100 0 - 10 units SUBCUT DIRECTED 06/11/18 11/20/18 History Insulin] Advance Directives Living Will: No Healthcare Surrogate: No Health Care Surrogate Name and Number: HCP: 6 children Power of Press Operator Helper: No Today's verbally stated goals: Patient is ready to be medically discharged home with home health care. . Family/friends goals: No family at bedside. . Ethical and Legal Issues: None identified at this time. . Physical Exam Vital Signs: Vital Signs - 24 hr 11/20/18 14:38 11/20/18 15:00 11/20/18 16:00 Temperature 98.8 F Pulse Rate 94 H 95 H 94 H Respiratory Rate 20 23 33 H Blood Pressure 132/62 153/67 H Pulse Oximetry 99 98 11/20/18 19:28 11/20/18 20:00 11/20/18 21:37 Temperature 97.6 F 98.1 F Pulse Rate 94 H 91 H 80 Respiratory Rate 18 18 15 Blood Pressure 146/66 H 146/67 H Pulse Oximetry 96 97 96 11/21/18 00:00 11/21/18 03:20 11/21/18 08:00 Temperature 98.5 F 98.2 F Pulse Rate 101 H 88 101 H Respiratory Rate 18 17 16 Blood Pressure 134/81 132/77 Pulse Oximetry 95 94 L 11/21/18 08:58 11/21/18 11:44 11/21/18 12:00 Temperature 98 F Pulse Rate 102 H 82 93 H Respiratory Rate 16 16 16 Blood Pressure 104/70 Pulse Oximetry 92 L 99 I&O: Intake & Output 11/19/18 11/20/18 11/21/18 11/22/18 06:59 06:59 06:59 06:59 Intake Total 1650 / 1650 1130 / 1130 3860 / 3860 100 / 100 Output Total 3000 / 3000 2950 / 2950 3950 / 3950 Balance -1350 / -1350 -1820 / -1820 -90 / -90 100 / 100 Weight 159.6 kg 156.4 kg 163.5 kg Physical Exam: CONSTITUTIONAL/GENERAL: This is an adequately nourished patient, in no apparent distress. TUBES/LINES/DRAINS: SKIN: No jaundice, rashes, or lesions. Ecchymoses on upper extremities. No wounds seen anteriorly. Skin temperature appropriate. Not diaphoretic. HEAD: Atraumatic. Normocephalic. EYES: Pupils equal and round and reactive. Extraocular motions intact. No scleral icterus. No injection or drainage. Fundi not examined. ENT: Hearing grossly normal. Nose without bleeding or purulent drainage. Throat without visible erythema, exudates, masses, or lesions. NECK: Trachea midline. Supple, nontender. No palpable thyroid enlargement or nodularity. CARDIOVASCULAR: Regular rate and rhythm without murmurs, gallops, or rubs. No JVD. Peripheral pulses symmetric. RESPIRATORY/CHEST: Symmetric, unlabored respirations. Clear to auscultation. Breath sounds equal bilaterally. No wheezes, rales, or rhonchi. GASTROINTESTINAL: Abdomen soft, non-tender, nondistended. No hepato-splenomegaly , or palpable masses. No guarding. Bowel sounds present. GENITOURINARY: Without palpable bladder distension. Monroe catheter in place. MUSCULOSKELETAL: Extremities without clubbing, cyanosis, or edema. No joint tenderness or effusion noted. No calf tenderness. No mottling or clubbing. LYMPHATICS: No palpable cervical or supraclavicular adenopathy. NEUROLOGICAL: Awake and alert. Motor and sensory grossly within normal limits. Follows commands. Cognitively sharp. Moves all extremities. PSYCHIATRIC: No obvious anxiety/depression. no apparent hallucinations or other psychotic thought process. Diagnostic Tests Laboratory: Laboratory Results - last 72 hr 11/18/18 11/18/18 11/18/18 15:37 17:46 21:32 WBC RBC Hgb Hct MCV MCH MCHC RDW Plt Count MPV Prelim Diff (Auto) Neut % (Auto) Lymph % (Auto) [place] % (Auto) Eos % (Auto) Baso % (Auto) Neut # (Auto) Lymph # (Auto) [place] # (Auto) Eos # (Auto) Baso # (Auto) WBC Differential Seg Neuts % (Manual) Band Neuts % (Manual) Lymphocytes % (Manual) Monocytes % (Manual) Myelocytes % (Man) Abs Neuts (Manual) Nucleated RBCs/100 WBC Differential Comment Platelet Estimate Platelet Morphology Basophilic Stippling Puncture Site Left radial Patient Temperature 98.6 O2 Saturation 94 ABG pH 7.31 L ABG pCO2 73 H* ABG pO2 91 ABG HCO3 35 H ABG O2 Content 14.0 ABG Base Excess 9.0 H ABG Methemoglobin 1.5 Frank Test Present Hemoglobin 10.5 L Carboxyhemoglobin 1.5 O2 Delivery Device Bipap Liter Flow Vent Setting [id number] Inspired O2 30 Critical Value Yes Sodium Potassium Chloride Carbon Dioxide Anion Gap BUN Creatinine Estimated GFR POC Glucose 160 H 172 H Random Glucose Calcium Random Vancomycin 11/19/18 11/19/18 11/19/18 04:49 04:49 08:44 WBC 8.9 RBC 4.09 Hgb 11.0 L Hct 34.3 L MCV 83.9 MCH 26.8 L MCHC 32.0 RDW 15.4 Plt Count 235 MPV 8.5 Prelim Diff (Auto) Slide review pending Neut % (Auto) 88.7 H Lymph % (Auto) 8.3 L [place] % (Auto) 2.9 Eos % (Auto) 0.0 Baso % (Auto) 0.1 Neut # (Auto) 7.9 H Lymph # (Auto) 0.7 L [place] # (Auto) 0.3 Eos # (Auto) 0.0 Baso # (Auto) 0.0 WBC Differential Manual diff final Seg Neuts % (Manual) 86 H Band Neuts % (Manual) Lymphocytes % (Manual) 8 L Monocytes % (Manual) 4 Myelocytes % (Man) 2 H Abs Neuts (Manual) 7.8 H Nucleated RBCs/100 WBC Differential Comment . Platelet Estimate Normal Platelet Morphology Normal Basophilic Stippling Faint H Puncture Site Patient Temperature O2 Saturation ABG pH ABG pCO2 ABG pO2 ABG HCO3 ABG O2 Content ABG Base Excess ABG Methemoglobin Frank Test Hemoglobin Carboxyhemoglobin O2 Delivery Device Liter Flow Vent Setting Inspired O2 Critical Value Sodium 139 Potassium 5.0 Chloride 99 Carbon Dioxide 35.1 H Anion Gap 5 BUN 55 H Creatinine 1.20 H Estimated GFR 45 L POC Glucose 193 H Random Glucose 180 H Calcium 9.3 Random Vancomycin 21.1 11/19/18 11/19/18 11/19/18 12:00 12:50 17:11 WBC RBC Hgb Hct MCV MCH MCHC RDW Plt Count MPV Prelim Diff (Auto) Neut % (Auto) Lymph % (Auto) [place] % (Auto) Eos % (Auto) Baso % (Auto) Neut # (Auto) Lymph # (Auto) [place] # (Auto) Eos # (Auto) Baso # (Auto) WBC Differential Seg Neuts % (Manual) Band Neuts % (Manual) Lymphocytes % (Manual) Monocytes % (Manual) Myelocytes % (Man) Abs Neuts (Manual) Nucleated RBCs/100 WBC Differential Comment Platelet Estimate Platelet Morphology Basophilic Stippling Puncture Site Left radial Patient Temperature 98.6 O2 Saturation 93 ABG pH 7.39 ABG pCO2 60 H* ABG pO2 83 ABG HCO3 35 H ABG O2 Content 13.6 ABG Base Excess 9.5 H ABG Methemoglobin 1.8 Frank Test Present Hemoglobin 10.3 L Carboxyhemoglobin 1.6 O2 Delivery Device Nasal cannula Liter Flow 4.00 Vent Setting Inspired O2 Critical Value Yes Sodium Potassium Chloride Carbon Dioxide Anion Gap BUN Creatinine Estimated GFR POC Glucose 291 H 186 H Random Glucose Calcium Random Vancomycin 11/19/18 11/20/18 11/20/18 20:16 04:09 04:09 WBC 13.9 H D RBC 4.24 Hgb 11.4 L Hct 36.3 MCV 85.4 MCH 26.8 L MCHC 31.4 L RDW 16.0 Plt Count 271 MPV 8.4 Prelim Diff (Auto) Slide review pending Neut % (Auto) 88.6 H Lymph % (Auto) 6.5 L [place] % (Auto) 4.4 Eos % (Auto) 0.0 Baso % (Auto) 0.5 Neut # (Auto) 12.3 H Lymph # (Auto) 0.9 L [place] # (Auto) 0.6 Eos # (Auto) 0.0 Baso # (Auto) 0.1 WBC Differential Manual diff final Seg Neuts % (Manual) 80 H Band Neuts % (Manual) 3 Lymphocytes % (Manual) 8 L Monocytes % (Manual) 9 H Myelocytes % (Man) Abs Neuts (Manual) 11.5 H Nucleated RBCs/100 WBC 1 H Differential Comment . Platelet Estimate Normal Platelet Morphology Normal Basophilic Stippling Puncture Site Patient Temperature O2 Saturation ABG pH ABG pCO2 ABG pO2 ABG HCO3 ABG O2 Content ABG Base Excess ABG Methemoglobin Frank Test Hemoglobin Carboxyhemoglobin O2 Delivery Device Liter Flow Vent Setting Inspired O2 Critical Value Sodium 140 Potassium 4.9 Chloride 98 Carbon Dioxide 37.3 H Anion Gap 5 BUN 46 H Creatinine 1.34 H Estimated GFR 40 L POC Glucose 235 H Random Glucose 161 H Calcium 9.5 Random Vancomycin 15.3 11/20/18 11/20/18 11/20/18 08:28 12:20 17:14 WBC RBC Hgb Hct MCV MCH MCHC RDW Plt Count MPV Prelim Diff (Auto) Neut % (Auto) Lymph % (Auto) [place] % (Auto) Eos % (Auto) Baso % (Auto) Neut # (Auto) Lymph # (Auto) [place] # (Auto) Eos # (Auto) Baso # (Auto) WBC Differential Seg Neuts % (Manual) Band Neuts % (Manual) Lymphocytes % (Manual) Monocytes % (Manual) Myelocytes % (Man) Abs Neuts (Manual) Nucleated RBCs/100 WBC Differential Comment Platelet Estimate Platelet Morphology Basophilic Stippling Puncture Site Patient Temperature O2 Saturation ABG pH ABG pCO2 ABG pO2 ABG HCO3 ABG O2 Content ABG Base Excess ABG Methemoglobin Frank Test Hemoglobin Carboxyhemoglobin O2 Delivery Device Liter Flow Vent Setting Inspired O2 Critical Value Sodium Potassium Chloride Carbon Dioxide Anion Gap BUN Creatinine Estimated GFR POC Glucose 171 H 192 H 247 H Random Glucose Calcium Random Vancomycin 11/20/18 11/21/18 11/21/18 20:31 08:10 12:30 WBC RBC Hgb Hct MCV MCH MCHC RDW Plt Count MPV Prelim Diff (Auto) Neut % (Auto) Lymph % (Auto) [place] % (Auto) Eos % (Auto) Baso % (Auto) Neut # (Auto) Lymph # (Auto) [place] # (Auto) Eos # (Auto) Baso # (Auto) WBC Differential Seg Neuts % (Manual) Band Neuts % (Manual) Lymphocytes % (Manual) Monocytes % (Manual) Myelocytes % (Man) Abs Neuts (Manual) Nucleated RBCs/100 WBC Differential Comment Platelet Estimate Platelet Morphology Basophilic Stippling Puncture Site Patient Temperature O2 Saturation ABG pH ABG pCO2 ABG pO2 ABG HCO3 ABG O2 Content ABG Base Excess ABG Methemoglobin Frank Test Hemoglobin Carboxyhemoglobin O2 Delivery Device Liter Flow Vent Setting Inspired O2 Critical Value Sodium Potassium Chloride Carbon Dioxide Anion Gap BUN Creatinine Estimated GFR POC Glucose 149 H 106 148 H Random Glucose Calcium Random Vancomycin Result Diagrams: 11/20/18 04:09 11/20/18 04:09 Microbiology: Microbiology 11/14/18 01:40 Aerobic Blood Culture - Final Blood - Peripheral No growth in 5 days Anaerobic Blood Culture - Final No growth in 5 days 11/14/18 01:45 Aerobic Blood Culture - Final Blood - Peripheral No growth in 5 days Anaerobic Blood Culture - Final No growth in 5 days Imaging: Abdomen/Pelvis CT 11/15/18 00:00 CONCLUSION: No acute noncontrast CT findings in the abdomen or pelvis. Chest CT 11/15/18 18:19 CONCLUSION: Slight focal infiltrate or atelectasis in the right middle lobe and minimal streaky posterior basilar parenchymal opacity. Chest X-Ray 11/18/18 00:00 CONCLUSION: New mild infiltrate in the right lung base. Patient/Family Conference Issues Discussed: * Palliative care role, purpose, approach * Additional medical, psychosocial, and spiritual history * Patients general health, functional status, and cognitive changes in the months leading up to the current hospitalization * Patient/family understanding of the current medical problems * Patient/family understanding of prognosis * Patients goals of care as best understood from advance directives and/or conversations and/or values * Current medical treatment options and benefits/burdens of those options * Likely scenarios comparing ongoing aggressive care with a transition to comfort measures only * Questions answered to the best of my ability * Palliative care contact information provided Assessment and Plan - Disease Oriented Problem List (1) Acute and chronic respiratory failure (2) Pneumonia involving right lung (3) Chronic obstructive pulmonary disease (4) Congestive heart failure (5) Diabetes mellitus (6) Hypertension (7) Hypothyroidism - Symptom Scale (1) Shortness of breath 0-10 Scale: Unable to quantify (2) Pain 0-10 Scale: 2 (3) Anxiety 0-10 Scale: Unable to quantify (4) Debility 0-10 Scale: Unable to quantify Pertinent Non-Medical Issues: Psychosocial: Patient is originally from [place]. She has lived in [place] before. Reports that she moved to [place] many years ago. Patient is . She reports that she has 6 adult children and did not provide the names for 5 children. She resides with 1 of her sons Porfirio Lancaster who assists here with almost all his ADLs. 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 Patient's mother lives locally and assists with her care as well. Spiritual: No moravian affiliation Legal: Has never completed advanced directives and refuses to complete and sign HCS form 11/21/18. Patient verbalizes that in the event that she is incapacitated her son Porfirio Lancaster would serve as her healthcare surrogate. Ethical issues impacting care: None identified at this time. . Important Contacts: Porfirio Conrad-[phone] MotherJessica BaxterBezabpf-[phone] . Prognosis: Mrs. Sandhu is a 63-year-old female with a medical history significant for congestive heart failure, chronic obstructive pulmonary disease, hypertension, hypothyroidism, hypercholesterolemia, fibromyalgia, and depression. Patient presented to the emergency room on 11/14/18 via EMS for further evaluation of worsening shortness of breath for the past 7 days prior to presenting to the emergency room. Chest x-ray showed right mid lobe infiltrate. Clinical course complicated with respiratory failure, anxiety, and debility. Given patient's multiple ongoing comorbidities, and progressive debility, patient remains at high risk for further complications, deterioration and decline. Prognosis is guarded. . Code Status: Full Code Plan: PLAN: Legal decision maker: Patient is alert and oriented to self, place and situation. She has insight regarding her medical condition. According to [place] statutes, in the event that she is incapacitated, patient 6 adult children will serve as a healthcare proxy. N/B Patient verbally stated that in the event that she is incapacitated her son Porfirio Lancaster will make medical decisions for her but she refused to complete and sign designation of healthcare surrogate form despite explaining to hear how state of [place] stitches are applied in a case where patient has never completed advanced directives. Goals: Aggressive. Addressed CODE STATUS, discussed CPR, benefits, complications and limitations. Patient elected full code, though she seemed hesitant about it. Patient already has a discharge order. Plan is for patient to be discharged home with home health care late on 11/21/18 or 11/22/18. CODE STATUS: Full code SYMPTOMS: * Shortness of breath: Patient has COPD on home O2 and CHF. Came in with complaints of respiratory distress. Chest x-ray showing right middle lobe infiltrate. Patient placed on antibiotics, steroids and has been using BiPAP. Currently on nasal cannula with slight improvement in ABG results. * Pain: History of fibromyalgia. Patient has Percocet 10/325 p.o. every 6 hours prn for pain. Medication appears adequate at this time. * Anxiety: History of COPD and came in with complaints of respiratory distress. Anxiety most likely from COPD exacerbation. Patient was started on lorazepam 1 mg p.o. q. 8hrs prn. Medication appears adequate at this time. * Debility: Progressive. Patient has multiple ongoing comorbidities. She has had multiple emergency room visits. Patient is mostly bedbound and wheelchair- bound and requires assistance with all his ADLs. Palliative care will continue to follow the patient during hospital course as condition evolves, to assist patient/decision-maker with understanding of their medical conditions, weighing benefits/burdens of treatment options, for clarification of goals of treatment. Additionally will assist with any symptoms of palliative concern Appreciation Thank you for the opportunity to participate in the care of Sylvie Sandhu. Attestation Attestation: To help prompt me to consider important information that might be impacting today's encounter and assessment, information from prior notes written by myself or my colleagues may have been "brought forward" into today's note. My signature on this note, however, is an attestation that I personally performed the exam, history, and/or decision-making noted today, and, unless otherwise indicated, the interactions with patient, family, and staff as well as the review of records all occurred today. I also attest that the listed assessment and stated plan reflect my best clinical judgment today based on the combination of historical information, prior notes, and today's exam/ interactions. When time spent is documented, it refers only to time spent today by the signer, or if indicated, combined time spent today by collaborating physician/nurse practitioner.
--- NOTE | 2018-11-21 16:15 | P.DCO ---
Diagnosis (1) Acute and chronic respiratory failure: Status: Acute (2) Weakness: Status: Acute (3) Impaired activities of daily living: Status: Acute (4) Gait instability: Status: Acute (5) At high risk for falls: Status: Acute Physical Therapy Order: Evaluate and treat, Improve ambulation and Strength and gait training Home Health Nursing Order: Medical education, Signs/symptoms of disease process, Oxygen administration education, Medication education-adverse effect and Nursing assessment with vital signs Case Management Consult Case Management Consult-Home Health: Yes I have seen patient Sylvie Sandhu on 11/21/18. My clinical findings support the need for the requested home health care services because: Limited mobility due to disease progression, Patient has SOB, Deconditioned with increased weakness, Limited ability to care for self and High risk of falls I certify that my clinical findings support that this patient is homebound because: Hx COPD - exertion dyspnea/weakness, Unsteady gait/balance, Unsafe to leave home unassisted, Non-ambulatory: confined to bed or chair and Unable to use public transportation
--- NOTE | 2018-11-21 16:41 | P.DCO ---
Diagnosis (1) Acute and chronic respiratory failure: Status: Acute (2) Weakness: Status: Acute (3) Impaired activities of daily living: Status: Acute (4) Gait instability: Status: Acute (5) At high risk for falls: Status: Acute Home Health Nursing Order: Medical education, Signs/symptoms of disease process, Oxygen administration education, Medication education-adverse effect and Nursing assessment with vital signs Case Management Consult Case Management Consult-Home Health: Yes I have seen patient Sylvie Sandhu on 11/21/18. My clinical findings support the need for the requested home health care services because: Limited mobility due to disease progression, Patient has SOB, Deconditioned with increased weakness, Limited ability to care for self and High risk of falls I certify that my clinical findings support that this patient is homebound because: Hx COPD - exertion dyspnea/weakness, Unsteady gait/balance, Unsafe to leave home unassisted, Non-ambulatory: confined to bed or chair and Unable to use public transportation
--- NOTE | 2018-11-21 16:43 | P.PNID ---
Subjective Remarks: On [place] O2 afebrile WBC normal; Antibiotics: vanc azithro azactam Allergies/Adverse Reactions: Allergies penicillin G Allergy (Severe, Verified 11/14/18 01:39) Hives Sulfa (Sulfonamide Antibiotics) Allergy (Verified 11/14/18 01:39) Hives Objective Vital Signs 11/20/18 19:28 11/20/18 20:00 11/20/18 21:37 Temperature 97.6 F 98.1 F Pulse Rate 94 H 91 H 80 Respiratory Rate 18 18 15 Blood Pressure 146/66 H 146/67 H Pulse Oximetry 96 97 96 11/21/18 00:00 11/21/18 03:20 11/21/18 08:00 Temperature 98.5 F 98.2 F Pulse Rate 101 H 88 101 H Respiratory Rate 18 17 16 Blood Pressure 134/81 132/77 Pulse Oximetry 95 94 L 11/21/18 08:58 11/21/18 11:44 11/21/18 12:00 Temperature 98 F Pulse Rate 102 H 82 93 H Respiratory Rate 16 16 16 Blood Pressure 104/70 Pulse Oximetry 92 L 99 11/21/18 15:00 Temperature Pulse Rate 98 H Respiratory Rate 16 Blood Pressure Pulse Oximetry Intake & Output 11/20/18 11/21/18 11/21/18 18:59 06:59 18:59 Intake Total 2220 / 2220 1640 / 1640 100 / 100 Output Total 2700 / 2700 1250 / 1250 Balance -480 / -480 390 / 390 100 / 100 Weight 163.5 kg Intake: IV 720 / 720 200 / 200 100 / 100 Azactam Inj 2 GM In NS Inj 100 200 / 200 200 / 200 100 / 100 ML @ 200 mls/hr IV.SIG Q6H [facility] Rx#:[id number] Vancomycin Inj 2,000 MG In NS 520 / 520 Inj 500 ML @ 250 mls/hr IV.SIG ONCE ONE Rx#:[id number] Oral 1500 / 1500 1440 / 1440 Output: Urine 600 / 600 Urine Amount (Catheter) 2099 1250 / 1250 Indwelling Urethral Catheter 2099 1250 / 1250 Other: Date of Last Bowel Movement 11/20/18 11/20/18 # Bowel Movements 1 11/14/18 01:40 Blood - Peripheral Aerobic Blood Culture - Final No growth in 5 days 11/14/18 01:40 Blood - Peripheral Anaerobic Blood Culture - Final No growth in 5 days 11/14/18 01:45 Blood - Peripheral Aerobic Blood Culture - Final No growth in 5 days 11/14/18 01:45 Blood - Peripheral Anaerobic Blood Culture - Final No growth in 5 days Lab - Hematology Results 11/20/18 04:09 WBC 13.9 H D RBC 4.24 Hgb 11.4 L Hct 36.3 MCV 85.4 MCH 26.8 L MCHC 31.4 L RDW 16.0 Plt Count 271 MPV 8.4 Prelim Diff (Auto) Slide review pending Neut % (Auto) 88.6 H Lymph % (Auto) 6.5 L [place] % (Auto) 4.4 Eos % (Auto) 0.0 Baso % (Auto) 0.5 Neut # (Auto) 12.3 H Lymph # (Auto) 0.9 L [place] # (Auto) 0.6 Eos # (Auto) 0.0 Baso # (Auto) 0.1 WBC Differential Manual diff final Seg Neuts % (Manual) 80 H Band Neuts % (Manual) 3 Lymphocytes % (Manual) 8 L Monocytes % (Manual) 9 H Abs Neuts (Manual) 11.5 H Nucleated RBCs/100 WBC 1 H Differential Comment . Platelet Estimate Normal Platelet Morphology Normal Lab - Chemistry Results 11/19/18 11/19/18 11/20/18 17:11 20:16 04:09 Sodium 140 Potassium 4.9 Chloride 98 Carbon Dioxide 37.3 H Anion Gap 5 BUN 46 H Creatinine 1.34 H Estimated GFR 40 L POC Glucose 186 H 235 H Random Glucose 161 H Calcium 9.5 11/20/18 11/20/18 11/20/18 08:28 12:20 17:14 Sodium Potassium Chloride Carbon Dioxide Anion Gap BUN Creatinine Estimated GFR POC Glucose 171 H 192 H 247 H Random Glucose Calcium 11/20/18 11/21/18 11/21/18 20:31 08:10 12:30 Sodium Potassium Chloride Carbon Dioxide Anion Gap BUN Creatinine Estimated GFR POC Glucose 149 H 106 148 H Random Glucose Calcium Imaging: ITS Impressions Abdomen/Pelvis CT 11/15/18 00:00 CONCLUSION: No acute noncontrast CT findings in the abdomen or pelvis. Chest CT 11/15/18 18:19 CONCLUSION: Slight focal infiltrate or atelectasis in the right middle lobe and minimal streaky posterior basilar parenchymal opacity. Chest X-Ray 11/18/18 00:00 CONCLUSION: New mild infiltrate in the right lung base. Physical Exam: GENERAL: Morbidly obese on NC O2 SKIN: Warm and dry. no rash HEAD: Atraumatic. Normocephalic. EYES: No scleral icterus. No injection or drainage. ENT: N Mucous membranes pink and moist. NECK: Trachea midline. No JVD. CARDIOVASCULAR: Regular rate and rhythm. RESPIRATORY: No accessory muscle use. decreased BS Clear to auscultation. Breath sounds equally decreased bilaterally. GASTROINTESTINAL: Abdomen soft, non-tender, nondistended. Hepatic and splenic margins not palpable. MUSCULOSKELETAL: Extremities without clubbing, cyanosis, + 2 edema. No obvious deformities. NEUROLOGICAL: awake alert non focal PSYCHIATRIC: calm, coopertive Assessment and Plan - Plan Sepsis REsp distress, resolved now back with hypercapnic resp failure and MS 2/2 it -resolved hypercapnia, resolved failure CXR with mild infiltrate Suspect PNA - sp abx treatment 8 days ARF- stable to mild improvement worsening leukocytosis mauro vanco, azactam, comple 5 days of azithro OK to dc home ashok RN
--- NOTE | 2018-11-21 16:57 | P.PNIM ---
Subjective Interval history: Follow-up on patient with pneumonia, COPD exacerbation. Patient seen and examined. Patient is asking if she can go home today. Patient states her breathing has returned to baseline. She denies any fever or chills. She denies any increase in her chronic shortness of breath. She denies any chest pain. She denies any nausea, vomiting or abdominal pain. Physical Exam Vital signs: Vital Signs 11/20/18 19:28 11/20/18 20:00 11/20/18 21:37 Temperature 97.6 F 98.1 F Pulse Rate 94 H 91 H 80 Respiratory Rate 18 18 15 Blood Pressure 146/66 H 146/67 H Pulse Oximetry 96 97 96 11/21/18 00:00 11/21/18 03:20 11/21/18 08:00 Temperature 98.5 F 98.2 F Pulse Rate 101 H 88 101 H Respiratory Rate 18 17 16 Blood Pressure 134/81 132/77 Pulse Oximetry 95 94 L 11/21/18 08:58 11/21/18 11:44 11/21/18 12:00 Temperature 98 F Pulse Rate 102 H 82 93 H Respiratory Rate 16 16 16 Blood Pressure 104/70 Pulse Oximetry 92 L 99 11/21/18 15:00 Temperature Pulse Rate 98 H Respiratory Rate 16 Blood Pressure Pulse Oximetry Intake & Output 11/20/18 11/21/18 11/21/18 18:59 06:59 18:59 Intake Total 2220 / 2220 1640 / 1640 100 / 100 Output Total 2700 / 2700 1250 / 1250 Balance -480 / -480 390 / 390 100 / 100 Weight 163.5 kg Intake: IV 720 / 720 200 / 200 100 / 100 Azactam Inj 2 GM In NS Inj 100 200 / 200 200 / 200 100 / 100 ML @ 200 mls/hr IV.SIG Q6H [facility] Rx#:[id number] Vancomycin Inj 2,000 MG In NS 520 / 520 Inj 500 ML @ 250 mls/hr IV.SIG ONCE ONE Rx#:[id number] Oral 1500 / 1500 1440 / 1440 Output: Urine 600 / 600 Urine Amount (Catheter) 2099 1250 / 1250 Indwelling Urethral Catheter 2099 1250 / 1250 Other: Date of Last Bowel Movement 11/20/18 11/20/18 # Bowel Movements 1 Narrative: GENERAL: Morbidly obese female patient, no acute distress. Awake and alert. Encountered sitting bedside chair. Family is in the room. SKIN: Warm and dry. HEAD: Atraumatic. Normocephalic. EYES: Pupils equal and round. No scleral icterus. No injection or drainage. ENT: No nasal bleeding or discharge. Mucous membranes pink and moist. NECK: Trachea midline. CARDIOVASCULAR: Regular rate and rhythm. RESPIRATORY: No accessory muscle use. Diminished BS in all lung hand. No wheezing or rhonchi noted on exam. GASTROINTESTINAL: Abdomen soft, non-tender, nondistended. Hepatic and splenic margins not palpable. MUSCULOSKELETAL: Extremities without clubbing or cyanosis. 2+ pitting edema BLEs. NEUROLOGICAL: Awake and alert. No obvious cranial nerve deficits. Able to move all extremities spontaneously. Normal speech. PSYCHIATRIC: Calm and cooperative. Urinary Catheter Management Indwelling Urethral Catheter: Cath placed during this visit: yes Reason for continuing: Other continuation reason Insertion date: 11/14/18 Insertion time: 05:41 Results Labs CBC & Chem 7: 11/20/18 04:09 11/20/18 04:09 Assessment and Plan (1) Acute and chronic respiratory failure: Code(s): J96.20 - Acute and chronic respiratory failure, unspecified whether with hypoxia or hypercapnia Status: Acute (2) Weakness: Code(s): R53.1 - Weakness Status: Acute (3) Impaired activities of daily living: Status: Acute (4) Gait instability: Code(s): R26.81 - Unsteadiness on feet Status: Acute (5) At high risk for falls: Code(s): Z91.81 - History of falling Status: Acute Plan Sepsis Acute on chronic hypoxic hypercapnic respiratory failure, resolved Acute on chronic COPD with exacerbation Obesity hypoventilation syndrome Suspected PNA -ID following, appreciate assistance. Patient on IV vancomycin, Azactam and azithromycin. ID has discontinued IV Vanco and Azactam and recommending continuation of 5 days of azithromycin. She has been cleared for discharge from ID standpoint. -Continue on supplemental oxygen -Transitioned from IV to oral steroids -continue on Symbicort -Patient would benefit from follow-up with pulmonary medicine for sleep study to rule out LUIZ Hypertension -Continue on hydralazine 50 mg p.o. 3 times daily and Cardizem 60 mg p.o. 4 times daily -Continue to monitor BP and adjust treatment accordingly Uncontrolled IDDM BS now much improved -Continue on Levemir 30 units twice daily -Accu-Cheks -Insulin sliding scale VAISHALI on CKD, resolved s/p IVF -Avoid nephrotoxic agents -Continue to monitor renal indices Hypothyroidism -Continue on home dose of levothyroxine Fibromyalgia/chronic pain syndrome/diabetic peripheral neuropathy -Continue on Neurontin, Cymbalta -Percocet as needed Weakness Morbid obesity, BMI 64 -PT recommending home health with PT. Unfortunately, patient's insurance does not pay for home health PT. Patient lives with her son who is developmentally disabled. Patient was encountered by case management in her room having urinated all over the floor because she could not make it to the bathroom. Patient is not a safe discharge at this time. Patient has refused SNF. -Patient would benefit from regular exercise program, dietary modification DVT prophylaxis -Heparin Code Status: FULL Discussed Condition With: patient, nursing staff, Dr. Rhodes, Dr. Arteaga Progress Note: Quality VTE Deep Vein Thrombosis/Pulmonary Embolism Present on Admission: No
--- NOTE | 2018-11-21 20:20 | P.PNPL ---
Subjective Interval history: 63 YO Morbidly obese WF, weaned to NC Anxious to go home Walks to [place] Mild SOB Physical Exam Vital signs: Vital Signs 11/20/18 21:37 11/21/18 00:00 11/21/18 03:20 Temperature 98.5 F Pulse Rate 80 101 H 88 Respiratory Rate 15 18 17 Blood Pressure 134/81 Pulse Oximetry 96 95 11/21/18 08:00 11/21/18 08:58 11/21/18 11:44 Temperature 98.2 F Pulse Rate 101 H 102 H 82 Respiratory Rate 16 16 16 Blood Pressure 132/77 Pulse Oximetry 94 L 92 L 11/21/18 12:00 11/21/18 15:00 11/21/18 16:00 Temperature 98 F 98 F Pulse Rate 93 H 98 H 84 Respiratory Rate 16 16 16 Blood Pressure 104/70 168/74 H Pulse Oximetry 99 96 Intake & Output 11/21/18 11/21/18 11/22/18 06:59 18:59 06:59 Intake Total 1640 / 1640 200 / 200 600 / 600 Output Total 1250 / 1250 1550 / 1550 Balance 390 / 390 -1350 / -1350 600 / 600 Weight 163.5 kg Intake: IV 200 / 200 200 / 200 Azactam Inj 2 GM In NS Inj 100 200 / 200 200 / 200 ML @ 200 mls/hr IV.SIG Q6H [facility] Rx#:[id number] Oral 1440 / 1440 600 / 600 Output: Urine 300 / 300 Urine Amount (Catheter) 1250 / 1250 1250 / 1250 Indwelling Urethral Catheter 1250 / 1250 1250 / 1250 Other: # Incontinent Voids 2 2 Date of Last Bowel Movement 11/20/18 11/21/18 # Bowel Movements 1 GENERAL: Morbidly obede WF, NAD SKIN: Warm and dry. HEAD: Normocephalic. EYES: No scleral icterus. No injection or drainage. NECK: Supple, trachea midline. No JVD or lymphadenopathy. CARDIOVASCULAR: Regular rate and rhythm without murmurs, gallops, or rubs. RESPIRATORY: Breath sounds equal bilaterally. No accessory muscle use. GASTROINTESTINAL: Abdomen soft, non-tender, nondistended. MUSCULOSKELETAL: No cyanosis, or edema. BACK: Nontender without obvious deformity. No CVA tenderness. - Urinary Catheter Management Indwelling Urethral Catheter Cath placed during this visit: yes, but has since been removed by the nurse Reason for continuing: Other continuation reason Insertion date: 11/14/18 Insertion time: 05:41 Removal date: 11/21/18 Removal time: 12:20 Assessment and Plan - Plan IMPRESSION: Obesity hypoventilation synd Likley LUIZ Morbid obesity DM PLAN: Aerosol nebs Wean 02 Decrease Pred 20 mg daily Cont Abx
[2018-11-21] MEDS: Melatonin 5 MG Tablet PO SCH (20:34)
[2018-11-22] MEDS: Heparin - SQ 10,000 UNITS/ML Vial SQ SCH (03:49)
[2018-11-22] MEDS: Aztreonam Inj 2 GM in Sodium Chloride 0.9% Inj 100 ML IV.SIG SCH ×2 (03:49→09:30)
[2018-11-22] MEDS: Levothyroxine 75 MCG Tablet PO SCH (06:26)
[2018-11-22] MEDS: Levothyroxine 100 MCG Tablet PO SCH (06:26)
[2018-11-22 07:56] VITALS: O2SAT 100
[2018-11-22] MEDS: Metoclopramide 10 MG Tablet PO SCH (08:40)
[2018-11-22] MEDS: Insulin NovoLOG Aspart Correctional Sugar Inj SQ SCH (08:41)
[2018-11-22] MEDS: Insulin Detemir Inj 1,000 UNIT/10 ML Vial SQ SCH (08:42)
[2018-11-22] MEDS: hydrALAZINE 50 MG Tablet PO SCH (08:43)
[2018-11-22] MEDS: Famotidine 20 MG Tablet PO SCH (08:44)
[2018-11-22] MEDS: Duloxetine 60 MG DR Capsule PO SCH (08:44)
[2018-11-22] MEDS: dilTIAZem 60 MG Tablet PO SCH (08:44)
[2018-11-22] MEDS: Azithromycin 250 MG Tablet PO SCH (08:44)
[2018-11-22] MEDS: Budesonide-Formoterol 160/4.5 MCG 6 GM Inhaler INH SCH (08:45)
[2018-11-22] MEDS: Senna/Docusate Sodium 8.6/50 MG Tablet PO SCH (08:45)
[2018-11-22] MEDS: LORazepam 1 MG Tablet PO PRN (08:45)
[2018-11-22] MEDS ORDERED: predniSONE 10 MG Tablet PO SCH (09:00)
[2018-11-22 09:03] VITALS: BP 164/73; PULSE 84; RESP 16; TEMP 98
--- NOTE | 2018-11-22 10:08 | P.DS ---
DS: Providers Date of admission: 11/14/18 02:29 Primary care physician: UNKNOWN Consults: 11/14/18 03:22 Consult to Infectious Diseases Routine Consulting Provider: Ashley Arteaga Reason for Consultation: Sepsis unclear source with bandemia Notified:: Service Spoke with:: LUZ Date Notified:: 11/14/18 Time Notified:: 04:48 Ordering Provider: JUAN 11/14/18 17:08 Consult to Hospitalist Routine Consulting Provider: Yari Sutton Reason for Consultation: s/p SOB, improved Notified:: Service Spoke with:: Lise Date Notified:: 11/14/18 Time Notified:: 17:11 Ordering Provider: FELICITA 11/18/18 11:25 Consult to Pulmonology Routine Consulting Provider: Kelly Chahal Reason for Consultation: Hypercapneic respiratory failure. Notified:: Service Spoke with:: Hortensia Date Notified:: 11/18/18 Time Notified:: 11:35 Ordering Provider: LIZ 11/19/18 15:18 Consult to Palliative Care Routine Consulting Provider: Godwin Watson Reason for Consultation: chf, copd, Notified:: Service Spoke with:: ESTEFANI Date Notified:: 11/19/18 Time Notified:: 15:31 Ordering Provider: DAYANA 11/21/18 16:38 HUB Only Consult Order Routine Consulting Provider: Josefa Linares Attending physician on discharge: Jacklyn Rhodes Anticipated date of discharge: 11/22/18 Brief History from admission: 63-year-old morbidly obese female presents for an evaluation of worsening shortness of breath. Patient says that she has been sick for 1 week but tonight she was feeling the worst and called 911. EMS noticed that she was in respiratory distress and gave her 3 nebulizers. They were unable to get an IV. Patient was hypoxic in her 80s. Patient also had a temperature of 100.4 orally upon arrival. She was in significant respiratory distress. During my evaluation the patient is on a BiPAP in moderate respiratory distress unable to provide further history. Patient update on day of discharge: Patient seen and examined. Patient states that her breathing is much improved. She says that she is near baseline. She reports that her son who lives with her has at most mild developmental delay and is able to care for her at home. She verbalizes refusal to go to residential facility. She states she wants to go home. She denies any fever or chills. She denies any nausea, vomiting or abdominal pain. DS: Summary Patient with past medical history of COPD, chronic respiratory insufficiency on home oxygen was admitted to critical care service due to acute hypercapnic respiratory distress and sepsis. Initial chest x-ray showed no acute disease. Patient was hypoxic with O2 sats in the 80s and had a temperature of 100.4 orally. She was started on broad-spectrum antibiotics, bronchodilators and IV steroids. Patient was placed on BiPAP. She was seen in consultation by infectious disease and azithromycin was added to her antibiotic regimen of vancomycin and Azactam. Her nasal screening for influenza was negative. Additionally blood cultures failed to show any growth. Legionella pneumoniae antigen was negative. CT chest revealed mild infiltrate or atelectasis in the right middle lobe and minimal streaky basilar opacity. On the third day of her hospitalization, patient was found lethargic and in distress. ABG was performed on 3 L which revealed a pH of 7.28, CO2 of 77, PaO2 of 69, bicarb of 35 and satting 90%. Repeat chest x-ray showed new mild infiltrate in the right lung base. Patient was continued on BiPAP and repeat ABG showed improvement. Patient began to improve clinically. Her IV steroids were tapered to oral. Additionally, her IV antibiotics were discontinued and she was cleared for discharge from ID standpoint with 5 additional days of azithromycin. Patients breathing returned to near baseline as did her oxygen requirement. Patient reached the maximum benefit of her hospitalization. Patient was seen in consultation by physical therapy who recommended rehab however patient declined multiple times stating instead that she wanted to go home. Case management assisted with discharge planning to home with home health care. Time Spent with Patient Total time spent providing and/or coordinating discharge services: Greater than 30 minutes Quality: VTE Deep Vein Thrombosis/Pulmonary Embolism Present on Admission: No Exam Narrative Exam Narrative: GENERAL: Morbidly obese female patient, no acute distress. Awake and alert. Encountered sitting on side of bed eating breakfast. SKIN: Warm and dry. HEENT: Atraumatic. Normocephalic. Pupils equal and round. No scleral icterus. No nasal discharge. Mucous membranes pink and moist. NECK: Trachea midline. CARDIOVASCULAR: Regular rate and rhythm. RESPIRATORY: No accessory muscle use. Diminished BS in all lung hand. No wheezing or rhonchi noted on exam. GASTROINTESTINAL: Abdomen soft, non-tender, nondistended. +BS MUSCULOSKELETAL: Extremities without clubbing or cyanosis. 1-2+ pitting edema BLEs. NEUROLOGICAL: Awake and alert. No obvious cranial nerve deficits. Able to move all extremities spontaneously. Normal speech. PSYCHIATRIC: Calm and cooperative. Results Labs on day of discharge: Labs from last 24 hours 11/22/18 11/22/18 11/21/18 08:03 07:24 20:43 POC Glucose 150 H 168 H Random Vancomycin Pending 11/21/18 11/21/18 17:42 12:30 POC Glucose 212 H 148 H Random Vancomycin Impressions ITS Impressions Abdomen/Pelvis CT 11/15/18 00:00 CONCLUSION: No acute noncontrast CT findings in the abdomen or pelvis. Chest CT 11/15/18 18:19 CONCLUSION: Slight focal infiltrate or atelectasis in the right middle lobe and minimal streaky posterior basilar parenchymal opacity. Chest X-Ray 11/18/18 00:00 CONCLUSION: New mild infiltrate in the right lung base. Discharge Plan Discharge Disposition Patient Disposition: Disch W/Home Health Service Discharge Condition Condition: Stable Discharge Order Discharge Orders: Discharge Order (Routine); Ordered 11/22/18 Ordered By: Kateryna Maynard Discharge Details Anticipated Discharge Date: 11/21/18 Physicians Team Primary Care Provider: UNKNOWN, Attending Provider: Pb Sanches Other Providers: Ashley Arteaga ; Kelly Chahal ; Godwin Watson ; Josefa Linares ; Caleb Scherer Rxs /Orders / Referrals /Forms Prescriptions: New azithromycin 250 mg Tablet 500 mg PO DAILY 4 Days Qty: 8 RF: 0 diltiazem HCl 60 mg Tablet 60 mg PO QID 30 Days Qty: 120 RF: 0 hydralazine 50 mg Tablet 50 mg PO TID Qty: 90 RF: 0 prednisone 10 mg Tablet See Label Instructions .ROUTE .COMPLEX Qty: 7 RF: 0 Continue buspirone 10 mg Tablet 10 mg PO TID RF: 0 aspirin [Aspir-81] 81 mg Tablet,Delayed Release (Dr/Ec) 81 mg PO DAILY RF: 0 duloxetine 60 mg Capsule,Delayed Release(Dr/Ec) 60 mg PO DAILY RF: 0 insulin glargine [Lantus U-100 Insulin] 100 unit/mL Solution 30 unit SUB-Q BID RF: 0 insulin lispro [Humalog U-100 Insulin] 100 unit/mL Solution 0 - 10 units subcut DIRECTED RF: 0 oxycodone-acetaminophen 10-325 mg Tablet 1 tab PO Q6H PRN (Reason: Acute Pain) Qty: 28 RF: 0 lorazepam 1 mg tablet 1 mg PO Q8H PRN (Reason: anxiety) Qty: 6 RF: 0 levothyroxine 175 mcg Tablet 175 mcg PO DAILY RF: 0 melatonin 3 mg Tablet 3 mg PO HS RF: 0 omeprazole 40 mg Capsule,Delayed Release(Dr/Ec) 40 mg PO DAILY RF: 0 simvastatin 20 mg Tablet 20 mg PO QPM RF: 0 gabapentin 300 mg Capsule 600 mg PO HS RF: 0 gabapentin 300 mg Capsule 300 mg PO BID RF: 0 oxybutynin chloride 5 mg Tablet 10 mg PO BID RF: 0 calcium acetate 667 mg Capsule 667 mg PO TID RF: 0 duloxetine [Cymbalta] 60 mg Capsule,Delayed Release(Dr/Ec) 60 mg PO DAILY RF: 0 cholecalciferol (vitamin D3) [Vitamin D3] 5,000 unit Tablet 5,000 unit PO DAILY RF: 0 Referrals: Elevator Mechanic Apprentice [Outside] - See Instructions ( Please call the physician's office to book the appointment to be seen within one week. Recommend outpatient sleep study to assess for possible LUIZ. *Please contact insurance to find a tire repair mechanic in network.) UNKNOWN, [Primary Care Provider] - See Instructions ( Follow up with your Primary care if you do not have one: *[facility] offers same day APPT. Call the morning of you would like to be seen; Office opens at 8:00am. [facility] Address: [address] [place] [address], [place], [place] Please call the physician's office to book the appointment to be seen within one week. ) Discharge Instructions Patient Printed Instructions: Diltiazem (By mouth), Prednisone (By mouth), Azithromycin (By mouth), Hydralazine (By mouth), ARDS (Acute Respiratory Distress Syndrome) (GEN) Post Discharge Care Plan Care Plan Goals: Please call the physician's office to book the appointment to be seen within 1 week. Follow up with your Primary care if you do not have one: *[facility] offers same day APPT. Call the morning of you would like to be seen; Office opens at 8:00am. Discharge Care Plan Goals for COPD You have been diagnosed with chronic obstructive pulmonary disease (COPD). This is a name given to a group of diseases that limit the flow of air in and out of your lungs. This makes it harder to breathe. With COPD, you are also more likely to get lung infections. COPD includes chronic bronchitis and emphysema. COPD is most often caused by heavy, long-term cigarette smoking. Directions to Meet your Goals: 1. Quit smoking: * If you smoke, quit. It is the best thing you can do for your COPD and your overall health. * Join a stop-smoking program. There are even telephone, text message, and Internet programs to help you quit. * Ask your doctor about medicines or other methods to help you quit. * Ask family members to quit smoking as well. * Don't allow people to smoke in your home, in your car, or when they are around you. 2. Protect yourself from infection: * Wash your hands often. Do your best to keep your hands away from your face. Most germs are spread from your hands to your mouth. * Get a flu shot every year. Also ask your provider about pneumonia vaccines. * Avoid crowds. It's especially important to do this in the winter when more people have colds and flu. * To stay healthy, get enough sleep, exercise regularly, and eat a balanced diet. You should: -Get about 8 hours of sleep every night. -Try to exercise for at least 30 minutes on most days. -Have healthy foods including fruits and vegetables, 100% whole grains, lean meats and fish, and low-fat dairy products. -Try to stay away from foods high in fats and sugar. 3. Take your medicines: * Take your medicines exactly as directed. Don't skip doses. 4. Manage you stress: Stress can make COPD worse. Use this stress management technique: * Find a quiet place and sit or lie in a comfortable position. * Close your eyes and perform breathing exercises for several minutes. 5. Pulmonary rehabilitation: * Pulmonary rehab can help you feel better. These programs include exercise, breathing techniques, information about COPD, counseling, and help for smokers. * Ask your doctor or your local hospital about programs in your area. 6. When to call your doctor: Call doctor immediately if you have any of the following: Shortness of breath, wheezing, or coughing Increased mucus Yellow, green, bloody, or smelly mucus Fever or chills Tightness in your chest that does not go away with rest or medicine An irregular heartbeat or a feeling that your heart is beating very fast Swollen ankles 7. Follow-up: Do Not miss your follow-up appointment. Keep up with all your appointments and yearly check ups Discharge Care Plan Goals for Pneumonia You have been diagnosed with pneumonia. This is a serious lung infection. Most cases of pneumonia are caused by bacteria. Pneumonia most often occurs in older adults, young children, and people with chronic health problems. Directions to Meet your Goals: 1. Home care: * Take your medicine exactly as directed. Dont skip doses. Continue taking your antibiotics as until they are all gone, even if you start to feel better. This will prevent the pneumonia from coming back. * Drink at least 8 glasses of water daily, unless directed otherwise. This helps to loosen and thin secretions so that you can cough them up. * Use a cool-mist humidifier in your bedroom. Be sure to clean the humidifier daily. * Dont use medicines to suppress your cough unless your cough is dry, painful, or interferes with your sleep. Coughing up mucus is normal. You may use an expectorant if your doctor says its okay. * You can use warm compresses or a heating pad on the lowest setting to relieve chest discomfort. Use several times a day for 15-20 minutes at a time. To prevent injury to your skin, set the temperature to warm, not hot. Dont put the compress or pad directly on your skin. Make certain it has a cover or wrap it in a towel. This is to prevent skin vega. * Get plenty of rest until your fever, shortness of breath, and chest pain go away. * Plan to get a flu shot every year. The flu is a common cause of pneumonia. Getting a flu shot every year can help prevent both the flu and pneumonia. 2. Getting the pneumococcal vaccine: * Talk with your doctor about getting the pneumococcal vaccine. Pneumococcal pneumonia is caused by bacteria that spread from person to person. It can cause minor problems, such as ear infections. But it can also turn into life- threatening illnesses of the lungs (pneumonia), the covering of the brain and spinal cord (meningitis), and the blood (bacteremia). * Make sure to ask your doctor if you should have the vaccine. Children under 2 years of age, adults over age 65, people with certain health conditions, and smokers are at the highest risk of pneumococcal disease. This vaccine can help prevent pneumococcal disease in both adults and children. 3. Follow-up care: Do Not miss your follow-up appointment. Keep up with all your appointments and yearly check ups 4. When to call your doctor: Call your doctor immediately if you have any of the following: Fever of 100.4F (38C) or higher, or as directed by your healthcare provider Mucus from the lungs (sputum) thats yellow, green, bloody, or smells bad Vomiting Any symptoms that get worse 5. Call 911: Call 911 right away if you have any of the following: Chest pain Trouble breathing Blue lips or fingernails Status ED Status: Left Department
--- NOTE | 2018-11-22 19:24 | P.PNPL ---
Subjective Interval history: 63 YO Morbidly obese WF, weaned to [place] Anxious to go home Walks to [place] Mild SOB Seen earliar today Sitting up in bed Anxious to go home Physical Exam Vital signs: Vital Signs 11/21/18 20:00 11/21/18 20:42 11/22/18 00:00 Temperature 97.6 F 97.7 F Pulse Rate 82 80 91 H Respiratory Rate 17 14 17 Blood Pressure 166/71 H 155/69 H Pulse Oximetry 95 97 93 L 11/22/18 07:55 11/22/18 08:00 11/22/18 08:40 Temperature 98 F Pulse Rate 84 Respiratory Rate 16 Blood Pressure 164/73 H Pulse Oximetry 100 100 100 Intake & Output 11/22/18 11/22/18 11/23/18 06:59 18:59 06:59 Intake Total 1400 / 1400 100 / 100 Balance 1400 / 1400 100 / 100 Weight 163.5 kg Intake: IV 200 / 200 100 / 100 Azactam Inj 2 GM In NS Inj 100 200 / 200 100 / 100 ML @ 200 mls/hr IV.SIG Q6H LANCE Rx#:[id number] Oral 1200 / 1200 Other: # Voids 4 # Incontinent Voids 2 Date of Last Bowel Movement 11/21/18 GENERAL: Pbese WF,NAD SKIN: Warm and dry. HEAD: Normocephalic. EYES: No scleral icterus. No injection or drainage. NECK: Supple, trachea midline. No JVD or lymphadenopathy. CARDIOVASCULAR: Regular rate and rhythm without murmurs, gallops, or rubs. RESPIRATORY: Breath sounds equal bilaterally. No accessory muscle use. GASTROINTESTINAL: Abdomen soft, non-tender, nondistended. MUSCULOSKELETAL: No cyanosis, or edema. BACK: Nontender without obvious deformity. No CVA tenderness. - Urinary Catheter Management Indwelling Urethral Catheter Cath placed during this visit: yes, but has since been removed by the nurse Reason for continuing: Other continuation reason Insertion date: 11/14/18 Insertion time: 05:41 Removal date: 11/21/18 Removal time: 12:20 Assessment and Plan - Plan IMPRESSION: Obesity hypoventilation synd Likley LUIZ Morbid obesity DM PLAN: Aerosol nebs Wean 02 Decrease Pred 20 mg daily Cont Abx DC plans for home
== END 2018-11-22 12:49 | disposition home health service (06) | DRG 871 ==
LOC: NEPC 01:30 → NEDA 02:29 → N03 04:55 → H7ONC 11-15 12:19 → N03 11-18 12:20 → N07 11-20 17:05 → UNDODISIN 11-22 11:27
PROVIDERS: ADMIT Hospitalist; ATTEND Hospitalist
DX: E11.51 Type 2 diabetes mellitus with diabetic peripheral angiopathy without gangrene; N17.9 Acute kidney failure, unspecified; Z68.44 Body mass index [BMI] 60.0-69.9, adult; J96.22 Acute and chronic respiratory failure with hypercapnia; J96.21 Acute and chronic respiratory failure with hypoxia; G93.41 Metabolic encephalopathy; R33.9 Retention of urine, unspecified; M79.7 Fibromyalgia; E66.2 Morbid (severe) obesity with alveolar hypoventilation; J18.9 Pneumonia, unspecified organism; E03.9 Hypothyroidism, unspecified; Z99.81 Dependence on supplemental oxygen; N18.9 Chronic kidney disease, unspecified; I13.0 Hypertensive heart and chronic kidney disease with heart failure and stage 1 through stage 4 chronic kidney disease, or unspecified chronic kidney disease; Z87.891 Personal history of nicotine dependence; F32.9 Major depressive disorder, single episode, unspecified; J44.1 Chronic obstructive pulmonary disease with (acute) exacerbation; Z79.4 Long term (current) use of insulin; J44.0 Chronic obstructive pulmonary disease with (acute) lower respiratory infection; Z79.82 Long term (current) use of aspirin; E11.42 Type 2 diabetes mellitus with diabetic polyneuropathy; Z96.649 Presence of unspecified artificial hip joint; I50.9 Heart failure, unspecified; E11.65 Type 2 diabetes mellitus with hyperglycemia; E78.5 Hyperlipidemia, unspecified; G47.33 Obstructive sleep apnea (adult) (pediatric); G89.4 Chronic pain syndrome; A41.9 Sepsis, unspecified organism; E11.22 Type 2 diabetes mellitus with diabetic chronic kidney disease
CPT/HCPCS: 36600; 71010; 71045; 71250; 74176; 76937; 80048; 80053; 80202; 81001; 82565; 82805; 82948; 82962; 83520; 83605; 83735; 83880; 84100; 84484; 85025; 85027; 85610; 85730; 87040; 87086; 87275; 87276; 87449; 87633; 87641; 87804; 92610; 93005; 94002; 94640; 94656; 94664; 94665; 97110; 97116; 97163; 99291; G0195; J0360; J0456; J1644; J1815; J1940; J2405; J2920; J2930; J3370; J7030; J7040; J7050; J7506; J7512